=== PATIENT | male | born 1950 | race Caucasian/White ===

== ENCOUNTER 2023-09-09 06:54 | Day surgery (SDC) | payer MEDICARE, SELFPAY ==
[2023-09-09 07:36] LABS: Glucose - Point of Care 115 mg/dl (70-99)
== END 2023-09-09 09:25 | disposition home or self-care (01) ==
LOC: CATH 06:54
PROVIDERS: ATTENDING PHYSICIAN Internal Medicine Cardiovascular Disease; FAMILY PHYSICIAN Family Medicine
DX: I08.1 Rheumatic disorders of both mitral and tricuspid valves (principal); I48.91 Unspecified atrial fibrillation; I44.7 Left bundle-branch block, unspecified; I12.9 Hypertensive chronic kidney disease with stage 1 through stage 4 chronic kidney disease, or unspecified chronic kidney disease; E11.22 Type 2 diabetes mellitus with diabetic chronic kidney disease; N18.31 Chronic kidney disease, stage 3a; E78.5 Hyperlipidemia, unspecified; G47.33 Obstructive sleep apnea (adult) (pediatric); Z87.891 Personal history of nicotine dependence; Z79.82 Long term (current) use of aspirin; Z79.01 Long term (current) use of anticoagulants; Z79.84 Long term (current) use of oral hypoglycemic drugs; Z79.4 Long term (current) use of insulin
CPT/HCPCS: 93312; 93320; 93325; 82962; 92960; 93005

== ENCOUNTER 2023-10-17 14:57 | Outpatient (RCR) | payer MEDICARE, SELFPAY ==
[2023-09-24 10:57] LABS: Glucose - Point of Care 160 mg/dl (70-99)
[2023-10-01 14:39] LABS: Glucose - Point of Care 166 mg/dl (70-99)
[2023-10-01 15:35] LABS: Glucose - Point of Care 141 mg/dl (70-99)
[2023-10-03 14:44] LABS: Glucose - Point of Care 157 mg/dl (70-99)
[2023-10-03 15:37] LABS: Glucose - Point of Care 127 mg/dl (70-99)
[2023-10-06 15:50] LABS: Glucose - Point of Care 93 mg/dl (70-99)
[2023-10-08 14:40] LABS: Glucose - Point of Care 148 mg/dl (70-99)
[2023-10-08 15:27] LABS: Glucose - Point of Care 121 mg/dl (70-99)
[2023-10-10 14:43] LABS: Glucose - Point of Care 172 mg/dl (70-99)
[2023-10-10 15:35] LABS: Glucose - Point of Care 146 mg/dl (70-99)
[2023-10-13 14:56] LABS: Glucose - Point of Care 164 mg/dl (70-99)
[2023-10-13 16:01] LABS: Glucose - Point of Care 125 mg/dl (70-99)
[2023-10-15 15:05] LABS: Glucose - Point of Care 131 mg/dl (70-99)
[2023-10-15 15:49] LABS: Glucose - Point of Care 116 mg/dl (70-99)
[2023-10-17 14:42] LABS: Glucose - Point of Care 169 mg/dl (70-99)
[2023-10-17 15:37] LABS: Glucose - Point of Care 149 mg/dl (70-99)
== END 2023-10-17 23:59 | disposition home or self-care (01) ==
LOC: CRHB 14:57
PROVIDERS: Internal Medicine Cardiovascular Disease; ATTENDING PHYSICIAN Internal Medicine Cardiovascular Disease
DX: I25.10 Atherosclerotic heart disease of native coronary artery without angina pectoris (principal); Z95.5 Presence of coronary angioplasty implant and graft
CPT/HCPCS: 82962; G0422; G0423

== ENCOUNTER 2023-10-20 02:05 | Inpatient (IN) | payer MEDICARE, SELFPAY ==
[2023-10-19 23:37] VITALS: BP 157/114
--- NOTE | 2023-10-19 23:39 | ED.GENMED ---
History of Present Illness
General
Chief Complaint: Fall
Source: patient
Exam Limitations: none
Time Seen by Provider: 10/19/23 23:35
Nursing documentation reviewed up to this point in time: agreed with
History of Present Illness
History of Present Illness:
This a pleasant 73-year-old male brought in by EMS after a trip and fall. He states that his shoe caught on the carpet and he tripped landing on his left hip. He states that he did strike his head but denies loss of consciousness. He is on
Eliquis and Plavix for atrial fibrillation. Patient denies any other injuries. He was unable to ambulate after the fall. He does have chronic back pain and radiculopathy down both legs. He does not feel that this was a factor in his fall.
Past History
Past History
ED Past Medical History: HTN and Hypercholesterolemia
ED Past Surgical History: None
Social History
Tobacco: Non-smoker
Personal:
Living: with family
Family History
Family History: Other (reviewed and non-contributory)
Review of Systems
Review of Systems
Allergies reviewed?: Yes
All Other Systems: ROS reviewed and negative except as documented in HPI and ROS
Constitutional: Reports no symptoms
EENT: Reports no symptoms
Respiratory: Reports no symptoms
Cardiac: Reports no symptoms
ABD/GI: Reports no symptoms
: Reports no symptoms
Musculoskeletal: Reports joint pain and back pain (chronic)
Skin: Reports no symptoms
Neurological: Reports no symptoms
Endocrine: Reports no symptoms
Hematologic/Lymphatic: Reports no symptoms
Psychiatric: Reports no symptoms
Phy Exam
General Physical Exam
General Presentation: well appearing and mild distress (Initially refused pain meds)
General age: appears stated age
General Skin: warm and dry
General Habitus: elderly
General Mental: alert
General Hydration: appears well hydrated
ENT Exam
ENT Exam: EOMI, pharynx normal, neck supple and normocephalic
Eye Exam
Eye Exam: PERRL, cornea clear and conjunctiva normal
Cardiovascular Exam
Cardiovascular Exam: regular rate/rhythm, no edema, no murmur and normal peripheral pulses
Pulmonary Exam
Pulmonary Exam: lungs clear, no respiratory distress, no rales, no crackles, no rhonchi, no stridor, no wheezing and no cough
Gastrointestinal Exam
Gastrointestinal Exam: normal bowel sounds, non tender, soft, no organomegaly, no pulsatile mass and non distended
Neurological Exam
Neurological Exam: alert, oriented x3, no motor deficits and speech normal
Musculoskeletal Exam
Musculoskeletal Exam: back tenderness (chronic) and joint swelling
Skin Exam
Skin Exam: normal color, warm/dry, no rash and no petechia
Psychiatric Exam
Psychiatric Exam: normal mood/affect
Course
Orders/Labs/Results
Orders:
Orders
10/19/23 23:37
Comprehensive Metabolic Panel Urgent
PTT Urgent
Prothrombin Time Urgent
Urinalysis Reflex To Culture Urgent
Date Specimen was Collected: 10/19/23
Time Specimen was Collected: 23:54
10/20/23 00:00
CT Head W/o Iv Contrast Urgent
Reason For Exam: head strike after trip and fall
10/20/23 00:02
CR Hip - LT w/wo Pel 2-3 Vw* Urgent
Reason For Exam: trip, left hip pain
Include a pelvis x-ray?: Yes
10/20/23 00:56
Complete Blood Count/With Diff Urgent
10/20/23 01:04
Morphine Sulfate 4 mg IV NOW STA
Ondansetron Injectable [Zofran] 4 mg IV NOW STA
Abnormal Lab Results
10/20/23
00:04
BUN 35 H mg/dl
(9-20)
Glucose 153 H mg/dl
(70-99)
Calcium 11.3 H mg/dl
(8.4-10.2)
Total Protein 8.4 H g/dl
(6.3-8.2)
Urine Glucose 3+ A
(Negative)
10/20/23 00:04
Vital Signs
Initial and Last Documented VS:
Initial Vital Signs
BP
157/114
10/19/23 23:37
Last Documented Vital Signs
Temp Pulse Resp BP Pulse Ox
97.7 F 58 15 154/95 95
10/19/23 23:41 10/19/23 23:41 10/19/23 23:41 10/20/23 00:00 10/20/23 00:06
*Critical Care Note
Total Time (30-74mins, 75-104mins- exclusive of procedures): Not Applicable
ED Attending Note
-
Portions of this chart may have been created with voice recognition software.� Occasional wrong word or��sound alike� substitutions may have occurred due to the inherent limitations of voice recognition software.
Discharge Plan
Departure
Patient Disposition: Admit
Date of Disposition: 10/20/23
Time of Disposition: 00:55
Presentation/result/management discussed w/ accepting MD/DO: Hospitalist
Condition: Good
Discharge Problem:
Closed fracture of left hip, Fall
Prescriptions:
No Action
atorvastatin 20 MG tablet
80 mg PO DAILY
coenzyme [id number] E 1 CAP capsule
3 cap PO DAILY
multivitamin with folic acid [Tab-A-Verna] 1 TABLET tablet
1 tab PO DAILY
cholecalciferol (vitamin D3) [Vitamin D3] 400 UNITS tablet
400 units PO DAILY
escitalopram oxalate 20 MG tablet
20 mg PO DAILY
levomefolate calcium [L-Methylfolate] 15 MG tablet
15 mg PO DAILY
potassium 99 mg Tablet
99 mg PO DAILY
olmesartan 40 mg Tablet
40 mg PO DAILY
senna-docusate sodium Tablet
1 tab PO DAILY
Eliquis 5 mg Tablet
5 mg PO BID
Jardiance 10 mg Tablet
10 mg PO DAILY
Glucosamine Chondroitin 550-30-1 mg Capsule
2 cap PO DAILY
Levemir U-100 Insulin 1,000 UNITS/10 ML solution
20 units SC HS
clopidogrel [clopidogrel] 75 mg tablet
75 mg PO DAILY Qty: 90 3RF
nitroglycerin [nitroglycerin] 0.4 mg tablet, sublingual
0.4 mg sublingual [id number] PRN (Reason: chest pain) Qty: 25 2RF
Patient Comments:
Pt states never opened/used
ferrous sulfate 325 mg (65 mg iron) Tablet
325 mg PO DAILY
metoprolol succinate 25 mg Tablet Extended Release 24 Hr
25 mg PO DAILY
Referrals:
Misha Henson MD [Family Provider] -
Interventions
Interventions:
*Risk Screen - Suicide Last Done: 10/19/23 23:44
*General Assessment Last Done: 10/19/23 23:44
*Neglect/Abuse Screening Last Done: 10/19/23 23:44
ED- Fall Risk Assessment Last Done: 10/19/23 23:44
*ED COVID-19 Vaccine History Last Done: 10/19/23 23:44
ED-Musculoskeletal Assessment Last Done: 10/19/23 23:44
ED- Neurological Assessment Last Done: 10/19/23 23:44
ED-Skin Assessment Last Done: 10/19/23 23:44
Discharge Date and Time
Print Language: SAMOAN
[2023-10-19 23:41] VITALS: BP 157/114
[2023-10-19 23:44] VITALS: BMI 31.6
[2023-10-20] VITALS (9 sets, daily range): BP systolic 93–155; BP diastolic 52–108; BMI 32.0
[2023-10-20 00:17] LABS: Urine Albumin Trace (Neg - Trace); Urine Bilirubin Negative (Negative); Urine Character Clear (Clear); Urine Color Yellow; Urine Glucose 3+ (Negative); Urine Ketone Negative (Negative); Urine Leukocyte Negative (Negative); Urine Nitrite Negative (Negative); Urine Occult Blood Negative (Negative); Urine Specific Gravity 1.015 (<1.030); Urine Urobilinogen Negative (Neg - 1+)
[2023-10-20 00:27] LABS: INR 1.01; PT 13.1 Sec (11.4-14.6)
[2023-10-20 00:41] LABS: ALT (SGPT) 34 U/L (0-50); AST (SGOT) 31 U/L (17-59); Albumin 4.6 g/dl (3.5-5.0); Alkaline Phosphatase 70 U/L (38-126); Blood Urea Nitrogen 35 mg/dl (9-20); Calcium 11.3 mg/dl (8.4-10.2); Carbon Dioxide 26 mmol/L (22-30); Chloride 105 mmol/L (98-107); Estimated Creatinine Clearance 75 ml/min; Glucose 153 mg/dl (70-99); Potassium 4.5 mmol/L (3.5-5.1); Sodium 144 mmol/L (135-145); Total Bilirubin 0.5 mg/dl (0.2-1.3); Total Protein 8.4 g/dl (6.3-8.2); eGFR > 60.00
[2023-10-20] MEDS: MORPHINE SULFATE 4 MG IV (01:09)
[2023-10-20] MEDS: ZOFRAN 4 MG IV (01:09)
[2023-10-20 01:10] LABS: % Basophils 0.5 % (0-2); % Eosinophils 3.9 % (0-6); % Immature Granulocytes 0.2 % (0-0.5); % Lymphocytes 26.7 % (20.5-51.1); % Monocytes 5.4 % (1.7-9.3); % Neutrophils 63.3 % (42.2-75.2); Absolute Eosinophils 0.3 10^3/uL (0-0.7); Absolute Lymphocytes 1.7 10^3/uL (1.2-3.4); Absolute Monocytes 0.3 10^3/uL (0.1-0.6); Hematocrit 40.3 % (39.0-52.0); Mean Corp Hgb Conc. 34.7 g/dL (33.0-37.0); Mean Corpuscular Hgb 30.5 pg (27.0-31.0); Mean Corpuscular Volume 87.8 fL (80.0-94.0); Mean Platelet Volume 9.4 fL (7.4-10.4); Nucleated Red Blood Cells % 0 % (-); Platelet Count 130 10^3/uL (130-400); Red Blood Cell Count 4.59 10^6/uL (4.70-6.10); Red Cell Dist. Width 12.8 % (11.5-14.5); White Blood Cell Count 6.3 10^3/uL (4.8-10.8)
--- NOTE | 2023-10-20 01:36 | HPS.HSE ---
Family Physician
-
Family Physician: Misha Henson
Chief Complaint
-
Fall and Lt hip pain
History of Present Illness
73M on Plvix & Eliquis, HX Prx AF s/p DC CV ( Aug 2023) HX HFrEF with LVEF 20%, IDDM, CK3a, HLD BiB EMS s/p mechanical fall landing on Lt hip and report head stike. No LOC.
Unable to wt bear and ambulate after the fall.
HX chronic back pain and radiculopathy down both legs.
last dose of Eliquis abd Plavix yesterday
Medical History
Past Medical History
Past Medical History: Reports Other
Additional Past Medical History:
HX Prx AF s/p DC CV in Aug 2023
HX ight internal carotid artery stenosis, 50-69% range.
Essential hypertension.
Hyperlipidemia.
Obstructive sleep apnea on CPAP.
Folic acid deficiency.
Depression.
Melanoma of abdomen and back with azeb
Past Surgical History: Reports Other
Social History
Tobacco: Non-smoker
Personal:
Living: With Family
Family History
Family History: Not pertinent
Allergies / Home Medications
Allergies reflects when Allergies were last updated in [facility].
Home Medications with original date entered in [facility]
Allergy/Medication List:
Allergies
Allergy/AdvReac Type Severity Reaction Status Date / Time
No Known Allergies Allergy Verified 08/08/23 06:48
Home Medications
atorvastatin 20 mg tablet 80 mg PO DAILY High cholesterol 09/26/20
cholecalciferol (vitamin D3) 10 mcg (400 unit) tablet (Vitamin D3) 400 units PO DAILY Supplement 09/26/20
coenzyme [id number] E 100 mg-100 unit capsule 3 cap PO DAILY Supplement 09/26/20
multivitamin with folic acid 400 mcg tablet (Tab-A-Verna) 1 tab PO DAILY Supplement 09/26/20
escitalopram oxalate 20 mg tablet 20 mg PO DAILY Depression 02/25/21
levomefolate calcium 15 mg tablet (L-Methylfolate) 15 mg PO DAILY Depression 02/26/21
apixaban 5 mg tablet (Eliquis) 5 mg PO BID 08/08/23
clopidogrel 75 mg tablet 75 mg PO DAILY #90 tabs 08/08/23
empagliflozin 10 mg tablet (Jardiance) 10 mg PO DAILY 08/08/23
glucosamine sulf dipot chlr,msm,chond 550 mg-C 30 mg-rupali 1 mg capsule (Glucosamine Chondroitin) 2 cap PO DAILY 08/08/23
insulin detemir U-100 100 unit/mL subcutaneous solution (Levemir U-100 Insulin) 20 units SC HS 08/08/23
nitroglycerin 0.4 mg sublingual tablet 0.4 mg sublingual [id number] PRN chest pain #25 tabs 08/08/23
olmesartan 40 mg tablet 40 mg PO DAILY 08/08/23
potassium 99 mg tablet 99 mg PO DAILY 08/08/23
senna-docusate sodium tablet 1 tab PO DAILY 08/08/23
ferrous sulfate 325 mg (65 mg iron) tablet 325 mg PO DAILY 09/09/23
metoprolol succinate 25 mg tablet,extended release 24 hr 25 mg PO DAILY 09/09/23
Review of Systems
-
Constitutional: Reports No Symptoms
EENT: Reports No Symptoms
Respiratory: Reports No Symptoms
Cardiac: Reports No Symptoms
Abdomen/GI: Reports No Symptoms
: Reports No Symptoms
Musculoskeletal: Reports See HPI
Skin: Reports No Symptoms
Neurological: Reports No Symptoms
Endocrine: Reports No Symptoms
Hematologic/Lymphatic: Reports No Symptoms
Psych: Reports No Symptoms
Physical Exam
Vital Signs
Vital Signs
Temp Pulse Resp BP Pulse Ox
97.7 F 58 15 154/95 95
10/19/23 23:41 10/19/23 23:41 10/19/23 23:41 10/20/23 00:00 10/20/23 00:06
Physical Exam
General: Well Developed, Appears in Distress (mild ) and Pain (refuse pain med)
HEENT: NormoCephalic, Anicteric and PERRLA
Respiratory: Clear; No Wheezes, Rales or Rhonchi
Cardiac: S1/S2, Regular Rhythm and Bradycardia
Breast: Deferred by me
GI: Soft, Non Tender, Non Distended and Normal Bowel Sounds
Genito-urinary: Deferred by me
Musculoskeletal: No Edema
Skin: Warm and Dry
Neuro: AO x 3
Psych: Calm
Laboratory Results
-
10/20/23 01:04
10/20/23 00:04
Laboratory Results
PT 13.1 Sec (11.4-14.6) 10/20/23 00:04
INR 1.01 10/20/23 00:04
APTT 30.0 Sec (23.4-35.0) 10/20/23 00:04
Total Bilirubin 0.5 mg/dl (0.2-1.3) 10/20/23 00:04
AST 31 U/L (17-59) 10/20/23 00:04
ALT 34 U/L (0-50) 10/20/23 00:04
Alkaline Phosphatase 70 U/L (38-126) 10/20/23 00:04
Data Reviewed
-
Diagnostic Radiology: Image Personally Visualized and interpreted
CT Scan: Report Reviewed by me
Lab Data: Labs Reviewed by me
Old Records: Reviewed
Impression/Plan
-
Reviewed VS: HR 58 on BB 155/95 RR15 POX 95
Data
nl CBC
BUN 35
Cr 1.2
eGFR > 60
BG 153
Ca 11.3 - baseline 9-10
NEG UA
Hip XR: Acute Lt hip Fx
HCT: No acute process
09/09/23 KIANA for DC CV of symptomatic AF : Restore NSR
LVEF 20%
08/10/23 TTE
LVEF 20%
Global hypokinesis.
Mild/mod MR
Enlarged right ventricular size. Normal right ventricular systolic function.
Mildly elevated PASP. Estimated pulmonary artery pressure of 41 mmHg, assuming a right atrial pressure of 8 mmHg.
Last hospitalist admission: 02/26/21 - 03/02/21
Rt Radha cellulitis c/b sepsis. ANN on CKD 3a
ASSESSMENT & PLAN
Acute Lt hip Fx s/p fall
Last Eliquis and Plavix yesterday
Extensive Cardiac HX : Chr HFrEF, LVEF 20, Prx AF
RCRI index Class III 10.1 % 30 day risk of , TN or cardiac arrst
- Held Plavix & Eliquis
- EKG
- Fx set protocol
- will keep on clear
- Pre Op CBC card consult
- Ortho consult: Likely OR Friday
Current e GFR > 60
HX of CKD3 likely from diabetic nephropathy: Baseline: Cr 1.6 on Sep 09
- No longer Olmesartan
- cont. Lasix
- Observe Cr
Hypercalcemia 11.3
- held HCTZ
- check iPTH
- Trend Ca in AM
HX IDDM
- cont PT Levemir and aspart regime
- add ISS low
HX Right ICA stenosis - 50-69% range
09/25/20 Brain MRI showing 2 mm area of questionable artifact vs subacute cva on left frontal lobe.
- Lipitor
- Held Plavix for pending OR
Essential HTN
- no longer on Olmesartan
- add IV Hydralazine prn
Hyperlipidemia
- cont Lipitor
DEBORAH on CPAP
- f/u with Dr Russell
- compliant per family
Folic acid def
Depression
Melanoma abd and back with removal
DVT PPX - SQH
Full code
IP TLM
[2023-10-20] MEDS: DILAUDID 0.25 MG IV ×3 (03:28→23:20)
--- NOTE | 2023-10-20 03:36 | RESPNOTE ---
Pt has own machine. Alex not signed as pt is in severe pain and will not use the cpap machine as of now.
[2023-10-20] MEDS: TYLENOL PO (04:41)
[2023-10-20] MEDS: FLOMAX 0.400000000000000022 MG PO (07:14)
[2023-10-20 08:20] LABS: Glucose - Point of Care 179 mg/dl (70-99)
--- NOTE | 2023-10-20 08:20 | W.PN.UPDATE ---
Update Note
Progress Note Update
Saw and examined patient this morning.
Plan for OR tomorrow for left hip esther arthroplasty for femoral neck fracture
Formal consult note to follow
[2023-10-20] MEDS: TOPROL XL 25 MG PO (08:54)
[2023-10-20] MEDS: JARDIANCE 10 MG PO (08:55)
[2023-10-20] MEDS: LEXAPRO 20 MG PO (08:55)
[2023-10-20] MEDS: TYLENOL 650 MG PO ×4 (08:55→20:21)
[2023-10-20] MEDS: LIPITOR 80 MG PO (08:55)
--- NOTE | 2023-10-20 10:17 | CM ---
Reviewed the chart notes and spoke with the patient at the beside. The patient resides alone in a two story home with two steps to enter. The patient's spouse passed in July. The patient report having a rolling walker in the home which was his
's. The patient has had [facility] in the past and been to [facility]. The patient confirmed his pharmacy of choice is the [facility]. The patient's discharge plans will depend on the patient's progress. The patient anticipates going to the
OR tomorrow for hip fx repair. CM continues to be available to patient/family and is monitoring medical plan for needs at discharge.
Plan: Discharge plans will depend on the patient's progress. May need SNF.
--- NOTE | 2023-10-20 11:09 | CON.CAR ---
Addendum entered and electronically signed by Lee Vanegas MD 10/20/23 12:02:
The plan should read: resume Eliquis and Plavix as soon as it is reasonable from the orthopedic perspective.
The patient reports that he is on Entresto.
We will watch and resume Entresto as he recovers from surgery.
We may add Aldactone during this index hospitalization.
Original Note:
Medical History
-
Chief Complaint: Left hip pain status post fall
History of Present Illness:
PCP Sky Hidalgo
[employer] Rad Brooks
Thank you for requesting cardiovascular consultation for a preop risk assessment. He is a 73-year-old gentleman with longstanding diabetes and hypertension. More recently an ischemic cardiomyopathy with two-vessel CAD was found when he was
evaluated for new atrial fibrillation. Cardiomyopathy was found. Medications have been adjusted. He continues to have class 1(at most 2 symptoms). He tolerated stenting of the proximal LAD recently (08/08/2023). No angina. Mild dyspnea exertion
could be class I or II symptoms.
He had a slip and fall/mechanical. No concerns for syncope. Fractured his left proximal femur. Scheduled for surgery tomorrow. Cardiac risk assessment requested.
Past Medical History
Past Medical History: Arrhythmias, CAD, CHF, HTN and NIDDM
Past Surgical History: Cholecystectomy
Social History
Tobacco: Former Smoker
Employment: Retired
Family History
Family History: Other (No premature CAD in first-degree relatives.)
Allergies / Home Medications
Allergy/AdvReac Type Severity Reaction Status Date / Time
No Known Allergies Allergy Verified 08/08/23 06:48
�Medication �Instructions �Recorded �Confirmed �Type
atorvastatin 20 mg tablet 80 mg PO DAILY High cholesterol 09/26/20 09/09/23 History
cholecalciferol (vitamin D3) 10 400 units PO DAILY Supplement 09/26/20 09/09/23 History
mcg (400 unit) tablet (Vitamin D3)
coenzyme [id number]-[id number] E 100 mg-100 3 cap PO DAILY Supplement 09/26/20 09/09/23 History
unit capsule
multivitamin with folic acid 400 1 tab PO DAILY Supplement 09/26/20 09/09/23 History
mcg tablet (Tab-A-Verna)
escitalopram oxalate 20 mg tablet 20 mg PO DAILY Depression 02/25/21 09/09/23 History
levomefolate calcium 15 mg tablet 15 mg PO DAILY Depression 02/26/21 09/09/23 History
(L-Methylfolate)
apixaban 5 mg tablet (Eliquis) 5 mg PO BID 08/08/23 09/09/23 History
clopidogrel 75 mg tablet 75 mg PO DAILY #90 tabs 08/08/23 09/09/23 Rx
empagliflozin 10 mg tablet 10 mg PO DAILY 08/08/23 09/09/23 History
(Jardiance)
glucosamine sulf dipot 2 cap PO DAILY 08/08/23 09/09/23 History
chlr,msm,chond 550 mg-C 30 mg-rupali
1 mg capsule (Glucosamine
Chondroitin)
insulin detemir U-100 100 unit/mL 20 units SC HS 08/08/23 09/09/23 History
subcutaneous solution (Levemir
U-100 Insulin)
nitroglycerin 0.4 mg sublingual 0.4 mg sublingual [id number] PRN 08/08/23 09/09/23 Rx
tablet chest pain #25 tabs
olmesartan 40 mg tablet 40 mg PO DAILY 08/08/23 09/09/23 History
potassium 99 mg tablet 99 mg PO DAILY 08/08/23 09/09/23 History
senna-docusate sodium tablet 1 tab PO DAILY 08/08/23 09/09/23 History
ferrous sulfate 325 mg (65 mg 325 mg PO DAILY 09/09/23 09/09/23 History
iron) tablet
metoprolol succinate 25 mg 25 mg PO DAILY 09/09/23 09/09/23 History
tablet,extended release 24 hr
Review of Systems
-
Constitutional: Fatigue
Respiratory: No Symptoms
Cardiac: No Symptoms
Abdomen/GI: No Symptoms
Musculoskeletal: Joint Pain
Neurological: No Symptoms
Physical Exam
Vital Signs
Temp Pulse Resp BP Pulse Ox
98 F 98 20 116/78 96
10/20/23 07:16 10/20/23 08:54 10/20/23 07:16 10/20/23 08:54 10/20/23 07:16
Lab Results
10/20/23 01:04
10/20/23 00:04
Physical Exam
General: Well Developed and Well Nourished
HEENT: Normocephalic
Respiratory: Clear
Cardiac: S1/S2, Irregular Rhythm and Other (No murmur no peripheral edema)
GI: Soft and Non Tender
Musculoskeletal: No Edema
Skin: Warm and Dry
Neuro: AO x 3
Psych: Calm
Impression / Plan
-
Preop Risk Assessment
- Elevated but not prohibitive risk
- OK to proceed with usual care
- Resume Eliquis and Plavix
- Will give ASA 324 now and 81 mg daily until Plavix and Eliquis can be resumed
Fracture, neck, proximal left femur
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
- NHYA class 1-2
- On ARNI, HF BB, SGLT-Inhibitor. Plans for MRA initiation
- Not on loop diuretic
CAD
- Cath/PCI 08/08/2023: LVEDP 20, LVEF 15-20%, 70 pLAD, 50 ostial D1, 100% pRCA, 30-40% pLCx. PCI/MAINE to pLAD
- No angina
- Plan OAT+Plavix one year post PCI
AFib, persistent, recurred quickly after KIANA/DCCV on 09/09/2023
- [id number] (HF, HTN, DM, age2, vascular disease)
- Rate OK on BB
- Patient considering pursuing ablation
Mild to moderate MR
IVCD (atyp LBBB), LAD, QRS 128-142,
DM
HTN
Chronic R LE edema
Hx sleep apnea
BMI 32
Mixed hyperlipidemia, goal LDL < 55. Last LDL 91 on 09/02/2023. On high intensity statin now
Subjective:
No CP or dyspnea
Data Reviewed
-
EKG: Tracing Personally Visualized and interpreted (A-fib 129 bpm. IVCD. QRS 120 ms.)
Radiology: Image Personally Visualized and interpreted (Hip x-ray I visualized the fracture of the neck of the proximal left femur)
Ultrasound: Other (Echo reviewed report 08/01/2023 LVEF 20% global hypomild to moderate MR. Dilated RV with normal function. Mild elevation of the RA and PA pressures)
Medical Tests (Nuc Med, Echo etc): Other (Cardiac cath as described above. Report reviewed. Double vessel disease. Proximal LAD stent. July 2023)
Total Time Spent with Patient (in minutes): 80min, review of records, examine, prepare document
[2023-10-20] MEDS: ASPIRIN 325 MG PO (11:36)
[2023-10-20 12:04] LABS: Glucose - Point of Care 218 mg/dl (70-99)
[2023-10-20 16:39] LABS: Glucose - Point of Care 223 mg/dl (70-99)
--- NOTE | 2023-10-20 16:48 | W.PN.UPDATE ---
Update Note
Progress Note Update
non billable note
pt seen
son updated
pt/family interested in abad rehab if possible post discharge
apprec cards/ortho help
--- NOTE | 2023-10-20 20:20 | CON.ORTHO ---
Consultation
-
Date/Time Consultation Requested: 1 AM 10/20/2023
Date/Time Consultation Performed: 745 AM 10/20/2023
Requesting Provider: Yamileth
Performing Provider: Krista
Reason for Consultation: left femoral neck fracture
Consultation - Orthopedics
History
HPI: 73-year-old male presents to the emergency department status post fall with complaints of left hip pain. He was subsequently diagnosed with left femoral neck fracture and admitted to the hospital service. Orthopedics was consulted for further
evaluation and treatment. Patient reports that he got his foot caught on some carpet at home. He localizes pain to the left groin. Pain is made worse with direct palpation of affected area with any attempted ambulation. Does have a significant
cardiac history recently underwent stenting procedure in July. Unfortunately also reports that his from a long moore with cancer earlier this year. He does not report using cane or walker for ambulatory assistance but he does
report that he is quite sedentary at baseline. He denies any pre-existing left hip or groin pain. He does report that his most recent dose of Eliquis was 10/18/2023
Allergies / Home Medications
Past medical history: Hypertension, hypercholesterolemia, coronary artery disease, melanoma, depression, A-fib
Past surgical history: Cardiac stenting
Family history: Not pertinent
Social history:
Allergy/AdvReac Type Severity Reaction Status Date / Time
No Known Allergies Allergy Verified 08/08/23 06:48
�Medication �Instructions �Recorded
atorvastatin 20 mg tablet 80 mg PO DAILY High cholesterol 09/26/20
cholecalciferol (vitamin D3) 10 400 units PO DAILY Supplement 09/26/20
mcg (400 unit) tablet (Vitamin D3)
coenzyme W92-[id number] E 100 mg-100 3 cap PO DAILY Supplement 09/26/20
unit capsule
multivitamin with folic acid 400 1 tab PO DAILY Supplement 09/26/20
mcg tablet (Tab-A-Verna)
escitalopram oxalate 20 mg tablet 20 mg PO DAILY Depression 02/25/21
levomefolate calcium 15 mg tablet 15 mg PO DAILY Depression 02/26/21
(L-Methylfolate)
apixaban 5 mg tablet (Eliquis) 5 mg PO BID 08/08/23
clopidogrel 75 mg tablet 75 mg PO DAILY #90 tabs 08/08/23
empagliflozin 10 mg tablet 10 mg PO DAILY 08/08/23
(Jardiance)
glucosamine sulf dipot 2 cap PO DAILY 08/08/23
chlr,msm,chond 550 mg-C 30 mg-rupali
1 mg capsule (Glucosamine
Chondroitin)
insulin detemir U-100 100 unit/mL 20 units SC HS 08/08/23
subcutaneous solution (Levemir
U-100 Insulin)
nitroglycerin 0.4 mg sublingual 0.4 mg sublingual [id number] PRN 08/08/23
tablet chest pain #25 tabs
olmesartan 40 mg tablet 40 mg PO DAILY 08/08/23
potassium 99 mg tablet 99 mg PO DAILY 08/08/23
senna-docusate sodium tablet 1 tab PO DAILY 08/08/23
ferrous sulfate 325 mg (65 mg 325 mg PO DAILY 09/09/23
iron) tablet
metoprolol succinate 25 mg 25 mg PO DAILY 09/09/23
tablet,extended release 24 hr
Vital Signs / Lab Results
Temp Pulse Resp BP Pulse Ox
97.9 F 72 16 104/52 97
10/20/23 19:12 10/20/23 19:12 10/20/23 19:12 10/20/23 19:12 10/20/23 19:12
10/20/23 01:04
10/20/23 00:04
10 point review systems reviewed and negative unless otherwise stated
General: Pleasant, no acute distress
Musculoskeletal left lower extremity
Skin intact, no erythema, no ecchymotic staining
Extremity shortened externally rotated
Tenderness palpation over groin and lateral trochanteric flare
Pain with logroll
Positive EHL, FHL, ankle dorsiflexion, plantarflexion
Sensation intact to light touch all distributions distally
Brisk cap refill distally
No other areas of bony tenderness palpation or crepitation on tertiary examination of long bones and joints
Diagnostic studies
X-rays left hip show displaced left femoral neck fracture
Assessment / Plan
73-year-old male cardiac history status post fall with left displaced femoral neck fracture. I do long detailed discussion the patient regarding diagnosis and treatment options. We discussed both surgical and nonsurgical options. After
discussion, we mutually elected to proceed with left hip hemiarthroplasty. We did specifically discuss both total hip arthroplasty as well as hemiarthroplasty. Given the patient's lack of pre-existing degenerative joint disease as well as his
relatively sedentary lifestyle and inactivity, my recommendation proceed with left hip hemiarthroplasty and he was in agreement with this. We discussed risks benefits and alternatives of surgery. We discussed the usual expected perioperative and
postoperative course. After discussion, written informed consent will be obtained.
Nonweightbearing left lower extremity
PT OT: Deferred until postoperative setting
DVT prophylaxis: Please hold in preparation for OR
N.p.o. at midnight
Pain control
Medical management per primary team
Plan: 2 OR tomorrow for left hip hemiarthroplasty pending medical/cardiac clearance in OR availability
[2023-10-20] MEDS: COLACE 100 MG PO (20:21)
[2023-10-20] MEDS: SENOKOT 17.1999999999999993 MG PO (20:21)
[2023-10-20 21:34] LABS: Glucose - Point of Care 109 mg/dl (70-99)
[2023-10-21] VITALS (11 sets, daily range): BP systolic 82–138; BP diastolic 47–86; BMI 32.3
[2023-10-21] MEDS: TYLENOL PO ×6 (00:34→20:03)
[2023-10-21 06:48] LABS: % Basophils 0.5 % (0-2); % Eosinophils 7.5 % (0-6); % Immature Granulocytes 0.4 % (0-0.5); % Neutrophils 66.6 % (42.2-75.2); Absolute Eosinophils 0.6 10^3/uL (0-0.7); Absolute Lymphocytes 1.4 10^3/uL (1.2-3.4); Absolute Monocytes 0.5 10^3/uL (0.1-0.6); Absolute Neutrophils 5.2 10^3/uL (1.4-6.5); Hematocrit 38.8 % (39.0-52.0); Mean Corp Hgb Conc. 33.5 g/dL (33.0-37.0); Mean Corpuscular Hgb 30.4 pg (27.0-31.0); Mean Corpuscular Volume 90.7 fL (80.0-94.0); Nucleated Red Blood Cells % 0 % (-); Platelet Count 117 10^3/uL (130-400); Red Blood Cell Count 4.28 10^6/uL (4.70-6.10); Red Cell Dist. Width 12.8 % (11.5-14.5); White Blood Cell Count 7.7 10^3/uL (4.8-10.8)
[2023-10-21 06:48] LABS: Glucose - Point of Care 252 mg/dl (70-99)
[2023-10-21 07:22] LABS: ALT (SGPT) 27 U/L (0-50); AST (SGOT) 29 U/L (17-59); Albumin 3.5 g/dl (3.5-5.0); Alkaline Phosphatase 65 U/L (38-126); Blood Urea Nitrogen 37 mg/dl (9-20); Calcium 9.9 mg/dl (8.4-10.2); Carbon Dioxide 24 mmol/L (22-30); Chloride 107 mmol/L (98-107); Estimated Creatinine Clearance 63 ml/min; Glucose 124 mg/dl (70-99); Potassium 4.1 mmol/L (3.5-5.1); Sodium 136 mmol/L (135-145); Total Bilirubin 1.1 mg/dl (0.2-1.3); Total Protein 6.6 g/dl (6.3-8.2); eGFR 52.41
[2023-10-21] MEDS: LOW STRENGTH ASPIRIN PO (07:36)
[2023-10-21] MEDS: LIPITOR 80 MG PO (07:37)
[2023-10-21] MEDS: LEXAPRO 20 MG PO (07:37)
[2023-10-21] MEDS: SENOKOT 17.1999999999999993 MG PO ×2 (07:37→19:56)
[2023-10-21] MEDS: JARDIANCE 10 MG PO (07:37)
[2023-10-21] MEDS: COLACE 100 MG PO ×2 (07:37→19:56)
[2023-10-21] MEDS: TOPROL XL 25 MG PO (07:38)
--- NOTE | 2023-10-21 08:00 | PTCARENOTE ---
Addendum entered by Alise Magana RN 10/21/23 08:17:
Dr Wren and Dr Velasco notified, care remains ongoing.
Original Note:
Patient refused aspirin and tylenol this AM. Patient educated on medication purpose. Patient refused teaching and stated, 'it is just another NSAID and they are over prescribed'. RN to continue to reinforce.
--- NOTE | 2023-10-21 08:23 | W.PN.CD ---
Today's Communication / Plan
-
will continue 81 mg daily until Plavix and Eliquis can be resumed
resume olmesartan post op in lieu of Entresto
Impression / Plan
-
Preop Risk Assessment
- Elevated but not prohibitive risk
- OK to proceed with usual care
-Received ASA 324 now and will continue 81 mg daily until Plavix and Eliquis can be resumed
Fracture, neck, proximal left femur
-OR today
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
- NHYA class 1-2
- GDMT: HF BB, SGLT-Inhibitor. He reports he cannot afford Entresto.Will transition back to olmesartan 40mg post op. In the future will plan for MRA initiation
- Not on loop diuretic
CAD
- Cath/PCI 08/08/2023: LVEDP 20, LVEF 15-20%, 70 pLAD, 50 ostial D1, 100% pRCA, 30-40% pLCx. PCI/MAINE to pLAD
- No angina
- Plan OAT+Plavix one year post PCI
AFib, persistent, recurred quickly after KIANA/DCCV on 09/09/2023
- [id number] (HF, HTN, DM, age2, vascular disease)
- Rate OK on BB
- Patient considering pursuing ablation
-Resume Eliquis when able
Mild to moderate MR
IVCD (atyp LBBB), LAD, QRS 128-142,
DM
HTN
Chronic R LE edema
Hx sleep apnea
BMI 32
Mixed hyperlipidemia, goal LDL < 55. Last LDL 91 on 09/02/2023. On high intensity statin now
Subjective:
No CP or dyspnea, pain in the hip anxious for surgery
Physical Exam
Vital Signs/Labs
Vital Signs
Temp Pulse Resp BP Pulse Ox
98.5 F 69 18 138/86 96
10/21/23 07:39 10/21/23 07:39 10/21/23 07:39 10/21/23 07:39 10/21/23 07:39
10/20/23 10/21/23 10/22/23
06:59 06:59 06:59
Actual Weight 116.148 kg 117.254 kg
10/21/23 04:51
10/21/23 04:51
PT 13.1 Sec (11.4-14.6) 10/20/23 00:04
INR 1.01 10/20/23 00:04
APTT 30.0 Sec (23.4-35.0) 10/20/23 00:04
Physical Exam
Constitutional: No acute distress
Cardiovascular: Rhythm & rate is regular, Pedal edema is absent, JVD pressure is normal, Systolic murmur absent and Diastolic murmur absent
Respiratory: Respiratory effort normal, Lungs clear to auscul., Wheeze Absent and Rhonchi Absent
Neuro/Psych: AO x 3
Data Reviewed
-
Date of Service: October 21, 2023
--- NOTE | 2023-10-21 08:32 | W.PN.HOSP.TC ---
Today's Communication/Plan
-
add Protonix
start D5W1/2NS
Assessment / Plan
Assessment / Plan
Acute Lt hip Fx s/p fall
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
Extensive Cardiac HX : Chr HFrEF, LVEF 20%, Prx AF
RCRI index Class III 10.1 % 30 day risk of , NV or cardiac arrest
- Held Plavix & Eliquis
- admission EKG: SINUS TACHYCARDIA WITH FUSION COMPLEXES
LEFT AXIS DEVIATION
NON-SPECIFIC INTRA-VENTRICULAR CONDUCTION BLOCK
CANNOT RULE OUT SEPTAL INFARCT , AGE UNDETERMINED
ABNORMAL ECG
WHEN COMPARED WITH ECG OF 09-SEP-2023 08:38,
FUSION COMPLEXES ARE NOW PRESENT
ND INTERVAL HAS DECREASED
VENT. RATE HAS INCREASED BY 65 BPM
T WAVE INVERSION LESS EVIDENT IN LATERAL LEADS
- Fx set protocol
- will keep on clear
- Pre Op CBC card consult appreciated
- Ortho consult: OR scheduled 11AM 10/20
Current e GFR > 60
HX of CKD3 likely from diabetic nephropathy: Baseline: Cr 1.6 on Sep 09
- No longer Olmesartan
- cont. Lasix
- Observe Cr
Hypercalcemia resolved 11.3-->9.9
- held HCTZ
- check iPTH
HX IDDM
- cont PT Levemir and aspart regime
- add ISS low
will add low dose D51/2NS as pt will be NPO
HX Right ICA stenosis - 50-69% range
09/25/20 Brain MRI showing 2 mm area of questionable artifact vs subacute cva on left frontal lobe.
- Lipitor
- Held Plavix for pending OR
Essential HTN
- no longer on Olmesartan
- add IV Hydralazine prn
Hyperlipidemia
- cont Lipitor
DEBORAH on CPAP
- f/u with Dr Russell
- compliant per family
Folic acid def
Depression
Melanoma abd and back with removal
full code
will add low dose Protonix prophylactic
Anticipated Discharge: > 48 hours
Subjective/Interval History
-
Date of Service: October 21, 2023
In good spirits
Objective Data
-
Labs:
Laboratory Results
10/21/23
04:51
WBC 7.7
Hgb 13.0
Hct 38.8 L
Plt Count 117 L
Sodium 136 D
Potassium 4.1
Chloride 107
Carbon Dioxide 24
BUN 37 H
Creatinine 1.4 H
Glucose 124 H
Calcium 9.9
Total Bilirubin 1.1
AST 29
ALT 27
Alkaline Phosphatase 65
Vital Signs:
Vital Signs
Temp Pulse Resp BP Pulse Ox
98.5 F 69 18 138/86 96
10/21/23 07:39 10/21/23 07:39 10/21/23 07:39 10/21/23 07:39 10/21/23 07:39
I&O
10/20/23 10/21/23 10/22/23
06:59 06:59 06:59
Intake Total 660 / 660
Output Total 1230 / 1230
Balance -570 / -570
Review of Systems
-
History Source: Patient and Coordinated Provider
Constitutional: Denies Fever
EENT: Reports No Symptoms Reported
Respiratory: Reports No Symptoms; Denies Trouble Breathing
Cardiac: Reports No Symptoms; Denies Chest Pain
Abdomen/GI: Reports No Symptoms
Genitourinary: Reports No Symptoms
Musculoskeletal: Reports Joint Pain
Neuro: Reports No Symptoms
Physical Exam
-
General: Well Developed, Well Nourished and No Apparent Distress
HEENT: Normocephalic, Atraumatic and Moist Mucous Membranes
Respiratory: Clear to Auscultation; Negative Wheezes, Rales or Rhonchi
Cardiac: S1/S2 and Irregular Rhythm
GI: Nontender and Nondistended
Musculoskeletal: No Clubbing, No Cyanosis and No Edema
Neuro: Awake, Alert and Oriented
[2023-10-21] MEDS: NSS (PRESERVATIVE FREE) 10 ML IV (09:02)
[2023-10-21] MEDS: PROTONIX IV 40 MG IV (09:03)
[2023-10-21] MEDS: D5/0.45%NSS with KCL 10 MEQ 1000 IV (09:03)
[2023-10-21 12:39] LABS: Glucose - Point of Care 174 mg/dl (70-99)
--- NOTE | 2023-10-21 13:38 | CM ---
Reviewed the chart notes. Patient to OR today for hip fx repair. CM continues to be available to patient/family and is monitoring medical plan for needs at discharge.
Plan: Most likely SNF/rehab when medically stable.
--- NOTE | 2023-10-21 15:44 | OR.RPT ---
Operative Report
Operative Report
Anesthesia Type:
General
Operative Indications:
Displaced left femoral neck fracture
Operative Findings :
Displaced transcervical femoral neck fracture left
Complications:
None
Implants:
Rowan LD fracture size 14 cemented femoral stem, size 53 bipolar shell, 28+7 mm head
Procedure and Technique:
Left hip hemiarthroplasty
INDICATIONS FOR PROCEDURE:
73-year-old male significant cardiac history presented to the [place] emergency department status post mechanical fall. He was subsequently diagnosed with a displaced left femoral neck fracture. He was admitted to the hospitalist service and
orthopedics was consulted for further evaluation and treatment. I had a long discussion the patient regarding diagnosis and treatment options. We discussed both surgical and nonsurgical options. Patient denies any previous groin pain and had a
self-proclaimed sedentary lifestyle. Given his lifestyle, fracture pattern, my recommendation was to proceed with left hip hemiarthroplasty. We discussed risks benefits and alternatives of surgery. We discussed the usual expected perioperative
and postoperative course. After our discussion, verbal and written consent was obtained
OPERATIVE PROCEDURE:
Patient was seen identified in the preoperative holding area. Operative extremity was marked. All questions were addressed. He was taken to the operating room where he was placed in lateral decubitus position with the use of a beanbag on the OR
table. General anesthesia was administered. Operative extremity was prepped and draped in a normal sterile fashion. Timeout was performed again identifying the correct operative extremity. Preoperative antibiotics were addressed. Standard
posterolateral approach to the hip was taken. Sharp dissection was carried through skin subcutaneous tissues deep fascial layer. Extremity was slightly internally rotated to place short external rotators on stretch. Piriformis and short external
rotators were tagged and taken off sharply from the greater trochanter. T capsulotomy was performed and capsular leaflets were tagged. Femoral neck fracture was identified. Femoral head was able to be removed. Freshen up cut was then performed.
Size 55 bipolar shell was chosen and found to have adequate suction fit. Attention was then turned to the femur where soft tissue was removed from the piriformis fossa. Canal finder cookie cutter were used in addition to lateralizing reamer.
Stepwise broaching was performed to a size 14. Broach was removed and the femoral canal was prepared for cementing. Canal restrictor was placed. Femoral stem was then inserted into the femoral canal appropriate anteversion after pressurized
cementing. After cement hardened, trialing proceeded with both a size +3.5 and +7 head and size 7 head was found to restore appropriate length. There continued to be some instability with shuck and the head actually disassociated from the
acetabular shell. decision was made to downsize the bipolar shell to a size 53. Hip was taken through range of motion and deep flexion, adduction, shuck and extension found to be appropriately stable. Final head and shell were placed and again
appropriate stability was achieved. Satisfied with extent surgery, wounds copiously irrigated normal saline solution. Diluted Betadine rinse was also utilized. The short external rotators and piriformis in addition to capsular leaflets were then
repaired through osseous tunnels in the greater trochanter nonabsorbable Ethibond suture. Wounds were then closed in a layered fashion utilizing #1 Vicryl for deep fascial layer, 2-0 Vicryl for subcutaneous layer josie for skin. Aquacel dressing
was placed. Anesthesia was reversed patient was taken to PACU in stable condition. Postoperative plans will include weightbearing the patient's tolerance operative extremity. Will resume previously prescribed Eliquis daily for DVT prophylaxis.
Will recommend posterior hip precautions. Plan to see patient back in 2 to 3 weeks for repeat evaluation with planned removal of josie.
Disposition:
PACU stable condition
--- NOTE | 2023-10-21 16:33 | SUR.PHASEI ---
Patient disgruntled and uncooperative, removing monitors , oxygen, [id number] to situation. heart rate 120-130 on admit, Dr Torres informed. 200ml fluid bolus ordered. X-rays done with difficulty. rt leg circulation wnl, dressing dry. E C
elieser COLDFUSION.
[2023-10-21 16:51] LABS: Glucose - Point of Care 156 mg/dl (70-99)
[2023-10-21] MEDS: NSS 1000 IV (16:52)
[2023-10-21] MEDS: NOVOLOG FLEXPEN-LOW RESISTANCE SC (17:12)
[2023-10-21 17:24] LABS: Glucose - Point of Care 154 mg/dl (70-99)
--- NOTE | 2023-10-21 17:53 | PTCARENOTE ---
Addendum entered by Alise Magana RN 10/21/23 18:44:
Dr Simms made aware. No new orders at this time. Will continue to monitor.
Original Note:
1700: Patient arrived back to 2S. Neurovascular assessment completed. Doppler needed to assess L dorsal pedis pulse. Weak R dorsal pedis pulse. Patient very lethargic, but arouses to voice. 10L simple face mask on. SpO2 greater than 92%. IV fluids
running per order. L hip aquacell dressing in tact with small amount of old drainage. Call padgett within reach and bed in lowest position.
1745: A fib RVR on monitor. HR in the 140's Dr. Rg made aware.
1757: A fib RVR on monitor. HR in the 160's. Dr. Rg made aware.
[2023-10-21] MEDS: NOVOLOG FLEXPEN-LOW RESISTANCE 1 UNITS SC (18:24)
[2023-10-21] MEDS: ANCEF 5 IV (19:56)
[2023-10-21 22:57] LABS: Glucose - Point of Care 182 mg/dl (70-99)
[2023-10-21] MEDS: LEVEMIR 0.200000000000000011 UNITS SC (22:57)
[2023-10-22] VITALS (14 sets, daily range): BP systolic 87–144; BP diastolic 51–69; PULSE 101–171; O2SAT 98
[2023-10-22] MEDS: TYLENOL PO (00:09)
[2023-10-22] MEDS: TYLENOL 650 MG PO ×6 (01:08→20:55)
--- NOTE | 2023-10-22 01:42 | PTCARENOTE ---
Attempted to get pt oob to commode, pt HR increase to 180's in sitting position, patient STONE and at rest. Pt denies feeling heart race, dizziness, or SOB, patients color remains the same from the start of the shift, skin pale and lips pale. patient
on 4l O2 93-94%. pt assisted back to bed. HR returning to 115-120's
--- NOTE | 2023-10-22 01:48 | PTCARENOTE ---
patient refusing tylenol all day and evening doses, now agreeable after moving and experiencing pain 09/27. Patient instructed on need for pain med in order to be able to move, patient verb understanding but states ' I worry about the kidney damage
it can cause' Reassured patient that it is not going to be retirement use and well managed pain is needed for movement. patient agreeable to taking tylenol as ordered.
--- NOTE | 2023-10-22 02:35 | PTCARENOTE ---
Vikas at bs to see patient, reviewing EKG
--- NOTE | 2023-10-22 02:58 | W.PN.UPDATE ---
Update Note
Progress Note Update
RN notified PSYCH COORDINATOR, patient HR in Afib, HR went up to 180's and back to [id number] when attempting to get OOB. 4L o2 94%, BP 101/52, RR 16, Temp 98.5. Patient was seen and evaluated. Afib RVR 115. Lungs diminished, irregular HR, trace edema LE,
Denied any chest pain or SOB to me at present. Afebrile, voiding without difficultly.
Hx of CAD, Afib, on Metoprolol 25 PO daily now.
stat labs ordered
At 0310 HR noted to be sustaining in 140's -170, will give Cardizem 5mg IV now. On ASA.
0345 BP 103/57 HR 99
WBC noted to be high likely due to s/p surgery, will order lactic acid, procalcitonin r/o infection
[2023-10-22 03:02] LABS: Hematocrit 29.4 % (39.0-52.0); Hemoglobin 10.4 g/dL (13.0-18.0); Mean Corp Hgb Conc. 35.4 g/dL (33.0-37.0); Mean Corpuscular Hgb 30.8 pg (27.0-31.0); Mean Platelet Volume 9.8 fL (7.4-10.4); Platelet Count 104 10^3/uL (130-400); Red Blood Cell Count 3.38 10^6/uL (4.70-6.10); Red Cell Dist. Width 12.6 % (11.5-14.5); White Blood Cell Count 11.7 10^3/uL (4.8-10.8)
[2023-10-22] MEDS: NSS 1000 IV ×2 (03:07→12:03)
[2023-10-22] MEDS: CARDIZEM 5 MG IV (03:20)
[2023-10-22 03:31] LABS: Blood Urea Nitrogen 40 mg/dl (9-20); Calcium 9.2 mg/dl (8.4-10.2); Carbon Dioxide 22 mmol/L (22-30); Chloride 107 mmol/L (98-107); Estimated Creatinine Clearance 55 ml/min; Glucose 177 mg/dl (70-99); Potassium 4.5 mmol/L (3.5-5.1); Sodium 134 mmol/L (135-145); eGFR 44.65
[2023-10-22] MEDS: ANCEF 5 IV (03:32)
--- NOTE | 2023-10-22 03:45 | PTCARENOTE ---
0325 Cardizem 5mg IVP given per S Hephzghanshyam BOX PRINTING MACHINE OPERATOR
[2023-10-22 04:38] LABS: Lactic Acid 1.5 mmol/L (0.7-2.0)
[2023-10-22 05:45] LABS: Procalcitonin 0.12 ng/ml (0.0-0.25)
--- NOTE | 2023-10-22 07:54 | W.PN.ORTHO ---
Today's Communication / Plan
-
73-year-old male postop day 1 status post left hip hemiarthroplasty doing well
Weightbearing as tolerated left lower extremity
PT OT
Posterior hip precautions
DVT prophylaxis: Okay to resume Eliquis
Medical management per primary team
Plan to follow-up outpatient 2 to 3 weeks for repeat evaluation and plan removal of josie
Subjective
.
.:
Patient resting comfortably in bed. Reportedly A-fib episodes overnight.
Vital Signs and Labs
.
Vital Signs and Labs:
Lab Results
10/22/23 02:55
10/22/23 02:55
Temp Pulse Resp BP Pulse Ox
98.8 F 99 18 103/57 94
10/22/23 03:35 10/22/23 03:43 10/22/23 03:43 10/22/23 03:43 10/22/23 03:43
PT 13.1 Sec (11.4-14.6) 10/20/23 00:04
INR 1.01 10/20/23 00:04
Physical Exam
-
MSK left lower extremity
Mild bloody drainage dressings
Moderate swelling left thigh
Positive EHL, FHL, ankle dorsiflexion, plantarflexion
Brisk cap refill distally
--- NOTE | 2023-10-22 07:57 | W.PN.CD ---
Addendum entered and electronically signed by Dhaval Eason MD 10/22/23 08:17:
Currently on ASA. Resume Eliquis and if remains stable then transiton back to Eliquis and plavix rather than Eliquis and ASA
Original Note:
Today's Communication / Plan
-
- rate control is suboptimal post op. Give AM Toprol and will tryand titrate as BP allows. Would not add Digoxin with creatinine trending up.
On 4liters. lungs clear
wean O2 as tolerated- if unable to wean then check CXR and assess need for diuretic
Impression / Plan
-
Fracture, neck, proximal left femur/ s/p Left hip hemiarthroplasty 10/21/23
-post op per ortho
- as per ortho - able to restart Eliquis today
resp insuf - O2 being weaned post op . On 4liters. lungs clear
wean O2 as tolerated- if unable to wean then check CXR and assess need for diuretic
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
- NHYA class 1-2
- GDMT: HF BB, SGLT-Inhibitor. He reports he cannot afford Entresto.Will transition back to olmesartan 40mg post op. In the future but will hold with current BP rising creatinine and the need for addtional rate cotnrol meds
- Not on loop diuretic
CAD
- Cath/PCI 08/08/2023: LVEDP 20, LVEF 15-20%, 70 pLAD, 50 ostial D1, 100% pRCA, 30-40% pLCx. PCI/MAINE to pLAD
- No angina
- Plan OAT+Plavix one year post PCI
AFib, persistent, recurred quickly after KIANA/DCCV on 09/09/2023
- [id number] (HF, HTN, DM, age2, vascular disease)
- rate control is suboptimal post op. Give AM Toprol and will tryand titrate as BP allows. Would not add Digoxin with creatinine trending up. If rate control options are limited , could consider amiodaroen use for rate control with eventual plan
for cardioversion.
- Patient considering pursuing ablation
-Resume Eliquis
Mild to moderate MR
IVCD (atyp LBBB), LAD, QRS 128-142,
DM
HTN
Chronic R LE edema
Hx sleep apnea
BMI 32
Mixed hyperlipidemia, goal LDL < 55. Last LDL 91 on 09/02/2023. On high intensity statin now
Subjective:
post op left hip hemiarthorplasty
Physical Exam
Vital Signs/Labs
Vital Signs
Temp Pulse Resp BP Pulse Ox
98.8 F 99 18 103/57 94
10/22/23 03:35 10/22/23 03:43 10/22/23 03:43 10/22/23 03:43 10/22/23 03:43
10/21/23 10/22/23 10/23/23
06:59 06:59 06:59
Actual Weight 117.254 kg
10/22/23 02:55
10/22/23 02:55
PT 13.1 Sec (11.4-14.6) 10/20/23 00:04
INR 1.01 10/20/23 00:04
APTT 30.0 Sec (23.4-35.0) 10/20/23 00:04
Magnesium 2.0 mg/dl (1.6-2.3) 10/22/23 02:55
Physical Exam
Constitutional: No acute distress
Cardiovascular: Rhythm/rate is irregular
Respiratory: Wheeze Absent and Rhonchi Absent
GI: Soft and Non tender
Neuro/Psych: Alert, Oriented and AO x 3
Other: Other (post op left hi surgery)
Data Reviewed
-
Date of Service: October 22, 2023
Medical Decision Making: Reviewed Test Results and Review of Case with other Provider (dom cardenas)
Echo: Report Reviewed by me
Labs: Labs Ordered by me
[2023-10-22 08:41] LABS: Glucose - Point of Care 159 mg/dl (70-99)
[2023-10-22] MEDS: NOVOLOG FLEXPEN-LOW RESISTANCE 1 UNITS SC ×2 (09:01→17:43)
[2023-10-22] MEDS: NSS (PRESERVATIVE FREE) 10 ML IV (09:02)
[2023-10-22] MEDS: PROTONIX IV 40 MG IV (09:02)
[2023-10-22] MEDS: LEXAPRO 20 MG PO (09:02)
[2023-10-22] MEDS: JARDIANCE 10 MG PO (09:02)
[2023-10-22] MEDS: SENOKOT PO (09:03)
[2023-10-22] MEDS: COLACE PO (09:03)
[2023-10-22] MEDS: LIPITOR 80 MG PO (09:03)
[2023-10-22] MEDS: TOPROL XL 25 MG PO ×2 (09:03→11:23)
[2023-10-22] MEDS: LOW STRENGTH ASPIRIN 81 MG PO (09:03)
[2023-10-22 09:26] LABS: Glycohemoglobin (HgbA1c) 6.9 % (4.0-5.6)
--- NOTE | 2023-10-22 09:27 | PTCARENOTE ---
Dr Eason at bedside this am. HR 110s-160s, erratic. Per cardiology pt ok for activity and RN to wean O2 as able. RN to contact cardiology if HR sustained above 130. Additional 25 mg metoprolol ordered for 1030, no further interventions at this
time. Care ongoing at this time.
--- NOTE | 2023-10-22 11:03 | PTCARENOTE ---
RN attempted to give scheduled metoprolol. BP initially 99/51 and HR ranging from the one teens to the 160's with OT/PT. Patient asymptomatic at this time. Patient's BP and HR rechecked by PCT. BP is 87/54 and HR is 116. Patient remains
asymptomatic.
1113: Cardiology at bedside. RN checked manual BP rechecked with a reading at 96/64 and HR is 127. Cardiology stated to give ordered metoprolol at this time.
[2023-10-22] MEDS: ELIQUIS 5 MG PO ×2 (11:22→20:56)
[2023-10-22] MEDS: NOVOLOG FLEXPEN-LOW RESISTANCE 3 UNITS SC (12:06)
[2023-10-22 12:17] LABS: Glucose - Point of Care 258 mg/dl (70-99)
--- NOTE | 2023-10-22 12:55 | W.PN.HOSP.TC ---
Today's Communication/Plan
-
A. Fib rate control as per cardio
diet advanced
continue current dose of insulin
dc IVF
Assessment / Plan
Assessment / Plan
Acute Lt hip Fx s/p fall
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
cardio cleared to resume Eliquis and substitute ASA for Plavix for now
Extensive Cardiac HX : Chr HFrEF, LVEF 20%, Prx AF
RCRI index Class III 10.1 % 30 day risk of , [place] or cardiac arrest
- admission EKG: SINUS TACHYCARDIA WITH FUSION COMPLEXES
LEFT AXIS DEVIATION
NON-SPECIFIC INTRA-VENTRICULAR CONDUCTION BLOCK
CANNOT RULE OUT SEPTAL INFARCT , AGE UNDETERMINED
ABNORMAL ECG
WHEN COMPARED WITH ECG OF 09-SEP-2023 08:38,
FUSION COMPLEXES ARE NOW PRESENT
MN INTERVAL HAS DECREASED
VENT. RATE HAS INCREASED BY 65 BPM
T WAVE INVERSION LESS EVIDENT IN LATERAL LEADS
- Fx set protocol
-diet advanced
- Pre Op CBC card consult appreciated
- Ortho consult: OR scheduled 11AM 10/20
Persistent A. Fib with episodes of rvr
cardio is aware and Toprol added
Current e GFR > 60
HX of CKD3 likely from diabetic nephropathy: Baseline: Cr 1.6 on Sep 09
- No longer Olmesartan
- cont. Lasix
- Observe Cr
1.2-->1.4-->1.6
Hypercalcemia resolved 11.3-->9.9-->9.2
- held HCTZ
- check iPTH
HX IDDM
- cont PT Levemir and aspart regime
- add ISS low
Pt is eating, will dc IVF
glu 154-258
HX Right ICA stenosis - 50-69% range
09/25/20 Brain MRI showing 2 mm area of questionable artifact vs subacute cva on left frontal lobe.
- Lipitor
Essential HTN
- no longer on Olmesartan
- add IV Hydralazine prn
Hyperlipidemia
- cont Lipitor
DEBORAH on CPAP
- f/u with Dr Russell
- compliant per family
Folic acid def
Depression
Melanoma abd and back with removal
full code
will add low dose Protonix prophylactic
Anticipated Discharge: > 48 hours
Subjective/Interval History
-
Date of Service: October 22, 2023
Awake, alert, sitting in chair
Objective Data
-
Labs:
Laboratory Results
10/22/23
02:55
WBC 11.7 H
Hgb 10.4 L
Hct 29.4 L
Plt Count 104 L
Sodium 134 L
Potassium 4.5
Chloride 107
Carbon Dioxide 22
BUN 40 H
Creatinine 1.6 H
Glucose 177 H
Calcium 9.2
Vital Signs:
Vital Signs
Temp Pulse Resp BP Pulse Ox
97.5 F 127 18 96/64 98
10/22/23 10:50 10/22/23 11:23 10/22/23 10:50 10/22/23 11:23 10/22/23 10:50
I&O
10/21/23 10/22/23 10/23/23
06:59 06:59 06:59
Intake Total 660 / 660 270 / 270
Output Total 1230 / 1230 1400 / 1400
Balance -570 / -570 -1130 / -1130
Review of Systems
-
History Source: Patient and Coordinated Provider
Constitutional: Denies Fever
EENT: Reports No Symptoms Reported
Respiratory: Reports No Symptoms; Denies Trouble Breathing
Cardiac: Reports No Symptoms; Denies Chest Pain
Abdomen/GI: Reports No Symptoms
Genitourinary: Reports No Symptoms
Musculoskeletal: Reports Joint Pain
Neuro: Reports No Symptoms
Physical Exam
-
General: Well Developed, Well Nourished and No Apparent Distress
HEENT: Normocephalic, Atraumatic and Moist Mucous Membranes
Respiratory: Clear to Auscultation; Negative Wheezes, Rales or Rhonchi
Cardiac: S1/S2 and Irregular Rhythm
GI: Nontender and Nondistended
Musculoskeletal: No Clubbing, No Cyanosis and No Edema
Neuro: Awake, Alert and Oriented
--- NOTE | 2023-10-22 13:35 | CM ---
Reviewed the chart notes and spoke with the patient at the bedside. Patient will require short term rehab prior to transition home. Patient agreeable to referrals being sent to area SNFs. Referrals with [facility] sent. CM continues to be available
to patient/family and is monitoring medical plan for needs at discharge.
Plan: Discharge to SNF/rehab once bed found and patient stable for discharge. No precert required.
[2023-10-22 17:21] LABS: Glucose - Point of Care 261 mg/dl (70-99)
[2023-10-22 17:26] LABS: Glucose - Point of Care 313 mg/dl (70-99)
[2023-10-22 17:43] LABS: Glucose - Point of Care 191 mg/dl (70-99)
--- NOTE | 2023-10-22 17:50 | PTCARENOTE ---
Patients evening glucose taken. At 1718 patients glucose read 261. At 1723 his glucose was 313. Patient has a ryan that was showing a lower blood sugar. Different glucometer used with a reading of 191. Patients ryan showed patients blood glucose
to be 185. Patient given 1 unit of insulin based off a blood sugar reading of 191.
[2023-10-22] MEDS: COLACE 100 MG PO (20:55)
[2023-10-22] MEDS: SENOKOT 17.1999999999999993 MG PO (20:56)
[2023-10-22 21:57] LABS: Glucose - Point of Care 262 mg/dl (70-99)
[2023-10-22] MEDS: LEVEMIR 0.200000000000000011 UNITS SC (22:39)
[2023-10-23] VITALS (8 sets, daily range): BP systolic 94–136; BP diastolic 49–71; PULSE 96; O2SAT 93–96; BMI 33.0
[2023-10-23] MEDS: TYLENOL 650 MG PO ×6 (00:25→20:02)
--- NOTE | 2023-10-23 05:08 | PTCARENOTE ---
0030 late entry- RN at with patient, pt removed partial leads, RN replacing leads. This RN notified by another RN Patient HR 125-135 sustained [id number], tele reading Vtach. 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
Hephziba notified, EKG done to confirm rhythm-EKG AFIB with RVR.
[2023-10-23] MEDS: TOPROL XL 25 MG PO ×2 (06:20→11:05)
[2023-10-23 06:38] LABS: % Basophils 0.3 % (0-2); % Eosinophils 2.3 % (0-6); % Immature Granulocytes 0.4 % (0-0.5); % Lymphocytes 15.2 % (20.5-51.1); % Monocytes 8.1 % (1.7-9.3); % Neutrophils 73.7 % (42.2-75.2); Absolute Eosinophils 0.2 10^3/uL (0-0.7); Absolute Lymphocytes 1.5 10^3/uL (1.2-3.4); Absolute Monocytes 0.8 10^3/uL (0.1-0.6); Absolute Neutrophils 7.4 10^3/uL (1.4-6.5); Hematocrit 27.7 % (39.0-52.0); Hemoglobin 9.5 g/dL (13.0-18.0); Mean Corp Hgb Conc. 34.3 g/dL (33.0-37.0); Mean Corpuscular Hgb 30.7 pg (27.0-31.0); Mean Corpuscular Volume 89.6 fL (80.0-94.0); Mean Platelet Volume 10.7 fL (7.4-10.4); Nucleated Red Blood Cells % 0 % (-); Platelet Count 101 10^3/uL (130-400); Red Blood Cell Count 3.09 10^6/uL (4.70-6.10); Red Cell Dist. Width 12.9 % (11.5-14.5); White Blood Cell Count 10.1 10^3/uL (4.8-10.8)
[2023-10-23 07:10] LABS: Blood Urea Nitrogen 56 mg/dl (9-20); Calcium 9.7 mg/dl (8.4-10.2); Carbon Dioxide 22 mmol/L (22-30); Chloride 101 mmol/L (98-107); Estimated Creatinine Clearance 49 ml/min; Glucose 152 mg/dl (70-99); Magnesium 2.2 mg/dl (1.6-2.3); Potassium 4.2 mmol/L (3.5-5.1); Sodium 133 mmol/L (135-145); eGFR 38.77
[2023-10-23 08:51] LABS: Glucose - Point of Care 228 mg/dl (70-99)
[2023-10-23] MEDS: NOVOLOG FLEXPEN-LOW RESISTANCE SC (09:02)
--- NOTE | 2023-10-23 09:27 | W.PN.CD ---
Today's Communication / Plan
-
resp status stable on room air
rate controlled improved. Continue Toprol XL 50mg a day
after Toprol titrated to optimum level then could consider resume low dose valsartan.
monitor hb [facility] is trending down
Impression / Plan
-
Fracture, neck, proximal left femur/ s/p Left hip hemiarthroplasty 10/21/23
-post op per ortho
- as per ortho - able to restart Eliquis today
resp insuf - O2 being weaned post op . On 4liters. lungs clear
wean O2 as tolerated- if unable to wean then check CXR and assess need for diuretic
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
- NHYA class 1-2
- GDMT: HF BB, SGLT-Inhibitor. He reports he cannot afford Entresto.Will transition back to olmesartan 40mg post op. In the future but will hold with current BP rising creatinine and the need for addtional rate cotnrol meds
- Not on loop diuretic
CAD
- Cath/PCI 08/08/2023: LVEDP 20, LVEF 15-20%, 70 pLAD, 50 ostial D1, 100% pRCA, 30-40% pLCx. PCI/MAINE to pLAD
- No angina
- Plan OAT+Plavix one year post PCI
AFib, persistent, recurred quickly after KIANA/DCCV on 09/09/2023
- [id number] (HF, HTN, DM, age2, vascular disease)
- rate control was suboptimal post op. Appears better controlled with increase in toprol and better pain control
- Patient considering pursuing ablation
-Resume Eliquis
Mild to moderate MR
IVCD (atyp LBBB), LAD, QRS 128-142,
DM
HTN
Chronic R LE edema
Hx sleep apnea
BMI 32
Mixed hyperlipidemia, goal LDL < 55. Last LDL 91 on 09/02/2023. On high intensity statin now
Subjective:
post op left hip hemiarthorplasty
Physical Exam
Vital Signs/Labs
Vital Signs
Temp Pulse Resp BP Pulse Ox
98.2 F 72 17 113/61 96
10/23/23 08:10 10/23/23 08:10 10/23/23 08:10 10/23/23 08:10 10/23/23 08:10
10/22/23 10/23/23 10/24/23
06:59 06:59 06:59
Actual Weight 119.89 kg
10/23/23 05:18
10/23/23 05:18
PT 13.1 Sec (11.4-14.6) 10/20/23 00:04
INR 1.01 10/20/23 00:04
APTT 30.0 Sec (23.4-35.0) 10/20/23 00:04
Magnesium 2.2 mg/dl (1.6-2.3) 10/23/23 05:18
Physical Exam
Constitutional: No acute distress
Cardiovascular: Rhythm/rate is irregular
Respiratory: Wheeze Absent and Rhonchi Absent
GI: Soft and Non tender
Neuro/Psych: Alert
Data Reviewed
-
Date of Service: October 23, 2023
EKG: Tracing Personally Visualized and interpreted
Labs: Labs Reviewed by me
[2023-10-23] MEDS: NSS (PRESERVATIVE FREE) 10 ML IV (09:43)
[2023-10-23] MEDS: PROTONIX IV 40 MG IV (09:43)
[2023-10-23] MEDS: LOW STRENGTH ASPIRIN 81 MG PO (09:43)
[2023-10-23] MEDS: LIPITOR 80 MG PO (09:43)
[2023-10-23] MEDS: SENOKOT 17.1999999999999993 MG PO ×2 (09:44→20:02)
[2023-10-23] MEDS: LEXAPRO 20 MG PO (09:44)
[2023-10-23] MEDS: JARDIANCE 10 MG PO (09:44)
[2023-10-23] MEDS: ELIQUIS 5 MG PO ×2 (09:44→20:02)
[2023-10-23] MEDS: COLACE 100 MG PO ×2 (09:44→20:01)
--- NOTE | 2023-10-23 11:14 | PN.CDI ---
CDI
- -
CDI:
Physician Documentation Request
Admit Date: 10/20/23 02:05
Dear Doctor Holger,
10/20 Patient underwent Left hip hemiarthroplasty.
Patient noted to have folic acid deficiency on progress notes
H/H resulted as follows:
Laboratory Tests
10/20/23 10/21/23 10/22/23
01:04 04:51 02:55
Hgb 14.0 13.0 10.4 L
Hct 40.3 38.8 L 29.4 L
10/23/23
05:18
Hgb 9.5 L
Hct 27.7 L
Based on the above, could you provide a diagnosis that supports the above lab abnormalities and additional evaluation/ monitoring:
Acute blood loss anemia
Folate deficiency anemia
Anemia - other - please specify
abnormal lab value clinically insignificant
Other
Use of terms such as suspected, likely, concern for, or probable (associated with a specific diagnosis that is being evaluated, monitored, or treated as if it exists) are acceptable and can be coded in the inpatient setting, when documented at the
time of discharge.
Thank you,
Di Mesa RN, BSN
CDI Specialist
tiger text
Please use your independent medical judgment in providing your response.
--- NOTE | 2023-10-23 11:52 | W.PN.HOSP.TC ---
Today's Communication/Plan
-
follow labs
change Protonix to oral
Assessment / Plan
Assessment / Plan
Acute Lt hip Fx s/p fall
Last Eliquis and Plavix 1 day PT cardio cleared to resume Eliquis 5mh bid and substitute ASA for Plavix for now
Extensive Cardiac HX : Chr HFrEF, LVEF 20%, Prx AF
RCRI index Class III 10.1 % 30 day risk of , AK or cardiac arrest
- admission EKG: SINUS TACHYCARDIA WITH FUSION COMPLEXES
LEFT AXIS DEVIATION
NON-SPECIFIC INTRA-VENTRICULAR CONDUCTION BLOCK
CANNOT RULE OUT SEPTAL INFARCT , AGE UNDETERMINED
ABNORMAL ECG
WHEN COMPARED WITH ECG OF 09-SEP-2023 08:38,
FUSION COMPLEXES ARE NOW PRESENT
MT INTERVAL HAS DECREASED
VENT. RATE HAS INCREASED BY 65 BPM
T WAVE INVERSION LESS EVIDENT IN LATERAL LEADS
- Fx set protocol
-diet advanced
- CBC card input appreciated
- Ortho consult: OR performed 10/20, ordered PT/OT, weightbearing as tolerated
Persistent A. Fib with episodes of rvr
cardio is aware and Toprol added. HR remains very variable, rate 100-110 this morning
Current e GFR > 60
HX of CKD3 likely from diabetic nephropathy: Baseline: Cr 1.6 on Sep 09
- No longer Olmesartan
- cont. Lasix
- Observe Cr
1.2-->1.4-->1.6-->1.8
Acute Blood Loss Anemia
14.0-->13.0-->10.4-->9.5
Hypercalcemia resolved 11.3-->9.9-->9.2
- held HCTZ
- check iPTH
HX IDDM
- cont PT Levemir and aspart regime
- add ISS low
Pt is eating, will dc IVF
glu 154-258
HX Right ICA stenosis - 50-69% range
09/25/20 Brain MRI showing 2 mm area of questionable artifact vs subacute cva on left frontal lobe.
- Lipitor
Essential HTN
- no longer on Olmesartan
- add IV Hydralazine prn
101/49-120/78
Hyperlipidemia
- cont Lipitor
DEBORAH on CPAP
- f/u with Dr Russell
- compliant per family
Folic acid def
Depression
Melanoma abd and back with removal
full code
added low dose Protonix prophylactic, IV initially, now that pt is eating will change to oral
follow labs
Anticipated Discharge: 24 - 48 hours
Subjective/Interval History
-
Date of Service: October 23, 2023
Awake, alert, still with post op pain
Objective Data
-
Labs:
Laboratory Results
10/23/23
05:18
WBC 10.1
Hgb 9.5 L
Hct 27.7 L
Plt Count 101 L
Sodium 133 L
Potassium 4.2
Chloride 101
Carbon Dioxide 22
BUN 56 H
Creatinine 1.8 H
Glucose 152 H
Calcium 9.7
Vital Signs:
Vital Signs
Temp Pulse Resp BP Pulse Ox
97.5 F 111 18 101/49 95
10/23/23 11:29 10/23/23 11:29 10/23/23 11:29 10/23/23 11:29 10/23/23 11:29
I&O
10/22/23 10/23/23 10/24/23
06:59 06:59 06:59
Intake Total 270 / 270 1100 / 1100
Output Total 1400 / 1400 925 / 925
Balance -1130 / -1130 175 / 175
Review of Systems
-
History Source: Patient and Coordinated Provider
Constitutional: Denies Fever
EENT: Reports No Symptoms Reported
Respiratory: Reports No Symptoms; Denies Trouble Breathing
Cardiac: Reports No Symptoms; Denies Chest Pain
Abdomen/GI: Reports No Symptoms
Genitourinary: Reports No Symptoms
Musculoskeletal: Reports Joint Pain
Neuro: Reports No Symptoms
Physical Exam
-
General: Well Developed, Well Nourished and No Apparent Distress
HEENT: Normocephalic, Atraumatic and Moist Mucous Membranes
Respiratory: Clear to Auscultation; Negative Wheezes, Rales or Rhonchi
Cardiac: S1/S2 and Irregular Rhythm
GI: Nontender and Nondistended
Musculoskeletal: No Clubbing, No Cyanosis and No Edema
Neuro: Awake, Alert and Oriented
[2023-10-23 12:45] LABS: Glucose - Point of Care 233 mg/dl (70-99)
[2023-10-23] MEDS: NOVOLOG FLEXPEN-LOW RESISTANCE 2 UNITS SC (12:54)
--- NOTE | 2023-10-23 16:11 | CM ---
Reviewed the chart notes and spoke with the patient at the bedside and his son Alejandro via telephone. Discussed with both that the facilities they had selected have no beds available. Discussed resource list that is in room and left pen for both to
review additional facilities that they would agree to having referrals sent to. CM continues to be available to patient/family and is monitoring medical plan for needs at discharge.
Plan: Discharge to SNF/rehab once bed found and patient medically stable for discharge. No precert required.
[2023-10-23 17:08] LABS: Glucose - Point of Care 154 mg/dl (70-99)
[2023-10-23] MEDS: NOVOLOG FLEXPEN-LOW RESISTANCE 1 UNITS SC (17:47)
[2023-10-23] MEDS: TOPROL XL 50 MG PO (20:04)
[2023-10-23 21:50] LABS: Glucose - Point of Care 205 mg/dl (70-99)
[2023-10-23] MEDS: LEVEMIR 0.200000000000000011 UNITS SC (21:50)
[2023-10-23] MEDS: TYLENOL PO (23:39)
[2023-10-24 05:03] VITALS: BP 118/64
[2023-10-24] MEDS: TYLENOL PO (05:04)
[2023-10-24 06:00] VITALS: BMI 33.0
[2023-10-24 06:16] LABS: % Basophils 0.7 % (0-2); % Eosinophils 5.6 % (0-6); % Immature Granulocytes 0.4 % (0-0.5); % Lymphocytes 16.8 % (20.5-51.1); % Monocytes 7.6 % (1.7-9.3); % Neutrophils 68.9 % (42.2-75.2); Absolute Basophils 0.1 10^3/uL (0-0.2); Absolute Eosinophils 0.6 10^3/uL (0-0.7); Absolute Lymphocytes 1.6 10^3/uL (1.2-3.4); Absolute Monocytes 0.7 10^3/uL (0.1-0.6); Absolute Neutrophils 6.7 10^3/uL (1.4-6.5); Hematocrit 26.2 % (39.0-52.0); Mean Corp Hgb Conc. 34.4 g/dL (33.0-37.0); Mean Corpuscular Hgb 30.4 pg (27.0-31.0); Mean Corpuscular Volume 88.5 fL (80.0-94.0); Mean Platelet Volume 10.8 fL (7.4-10.4); Nucleated Red Blood Cells % 0 % (-); Platelet Count 112 10^3/uL (130-400); Red Blood Cell Count 2.96 10^6/uL (4.70-6.10); White Blood Cell Count 9.7 10^3/uL (4.8-10.8)
[2023-10-24 06:51] LABS: ALT (SGPT) 26 U/L (0-50); AST (SGOT) 38 U/L (17-59); Albumin 3.3 g/dl (3.5-5.0); Alkaline Phosphatase 62 U/L (38-126); Blood Urea Nitrogen 50 mg/dl (9-20); Calcium 9.9 mg/dl (8.4-10.2); Carbon Dioxide 23 mmol/L (22-30); Chloride 107 mmol/L (98-107); Estimated Creatinine Clearance 59 ml/min; Glucose 111 mg/dl (70-99); Sodium 135 mmol/L (135-145); Total Bilirubin 0.8 mg/dl (0.2-1.3); Total Protein 6.4 g/dl (6.3-8.2); eGFR 48.25
[2023-10-24 07:58] VITALS: BP 118/82
[2023-10-24] MEDS: COLACE PO (09:05)
[2023-10-24] MEDS: LIPITOR 80 MG PO (09:06)
[2023-10-24] MEDS: JARDIANCE 10 MG PO (09:06)
[2023-10-24] MEDS: LEXAPRO 20 MG PO (09:06)
[2023-10-24] MEDS: ELIQUIS 5 MG PO ×2 (09:06→21:12)
[2023-10-24] MEDS: LOW STRENGTH ASPIRIN 81 MG PO (09:09)
[2023-10-24] MEDS: PROTONIX 40 MG PO (09:09)
[2023-10-24] MEDS: SENOKOT PO (09:09)
[2023-10-24] MEDS: TYLENOL 650 MG PO ×4 (09:09→21:12)
[2023-10-24] MEDS: TOPROL XL 50 MG PO (09:09)
[2023-10-24] MEDS: NOVOLOG FLEXPEN-LOW RESISTANCE 4 UNITS SC (09:15)
[2023-10-24 09:19] LABS: Glucose - Point of Care 315 mg/dl (70-99)
--- NOTE | 2023-10-24 12:08 | W.PN.CD ---
Today's Communication / Plan
-
Tomorrow stop ASA and begin Plavix (I wrote for this)
I increased metoprolol
At discharge resume his ARB (Olmesartan)
Cardiology will sign off. Please call with questions
Impression / Plan
-
Fracture, neck, proximal left femur
- s/p Left hip hemiarthroplasty 10/21/23
- No cardiac complications
- Back on Eliquis
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
- NHYA class 1-2
- GDMT: HF BB, SGLT-Inhibitor. (Entresto too expensive=> olmesartan 40mg)
- Not on loop diuretic
CAD
- Cath/PCI 08/08/2023: LVEDP 20, LVEF 15-20%, 70 pLAD, 50 ostial D1, 100% pRCA, 30-40% pLCx. PCI/MAINE to pLAD
- No angina
- Plan OAT+Plavix one year post PCI
- Tomorrow stop ASA and go to Plavix
AFib, persistent, recurred quickly after KIANA/DCCV on 09/09/2023
- [id number] (HF, HTN, DM, age2, vascular disease)
- rate control was suboptimal post op.=> likely pain/anemia => increase metoprolol
- Patient considering pursuing ablation
-Resume Eliquis
Mild to moderate MR
IVCD (atyp LBBB), LAD, QRS 128-142,
DM
HTN
Chronic R LE edema
Hx sleep apnea
BMI 32
Mixed hyperlipidemia, goal LDL < 55. Last LDL 91 on 09/02/2023. On high intensity statin now
Subjective:
No CP or dyspnea. +pain at hip with ambulation
Physical Exam
Vital Signs/Labs
Vital Signs
Temp Pulse Resp BP Pulse Ox
97.8 F 92 18 127/83 95
10/24/23 07:58 10/24/23 09:09 10/24/23 07:58 10/24/23 09:09 10/24/23 07:58
10/23/23 10/24/23 10/25/23
06:59 06:59 06:59
Actual Weight 119.89 kg 119.777 kg
10/24/23 04:59
10/24/23 04:59
PT 13.1 Sec (11.4-14.6) 10/20/23 00:04
INR 1.01 10/20/23 00:04
APTT 30.0 Sec (23.4-35.0) 10/20/23 00:04
Magnesium 2.2 mg/dl (1.6-2.3) 10/23/23 05:18
Physical Exam
Constitutional: No acute distress
Cardiovascular: Rhythm/rate is irregular
Respiratory: Respiratory effort normal and Lungs clear to auscul.
GI: Soft and Distention absent
Neuro/Psych: AO x 3
Data Reviewed
-
Date of Service: October 24, 2023
--- NOTE | 2023-10-24 12:26 | W.PN.HOSP.TC ---
Today's Communication/Plan
-
monitor Hb
pain control
BB uptitrated
Assessment / Plan
Assessment / Plan
Assessment:
Acute Lt hip Fx s/p mechanical fall
- s/p left hip hemiarthroplasty 10/20
- WBAT LLE
- pain control
- PT/OT - SNF recommended
- follow ortho in office in 2-3 weeks for staple removals.
Acute blood loss anemia
- monitor Hb. Last was 9.0. may need transfusions if continues to drop
Persistent A. Fib with RVR in setting of pain/anemia
- recent KIANA/DCCV on 09/09/2023
- CBC cards following; titrating BB doses
- continue Eliquis
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
- not on diuretic
- continue BB, Jardiance
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
- continue ARB at discharge per Cards
Hypercalcemia resolved 11.3-->9.9-->9.2
- held HCTZ on admit
- resolved
Type 2 IDDM
- continue Levemir/Aspart
- continue SSI
- A1c: 6.9%
Hx of Right ICA stenosis - 50-69% range
09/25/20 Brain MRI showing 2 mm area of questionable artifact vs subacute cva on left frontal lobe.
Hx of CAD
- Lipitor/Plavix/BB
Essential HTN
- continue ARB at discharge per Cards
Hyperlipidemia
- cont Lipitor
DEBORAH on CPAP
- f/u with Dr Russell
- compliant per family
Folic acid def
Depression
Melanoma abd and back with removal
DVT ppx: Eliquis
Code: Full
Anticipated Discharge: 24 - 48 hours
Subjective/Interval History
-
Date of Service: October 24, 2023
denies any chest pain or SOB
faster HR's with ambulation, not lightheaded or dizzy
Objective Data
-
Labs:
Laboratory Results
10/24/23
04:59
WBC 9.7
Hgb 9.0 L
Hct 26.2 L
Plt Count 112 L
Sodium 135
Potassium 4.0
Chloride 107
Carbon Dioxide 23
BUN 50 H
Creatinine 1.5 H
Glucose 111 H
Calcium 9.9
Total Bilirubin 0.8
AST 38
ALT 26
Alkaline Phosphatase 62
Vital Signs:
Vital Signs
Temp Pulse Resp BP Pulse Ox
97.8 F 92 18 127/83 95
10/24/23 07:58 10/24/23 09:09 10/24/23 07:58 10/24/23 09:09 10/24/23 07:58
I&O
10/23/23 10/24/23 10/25/23
06:59 06:59 06:59
Intake Total 1100 / 1100 1200 / 1200 480 / 480
Output Total 925 / 925 1900 / 1900
Balance 175 / 175 -700 / -700 480 / 480
Physical Exam
-
General: No Apparent Distress
HEENT: Normocephalic and Atraumatic
Respiratory: Negative Wheezes or Rales
Cardiac: Irregular Rhythm and Tachycardic
GI: Soft
Genito-urinary: No Costovertebral Tender
Neuro: AO x 3
Hematologic / Lymphatic: No Lymphadenopathy
Psych: Calm
Data Reviewed
-
Total Time Spent with Patient (in minutes): 45
Labs: Labs Reviewed by me
[2023-10-24 12:40] VITALS: BP 119/58
[2023-10-24 12:51] LABS: Glucose - Point of Care 186 mg/dl (70-99)
[2023-10-24] MEDS: TOPROL XL 25 MG PO (12:54)
[2023-10-24] MEDS: NOVOLOG FLEXPEN-LOW RESISTANCE 1 UNITS SC ×2 (12:57→19:20)
--- NOTE | 2023-10-24 14:20 | PN.CDI ---
CDI
- -
CDI:
Physician Documentation Request
Admit Date: 10/20/23 02:05
Dear Doctor Nadia,
Patient is s/p Left hip hemiarthroplasty 10/21/23. History of CKD 3b.
Creatinine resulted as follows:
10/20/23 10/21/23 10/22/23
00:04 04:51 02:55
Creatinine 1.2 1.4 H 1.6 H
10/23/23 10/24/23
05:18 04:59
Creatinine 1.8 H 1.5 H
Could you please provide a diagnosis , that supports the above lab abnormalities and additional evaluation/ monitoring:
ANN on ckd 3b
CKD 3b only
Other
Criteria for ANN*
1 Increase in serum creatinine by > or = to 0.3 mg/dL (> or = to 26.5 micromol/L) within 48 hours, OR
2 Increase in serum creatinine to > or = to 1.5 times baseline, which is known or presumed to have occurred within 7 days, OR
3 Urine volume < 0.5 nL/kg/hour for six hours
Use of terms such as suspected, likely, concern for, or probable (associated with a specific diagnosis that is being evaluated, monitored, or treated as if it exists) are acceptable and can be coded in the inpatient setting, when documented at the
time of discharge.
Thank you,
Di Mesa RN, BSN
CDI Specialist
tiger text
Please use your independent medical judgment in providing your response.
[2023-10-24 16:00] VITALS: BP 110/64
--- NOTE | 2023-10-24 16:10 | CM ---
Reviewed the chart notes. Per attending, will be here through weekend. Additional referrals need to be obtained from the son. CM continues to be available to patient/family and is monitoring medical plan for needs at discharge.
Plan: Discharge to SNF rehab once medically stable. No precert required. Son to provide additional names of facilities.
[2023-10-24 18:41] LABS: Glucose - Point of Care 176 mg/dl (70-99)
[2023-10-24 19:40] VITALS: BP 119/68
[2023-10-24] MEDS: TOPROL XL 75 MG PO (21:12)
[2023-10-24] MEDS: COLACE 100 MG PO (21:12)
[2023-10-24] MEDS: SENOKOT 17.1999999999999993 MG PO (21:12)
[2023-10-24 21:56] LABS: Glucose - Point of Care 220 mg/dl (70-99)
[2023-10-24] MEDS: LEVEMIR 0.200000000000000011 UNITS SC (21:57)
[2023-10-24 23:26] VITALS: BP 141/71
[2023-10-25 03:35] VITALS: BP 123/70
[2023-10-25] MEDS: TYLENOL PO ×3 (04:00→13:36)
[2023-10-25 06:00] VITALS: BMI 32.8
[2023-10-25 07:12] LABS: Mean Corp Hgb Conc. 34.6 g/dL (33.0-37.0); Mean Corpuscular Hgb 30.9 pg (27.0-31.0); Mean Corpuscular Volume 89.3 fL (80.0-94.0); Mean Platelet Volume 10.2 fL (7.4-10.4); Platelet Count 120 10^3/uL (130-400); Red Blood Cell Count 2.91 10^6/uL (4.70-6.10); White Blood Cell Count 7.8 10^3/uL (4.8-10.8)
[2023-10-25 07:16] VITALS: BP 120/68
[2023-10-25 07:37] LABS: Blood Urea Nitrogen 43 mg/dl (9-20); Calcium 10.1 mg/dl (8.4-10.2); Carbon Dioxide 27 mmol/L (22-30); Chloride 105 mmol/L (98-107); Estimated Creatinine Clearance 63 ml/min; Glucose 127 mg/dl (70-99); Potassium 4.1 mmol/L (3.5-5.1); Sodium 139 mmol/L (135-145); eGFR 52.41
[2023-10-25 07:39] LABS: Glucose - Point of Care 127 mg/dl (70-99)
[2023-10-25] MEDS: NOVOLOG FLEXPEN-LOW RESISTANCE SC (10:07)
[2023-10-25] MEDS: TOPROL XL 75 MG PO ×2 (10:07→22:13)
[2023-10-25] MEDS: TYLENOL 650 MG PO ×3 (10:08→22:13)
[2023-10-25] MEDS: PROTONIX 40 MG PO (10:08)
[2023-10-25] MEDS: PLAVIX 75 MG PO (10:08)
[2023-10-25] MEDS: LEXAPRO 20 MG PO (10:08)
[2023-10-25] MEDS: COLACE PO ×2 (10:08→22:13)
[2023-10-25] MEDS: ELIQUIS 5 MG PO ×2 (10:08→22:14)
[2023-10-25] MEDS: JARDIANCE 10 MG PO (10:08)
[2023-10-25] MEDS: LIPITOR 80 MG PO (10:08)
[2023-10-25] MEDS: SENOKOT PO ×2 (10:09→22:13)
[2023-10-25 11:14] VITALS: BP 108/75
[2023-10-25 11:58] LABS: Glucose - Point of Care 190 mg/dl (70-99)
[2023-10-25] MEDS: FERRLECIT 110 MG IV (13:31)
[2023-10-25] MEDS: NOVOLOG FLEXPEN-LOW RESISTANCE 1 UNITS SC (13:32)
--- NOTE | 2023-10-25 13:38 | W.PN.HOSP.TC ---
Today's Communication/Plan
-
IV Iron course
added Tramadol for pain (he is hesitant for Oxycodone or stronger)
Assessment / Plan
Assessment / Plan
Assessment:
Acute Lt hip Fx s/p mechanical fall
- s/p left hip hemiarthroplasty 10/20
- WBAT LLE
- pain control
- PT/OT - SNF recommended
- follow ortho in office in 2-3 weeks for staple removals.
Acute blood loss anemia
- monitor Hb. Last was 9.0.
- no need for transfusion today
- start IV Iron course
Persistent A. Fib with RVR in setting of pain/anemia
- recent KIANA/DCCV on 09/09/2023
- CBC cards following; titrating BB doses
- continue Eliquis
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
- not on diuretic
- continue BB, Jardiance
ANN on CKD stage 3b from diabetic nephropathy
- ANN likely in setting of post-op and blood loss
- continue ARB at discharge per Cards
Hypercalcemia resolved 11.3-->9.9-->9.2
- held HCTZ on admit
- resolved
Type 2 IDDM
- continue Levemir/Aspart
- continue SSI
- A1c: 6.9%
Hx of Right ICA stenosis - 50-69% range
09/25/20 Brain MRI showing 2 mm area of questionable artifact vs subacute cva on left frontal lobe.
Hx of CAD
- Lipitor/Plavix/BB
Essential HTN
- continue ARB at discharge per Cards
Hyperlipidemia
- cont Lipitor
DEBORAH on CPAP
- f/u with Dr Johnson
- compliant per family
Folic acid def
Depression
Melanoma abd and back with removal
DVT ppx: Eliquis
Code: Full
Anticipated Discharge: > 48 hours
Subjective/Interval History
-
Date of Service: October 25, 2023
pain control mostly optimal
he is hesitant for oxycodone or high doses of Tylenol
IV Iron infusing
Objective Data
-
Labs:
Laboratory Results
10/25/23
06:52
WBC 7.8
Hgb 9.0 L
Hct 26.0 L
Plt Count 120 L
Sodium 139
Potassium 4.1
Chloride 105
Carbon Dioxide 27
BUN 43 H
Creatinine 1.4 H
Glucose 127 H
Calcium 10.1
Vital Signs:
Vital Signs
Temp Pulse Resp BP Pulse Ox
98.2 F 100 16 108/75 98
10/25/23 11:14 10/25/23 11:14 10/25/23 11:14 10/25/23 11:14 10/25/23 11:14
I&O
10/24/23 10/25/23 10/26/23
06:59 06:59 06:59
Intake Total 1200 / 1200 1560 / 1560
Output Total 1900 / 1900 1650 / 1650
Balance -700 / -700 -90 / -90
Physical Exam
-
General: No Apparent Distress
HEENT: Normocephalic and Atraumatic
Respiratory: Negative Wheezes or Rales
Cardiac: Regular Rhythm and S1/S2
GI: Soft
Genito-urinary: No Costovertebral Tender
Musculoskeletal: No Edema
Neuro: AO x 3
Hematologic / Lymphatic: No Lymphadenopathy
Psych: Calm
Data Reviewed
-
Total Time Spent with Patient (in minutes): 44
Labs: Labs Reviewed by me
[2023-10-25] MEDS: ULTRAM 25 MG PO (15:29)
[2023-10-25 16:03] VITALS: BP 101/62
--- NOTE | 2023-10-25 16:46 | CM ---
Addendum entered by JOSE Acosta 10/25/23 16:50:
CM also spoke to son who is pleased with option of [facility] at .
Original Note:
[facility] PT today recommending Acute rehab. referral sent to [facility] at . Asked attending for PMR consult.
[2023-10-25 17:32] LABS: Glucose - Point of Care 206 mg/dl (70-99)
[2023-10-25] MEDS: NOVOLOG FLEXPEN-LOW RESISTANCE 2 UNITS SC (17:37)
[2023-10-25 19:00] VITALS: BP 110/70
[2023-10-25 21:21] LABS: Glucose - Point of Care 151 mg/dl (70-99)
[2023-10-25] MEDS: LEVEMIR 0.200000000000000011 UNITS SC (22:14)
[2023-10-25 22:21] VITALS: BP 119/64
[2023-10-26] MEDS: TYLENOL PO ×2 (00:52→04:20)
[2023-10-26 03:01] VITALS: BP 125/70
[2023-10-26 06:00] VITALS: BMI 32.4
[2023-10-26 07:04] VITALS: BP 130/83
[2023-10-26 07:39] LABS: Glucose - Point of Care 92 mg/dl (70-99)
[2023-10-26 08:26] LABS: Hematocrit 26.2 % (39.0-52.0)
[2023-10-26] MEDS: NOVOLOG FLEXPEN-LOW RESISTANCE SC ×3 (08:27→16:59)
[2023-10-26] MEDS: ELIQUIS 5 MG PO ×2 (08:40→20:26)
[2023-10-26] MEDS: PROTONIX 40 MG PO (08:40)
[2023-10-26] MEDS: TYLENOL 650 MG PO ×4 (08:40→20:26)
[2023-10-26] MEDS: JARDIANCE 10 MG PO (08:40)
[2023-10-26] MEDS: LEXAPRO 20 MG PO (08:40)
[2023-10-26] MEDS: LIPITOR 80 MG PO (08:40)
[2023-10-26] MEDS: PLAVIX 75 MG PO (08:41)
[2023-10-26] MEDS: TOPROL XL 75 MG PO ×2 (08:41→20:26)
[2023-10-26] MEDS: COLACE PO ×2 (08:47→20:26)
[2023-10-26] MEDS: SENOKOT PO ×2 (08:48→20:27)
[2023-10-26 08:51] LABS: Blood Urea Nitrogen 35 mg/dl (9-20); Carbon Dioxide 27 mmol/L (22-30); Chloride 106 mmol/L (98-107); Estimated Creatinine Clearance 68 ml/min; Glucose 80 mg/dl (70-99); Potassium 4.2 mmol/L (3.5-5.1); Sodium 140 mmol/L (135-145); eGFR 57.29
[2023-10-26 11:47] LABS: Glucose - Point of Care 191 mg/dl (70-99)
[2023-10-26 12:20] VITALS: BP 122/57
[2023-10-26] MEDS: FERRLECIT 110 MG IV (14:30)
--- NOTE | 2023-10-26 14:34 | W.PN.HOSP.TC ---
Today's Communication/Plan
-
Medically stable pending DC to Acute rehab
Assessment / Plan
Assessment / Plan
Assessment:
Acute Lt hip Fx s/p mechanical fall
- s/p left hip hemiarthroplasty 10/20
- WBAT LLE
- pain control
- PT/OT - Acute rehab eval pending
- follow ortho in office in 2-3 weeks for staple removals.
Acute blood loss anemia
- monitor Hb. Last was 9.0.
- no need for transfusion
- continue IV Iron course
Persistent A. Fib with RVR in setting of pain/anemia
- recent KIANA/DCCV on 09/09/2023
- CBC cards following; titrating BB doses
- continue Eliquis
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
- not on diuretic
- continue BB, Jardiance
ANN on CKD stage 3b from diabetic nephropathy
- ANN likely in setting of post-op and blood loss
- continue ARB at discharge per Cards
Hypercalcemia resolved 11.3-->9.9-->9.2
- held HCTZ on admit
- resolved
Type 2 IDDM
- continue Levemir/Aspart
- continue SSI
- A1c: 6.9%
Hx of Right ICA stenosis - 50-69% range
09/25/20 Brain MRI showing 2 mm area of questionable artifact vs subacute cva on left frontal lobe.
Hx of CAD
- Lipitor/Plavix/BB
Essential HTN
- continue ARB at discharge per Cards
Hyperlipidemia
- cont Lipitor
DEBORAH on CPAP
- f/u with Dr Johnson
- compliant per family
Folic acid def
Depression
Melanoma abd and back with removal
DVT ppx: Eliquis
Code: Full
Anticipated Discharge: 24 - 48 hours
Subjective/Interval History
-
Date of Service: October 26, 2023
feels much improved today
pain improved, moving better
Objective Data
-
Labs:
Laboratory Results
10/26/23
08:15
Hgb 9.0 L
Hct 26.2 L
Sodium 140
Potassium 4.2
Chloride 106
Carbon Dioxide 27
BUN 35 H
Creatinine 1.3
Glucose 80
Calcium 10.0
Vital Signs:
Vital Signs
Temp Pulse Resp BP Pulse Ox
98.0 F 96 18 130/83 94
10/26/23 07:04 10/26/23 08:41 10/26/23 07:04 10/26/23 08:41 10/26/23 08:45
I&O
10/25/23 10/26/23 10/27/23
06:59 06:59 06:59
Intake Total 1560 / 1560 710 / 710 480 / 480
Output Total 1650 / 1650 1120 / 1120 400 / 400
Balance -90 / -90 -410 / -410 80 / 80
Physical Exam
-
General: No Apparent Distress
HEENT: Normocephalic and Atraumatic
Cardiac: Regular Rhythm and S1/S2
GI: Soft
Genito-urinary: No Costovertebral Tender
Neuro: AO x 3
Hematologic / Lymphatic: No Lymphadenopathy
Psych: Calm
Data Reviewed
-
Total Time Spent with Patient (in minutes): 42
Labs: Labs Reviewed by me
[2023-10-26 14:43] VITALS: BP 123/70; PULSE 84; O2SAT 100
[2023-10-26 16:31] VITALS: BP 98/70
[2023-10-26 16:52] LABS: Glucose - Point of Care 84 mg/dl (70-99)
[2023-10-26 21:05] LABS: Glucose - Point of Care 141 mg/dl (70-99)
[2023-10-26] MEDS: LEVEMIR 0.200000000000000011 UNITS SC (22:11)
[2023-10-26 22:20] VITALS: BP 134/87
[2023-10-27] MEDS: TYLENOL PO ×2 (00:20→04:13)
[2023-10-27 04:58] LABS: Hematocrit 26.4 % (39.0-52.0); Hemoglobin 8.9 g/dL (13.0-18.0)
[2023-10-27 05:23] LABS: Blood Urea Nitrogen 31 mg/dl (9-20); Calcium 9.9 mg/dl (8.4-10.2); Carbon Dioxide 25 mmol/L (22-30); Chloride 105 mmol/L (98-107); Estimated Creatinine Clearance 68 ml/min; Glucose 97 mg/dl (70-99); Sodium 137 mmol/L (135-145); eGFR 57.29
[2023-10-27 06:00] VITALS: BMI 32.6
[2023-10-27 08:00] VITALS: BP 138/84
[2023-10-27] MEDS: NOVOLOG FLEXPEN-LOW RESISTANCE SC ×2 (08:50→16:50)
[2023-10-27 08:53] LABS: Glucose - Point of Care 109 mg/dl (70-99)
--- NOTE | 2023-10-27 09:14 | W.PN.HOSP.TC ---
Today's Communication/Plan
-
Medically stable for DC to rehab pending [facility] eval/bed. CM aware.
Assessment / Plan
Assessment / Plan
Assessment:
Acute Lt hip Fx s/p mechanical fall
- s/p left hip hemiarthroplasty 10/20
- WBAT LLE
- pain control
- PT/OT - Acute rehab eval pending
- follow ortho in office in 2-3 weeks for staple removals.
Acute blood loss anemia
- monitor Hb. Last was 8.9.
- no need for transfusion
- continue IV Iron course, day 09/22
Persistent A. Fib with RVR in setting of pain/anemia
- recent KIANA/DCCV on 09/09/2023
- CBC cards following; titrating BB doses
- continue Eliquis
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
- not on diuretic
- continue BB, Jardiance
ANN on CKD stage 3b from diabetic nephropathy
- ANN likely in setting of post-op and blood loss
- continue ARB at discharge per Cards
Hypercalcemia resolved 11.3-->9.9-->9.2
- held HCTZ on admit
- resolved
Type 2 IDDM
- continue Levemir/Aspart
- continue SSI
- A1c: 6.9%
Hx of Right ICA stenosis - 50-69% range
09/25/20 Brain MRI showing 2 mm area of questionable artifact vs subacute cva on left frontal lobe.
Hx of CAD
- Lipitor/Plavix/BB
Essential HTN
- continue ARB at discharge per Cards
Hyperlipidemia
- cont Lipitor
DEBORAH on CPAP
- f/u with Dr Johnson
- compliant per family
Folic acid def
Depression
Melanoma abd and back with removal
DVT ppx: Eliquis
Code: Full
Dispo: Medically stable for DC to rehab pending [facility] vanegas[facility]/bed. CM aware.
Anticipated Discharge: 24 - 48 hours
Subjective/Interval History
-
Date of Service: October 27, 2023
no new complaints
reports tramadol is effective for his pain
Objective Data
-
Labs:
Laboratory Results
10/27/23
04:41
Hgb 8.9 L
Hct 26.4 L
Sodium 137
Potassium 4.0
Chloride 105
Carbon Dioxide 25
BUN 31 H
Creatinine 1.3
Glucose 97
Calcium 9.9
Vital Signs:
Vital Signs
Temp Pulse Resp BP Pulse Ox
98.0 F 84 18 138/84 95
10/27/23 08:00 10/27/23 08:00 10/27/23 08:00 10/27/23 08:00 10/27/23 08:00
I&O
10/26/23 10/27/23 10/28/23
06:59 06:59 06:59
Intake Total 710 / 710 2270 / 2270
Output Total 1120 / 1120 1000 / 1000
Balance -410 / -410 1270 / 1270
Physical Exam
-
General: No Apparent Distress
HEENT: Normocephalic and Atraumatic
Respiratory: Negative Wheezes
Cardiac: Regular Rhythm and S1/S2
GI: Soft
Genito-urinary: No Costovertebral Tender
Neuro: AO x 3
Hematologic / Lymphatic: No Lymphadenopathy
Psych: Calm
Data Reviewed
-
Total Time Spent with Patient (in minutes): 42
Labs: Labs Reviewed by me
[2023-10-27 10:10] VITALS: BP 124/67; PULSE 85; O2SAT 94
[2023-10-27] MEDS: TOPROL XL 75 MG PO ×2 (10:10→20:14)
[2023-10-27] MEDS: ELIQUIS 5 MG PO ×2 (10:11→20:15)
[2023-10-27] MEDS: LEXAPRO 20 MG PO (10:11)
[2023-10-27] MEDS: LIPITOR 80 MG PO (10:11)
[2023-10-27] MEDS: PLAVIX 75 MG PO (10:11)
[2023-10-27] MEDS: SENOKOT 17.1999999999999993 MG PO (10:11)
[2023-10-27] MEDS: JARDIANCE 10 MG PO (10:11)
[2023-10-27] MEDS: TYLENOL 650 MG PO ×5 (10:12→23:08)
[2023-10-27] MEDS: COLACE 100 MG PO (10:12)
[2023-10-27] MEDS: PROTONIX 40 MG PO (10:12)
[2023-10-27 10:15] VITALS: BP 124/67; PULSE 85; O2SAT 94
[2023-10-27 11:47] LABS: Glucose - Point of Care 174 mg/dl (70-99)
[2023-10-27] MEDS: NOVOLOG FLEXPEN-LOW RESISTANCE 1 UNITS SC (12:58)
--- NOTE | 2023-10-27 13:16 | CM ---
Reviewed the chart notes and spoke with the patient at the bedside. IMM signed and placed on chart. Per [facility], at first unable to accept, but is now able to accept tomorrow. No precert required. CM continues to be available to patient/family and
is monitoring medical plan for needs at discharge.
Plan: Discharge to [facility] tomorrow.
[2023-10-27 16:05] VITALS: BP 114/63
[2023-10-27 16:33] LABS: Glucose - Point of Care 128 mg/dl (70-99)
[2023-10-27] MEDS: FERRLECIT 110 MG IV (16:49)
[2023-10-27] MEDS: COLACE PO (21:06)
[2023-10-27] MEDS: SENOKOT PO (21:06)
[2023-10-27 21:31] LABS: Glucose - Point of Care 183 mg/dl (70-99)
[2023-10-27] MEDS: LEVEMIR 0.200000000000000011 UNITS SC (23:07)
[2023-10-27 23:25] VITALS: BP 135/71
[2023-10-27] MEDS: ULTRAM 25 MG PO (23:50)
[2023-10-28] MEDS: TYLENOL PO ×3 (04:19→19:52)
[2023-10-28] MEDS: TYLENOL 650 MG PO ×3 (04:27→16:36)
[2023-10-28 05:36] VITALS: BMI 32.1
[2023-10-28 05:54] LABS: Hematocrit 25.8 % (39.0-52.0); Hemoglobin 8.9 g/dL (13.0-18.0)
[2023-10-28 06:23] LABS: Blood Urea Nitrogen 30 mg/dl (9-20); Calcium 9.9 mg/dl (8.4-10.2); Carbon Dioxide 25 mmol/L (22-30); Chloride 105 mmol/L (98-107); Estimated Creatinine Clearance 68 ml/min; Glucose 104 mg/dl (70-99); Potassium 4.1 mmol/L (3.5-5.1); Sodium 139 mmol/L (135-145); eGFR 57.29
[2023-10-28 07:00] VITALS: BP 119/75
--- NOTE | 2023-10-28 07:31 | W.PN.HOSP.TC ---
Addendum entered and electronically signed by Uziel Chase MD 10/28/23 13:06:
Discharge on hold pending Cardio eval necessity LifeVest vs AICD, reduced ejection fraction 20%
Original Note:
Today's Communication/Plan
-
discharge
Assessment / Plan
Assessment / Plan
Physical Exam
General: No Apparent Distress
HEENT: Normocephalic and Atraumatic
Respiratory: Negative Wheezes
Cardiac: Regular Rhythm and S1/S2
GI: Soft
Genito-urinary: No Costovertebral Tender
Neuro: AO x 3
Hematologic / Lymphatic: No Lymphadenopathy
Psych: Calm
Assessment:
Acute Lt hip Fx s/p mechanical fall
- s/p left hip hemiarthroplasty 10/20
- WBAT LLE
- pain control
- PT/OT - Acute rehab eval pending
- follow ortho in office in 1-2 weeks for staple removals.
Acute blood loss anemia
- H&H stable
- no need for transfusion
- completed 2 days IV Iron course, convert to oral on discharge
Persistent A. Fib with RVR in setting of pain/anemia
- recent KIANA/DCCV on 09/09/2023
- CBC cards eval appreciated cont metoprolol dose increased during this hospitalization.
- continue Eliquis
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
- not on diuretic
- continue BB, Jardiance
ANN on CKD stage 3b from diabetic nephropathy
- ANN likely in setting of post-op and blood loss
- ARB on hold due to soft pressures and renal insufficiency, kidney function since improved, bp also improved though occasionally soft but normotensive, Olmestartan resumed at reduced dose
Hypercalcemia resolved 11.3-->9.9-->9.2
- held HCTZ on admit
- resolved
Type 2 IDDM
- continue Levemir/Aspart
- continue SSI
- A1c: 6.9%
Hx of Right ICA stenosis - 50-69% range
09/25/20 Brain MRI showing 2 mm area of questionable artifact vs subacute cva on left frontal lobe.
Hx of CAD
- Lipitor/Plavix/BB
Essential HTN
- cont BB
-Olmesartan resumed reduced dose
Hyperlipidemia
- cont Lipitor
DEBORAH on CPAP
- f/u with Dr Johnson
- compliant per family
Folic acid def
Depression
Melanoma abd and back with removal
DVT ppx: Eliquis
Code: Full
[facility]po[facility]
discussed with patient at bedside and patient's son Alejandro over the phone
Total Time Preparing Discharge __50 minutes including examination of the patient, summary of the hospital stay, instructions for continuing care to all relevant caregivers; and preparation of discharge records, prescriptions, and referral
forms if necessary.
Anticipated Discharge: Today
Subjective/Interval History
-
Date of Service: October 28, 2023
No acute distress comfortable at rest in bed. Reports significant pain on motion. Otherwise no new acute issues. [facility]
Objective Data
-
Labs:
Laboratory Results
10/28/23
04:56
Hgb 8.9 L
Hct 25.8 L
Sodium 139
Potassium 4.1
Chloride 105
Carbon Dioxide 25
BUN 30 H
Creatinine 1.3
Glucose 104 H
Calcium 9.9
Vital Signs:
Vital Signs
Temp Pulse Resp BP Pulse Ox
97.3 F 71 20 135/71 97
10/27/23 23:25 10/27/23 23:25 10/27/23 23:25 10/27/23 23:25 10/27/23 23:25
I&O
10/27/23 10/28/23 10/29/23
06:59 06:59 06:59
Intake Total 2270 / 2270 1200 / 1200
Output Total 1000 / 1000 1400 / 1400
Balance 1270 / 1270 -200 / -200
[2023-10-28 08:46] LABS: Glucose - Point of Care 108 mg/dl (70-99)
[2023-10-28] MEDS: NOVOLOG FLEXPEN-LOW RESISTANCE SC ×2 (08:51→16:36)
[2023-10-28] MEDS: ELIQUIS 5 MG PO ×2 (08:52→19:48)
[2023-10-28] MEDS: PLAVIX 75 MG PO (08:52)
[2023-10-28] MEDS: PROTONIX 40 MG PO (08:52)
[2023-10-28] MEDS: LIPITOR 80 MG PO (08:53)
[2023-10-28] MEDS: TOPROL XL 75 MG PO ×2 (08:53→19:49)
[2023-10-28] MEDS: LEXAPRO 20 MG PO (08:53)
[2023-10-28] MEDS: JARDIANCE 10 MG PO (08:53)
[2023-10-28] MEDS: COLACE PO ×2 (09:04→19:52)
[2023-10-28] MEDS: SENOKOT PO ×2 (09:05→19:52)
--- NOTE | 2023-10-28 09:08 | CON.MD ---
Consultation - Medical
-
Referring Provider: Dr. Perry Zuniga
Chief Complaint: Left hip fracture
History of Present Illness: 73-year-old male with PMH (as below) presented to [facility] on 10/19/2023 after mechanical fall with left hip pain and found to have a left femoral neck fracture. Status post left hip hemiarthroplasty on
10/21/[address] Adi Sanon with left hip posterior precautions and weightbearing as tolerated. Postoperatively patient with A-fib with RVR. Echocardiogram with EF 20%. Seen by cardiology for management of heart failure and A-fib. Also with
acute blood loss anemia not requiring transfusion but did get IV iron. ANN on CKD stage IIIb resolved with holding hydrochlorothiazide
Past Medical History: Paroxysmal A-fib, right internal carotid stenosis, essential HTN, HLD, DEBORAH on CPAP, folic acid deficiency, depression, melanoma of the abdomen and back
Procedure History: Cardioversion for A-fib, melanoma resection
Family History: None pertinent
Social History:
Functional Level Premorbidly: Independent with all activities
Functional Level Currently:�� Mod assist bed mobility, min assist transfer, min assist ambulating 20 feet x 2 with rolling walker. Dependent for toileting and lower extremity self-care.
Tobacco: Denies
Alcohol: Denies
Drug use: Denies
Lives with: Alone
24-hour assistance available: No
Number of floors: 2
# steps to enter: 2
# steps to second floor: Full flight but has stair glide
Potential First floor set up: No
Driving:
Occupation: Retired
Allergies:
Allergy/AdvReac Type Severity Reaction Status Date / Time
No Known Allergies Allergy Verified 08/08/23 06:48
Review of Systems:
Constitutional: (x) abNormal _fatigue
Eye: (x) Normal _
Ear/Nose/Throat: (x) Normal _
Respiratory: (x) Normal _
Cardiovascular: (x) abNormal _bilateral lower extremity swelling premorbidly, has specialized stockings to help, can have them brought in from home.
Gastrointestinal: (x) Normal _
Genitourinary: (x) Normal _
Musculoskeletal: (x) abNormal _left hip pain
Integumentary: (x) Normal _
Neurologic: (x) Normal _
Psychiatric: (x) Normal _
Endocrine: (x) Normal _
Hematologic/Lymphatic: (x) Normal _
Allergic/Immunologic: (x) Normal _
Medications:
Active Current Visit Medication List
Category Date Time Status
Acetaminophen [Tylenol] Med 10/20/23 04:00 Active
650 mg PO Q4HWA
Apixaban [Eliquis] Med 10/22/23 09:15 Active
5 mg PO BID
Atorvastatin [Lipitor] Med 10/20/23 08:00 Active
80 mg PO DAILY
Clopidogrel Bisulfate [Plavix] Med 10/25/23 08:00 Active
75 mg PO DAILY
Docusate Sodium [Colace] Med 10/21/23 20:00 Active
100 mg PO BID
Empagliflozin [Jardiance] Med 10/20/23 08:00 Active
10 mg PO DAILY
Escitalopram Oxalate [Lexapro] Med 10/20/23 08:00 Active
20 mg PO DAILY
Ferric Gluconate [Ferrlecit] 125 mg Med 10/25/23 14:00 Active
0.9% Sodium Chloride 100 ml [Nss] 100 ml
IV DAILY@1400
Flush (0.9% Sodium Chloride) [Flush (Nss)] Med 10/20/23 03:00 Active
See Dose Instructions IV PER PROTOCOL
Insulin Aspart Corrective Low [Novolog Flexpen-Low Med 10/21/23 11:30 Active
Resistance]
See Protocol SC AC
Insulin Detemir Levemir [Levemir] 20 units Med 10/21/23 22:00 Active
Subcutaneous Insulin Syringe [Syringe-Insulin] 0 unit
SC HS
Mag Hydrox/Al Hydrox/Simeth [Maalox] Med 10/21/23 15:46 Active
30 ml PO Q4HPRN PRN
Magnesium Hydroxide [Milk of Magnesia] Med 10/20/23 02:35 Active
30 ml PO DAILYPRN PRN
Metoprolol Xl [Toprol Xl] Med 10/24/23 20:00 Active
75 mg PO BID
Nitroglycerin Sublingual [Nitrostat (Sublingual)] Med 10/20/23 02:35 Active
0.4 mg SL [id number] PRN
Pantoprazole [Protonix] Med 10/24/23 08:00 Active
40 mg PO DAILY
Sennosides [Senokot] Med 10/20/23 20:00 Active
17.2 mg PO BID
Tamsulosin [Flomax] Med 10/20/23 02:35 Active
0.4 mg PO DAILYPRN PRN
Tramadol HCl [Ultram] Med 10/25/23 13:48 Active
25 mg PO Q6HPRN PRN
Vitals:
Temp Pulse Resp BP Pulse Ox
97.8 F 98 18 119/75 97
10/28/23 07:00 10/28/23 08:53 10/28/23 07:00 10/28/23 08:53 10/28/23 07:00
Height 6 ft 3 in
Actual Weight 116.318 kg
Body Mass Index (BMI) 32.1
Physical Exam:
General Appearance/Observation: Well-developed, well-nourished male in no apparent distress.
Pain/Comfort Assessment: 01/27 left hip pain improved with medication. Worse with activity.
Mood/Affect: Appropriate
Integumentary/Operative Site: Left hip Aquacel clean dry and intact, bruising left hip.
Eyes: Conjunctiva/Lids: normal ��� Pupils: pupils equal round and reactive to light and Accommodation
Ears/Nose/Throat: oral mucosa moist,� throat clear.������������ Lips/Teeth/Gums: normal
Cardiovascular: Heart: regular, no murmur
Pulses: dorsalis pedis 2+ bilaterally
Respiratory: Respiratory Effort/Chest Expansion: normal ������ Auscultation: Clear to auscultation bilaterally
Gastrointestinal: abdomen not tender, no distension, normal abdominal bowel sounds
Genitourinary: No Saenz
Extremities: Edema: Left hip swelling, bilateral symmetrical pitting edema. Cyanosis: None Trophic changes: None
Neurology Exam:
Orientation: Alert, Oriented to self, Time, Place
Memory: Intact for recent medical concerns
Higher cortical function
Comprehension: Intact
Two step command: Intact
Cranial Nerves:
�� CNII: Pupillary light reflex: Intact��� Visual Field: Intact
�� CN III, IV, : Extraocular muscles: Intact
�� CN V: Facial Sensation at Forehead: Intact, Maxilla: Intact, Mandible: Intact
�� CN VII: Facial movement: Symmetric
�� CN VIII: Hearing: Normal
�� CN IX/X: Speech & swallow: Normal, Position of Uvula: Midline
�� CN XI: Shoulder shrug: Symmetric
�� CN XII: Tongue protrusion: Midline
Sensory:
�� Light touch: Intact in bilateral upper and lower extremities
Reflexes:
�� Patellar: 2+ bilaterally
�� Achilles: 2+ bilaterally
�� Babinski: Down going bilaterally
�� Clonus: None
�� Alana: Negative bilaterally
Cerebellar: Dysmetria/Ataxia: None
Musculoskeletal:Motor: (Manual muscle scale 0-5)
Muscle SA EF WE EE FF FA HF KE DF EHL PF
Right� 5 5 5 5 5 5 5 5 5
Left 5 5 5 5 2 2 5 5 5
left leg limited by pain
Tone: Normal in all extremities
Range of Motion: Passively within normal limits in all extremities, left hip not fully assessed with precautions.
Lab Results
Laboratory Data
10/27/23 04:41
10/27/23 04:41
PT 13.1 Sec (11.4-14.6) 10/20/23 00:04
INR 1.01 10/20/23 00:04
APTT 30.0 Sec (23.4-35.0) 10/20/23 00:04
Total Bilirubin 0.8 mg/dl (0.2-1.3) 10/24/23 04:59
AST 38 U/L (17-59) 10/24/23 04:59
ALT 26 U/L (0-50) 10/24/23 04:59
Alkaline Phosphatase 62 U/L (38-126) 10/24/23 04:59
Total Protein 6.4 g/dl (6.3-8.2) 10/24/23 04:59
Albumin 3.3 g/dl (3.5-5.0) L 10/24/23 04:59
�
Diagnostic Results: as per HPI
Assessment
73-year-old left handed M PMH (Paroxysmal A-fib, right internal carotid stenosis, essential HTN, HLD, DEBORAH on CPAP, folic acid deficiency, depression, melanoma) with 10/19/2023 left femoral neck fracture S/P L hip hemiarthroplasty on 10/21/2023 by
Adi Velasco complicated by A-fib with RVR, acute blood loss anemia, ANN resulting in ADL and ambulatory dysfunction.
Plan
PM&R PT/OT to increase independence with ADLs, improve balance, coordination, endurance, strength, mobility, community reintegration, decreased burden of care on others and family education.
Status post left hip hemiarthroplasty 10/21/2023: Monitor incision, pain control, incision care per orthopedics, may shower, dressings can be removed postop day 7, josie removed postop day 14. Left posterior hip precautions.
HTN: Metoprolol, monitor closely
HLD: Statin������
Atrial fibrillation:�Eliquis anticoagulation and rate control with metoprolol.�����
Right internal carotid stenosis: Plavix, Eliquis, statin����������������������� ��������������
CHF: EF 20%, beta michael, monitor fluid status. Does not have LifeVest or AICD, to be discussed with cardiology with an EF of 20%.
DM II: Accu-Cheks, insulin sliding scale, aspart, Levemir.
CKD: Adjust medications as necessary
Bilateral lower extremity edema: Home teds to be brought in and applied.
DEBORAH: CPAP use.
Anemia: Postoperative and given iron infusion. Continue to monitor.
FEN: Diabetic
Psych: Psychology consult.� Monitor mood, adjust Lexapro as needed.
Skin: monitor for pressure sores/rashes/lesions.
Pain: acetaminophen 650 mg every 4 hours and as needed tramadol.
Bowel: Colace and Senna, PRN bisacodyl.
Bladder: Time void, PVRs, PRN straight cath.
GI Prophylaxis: Pantoprazole
DVT Prophylaxis: Mechanical and Eliquis
Pulmonary: Incentive spirometry
Obesity: Continue to program counselor patient about diet adjustments to control obesity. Body habitus and increased force to move body and extremities causes further difficulty with functional tasks.
Safety: Continue to reinforce assistance with all transfers.
Code Status:� Full code
Dispo (date/plan/equipment needs): Home with family care.
Functional and Medical Goals: Modified Independent with ADL�s, ambulation, transfers
Discharge Destination: Acute inpatient rehabilitation
Summary of recommendations:
- Discharge Destination: Acute inpatient rehabilitation as discussed with patient. Independent at baseline. Continue to monitor hemoglobin, heart rate, fluid status.
Status post left hip hemiarthroplasty 10/21/2023: Monitor incision, pain control, incision care per orthopedics, may shower, dressings can be removed postop day 7, josie removed postop day 14. Left posterior hip precautions.�
Atrial fibrillation:�Eliquis anticoagulation and rate control with metoprolol.�����
Right internal carotid stenosis: Plavix, Eliquis, statin����������������������� ��������������
CHF: EF 20%, beta michael, monitor fluid status. Does not have LifeVest or AICD, to be discussed with cardiology with an EF of 20%.
DM II: Accu-Cheks, insulin sliding scale, aspart, Levemir.
CKD: Adjust medications as necessary
Bilateral lower extremity edema: Home teds to be brought in and applied.
DEBORAH: CPAP use.
Anemia: Postoperative and given iron infusion. Continue to monitor.
Pain: acetaminophen 650 mg every 4 hours and as needed tramadol.
Bowel: Colace and Senna, PRN bisacodyl.
Bladder: Time void, PVRs, PRN straight cath.
GI Prophylaxis: Pantoprazole
DVT Prophylaxis: Mechanical and Eliquis
Pulmonary: Incentive spirometry
Safety: Continue to reinforce assistance with all transfers.
Thank you for allowing me to care for your patient. Please contact me with any questions or concerns.
[2023-10-28 11:55] LABS: Glucose - Point of Care 151 mg/dl (70-99)
[2023-10-28] MEDS: NOVOLOG FLEXPEN-LOW RESISTANCE 300 UNITS SC (12:10)
--- NOTE | 2023-10-28 12:24 | W.DCSUMMARY ---
Discharge Summary
Discharge Data
Date of Admission: 10/20/23
Date of Discharge: 10/28/23
Discharge Plan
-
Patient Disposition: Acute Rehab Facility
Discharge Diagnosis/Procedures: Left Hip Fracture status post left hip hemiarthroplasty 10/21/23, Acute Blood Loss Anemia, atrial fibrillation, Heart Failure with Reduced Ejection Fraction, Acute Kidney Injury on Chronic Kidney Disease Stage III,
Hypercalcemia due to hydrochlorothiazide discontinued with subsequent resolution hypercalcemia, Diabetes, Hypertension, Hyperlipidemia, history right internal carotid artery stenosis, coronary artery disease, obstructive sleep apnea on CPAP,
Condition: Fair
Diet: Low Cholesterol and 2 Gram Sodium
Activity: As tolerated
Driving Restrictions: Not until seen by your Dr
Bathing Restrictions: None
Blood Work: Please repeat CBC and BMP with primary care provider in 1 week of discharge.
Check Iron studies with primary care provider in 1 month of discharge.
Other Services: PT and OT
Specialty Instructions: Weigh Daily- Call MD for wt gain/loss 3 lbs overnight/5 lbs in 1 week
Activity Restrictions/Additional Instructions:
Please follow up with primary care provider in 1 week of discharge, orthopedic in 1-2 weeks of discharge (for wound check, repeat follow up imaging, and josie removal), and cardiology in 2-4 weeks of discharge.
Weightbearing as tolerated left lower extremity
Posterior hip precautions
Follow-up Orthopedic outpatient 1 to 2 weeks for repeat evaluation and plan removal of josie
atorvastatin 20 mg tablet 80 mg PO DAILY High cholesterol
cholecalciferol (vitamin D3) 10 mcg (400 unit) tablet (Vitamin D3) 400 units PO DAILY Supplement
coenzyme [id number] 100 mg-100 unit capsule 3 cap PO DAILY Supplement
multivitamin with folic acid 400 mcg tablet (Tab-A-Verna) 1 tab PO DAILY Supplement
levomefolate calcium 15 mg tablet (L-Methylfolate) 15 mg PO DAILY Depression
apixaban 5 mg tablet (Eliquis) 5 mg PO BID atrial fibrillation
clopidogrel 75 mg tablet 75 mg PO DAILY carotid artery stenosis coronary artery disease
empagliflozin 10 mg tablet (Jardiance) 10 mg PO DAILY Diabetes Heart Failure
glucosamine sulf dipot chlr,msm,chond 550 mg-C 30 mg-rupali 1 mg capsule (Glucosamine Chondroitin) 2 cap PO DAILY Supplement
insulin detemir U-100 100 unit/mL subcutaneous solution (Levemir U-100 Insulin) 20 units SC HS Diabetes
nitroglycerin 0.4 mg sublingual tablet 0.4 mg sublingual [id number] PRN chest pain
senna-docusate sodium tablet 1 tab PO DAILY Constipation
New/Changed medications
ferrous sulfate 325 mg (65 mg iron) tablet 325 mg PO DAILY Supplement
acetaminophen 325 mg tablet 650 mg (2 x 325 mg) PO Q4HWA 7 days Pain control
escitalopram oxalate 20 mg tablet 20 mg PO DAILY Depression Dose reduced from twice a day due to concern interaction with other medications
metoprolol succinate 25 mg tablet,extended release 24 hr 75 mg (3 x 25 mg) PO BID dose increased as per cardio recommendations for better control heart failure atrial fibrillation
olmesartan 20 mg tablet 20 mg PO DAILY dose reduced from 40 mg daily due to soft pressures
pantoprazole 40 mg tablet,delayed release 40 mg PO DAILY GI prophylaxis
tramadol 50 mg tablet 25 mg (1/2 x 50 mg) PO Q6HPRN PRN moderate pain 7 days
tramadol 50 mg tablet 50 mg PO Q6HPRN PRN severe pain 7 days
Please take medications as prescribed/recommended and follow up with primary care provider and/or other healthcare provider involved in your care for refills and/or further adjustment to your medication regimen as necessary.
Referrals:
Adi Velasco MD [Active] - in one to two weeks
Misha Henson MD [Family Provider] - in one week
Lee Vanegas MD [Active] - in two to four weeks
Prescriptions:
New
acetaminophen 325 mg Tablet
650 mg PO Q4HWA 7 Days Qty: 84 0RF
tramadol 50 mg Tablet
50 mg PO Q6HPRN PRN (Reason: severe pain) 7 Days Qty: 28 0RF
tramadol 50 mg Tablet
25 mg PO Q6HPRN PRN (Reason: moderate pain) 7 Days Qty: 28 0RF
pantoprazole 40 mg Tablet,Delayed Release (Dr/Ec)
40 mg PO DAILY 30 Days Qty: 30 0RF
metoprolol succinate 25 mg Tablet Extended Release 24 Hr
75 mg PO BID 30 Days Qty: 180 0RF
olmesartan 20 mg Tablet
20 mg PO DAILY 30 Days Qty: 30 0RF
Continued
atorvastatin 20 MG tablet
80 mg PO DAILY
coenzyme [id number] 1 CAP capsule
3 cap PO DAILY
multivitamin with folic acid [Tab-A-Verna] 1 TABLET tablet
1 tab PO DAILY
cholecalciferol (vitamin D3) [Vitamin D3] 400 UNITS tablet
400 units PO DAILY
levomefolate calcium [L-Methylfolate] 15 MG tablet
15 mg PO DAILY
senna-docusate sodium Tablet
1 tab PO DAILY
Eliquis 5 mg Tablet
5 mg PO BID
Jardiance 10 mg Tablet
10 mg PO DAILY
Glucosamine Chondroitin 550-30-1 mg Capsule
2 cap PO DAILY
Levemir U-100 Insulin 1,000 UNITS/10 ML solution
20 units SC HS
clopidogrel 75 mg tablet
75 mg PO DAILY Qty: 90 3RF
nitroglycerin 0.4 mg tablet, sublingual
0.4 mg sublingual [id number] PRN (Reason: chest pain) Qty: 25 2RF
Patient Comments:
Pt states never opened/used
ferrous sulfate 325 mg (65 mg iron) Tablet
325 mg PO DAILY
Changed
escitalopram oxalate 20 MG tablet
20 mg PO DAILY Qty: 0 0RF
Discontinued
potassium 99 mg Tablet
99 mg PO DAILY
olmesartan 40 mg Tablet
40 mg PO DAILY
metoprolol succinate 25 mg Tablet Extended Release 24 Hr
50 mg PO DAILY
Discharge Orders:
Discharge Patient (As Directed); Ordered 10/28/23
Ordered By: Uziel Chase
Discharge Date and Time
Print Language: BRAZILIAN
--- NOTE | 2023-10-28 13:09 | W.PN.CD ---
Addendum entered and electronically signed by Rad Brooks MD 10/28/23 17:09:
I saw and examined the patient.
The DRILL SHARPENER's note was reviewed and I agree with the note.
Comment: 73M with persistent atrial fibrillation (on Eliquis), CAD status post PCI to the LAD, ischemic cardiomyopathy (EF 20%), and multiple arthritic joints and DJD who is here with proximal left femur fracture.
- spironolactone
- LifeVest recommendation, at time of interview Mr Carter is agreeable
- F/u with cardiology 1-2 weeks at discharge for continued med titration
Original Note:
Today's Communication / Plan
-
Called back to evaluate patient for LifeVest versus AICD.
Echocardiogram 3 months after maximally tolerated GDMT. Adding therapy as below.
Start spironolactone 25mg daily, this drug requires outpatient quarterly monitoring after initial BMPs, BMP in two and four weeks
Impression / Plan
-
BACKGROUND: 73M with persistent atrial fibrillation (on Eliquis), CAD status post PCI to the LAD, ischemic cardiomyopathy (EF 20%), and multiple arthritic joints and DJD who is here with proximal left femur fracture.
Advisor Consultant: Dr. Brooks
Fracture, neck, proximal left femur
- s/p Left hip hemiarthroplasty 10/21/23
- No cardiac complications
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
- NHYA class 1-2
- GDMT as tolerated
-SGLT-Inhibitor: Jardiance 10mg
-MRA: Start spironolactone 25mg daily
-GRACIA/ARB: Olmesartan 20mg
-Entresto: Cost prohibitive
-BB: Metoprolol succinate
-ICD: Re-eval LVEF 3 months after maximally tolerated GDMT
- He does not require a standing diuretic
CAD
- Cath/PCI 08/08/2023: LVEDP 20, LVEF 15-20%, 70 pLAD, 50 ostial D1, 100% pRCA, 30-40% pLCx. PCI/MAINE to pLAD
- No angina
- Continue clopidogrel & apixaban (for one year post PCI)
AFib, persistent, recurred quickly after KIANA/DCCV on 09/09/2023
- [id number] score 6 (HF, HTN, DM, age2, vascular disease)
- Patient considering pursuing ablation, he missed his EP appointment, he should reschedule
- Continue apixaban
Mild to moderate MR
IVCD (atyp LBBB), LAD, QRS 128-142,
DM2
HTN
Chronic RLE edema
Hx sleep apnea
BMI 32
Mixed hyperlipidemia, goal LDL < 55. Last LDL 91 on 09/02/2023. On high intensity statin now
Subjective:
Denies CP, SOB, and dizziness
Physical Exam
Vital Signs/Labs
Vital Signs
Temp Pulse Resp BP Pulse Ox
97.8 F 98 18 119/75 97
10/28/23 07:00 10/28/23 08:53 10/28/23 07:00 10/28/23 08:53 10/28/23 08:00
10/27/23 10/28/23 10/29/23
06:59 06:59 06:59
Actual Weight 118.2 kg 116.318 kg
10/28/23 04:56
10/28/23 04:56
PT 13.1 Sec (11.4-14.6) 10/20/23 00:04
INR 1.01 10/20/23 00:04
APTT 30.0 Sec (23.4-35.0) 10/20/23 00:04
Magnesium 2.2 mg/dl (1.6-2.3) 10/23/23 05:18
Physical Exam
Constitutional: No acute distress and Comfortable
EENT: Anicteric and Moist mucous membranes
Cardiovascular: Rhythm/rate is irregular, S1S2 is normal and Murmur/rub/gallop absent
Respiratory: Respiratory effort normal and Lungs clear to auscul.
GI: Soft, Distention absent, Flat, Non tender and Normal bowel sounds
Neuro/Psych: AO x 3
Other: Skin (warm and dry)
Data Reviewed
-
Date of Service: October 28, 2023
Medical Tests (PFT, Pathology etc): Report Reviewed by me
Labs: Labs Reviewed by me
Old Records: Reviewed
[2023-10-28] MEDS: FERRLECIT 110 MG IV (14:26)
[2023-10-28 14:28] VITALS: BP 106/64; PULSE 52; O2SAT 98
[2023-10-28 15:00] VITALS: BP 117/68
--- NOTE | 2023-10-28 16:29 | CM ---
Reviewed the chart notes. Patient's discharge held for further medical management. CM continues to be available to patient/family and is monitoring medical plan for needs at discharge.
Plan: Discharge to [facility] when medically stable.
[2023-10-28 16:33] VITALS: BP 114/77; PULSE 76; O2SAT 99
[2023-10-28 16:33] LABS: Glucose - Point of Care 123 mg/dl (70-99)
[2023-10-28 21:38] LABS: Glucose - Point of Care 157 mg/dl (70-99)
[2023-10-28] MEDS: LEVEMIR 0.200000000000000011 UNITS SC (21:38)
[2023-10-28 23:01] VITALS: BP 116/72
[2023-10-29] MEDS: TYLENOL PO ×2 (00:21→03:59)
[2023-10-29 05:53] VITALS: BMI 32.0
[2023-10-29 06:00] VITALS: BMI 32.0
[2023-10-29 07:00] VITALS: BP 136/75
--- NOTE | 2023-10-29 07:26 | W.PN.HOSP.TC ---
Today's Communication/Plan
-
Medically stable for discharge pending Acute rehab/SNF placement facility able to accommodate life vest
Assessment / Plan
Assessment / Plan
Physical Exam
General: No Apparent Distress
HEENT: Normocephalic and Atraumatic
Respiratory: Negative Wheezes
Cardiac: Regular Rhythm and S1/S2
GI: Soft
Genito-urinary: No Costovertebral Tender
Neuro: AO x 3
Hematologic / Lymphatic: No Lymphadenopathy
Psych: Calm
Assessment:
Acute Lt hip Fx s/p mechanical fall
- s/p left hip hemiarthroplasty 10/20
- WBAT LLE
- pain control
- PT/OT - Acute rehab eval pending
- follow ortho in office in 1-2 weeks for staple removals.
Acute blood loss anemia
- H&H stable
- no need for transfusion
- completed 2 days IV Iron course, convert to oral on discharge
Persistent A. Fib with RVR in setting of pain/anemia
- recent KIANA/DCCV on 09/09/2023
- CBC cards eval appreciated cont metoprolol dose increased during this hospitalization.
- continue Eliquis
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
- not on diuretic
- continue BB, Jardiance
-repeat ECHO notes improvement in EF
-appropriate for Lifevest since fitted
ANN on CKD stage 3b from diabetic nephropathy
- ANN likely in setting of post-op and blood loss
- ARB on hold due to soft pressures and renal insufficiency, kidney function since improved, bp also improved though occasionally soft but normotensive, Olmestartan resumed at reduced dose
Hypercalcemia resolved 11.3-->9.9-->9.2
- held HCTZ on admit
- resolved
Type 2 IDDM
- continue Levemir/Aspart
- continue SSI
- A1c: 6.9%
Hx of Right ICA stenosis - 50-69% range
09/25/20 Brain MRI showing 2 mm area of questionable artifact vs subacute cva on left frontal lobe.
Hx of CAD
- Lipitor/Plavix/BB
Essential HTN
- cont BB
-Olmesartan resumed reduced dose
Hyperlipidemia
- cont Lipitor
DEBORAH on CPAP
- f/u with Dr Johnson
- compliant per family
Folic acid def
Depression
Melanoma abd and back with removal
DVT ppx: Eliquis
Code: Full
Dispo: Medically stable for DC pending Acute Rehab/SNF placement (facility needs to be able to accommodate lifevest, Acute [facility] unable)
discussed with patient at bedside and patient's son Alejandro over the phone
Total Time Preparing Discharge __50 minutes including examination of the patient, summary of the hospital stay, instructions for continuing care to all relevant caregivers; and preparation of discharge records, prescriptions, and referral
forms if necessary.
Anticipated Discharge: 24 - 48 hours
Subjective/Interval History
-
Date of Service: October 29, 2023
no acute distress sitting up comfortably in chair. Denies pain at rest. Reports pain with exertion though improved. denies new acute issues at this time.
Objective Data
-
Vital Signs:
Vital Signs
Temp Pulse Resp BP Pulse Ox
97.6 F 76 20 116/72 95
10/28/23 23:01 10/28/23 23:01 10/28/23 23:01 10/28/23 23:01 10/28/23 23:01
I&O
10/28/23 10/29/23 10/30/23
06:59 06:59 06:59
Intake Total 1200 / 1200 1310 / 1310
Output Total 1400 / 1400 1400 / 1400
Balance -200 / -200 -90 / -90
[2023-10-29 07:58] LABS: Glucose - Point of Care 84 mg/dl (70-99)
[2023-10-29] MEDS: SENOKOT 17.1999999999999993 MG PO (08:33)
[2023-10-29] MEDS: COLACE 100 MG PO ×2 (08:33→21:51)
[2023-10-29] MEDS: PLAVIX 75 MG PO (08:34)
[2023-10-29] MEDS: LIPITOR 80 MG PO (08:34)
[2023-10-29] MEDS: TOPROL XL 75 MG PO ×2 (08:34→21:52)
[2023-10-29] MEDS: LEXAPRO 20 MG PO (08:34)
[2023-10-29] MEDS: PROTONIX 40 MG PO (08:34)
[2023-10-29] MEDS: BENICAR 20 MG PO (08:34)
[2023-10-29] MEDS: TYLENOL 650 MG PO ×4 (08:34→21:50)
[2023-10-29] MEDS: JARDIANCE 10 MG PO (08:34)
[2023-10-29] MEDS: ELIQUIS 5 MG PO ×2 (08:34→21:51)
[2023-10-29] MEDS: NOVOLOG FLEXPEN-LOW RESISTANCE SC ×2 (08:35→17:18)
[2023-10-29] MEDS: ALDACTONE 25 MG PO (08:35)
[2023-10-29 08:55] VITALS: BP 115/65; BP 127/65; PULSE 75; O2SAT 97
[2023-10-29 11:29] LABS: Glucose - Point of Care 167 mg/dl (70-99)
[2023-10-29] MEDS: NOVOLOG FLEXPEN-LOW RESISTANCE 1 UNITS SC (13:01)
--- NOTE | 2023-10-29 13:30 | PTCARENOTE ---
Pt received from the PACU via bed Transport was w/o incident. Pt Is AAOx3, HRR, lungs are clear, resp. easy. Pt with dry dressing to anterior neck, no drainage noted. Soft cervical collar in place. Pt instructed on plan of care. Pt verbalized
understanding of instructions. Call [facility]gett is within reach.
--- NOTE | 2023-10-29 14:25 | CM ---
Reviewed the chart notes and spoke with the patient at the bedside. The patient is to be fitted with a Life Vest tonight. [facility] unable to accept with [facility], [facility] [address] does accept Life Vest patient's. Spoke with the patient' son Alejandro. He
prefers referral to be sent to [facility]. Per Lo, admissions liaison, they have had Life Vest patient's in past. Await review.
[2023-10-29 15:07] VITALS: BP 116/88
[2023-10-29] MEDS: FERRLECIT 110 MG IV (15:18)
[2023-10-29 15:44] VITALS: BP 131/72; PULSE 71; O2SAT 96
[2023-10-29 16:20] LABS: Glucose - Point of Care 108 mg/dl (70-99)
[2023-10-29 21:45] LABS: Glucose - Point of Care 132 mg/dl (70-99)
[2023-10-29] MEDS: SENOKOT PO (21:49)
[2023-10-29] MEDS: DESENEX/MITRAZOL/ZEASORB 1 APPLIC TOPICAL (21:51)
[2023-10-29] MEDS: LEVEMIR 0.200000000000000011 UNITS SC (21:51)
--- NOTE | 2023-10-29 22:08 | PTCARENOTE ---
Pt tearful and upset about passing, frustrated about placement. Was also taking off life vest. Stated he wasn't allowed to go to [facility] due to the vest. Tried to calm pt and do deep breathing. was told to leave the room by pt. [place] [employer] notified
about pt noncompliance about lifevest. stat ativan po ordered. Pt son and lifevest rep came and talked with pt. talked with pt after visitors left. pt refused ativan and was resting camly. had no questions about lifevest and was wearing it. Rep
stated he was called by [facility] to do an inservice for possible d/c tomorrow.
[2023-10-29 23:35] VITALS: BP 125/65
[2023-10-30] MEDS: TYLENOL PO ×2 (00:03→04:33)
[2023-10-30 06:03] VITALS: BMI 31.9
[2023-10-30 06:05] LABS: Hematocrit 25.3 % (39.0-52.0); Hemoglobin 8.5 g/dL (13.0-18.0); Mean Corp Hgb Conc. 33.6 g/dL (33.0-37.0); Mean Corpuscular Hgb 30.6 pg (27.0-31.0); Mean Platelet Volume 9.5 fL (7.4-10.4); Platelet Count 234 10^3/uL (130-400); Red Blood Cell Count 2.78 10^6/uL (4.70-6.10); Red Cell Dist. Width 13.9 % (11.5-14.5); White Blood Cell Count 6.6 10^3/uL (4.8-10.8)
[2023-10-30 06:46] LABS: Blood Urea Nitrogen 23 mg/dl (9-20); Calcium 9.7 mg/dl (8.4-10.2); Carbon Dioxide 24 mmol/L (22-30); Chloride 109 mmol/L (98-107); Estimated Creatinine Clearance 73 ml/min; Glucose 72 mg/dl (70-99); Magnesium 1.9 mg/dl (1.6-2.3); Phosphorus 3.1 mg/dl (2.5-4.5); Potassium 3.8 mmol/L (3.5-5.1); Sodium 138 mmol/L (135-145); eGFR > 60.00
[2023-10-30 07:55] VITALS: BP 98/56
[2023-10-30 08:29] LABS: Glucose - Point of Care 119 mg/dl (70-99)
[2023-10-30] MEDS: NOVOLOG FLEXPEN-LOW RESISTANCE SC ×2 (08:50→12:56)
[2023-10-30] MEDS: JARDIANCE 10 MG PO (09:14)
[2023-10-30] MEDS: LIPITOR 80 MG PO (09:14)
[2023-10-30] MEDS: ELIQUIS 5 MG PO (09:14)
[2023-10-30] MEDS: LEXAPRO 20 MG PO (09:15)
[2023-10-30] MEDS: TOPROL XL 75 MG PO (09:15)
[2023-10-30] MEDS: BENICAR 20 MG PO (09:15)
[2023-10-30] MEDS: ALDACTONE 25 MG PO (09:15)
[2023-10-30] MEDS: COLACE 100 MG PO (09:15)
[2023-10-30] MEDS: PROTONIX 40 MG PO (09:15)
[2023-10-30] MEDS: PLAVIX 75 MG PO (09:15)
[2023-10-30] MEDS: TYLENOL 650 MG PO ×2 (09:15→11:46)
[2023-10-30] MEDS: DESENEX/MITRAZOL/ZEASORB 1 APPLIC TOPICAL (09:16)
[2023-10-30] MEDS: SENOKOT PO (09:17)
--- NOTE | 2023-10-30 09:20 | CM ---
Reviewed the chart notes and spoke with the patient at the beside. IMM signed and placed on chart. [facility] now able to accept after receiving refresher course on Life Vest from [facility] later this afternoon. continues to be available to
patient/family and is monitoring medical plan for needs at discharge.
Plan: Discharge to [facility] later today
Call report to: [phone]
Fax report to: [phone]
[2023-10-30 12:52] LABS: Glucose - Point of Care 135 mg/dl (70-99)
--- NOTE | 2023-10-30 14:44 | W.PN.HOSP.TC ---
Today's Communication/Plan
-
dc to [facility]
Assessment / Plan
Assessment / Plan
Assessment:
Acute Lt hip Fx s/p mechanical fall
- s/p left hip hemiarthroplasty 10/20
- WBAT LLE
- pain control
- PT/OT - Acute rehab dc today
- follow ortho in office in 1-2 weeks for staple removals.
Acute blood loss anemia
- H&H stable
- no need for transfusion
- completed IV Iron course, convert to oral on discharge
Persistent A. Fib with RVR in setting of pain/anemia
- recent KIANA/DCCV on 09/09/2023
- CBC cards eval appreciated cont metoprolol dose increased during this hospitalization.
- continue Eliquis
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
- not on diuretic
- continue BB, Jardiance
- repeat ECHO notes improvement in EF
- s/p Lifevest fitting
ANN on CKD stage 3b from diabetic nephropathy
- ANN likely in setting of post-op and blood loss
- ARB on hold due to soft pressures and renal insufficiency, kidney function since improved, bp also improved though occasionally soft but normotensive, Olmestartan resumed at reduced dose
Hypercalcemia resolved 11.3-->9.9-->9.2
- held HCTZ on admit
- resolved
Type 2 IDDM
- continue Levemir/Aspart
- continue SSI
- A1c: 6.9%
Hx of Right ICA stenosis - 50-69% range
09/25/20 Brain MRI showing 2 mm area of questionable artifact vs subacute cva on left frontal lobe.
Hx of CAD
- Lipitor/Plavix/BB
Essential HTN
- cont BB
- Olmesartan resumed reduced dose
Hyperlipidemia
- cont Lipitor
DEBORAH on CPAP
- f/u with Dr Johnson
- compliant per family
Folic acid def
Depression
Melanoma abd and back with removal
DVT ppx: Eliquis
Code: Full
More than 30 minutes spent in discharge including
Final examination of the patient
Summarizing hospital stay
Instructions for continuing care to all relevant caregivers
Preparation of discharge records, prescriptions, and referral forms
Total time spent (in minutes): 41
Anticipated Discharge: Today
Subjective/Interval History
-
Date of Service: October 30, 2023
no new complaints
has LifeVest for [facility] transfer
Objective Data
-
Labs:
Laboratory Results
10/30/23
05:07
WBC 6.6
Hgb 8.5 L
Hct 25.3 L
Plt Count 234 D
Sodium 138
Potassium 3.8
Chloride 109 H
Carbon Dioxide 24
BUN 23 H
Creatinine 1.2
Glucose 72
Calcium 9.7
Vital Signs:
Vital Signs
Temp Pulse Resp BP Pulse Ox
98.1 F 75 17 128/80 92
10/30/23 07:55 10/30/23 07:55 10/30/23 07:55 10/30/23 09:15 10/30/23 08:00
I&O
10/29/23 10/30/23 10/31/23
06:59 06:59 06:59
Intake Total 1310 / 1310 1300 / 1300 360 / 360
Output Total 1400 / 1790 1790 / 1790 400 / 400
Balance -90 / -480 -490 / -490 -40 / -40
Physical Exam
-
General: No Apparent Distress
HEENT: Normocephalic, Atraumatic and Other (LifeVest)
Respiratory: Negative Wheezes or Rales
Cardiac: Regular Rhythm and S1/S2
GI: Soft and Nontender
Genito-urinary: No Costovertebral Tender
Neuro: AO x 3
Hematologic / Lymphatic: No Lymphadenopathy
Psych: Calm
Data Reviewed
-
Total Time Spent with Patient (in minutes): 41
Labs: Labs Reviewed by me
--- NOTE | 2023-10-30 14:48 | W.DS.TRANS ---
DC Summary - [employer]
-
Discharge Instructions:
Discharge Diagnosis/Procedures Left Hip Fracture status post left hip
hemiarthroplasty 10/21/23, Acute Blood Loss
Anemia, atrial fibrillation, Heart Failure with
Reduced Ejection Fraction, Acute Kidney Injury
on Chronic Kidney Disease Stage III,
Hypercalcemia due to hydrochlorothiazide
discontinued with subsequent resolution
hypercalcemia, Diabetes, Hypertension,
Hyperlipidemia, history right internal carotid
artery stenosis, coronary artery disease,
obstructive sleep apnea on CPAP,
Diet 2 Gram Sodium,Low Cholesterol
Activity As tolerated
Driving Restrictions Not until seen by your Dr
Bathing Restrictions None
Blood Work Please repeat CBC and BMP with primary care
provider in 1 week of discharge.
Check Iron studies with primary care provider in
1 month of discharge.
Other Services PT,OT
Specialty Instructions Weigh Daily
Instructions:
Stand-Alone Forms:
Changes to Home Medications: Yes
Discharge Medications:
DC Medications w/original date entered in [employer]
atorvastatin 20 mg tablet 80 mg PO DAILY High cholesterol 09/26/20
cholecalciferol (vitamin D3) 10 mcg (400 unit) tablet (Vitamin D3) 400 units PO DAILY Supplement 09/26/20
coenzyme X90-amflzcb E 100 mg-100 unit capsule 3 cap PO DAILY Supplement 09/26/20
multivitamin with folic acid 400 mcg tablet (Tab-A-Verna) 1 tab PO DAILY Supplement 09/26/20
levomefolate calcium 15 mg tablet (L-Methylfolate) 15 mg PO DAILY Depression 02/26/21
apixaban 5 mg tablet (Eliquis) 5 mg PO BID Blood Clot Prevention/Tx 08/08/23
clopidogrel 75 mg tablet 75 mg PO DAILY #90 tabs 08/08/23
empagliflozin 10 mg tablet (Jardiance) 10 mg PO DAILY Diabetes 08/08/23
glucosamine sulf dipot chlr,msm,chond 550 mg-C 30 mg-rupali 1 mg capsule (Glucosamine Chondroitin) 2 cap PO DAILY Supplement 08/08/23
insulin detemir U-100 100 unit/mL subcutaneous solution (Levemir U-100 Insulin) 20 units SC HS Diabetes 08/08/23
nitroglycerin 0.4 mg sublingual tablet 0.4 mg sublingual [id number] PRN chest pain #25 tabs 08/08/23
senna-docusate sodium tablet 1 tab PO DAILY Constipation 08/08/23
ferrous sulfate 325 mg (65 mg iron) tablet 325 mg PO DAILY Supplement 09/09/23
acetaminophen 325 mg tablet 650 mg (2 x 325 mg) PO Q4HWA 7 days #84 tabs 10/28/23
escitalopram oxalate 20 mg tablet 20 mg PO DAILY Depression #0 tabs 10/28/23
metoprolol succinate 25 mg tablet,extended release 24 hr 75 mg (3 x 25 mg) PO BID 30 days #180 tabs 10/28/23
olmesartan 20 mg tablet 20 mg PO DAILY 30 days #30 tabs 10/28/23
pantoprazole 40 mg tablet,delayed release 40 mg PO DAILY 30 days #30 tabs 10/28/23
tramadol 50 mg tablet 25 mg (1/2 x 50 mg) PO Q6HPRN PRN moderate pain 7 days #28 tabs 10/28/23
tramadol 50 mg tablet 50 mg PO Q6HPRN PRN severe pain 7 days #28 tabs 10/28/23
spironolactone 25 mg tablet 25 mg PO DAILY 30 days #30 tabs 10/29/23
Home Medication Changes
ferrous sulfate 325 mg (65 mg iron) tablet 325 mg PO DAILY Supplement
acetaminophen 325 mg tablet 650 mg (2 x 325 mg) PO Q4HWA 7 days Pain control
escitalopram oxalate 20 mg tablet 20 mg PO DAILY Depression Dose reduced from twice a day due to concern interaction with other medications
metoprolol succinate 25 mg tablet,extended release 24 hr 75 mg (3 x 25 mg) PO BID dose increased as per cardio recommendations for better control heart failure atrial fibrillation
olmesartan 20 mg tablet 20 mg PO DAILY dose reduced from 40 mg daily due to soft pressures
spironolactone 25 mg daily for heart failure hypertension
pantoprazole 40 mg tablet,delayed release 40 mg PO DAILY GI prophylaxis
tramadol 50 mg tablet 25 mg (1/2 x 50 mg) PO Q6HPRN PRN moderate pain 7 days
tramadol 50 mg tablet 50 mg PO Q6HPRN PRN severe pain 7 days
Pending Results: No
Total time spent discharging patient (in min): 41
== END 2023-10-30 15:45 | DRG 522 ==
LOC: 2 SOUTH 02:05
PROVIDERS: Internal Medicine; Nurse Practitioner Gerontology; ADMITTING PHYSICIAN Internal Medicine; ATTENDING PHYSICIAN Internal Medicine; CONSULT PHYSICIAN Internal Medicine Cardiovascular Disease; CONSULT PHYSICIAN Orthopaedic Surgery; CONSULT PHYSICIAN Physical Medicine & Rehabilitation; EMERGENCY PHYSICIAN Student in an Organized Health Care Education/Training Program; FAMILY PHYSICIAN Family Medicine
PROC: 0SRS0J9 Replacement of Left Hip Joint, Femoral Surface with Synthetic Substitute, Cemented, Open Approach (ICD-10-PCS; 2023-10-21)
DX: S72.032A Displaced midcervical fracture of left femur, initial encounter for closed fracture (principal); I48.19 Other persistent atrial fibrillation; I50.22 Chronic systolic (congestive) heart failure; I13.0 Hypertensive heart and chronic kidney disease with heart failure and stage 1 through stage 4 chronic kidney disease, or unspecified chronic kidney disease; D62 Acute posthemorrhagic anemia; N17.9 Acute kidney failure, unspecified; G47.33 Obstructive sleep apnea (adult) (pediatric); E53.8 Deficiency of other specified B group vitamins; F32.A Depression, unspecified; G89.29 Other chronic pain; M54.10 Radiculopathy, site unspecified; M54.9 Dorsalgia, unspecified; I25.5 Ischemic cardiomyopathy; T50.2X5A Adverse effect of carbonic-anhydrase inhibitors, benzothiadiazides and other diuretics, initial encounter; E83.52 Hypercalcemia; I25.10 Atherosclerotic heart disease of native coronary artery without angina pectoris; E78.00 Pure hypercholesterolemia, unspecified; I65.21 Occlusion and stenosis of right carotid artery; R26.2 Difficulty in walking, not elsewhere classified; E78.2 Mixed hyperlipidemia; N18.32 Chronic kidney disease, stage 3b; W01.10XA Fall on same level from slipping, tripping and stumbling with subsequent striking against unspecified object, initial encounter; Y93.01 Activity, walking, marching and hiking; Y92.009 Unspecified place in unspecified non-institutional (private) residence as the place of occurrence of the external cause; Z60.2 Problems related to living alone; Z79.01 Long term (current) use of anticoagulants; Z79.84 Long term (current) use of oral hypoglycemic drugs; Z85.820 Personal history of malignant melanoma of skin; Z87.891 Personal history of nicotine dependence; Z79.02 Long term (current) use of antithrombotics/antiplatelets; Z63.4 Disappearance and death of family member; Z95.5 Presence of coronary angioplasty implant and graft
CPT/HCPCS: 93308; 70450; 73502; 80048; 80053; 81003; 82962; 83036; 83605; 83735; 84100; 84145; 85014; 85018; 85025; 85027; 85610; 85730; 86850; 86900; 86901; 93005; 96374; 96375; 97110; 97116; 97162; 97167; 97530; 97535; 99285; C1713; C1776; J2916; J3480

== ENCOUNTER 2023-11-27 11:51 | Inpatient (IN) | payer MEDICARE, SELFPAY ==
[2023-11-24] VITALS (8 sets, daily range): BP systolic 106–181; BP diastolic 62–159
--- NOTE | 2023-11-24 19:49 | ED.GENMED ---
History of Present Illness
General
Chief Complaint: Heart Rate Problem
Source: patient and records
Time Seen by Provider: 11/24/23 19:26
Travel History
Have you had any contact with someone who has COVID-19?: No
Do you have any symptoms of coronavirus? Fever > 100 degrees, chills, cough, shortness of breath, sore throat, loss of taste or smell, muscle aches, or headache?: No
History of Present Illness
History of Present Illness:
73-year-old male slipped and fell out of his inclining chair. Hit the left side of his face. Has felt weaker since leaving the hospital/rehab. No other specific complaints related to the fall. No syncope. Has felt tremulous and shaky
Past History
Past History
ED Past Medical History: HTN and Hypercholesterolemia
ED Past Surgical History: None
Social History
Tobacco: Non-smoker
Personal:
Living: with family
Family History
Family History: Other (reviewed and non-contributory)
Review of Systems
Review of Systems
All Other Systems: Not applicable
Constitutional: Reports other (Tremors); Denies fever or chills
Respiratory: Reports no symptoms
Cardiac: Reports no symptoms
Phy Exam
Physical Exam
Physical Exam:
GENERAL: Alert and oriented in no apparent distress. Superficial abrasion to the left cheek.
EYE: Orbits normal.
NECK: Supple, minimal paracervical tenderness
ENT: Pharynx without erythema
CARDIAC: Irregular irregular. Tachycardic. Fast in place
LUNGS: Clear breath sounds,normal
ABDOMEN: Soft, without focal tenderness or distention
NEUROLOGICAL: Alert and oriented , grossly non-focal. Tremulous
SKIN: Warm and dry, no rash or lesion, no discoloration, skin intact.
MUSCULOSKELETAL: No edema,no deformity.Good color
PSYCH: Normal and appropriate interaction.
Course
Orders/Labs/Results
Orders:
Orders
11/24/23 19:37
Electrocardiogram (*1) Stat
Reason for Study: Other
Other Reason for Exam: chest pain
CT Cervical Spine W/o Iv Contr Urgent
Comment:
Reason For Exam: trauma
CT Head W/o Iv Contrast Urgent
Comment:
Reason For Exam: trauma
Cardiac Monitoring- Treatment ONCE
Cardiac Monitoring- Treatment ONCE
EKG- Treatment ONCE
IV Insert/Care/Rem.- Treatment PRN
Pulse Ox/cont/shift [RESP] Stat
Quantity: 1
11/24/23 19:50
Basic Metabolic Panel Urgent
Complete Blood Count/With Diff Urgent
11/24/23 23:19
CARDIOLOGY CONSULT Routine
Consulting Provider: Lee Vanegas
Was physician already notified: No
Reason for consult: afib with rvr, ef 20% needs poss med adjustment
Consult Notification Routine
Specialty to Notify: Cardiology
Date consulting provider notified: 11/25/23
Time consulting provider notified: 07:32
Notified:: Provider
Comment: Briana via tiger text
11/24/23 23:20
Admit/Transfer Patient As Directed
Co-Sign Provider:
Level of Care: Observation services
Assign to:: Telemetry
Physician / Group: jamal pete
Diagnosis: fall 2/2 weakness, afib with rvr, cardiomyopathy
Reason for Telemetry: Arrhythmia
Date to Stop Telemetry: 11/27/23
Time to Stop Telemetry: 11:00
Reason for Hospitalization: fall 2/2 weakness, afib with rvr, cardiomyopathy
Code Status As Directed
Resuscitation Status: Full Code
11/24/23 23:25
Tramadol HCl [Ultram] 25 mg PO NOW STA
11/25/23 01:18
Acetaminophen [Tylenol] 650 mg PO Q4HPRN PRN
Dextrose 50%-Water [Dextrose 50% Syringe] 12.5 grams IV Q85URIB PRN
Gabapentin [Neurontin] 300 mg PO HS
Glucagon [GlucaGen] 1 mg IM PRN PRN
Metoprolol Xl [Toprol Xl] 50 mg PO BID
Tramadol HCl [Ultram] 25 mg PO Q6HPRN PRN
11/25/23 01:18
Case Management Consult ONCE
Case Management Consult: Discharge Planning
Comment: if meets criteria for SNF son [facility]pt does have life vest
VTE Contraindication Routine
VTE Mechanical Device Contraindication: Medical Contraindication
Pharmocologic Contraindication: Medical Contraindication
Comment: eddie carter
Activity As Directed
Activity Level: With Assistance
Comment: uses walker
Bedside Glucose Monitoring As Directed
Frequency: AC&HS
Additional Instructions:: Change to q6h if pt on TPN, tube feeding or not eating
Intake/ Output As Directed
Frequency: Per unit guidelines
Vital Signs As Directed
Frequency: Per unit guidelines
Weight As Directed
Frequency: Daily
Ot Eval And Treat Routine
Pt Eval And Treat Routine
Activity Level: As Tolerated
11/25/23 06:07
Basic Metabolic Panel IN AM
Complete Blood Count/With Diff IN AM
11/25/23 07:30
Insulin Aspart Corrective Low [Novolog Flexpen-Low Resistance] See Protocol SC AC
11/25/23 08:00
Apixaban [Eliquis] 2.5 mg PO BID
Atorvastatin [Lipitor] 80 mg PO DAILY
Cholecalciferol (Vitamin D3) [VITAMIN D3 (cholecalciferol)] 10 mcg PO DAILY
Clopidogrel Bisulfate [Plavix] 75 mg PO DAILY
Docusate Sodium [Colace] 100 mg PO DAILY
Empagliflozin [Jardiance] 10 mg PO DAILY
Escitalopram Oxalate [Lexapro] 20 mg PO DAILY
Famotidine [Pepcid] 10 mg PO DAILY
Ferrous Sulfate [Feosol] 325 mg PO DAILY
Multivitamin [Theragran] 1 tablet PO DAILY
Pantoprazole [Protonix] 40 mg PO DAILY
Sacubitril 49/Valsartan 51 [Entresto 49 mg/51 mg] 1 tab PO DAILY
Spironolactone [Aldactone] 25 mg PO DAILY
11/25/23 Dinner
Cholesterol Lowering
At Your Request: Full Participation
Does patient need a safe tray?: No
Fluid Restriction: 1200 mL/day (40 oz)
Cholesterol Lowering: Sodium, 2 Gram
1800 bertin/15 CHO Diabetic
11/25/23 22:00
Tamsulosin [Flomax] 0.4 mg PO HS
11/26/23 06:00
Basic Metabolic Panel IN AM
Complete Blood Count/With Diff IN AM
11/27/23 06:00
Basic Metabolic Panel IN AM
Complete Blood Count/With Diff IN AM
11/27/23 11:00
DC Protocol for Telemetry ONCE
Abnormal Lab Results
11/24/23
19:50
RBC 3.14 L 10^6/uL
(4.70-6.10)
Hgb 9.8 L g/dL
(13.0-18.0)
Hct 29.5 L %
(39.0-52.0)
MCH 31.2 H pg
(27.0-31.0)
Carbon Dioxide 19 L mmol/L
(22-30)
BUN 41 H mg/dl
(9-20)
Glucose 139 H mg/dl
(70-99)
Calcium 10.8 H mg/dl
(8.4-10.2)
11/24/23 19:50
11/24/23 19:50
Vital Signs
Initial and Last Documented VS:
Initial Vital Signs
Temp Pulse Resp BP Pulse Ox
98.0 F 108 21 140/127 100
11/24/23 19:23 11/24/23 19:23 11/24/23 19:23 11/24/23 19:23 11/24/23 19:23
Last Documented Vital Signs
Temp Pulse Resp BP Pulse Ox
98.0 F 61 9 94/56 94
11/24/23 19:23 11/25/23 07:52 11/25/23 07:00 11/25/23 08:55 11/25/23 07:15
*Pulse Oximetry
Patient hypoxic: no
*EKG
Interpreted by ED Provider?: Yes
Interpretation: abnormal
Comparison EKG: no changes
Heart Rate: 102
Rate: tachycardiac
Rhythm: a-fib
[place]: normal axis
Interval: normal interval
QRS Pattern: left bundle branch block
Ischemia: non-specific ST changes
*Breeding Technician Interpretation
Rate: tachycardiac
Interpretation: abnormal
Heart Rate: 104
Rhythm: a-fib
*Critical Care Note
Total Time (30-74mins, 75-104mins- exclusive of procedures): Not Applicable
Data Reviewed
Review of Other/Old Records Reveals: Labs, Records, Testing and Discharge Summary
ED Attending Note
-
Portions of this chart may have been created with voice recognition software.� Occasional wrong word or��sound alike� substitutions may have occurred due to the inherent limitations of voice recognition software.
Discharge Plan
Departure
Patient Disposition: Admit
Date of Disposition: 11/24/23
Time of Disposition: 22:31
Presentation/result/management discussed w/ accepting MD/DO: Hospitalist
Discharge Problem:
General weakness/frequent falls, Facial contusion, Chronic anemia, Atrial fibrillation
Interventions
Interventions:
*Risk Screen - Suicide Last Done: 11/24/23 19:23
*General Assessment Last Done: 11/24/23 19:23
*Neglect/Abuse Screening Last Done: 11/24/23 19:23
ED- Fall Risk Assessment Last Done: 11/24/23 19:32
*ED COVID-19 Vaccine History Last Done: 11/24/23 19:23
ED- Cardiac Assessment Last Done: 11/24/23 19:32
ED- Pulmonary Assessment Last Done: 11/24/23 19:32
[2023-11-24 20:01] LABS: % Basophils 0.6 % (0-2); % Eosinophils 1.7 % (0-6); % Immature Granulocytes 0.2 % (0-0.5); % Lymphocytes 21.6 % (20.5-51.1); % Monocytes 7.3 % (1.7-9.3); % Neutrophils 68.6 % (42.2-75.2); Absolute Eosinophils 0.1 10^3/uL (0-0.7); Absolute Lymphocytes 1.4 10^3/uL (1.2-3.4); Absolute Monocytes 0.5 10^3/uL (0.1-0.6); Absolute Neutrophils 4.4 10^3/uL (1.4-6.5); Hematocrit 29.5 % (39.0-52.0); Hemoglobin 9.8 g/dL (13.0-18.0); Mean Corp Hgb Conc. 33.2 g/dL (33.0-37.0); Mean Corpuscular Hgb 31.2 pg (27.0-31.0); Mean Corpuscular Volume 93.9 fL (80.0-94.0); Mean Platelet Volume 9.3 fL (7.4-10.4); Nucleated Red Blood Cells % 0 % (-); Platelet Count 218 10^3/uL (130-400); Red Blood Cell Count 3.14 10^6/uL (4.70-6.10); Red Cell Dist. Width 13.4 % (11.5-14.5); White Blood Cell Count 6.5 10^3/uL (4.8-10.8)
[2023-11-24 20:17] LABS: Blood Urea Nitrogen 41 mg/dl (9-20); Calcium 10.8 mg/dl (8.4-10.2); Carbon Dioxide 19 mmol/L (22-30); Chloride 107 mmol/L (98-107); Glucose 139 mg/dl (70-99); Sodium 136 mmol/L (135-145); eGFR 57.29
--- NOTE | 2023-11-24 22:17 | HPS.HSE ---
Addendum entered and electronically signed by González Evangelista MD 11/24/23 23:59:
Seen and examined by me independently in collaboration with the nurse practitioner Ruby.
Past medical history/social history/medication/allergies reviewed.
Lab data and imaging data reviewed.
Patient with a recent and left hip fracture status post left hip hemiarthroplasty 10/21/2023 and was discharged to [facility] from where he was discharged home 11/17/2023 presents with generalized weakness and had 2 falls.
Patient states he was feeling generally weak. And according to the son he was not doing much therapies or mobility at home.
Apart from general weakness patient complains no specific complaints.
No fever or chills.
No chest pain or palpitations or shortness of breath.
No dizziness.
He was recently put on LifeVest because of persistent cardiomyopathy.
In the ER he had monitor worker showing intermittent fast A-fib but settled down without any treatments.
Lab data noted without any major metabolic disturbance.
Unclear if his weakness and falls is function of deconditioning and now ambulatory dysfunction. Will rule out increased heart rate causing weakness. Follow on telemetry. Consult cardiology. Check orthostatic blood pressure reading.
PT OT consult
He would need SNF on discharge at this time.
Discussed with son at bedside.
Addendum entered and electronically signed by CROW Myles 11/24/23 23:27:
PROB list continued
#Left Hip Fracture status post left hip hemiarthroplasty 10/21/23
-Continue/PT/OT/case management
-Recommend SNF facility as patient is still weak and lives alone he did complete 2 weeks at [facility].
Original Note:
Family Physician
-
Family Physician: Misha Henson
Chief Complaint
-
Slip, fall left-sided head contusion
History of Present Illness
73-year-old male complaining he slipped and fell out of his inclining chair he states that was about senior care up when he attempted to stand he reports his feet slipped and he hit his head on the nightstand. He is supposed to have his walker in front
of him but states it was to the right side of him. He is on Plavix and Eliquis and was noted to A-fib with RVR with history of A-fib. His son states he has been home for approximately 6 days has not been participating with PT/OT or the aides or
doing any exercises at all due to different stories of feeling weak or not up to it. The patient does confirm he has not been compliant with PT or OT but gives different excuses. He lives behind his son's house and does have a chairlift that goes
to the second floor. The patient reports he is having difficulty standing from the chair left up to his walker to get to his bed due to the shortened height. The patient denies headache, fever, chills, chest pain, palpitations, shortness breath,
cough, abdominal pain, nausea, vomiting, diarrhea, urinary symptoms.
He has past medical history of bradycardia with LifeVest, EF 25%, CPAP, ex-smoker, neuropathy, HTN, HLD, DM2, CKD 3 A, right ICA stenosis 50 to 69% depression, anemia, TU[place]UMNE.
Medical History
Past Medical History
Past Medical History: Reports Other
Additional Past Medical History:
HX Prx AF s/p DC CV in Aug 2023
HX ight internal carotid artery stenosis, 50-69% range.
Essential hypertension.
Hyperlipidemia.
Obstructive sleep apnea on CPAP.
Folic acid deficiency.
Depression.
Melanoma of abdomen and back with azeb
Past Surgical History: Reports Other
Social History
Tobacco: Non-smoker
Alcohol: None
Personal: (July 2023)
Living: With Family
Family History
Family History: Not pertinent
Allergies / Home Medications
Allergies reflects when Allergies were last updated in [facility].
Home Medications with original date entered in [facility]
Allergy/Medication List:
Allergies
Allergy/AdvReac Type Severity Reaction Status Date / Time
No Known Allergies Allergy Verified 08/08/23 06:48
Home Medications
atorvastatin 20 mg tablet 80 mg PO DAILY High cholesterol 09/26/20
cholecalciferol (vitamin D3) 10 mcg (400 unit) tablet (Vitamin D3) 400 units PO DAILY Supplement 09/26/20
coenzyme [id number] E 100 mg-100 unit capsule 3 cap PO DAILY Supplement 09/26/20
multivitamin with folic acid 400 mcg tablet (Tab-A-Verna) 1 tab PO DAILY Supplement 09/26/20
levomefolate calcium 15 mg tablet (L-Methylfolate) 15 mg PO DAILY Depression 02/26/21
apixaban 5 mg tablet (Eliquis) 2.5 mg PO BID Blood Clot Prevention/Tx 08/08/23
clopidogrel 75 mg tablet 75 mg PO DAILY #90 tabs 08/08/23
empagliflozin 10 mg tablet (Jardiance) 10 mg PO DAILY Diabetes 08/08/23
glucosamine sulf dipot chlr,msm,chond 550 mg-C 30 mg-rupali 1 mg capsule (Glucosamine Chondroitin) 2 cap PO DAILY Supplement 08/08/23
nitroglycerin 0.4 mg sublingual tablet 0.4 mg sublingual [id number] PRN chest pain #25 tabs 08/08/23
ferrous sulfate 325 mg (65 mg iron) tablet 325 mg PO DAILY Supplement 09/09/23
escitalopram oxalate 20 mg tablet 20 mg PO DAILY Depression #0 tabs 10/28/23
Insulin Detemir Levemir [Levemir] 25 units As Directed mls/hr SC HS DM 11/16/23
gabapentin 100 mg capsule 300 mg (3 x 100 mg) PO HS 30 days #90 caps 11/16/23
metoprolol succinate 50 mg tablet,extended release 24 hr 50 mg PO BID 30 days #60 tabs 11/16/23
tamsulosin 0.4 mg capsule 0.4 mg PO HS BPH 30 days #30 caps 11/16/23
tramadol 50 mg tablet 25 mg (1/2 x 50 mg) PO Q6HPRN PRN moderate pain 5 days #15 tabs 11/16/23
pantoprazole 40 mg tablet,delayed release 40 mg PO DAILY gerd 30 days #30 tabs 11/17/23
spironolactone 25 mg tablet 25 mg PO DAILY 30 days #30 tabs 11/17/23
docusate sodium 50 mg capsule 50 mg PO DAILY 11/24/23
famotidine 10 mg tablet 10 mg PO DAILY 11/24/23
sacubitril 49 mg-valsartan 51 mg tablet (Entresto) 1 tab PO DAILY 11/24/23
Review of Systems
-
History Source: Patient and Family
A 12 point ROS was completed and negative except as noted: Yes
Constitutional: Reports Fatigue; Denies Fever or Chills
EENT: Reports Other (Slight contusion left maxilla); Denies Sore Throat or Runny Nose
Respiratory: Denies Cough or Trouble Breathing
Cardiac: Reports Palpitations (Occasional); Denies Chest Pain, Diaphoresis or Syncope
Abdomen/GI: Denies Abdominal Pain, Nausea, Vomiting, Diarrhea, Constipated or Bloody Stools
: Denies Dysuria, Frequency, Flank Pain, Incontinence, Difficulty Voiding or Urgency
Musculoskeletal: Reports Joint Pain (Left hip) and Edema (+1 bilateral ankle edema)
Skin: Denies Itching or Rash
Neurological: Reports Weakness (Generalized); Denies Dizzy or Headache
Endocrine: Reports No Symptoms
Hematologic/Lymphatic: Reports No Symptoms
Psych: Reports Calm
Physical Exam
Vital Signs
Vital Signs
Temp Pulse Resp BP Pulse Ox
98.0 F 99 18 181/159 98
11/24/23 19:23 11/24/23 20:45 11/24/23 20:45 11/24/23 20:30 11/24/23 20:30
Physical Exam
General: Other (Generalized weakness); No Fever or Chills
HEENT: NormoCephalic, Anicteric, Moist mucous membranes, PERRLA, Motley Conjunctivae, No Ptosis and Other (Slight contusion left maxilla from fall)
Respiratory: Clear; No Wheezes, Rales or Rhonchi
Cardiac: S1/S2, Irregular Rhythm (Heart rate 90 to 123 bpm on monitor), Peripheral Edema (+1 bilateral ankle edema) and Other (LifeVest in place); No Murmur, Rub or Gallop
Breast: Deferred by me
GI: Soft, Non Tender, Non Distended, Normal Bowel Sounds and No Hepatosplenomegaly
Rectal: Deferred by Provider
Musculoskeletal: No Clubbing, No Cyanosis, Edema, Left Lower Extremity (+1 ankle edema), Edema, Right Lower Extremity (+1 ankle edema) and Other (Incision healed well left hip); No Edema, Left Upper Extremity or Edema, Right Upper Extremity
Skin: Warm, Dry and Rash
Neuro: AO x 3 (With episodes of rambling or confusion son states this has been normal for him for many months but worse since July after his ), Cranial Nerves Intact and No Sensory Deficits; No Slurred Speech, Facial Droop, Tremors or
Sedated
Psych: Calm
Laboratory Results
-
11/24/23 19:50
11/24/23 19:50
Data Reviewed
-
CT Scan: Report Reviewed by me
Lab Data: Labs Reviewed by me
Impression/Plan
-
Impression/plan:
Observation telemetry
#Fall 2/2 acute on chronic ambulatory dysfunction secondary to weakness
-Check orthostatic vitals
-PT/OT/case management consult(son requesting SNF if qualifies at [facility] or [facility])
#Fall with head contusion on Eliquis and Plavix
-Ice, Tylenol pain
CT head: Negative
# Labile HTN/HTN benign
151/141 > 181/159 > 117/98
-Continue metoprolol 50 mg twice daily
-No longer on prior olmesartan secondary to CKD
#Severe cardiomyopathy�EF 20%/LifeVest present
Plan was for ICD: Re-eval LVEF 3 months after maximally tolerated GDMT per CBC cardiology
Consult CBC cardiology
TTE: 08/13/2021 for: LVEF 20%, global hypokinesis, mild-moderate MR, enlarged RVS, mild elevated PASP pulm arterial pressure 41 mmHg
#A-fib paroxysmal with episodes of RVR/Hx paroxysmal A-fib
Heart rate at times up to 120
- give metoprolol 50 mg bid , give dose now
-Continue Eliquis
-Consult cardiology for rate control management�concern for patient's weakness
#Mild memory impairment per son
-Per son states tends to become agitated at night when in the hospital
-Is forgetful and rambles at times
Has not been formally evaluated
#CKD 3
Creat 1.3
Baseline creat 1.6 September 09
#DM2
-Accu-Cheks with SSI, continue Levemir and aspart
#Hx right ICA stenosis 50-69%
09/25/2020 brain MRI showed 2 mm questionable artifact versus subacute CVA on left frontal lobe
Continue Lipitor, Plavix
#DEBORAH on CPAP
-Patient follows with Dr. Hahn
#Depression hx
-Continue Lexapro was evaluated by psychiatry at [facility]
#Folic acid deficiency
#Melanoma removal abdomen and back
#Chronic ambulatory dysfunction
Uses walker at baseline
DVT prophylaxis
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
Full code
--- NOTE | 2023-11-24 22:26 | EDRN ---
In to see patient and hook back up to monitor, patient resting comfortably, hospitalist at bedside working on admission.
--- NOTE | 2023-11-24 23:22 | EDRN ---
Patient provided with a drink of water and a pillow, lights turned down for comfort, call padgett in reach, no further needs.
[2023-11-25] VITALS (34 sets, daily range): BP systolic 87–122; BP diastolic 48–86; PULSE 69–125; O2SAT 98; BMI 31.2
[2023-11-25] MEDS: ULTRAM 25 MG PO (00:08)
--- NOTE | 2023-11-25 01:45 | EDRN ---
Patient provided with urinal, thought he had to go to the bathroom, decided he didn't have to urinal left at bedside, lights all turned off and head of bed lowered, call padgett in reach.
[2023-11-25] MEDS: TOPROL XL 50 MG PO (01:55)
[2023-11-25] MEDS: NEURONTIN 300 MG PO ×2 (01:56→21:26)
[2023-11-25 06:28] LABS: % Basophils 0.5 % (0-2); % Eosinophils 2.5 % (0-6); % Immature Granulocytes 0.3 % (0-0.5); % Lymphocytes 29.9 % (20.5-51.1); % Monocytes 9.5 % (1.7-9.3); % Neutrophils 57.3 % (42.2-75.2); Absolute Eosinophils 0.2 10^3/uL (0-0.7); Absolute Lymphocytes 1.8 10^3/uL (1.2-3.4); Absolute Monocytes 0.6 10^3/uL (0.1-0.6); Absolute Neutrophils 3.4 10^3/uL (1.4-6.5); Hemoglobin 8.5 g/dL (13.0-18.0); Mean Corp Hgb Conc. 32.7 g/dL (33.0-37.0); Mean Corpuscular Hgb 30.8 pg (27.0-31.0); Mean Corpuscular Volume 94.2 fL (80.0-94.0); Mean Platelet Volume 9.3 fL (7.4-10.4); Nucleated Red Blood Cells % 0 % (-); Platelet Count 187 10^3/uL (130-400); Red Blood Cell Count 2.76 10^6/uL (4.70-6.10); Red Cell Dist. Width 13.6 % (11.5-14.5); White Blood Cell Count 5.9 10^3/uL (4.8-10.8)
--- NOTE | 2023-11-25 06:31 | EDRN ---
Patient has had a few pauses resulting in periods of bradycardia, lowest patient has been is 44, patient has been sleeping comfortably with no complaints, did tiger text Diandra Ruvalcaba who is covering telemetry to update, also about patient
having Toprol XL ordered for 0800, wants am nurse to reassess patient at that time before deciding if med needs to be held this am. Strips printed for these periods.
[2023-11-25 06:43] LABS: Blood Urea Nitrogen 41 mg/dl (9-20); Calcium 10.2 mg/dl (8.4-10.2); Carbon Dioxide 22 mmol/L (22-30); Chloride 109 mmol/L (98-107); Estimated Creatinine Clearance 73 ml/min; Glucose 132 mg/dl (70-99); Potassium 3.7 mmol/L (3.5-5.1); Sodium 138 mmol/L (135-145); eGFR > 60.00
[2023-11-25] MEDS: TOPROL XL PO (07:52)
--- NOTE | 2023-11-25 08:07 | W.PN.HOSP.TC ---
Today's Communication/Plan
-
F/U cardiology recs on afib management
continue RIGHT OF WAY WORKER Eliquis
PT/OT, likely will need SNF
Assessment / Plan
Assessment / Plan
Mr. Moises Carter is a 73 yo man with hx HFrEF with EF 25% on LifeVest, CPAP, ex-smoker, neuropathy, HTN, HLD, DM2, CKD 3 A, right ICA stenosis 50 to 69% depression, anemia, R[place]-SPARKS, recent left hip fracture status post left hip hemiarthroplasty 10/21/2023
(d/c'd from [facility] 11/17/2023) presents with generalized weakness and 2 falls.
#Fall 2/2 acute on chronic ambulatory dysfunction versus weakness 2/2 arrhythmia
-Check orthostatic vitals
-PT/OT/case management consult(son requesting SNF if qualifies at [facility] or [facility])
#Fall with head contusion on Eliquis and Plavix
-Ice, Tylenol pain
CT head: Negative
# Labile HTN/HTN benign
151/141 > 181/159 > 117/98
-hold RIGHT OF WAY WORKER Metoprolol given reported pauses on telemetry (RN discussed with cardiology)
-No longer on prior olmesartan secondary to CKD
#Severe cardiomyopathy�EF 20%/LifeVest present
Plan was for ICD: Re-eval LVEF 3 months after maximally tolerated GDMT per CBC cardiology
Consult CBC cardiology
TTE 10/28/23 - EF 25-30%, global diffuse hypokinesis, mild MR
#A-fib paroxysmal with episodes of RVR/Hx paroxysmal A-fib
Heart rate at times up to 120
-cardiology consulted - RN discussed telemetry readings of small pauses with cardiology and metop on hold for now
-Continue Eliquis
-Consult cardiology for rate control management�concern for patient's weakness
#Mild memory impairment per son
-Per son states tends to become agitated at night when in the hospital
-Is forgetful and rambles at times
Has not been formally evaluated
#CKD 3
Creat 1.3
Baseline creat 1.6 September 09
#DM2
-Accu-Cheks with SSI, continue Levemir and aspart
#Hx right ICA stenosis 50-69%
09/25/2020 brain MRI showed 2 mm questionable artifact versus subacute CVA on left frontal lobe
Continue Lipitor, Plavix
#DEBORAH on CPAP
-Patient follows with Dr. Hahn
#Depression hx
-Continue Lexapro was evaluated by psychiatry at [facility]
#Folic acid deficiency
#Melanoma removal abdomen and back
#Chronic ambulatory dysfunction
Uses walker at baseline
DVT prophylaxis
Continue RIGHT OF WAY WORKER Eliquis
Full code
Anticipated Discharge: 24 - 48 hours
Subjective/Interval History
-
Date of Service: November 25, 2023
tired this morning
denies chest pain or dizziness
poor historian
Objective Data
-
Labs:
Laboratory Results
11/24/23 11/25/23
19:50 06:07
WBC 5.9
Hgb 8.5 L
Hct 26.0 L
Plt Count 187
Sodium 136 138
Potassium 4.0 3.7
Chloride 107 109 H
Carbon Dioxide 19 L 22
BUN 41 H 41 H
Creatinine 1.3 1.2
Glucose 139 H 132 H
Calcium 10.8 H 10.2
Vital Signs:
Vital Signs
Temp Pulse Resp BP Pulse Ox
98.0 F 61 9 99/51 94
11/24/23 19:23 11/25/23 07:52 11/25/23 07:00 11/25/23 07:00 11/25/23 07:15
Review of Systems
-
History Source: Patient
All other systems: Reviewed and negative
Physical Exam
-
General: No Apparent Distress
HEENT: Normocephalic, Atraumatic and Other (LifeVest)
Respiratory: Negative Wheezes or Rales
Cardiac: Regular Rhythm and S1/S2
GI: Soft and Nontender
Genito-urinary: No Costovertebral Tender
Neuro: AO x 3
Hematologic / Lymphatic: No Lymphadenopathy
Psych: Calm
Data Reviewed
-
Diagnostic Radiology: Report Reviewed by me
Labs: Labs Reviewed by me
--- NOTE | 2023-11-25 08:26 | CON.CAR ---
Addendum entered and electronically signed by Lio Warren MD 11/25/23 12:46:
Patient seen and examined in collaboration with PROFESSIONAL SKATER; agree with below.
-73-year-old male with extensive medical/cardiac history as outlined below, including acute HFrEF (EF 25-30%; currently wearing a LifeVest) and CAD status-post proximal LAD MAINE (07/2023) presenting with fall secondary to orthostasis.
-Recommend discontinuing Entresto at this time.
-Will decrease Toprol-XL from 50 mg twice daily to 25 mg twice daily, although patient is having no significant/pathologic pauses.
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
-Will continue to follow.
Original Note:
Consultation
Consultation Request
Date/Time Consultation Requested: 11/24/2023 23:00
Date/Time Consultation Performed: 11/25/2023 08:30
Requesting Provider: CROW Gunn
Performing Provider: CROW Martinez for Dr. Warren
Reason for Consultation: Atrial fibrillation with rapid ventricular response, HFrEF
Medical History
-
Chief Complaint: Fall
History of Present Illness:
Moises Carter is a 73-year-old male (known to Dr. 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
presented to the emergency department with a chief complaint of a fall. He endorses fatigue and weakness. He had a fracture and did rehab at [facility]. He has been home for less than 1 week. He was discharged with PT, OT, and VN. He stood up and
states that his feet slipped. He reports hitting his head on the night stand. No acute pathology on CAT scan of the head and neck. He is on moderate dose Entresto. He was discharged on olmesartan due to Entresto being cost prohibitive in the
past. He reports he does his own medications and does not use a pillbox. He takes each medication out of the bottles twice a day. He was found to have symptomatic orthostatic hypotension
Past Medical History
Past Medical History: Arrhythmias (Persistent atrial fibrillation), CAD, CHF, HTN, Hypercholesterolemia, NIDDM, Renal Failure (Chronic kidney disease) and Valvular Disease (Mild to moderate mitral regurgitation)
Past Surgical History: Cholecystectomy and Orthopedic
Social History
Tobacco: Non-Smoker
Alcohol: None
Personal: (07/2023)
Living: With Family
Employment: Retired
Family History
Family History: Reviewed & Not Pertinent
Allergies / Home Medications
Allergy/AdvReac Type Severity Reaction Status Date / Time
No Known Allergies Allergy Verified 08/08/23 06:48
�Medication �Instructions �Recorded �Confirmed �Type
atorvastatin 20 mg tablet 80 mg PO DAILY High cholesterol 09/26/20 11/24/23 History
cholecalciferol (vitamin D3) 10 400 units PO DAILY Supplement 09/26/20 11/24/23 History
mcg (400 unit) tablet (Vitamin D3)
coenzyme R70-hsaedli E 100 mg-100 3 cap PO DAILY Supplement 09/26/20 11/24/23 History
unit capsule
multivitamin with folic acid 400 1 tab PO DAILY Supplement 09/26/20 11/24/23 History
mcg tablet (Tab-A-Verna)
levomefolate calcium 15 mg tablet 15 mg PO DAILY Depression 02/26/21 11/24/23 History
(L-Methylfolate)
apixaban 5 mg tablet (Eliquis) 2.5 mg PO BID Blood Clot 08/08/23 11/24/23 History
Prevention/Tx
clopidogrel 75 mg tablet 75 mg PO DAILY #90 tabs 08/08/23 11/24/23 Rx
empagliflozin 10 mg tablet 10 mg PO DAILY Diabetes 08/08/23 11/24/23 History
(Jardiance)
glucosamine sulf dipot 2 cap PO DAILY Supplement 08/08/23 11/24/23 History
chlr,msm,chond 550 mg-C 30 mg-rupali
1 mg capsule (Glucosamine
Chondroitin)
nitroglycerin 0.4 mg sublingual 0.4 mg sublingual [id number] PRN 08/08/23 11/24/23 Rx
tablet chest pain #25 tabs
ferrous sulfate 325 mg (65 mg 325 mg PO DAILY Supplement 09/09/23 11/24/23 History
iron) tablet
escitalopram oxalate 20 mg tablet 20 mg PO DAILY Depression #0 tabs 10/28/23 11/24/23 Rx
Insulin Detemir Levemir As Directed mls/hr SC HS DM 11/16/23 11/24/23 Rx
[Levemir] 25 units
gabapentin 100 mg capsule 300 mg (3 x 100 mg) PO HS 30 days 11/16/23 11/24/23 Rx
#90 caps
metoprolol succinate 50 mg 50 mg PO BID 30 days #60 tabs 11/16/23 11/24/23 Rx
tablet,extended release 24 hr
tamsulosin 0.4 mg capsule 0.4 mg PO HS BPH 30 days #30 caps 11/16/23 11/24/23 Rx
tramadol 50 mg tablet 25 mg (1/2 x 50 mg) PO Q6HPRN PRN 11/16/23 11/24/23 Rx
moderate pain 5 days #15 tabs
pantoprazole 40 mg tablet,delayed 40 mg PO DAILY gerd 30 days #30 11/17/23 11/24/23 Rx
release tabs
spironolactone 25 mg tablet 25 mg PO DAILY 30 days #30 tabs 11/17/23 11/24/23 Rx
docusate sodium 50 mg capsule 50 mg PO DAILY 11/24/23 11/24/23 History
famotidine 10 mg tablet 10 mg PO DAILY 11/24/23 11/24/23 History
sacubitril 49 mg-valsartan 51 mg 1 tab PO DAILY 11/24/23 11/24/23 History
tablet (Entresto)
Review of Systems
-
History Source: Patient
All other systems: Negative unless noted
Constitutional: Fatigue
Respiratory: No Symptoms
Cardiac: No Symptoms
Abdomen/GI: No Symptoms
Musculoskeletal: Muscle Pain (Chronic back pain) and Muscle Stiffness
Physical Exam
Vital Signs
Temp Pulse Resp BP Pulse Ox
98.0 F 61 9 99/51 94
11/24/23 19:23 11/25/23 07:52 11/25/23 07:00 11/25/23 07:00 11/25/23 07:15
Lab Results
11/25/23 06:07
11/25/23 06:07
Physical Exam
General: Well Developed and No Apparent Distress
HEENT: Anicteric and Moist Mucous Membranes
Respiratory: Clear and Non Labored Respirations
Cardiac: S1/S2 and Irregular Rhythm; Negative Peripheral Edema
Breast: Deferred by me
GI: Soft, Non Tender, Non Distended and Normal Bowel Sounds
Rectal: Deferred by Provider
Genito-urinary: No Costovertebral Tender
Musculoskeletal: No Clubbing, No Cyanosis and No Edema
Skin: Warm and Dry
Neuro: AO x 3
Hematologic/Lymphatic: No Lymphadenopathy
Psych: Calm
Impression / Plan
-
BACKGROUND: 73M with persistent atrial fibrillation (on Eliquis), CAD status post PCI to the LAD, ischemic cardiomyopathy (EF 20%), and with recent proximal left femur fracture presents with a chief complaint of weakness with associated dizziness
Public Relations: Dr. Brooks
Weakness, in the setting of orthostatic hypotension
-Positive orthostatics
-Stop Entresto, he already received a dose this morning
-His weight is down, give 250 mL of NSS
HFrEF from an ischemic cardiomyopathy (EF 25-30%)
-NHYA class 1-2
-GDMT as tolerated
-SGLT-Inhibitor: Jardiance 10mg
-MRA: Start spironolactone 25mg daily
-GRACIA/ARB: Was discharged on olmesartan 20mg from [facility]
-Entresto: Now on hold in the setting of orthostatic hypotension
-BB: Metoprolol succinate
-ICD: Wearing LifeVest, reevaluate LVEF in the outpatient setting, last TTE 10/28/2023
-He does not require a standing diuretic
-Heart failure education
-Trend daily weight, I/O, continue low-sodium diet
CAD
-Stable without chest pain
-Cath/PCI 08/08/2023: LVEDP 20, LVEF 15-20%, 70 pLAD, 50 ostial D1, 100% pRCA, 30-40% pLCx. PCI/MAINE to pLAD
-Continue clopidogrel & apixaban (for one year post PCI)
Persistent atrial fibrillation
-Fairly rate controlled, decrease metoprolol succinate in the setting of orthostatic hypotension
-Recurred quickly after KIANA/DCCV on 09/09/2023
-Oral anticoagulation: Apixaban 2.5 mg daily, he should be on 5 mg daily for his age, renal function, and weight
-[id number] score at least 6 (HF, HTN, DM, age2, vascular disease)
-He had outpatient evaluation with EP arranged, however he missed this appointment while he was at [facility]
Monitor regurgitation, mild
IVCD (atyp LBBB), LAD, QRS 128-142
Right ICA stenosis, 50-69%
DM2
HTN
Chronic RLE edema
PMH DEBORAH
Mixed hyperlipidemia, goal LDL < 55. Last LDL 91 on 09/02/2023, now on high intensity statin
Data Reviewed
-
EKG: Report Reviewed by me (Atrial fibrillation with RVR, LBBB, rate 102)
CT Scan: Report Reviewed by me (Head: No evidence of acute intracranial abnormality; Cervical spine: No evidence of acute fracture or dislocation.)
Labs: Labs Reviewed by me
Old Records: Reviewed
[2023-11-25 08:43] LABS: Magnesium 1.9 mg/dl (1.6-2.3)
[2023-11-25 08:43] LABS: Glucose - Point of Care 127 mg/dl (70-99)
[2023-11-25] MEDS: NOVOLOG FLEXPEN-LOW RESISTANCE SC ×2 (08:51→13:30)
[2023-11-25] MEDS: ALDACTONE 25 MG PO (08:52)
[2023-11-25] MEDS: JARDIANCE 10 MG PO (08:52)
[2023-11-25] MEDS: COLACE 100 MG PO (08:53)
[2023-11-25] MEDS: ELIQUIS 2.5 MG PO (08:53)
[2023-11-25] MEDS: THERAGRAN 1 TABLET PO (08:54)
[2023-11-25] MEDS: FEOSOL 325 MG PO (08:54)
[2023-11-25] MEDS: PLAVIX 75 MG PO (08:55)
[2023-11-25] MEDS: VITAMIN D3 (cholecalciferol) 10 MCG PO (08:55)
[2023-11-25] MEDS: LEXAPRO 20 MG PO (08:55)
[2023-11-25] MEDS: ENTRESTO 49 MG/51 MG 1 TAB PO (08:55)
[2023-11-25] MEDS: LIPITOR 80 MG PO (08:56)
[2023-11-25] MEDS: PEPCID 10 MG PO (08:56)
[2023-11-25] MEDS: NSS 250 IV (10:03)
[2023-11-25] MEDS: PROTONIX 40 MG PO (10:03)
[2023-11-25 13:28] LABS: Glucose - Point of Care 186 mg/dl (70-99)
[2023-11-25 14:49] LABS: Glucose - Point of Care 179 mg/dl (70-99)
--- NOTE | 2023-11-25 15:24 | TRANSFER ---
Pt tranferred from ED to 318-1 at 1500. Vitals taken and pt placed on monitor. Transferred from stretcher to bed via stand and pivot. AFib on monitor. Pt oriented to room, call padgett within reach.
[2023-11-25 16:52] LABS: Glucose - Point of Care 229 mg/dl (70-99)
[2023-11-25] MEDS: NOVOLOG FLEXPEN-LOW RESISTANCE 2 UNITS SC (18:26)
[2023-11-25 21:25] LABS: Glucose - Point of Care 164 mg/dl (70-99)
[2023-11-25] MEDS: FLOMAX 0.400000000000000022 MG PO (21:26)
[2023-11-25] MEDS: TOPROL XL 25 MG PO (21:26)
[2023-11-25] MEDS: ELIQUIS 5 MG PO (21:26)
[2023-11-25] MEDS: LANTUS 0.200000000000000011 UNITS SC (23:36)
[2023-11-26] MEDS: SENOKOT 8.59999999999999964 MG PO (01:11)
[2023-11-26 03:22] VITALS: BP 106/50
[2023-11-26 06:00] VITALS: BMI 30.5
[2023-11-26 06:48] LABS: % Basophils 0.5 % (0-2); % Eosinophils 3.5 % (0-6); % Immature Granulocytes 0.2 % (0-0.5); % Lymphocytes 23.9 % (20.5-51.1); % Neutrophils 63.9 % (42.2-75.2); Absolute Eosinophils 0.2 10^3/uL (0-0.7); Absolute Lymphocytes 1.6 10^3/uL (1.2-3.4); Absolute Monocytes 0.5 10^3/uL (0.1-0.6); Absolute Neutrophils 4.3 10^3/uL (1.4-6.5); Hematocrit 28.9 % (39.0-52.0); Hemoglobin 9.4 g/dL (13.0-18.0); Mean Corp Hgb Conc. 32.5 g/dL (33.0-37.0); Mean Corpuscular Hgb 30.5 pg (27.0-31.0); Mean Corpuscular Volume 93.8 fL (80.0-94.0); Mean Platelet Volume 9.4 fL (7.4-10.4); Nucleated Red Blood Cells % 0 % (-); Platelet Count 210 10^3/uL (130-400); Red Blood Cell Count 3.08 10^6/uL (4.70-6.10); Red Cell Dist. Width 13.7 % (11.5-14.5); White Blood Cell Count 6.7 10^3/uL (4.8-10.8)
[2023-11-26 07:00] VITALS: BP 100/72
[2023-11-26 08:02] LABS: Blood Urea Nitrogen 37 mg/dl (9-20); Calcium 10.6 mg/dl (8.4-10.2); Carbon Dioxide 20 mmol/L (22-30); Chloride 110 mmol/L (98-107); Estimated Creatinine Clearance 66 ml/min; Glucose 134 mg/dl (70-99); Magnesium 1.9 mg/dl (1.6-2.3); Potassium 3.9 mmol/L (3.5-5.1); Sodium 139 mmol/L (135-145); eGFR 57.29
[2023-11-26 08:05] LABS: Glucose - Point of Care 147 mg/dl (70-99)
[2023-11-26] MEDS: NOVOLOG FLEXPEN-LOW RESISTANCE SC ×2 (08:05→17:37)
[2023-11-26] MEDS: COLACE 100 MG PO (08:05)
[2023-11-26] MEDS: VITAMIN D3 (cholecalciferol) 10 MCG PO (08:05)
[2023-11-26] MEDS: LIPITOR 80 MG PO (08:05)
[2023-11-26] MEDS: TOPROL XL 25 MG PO ×2 (08:06→19:58)
[2023-11-26] MEDS: PEPCID 10 MG PO (08:06)
[2023-11-26] MEDS: PROTONIX 40 MG PO (08:06)
[2023-11-26] MEDS: ELIQUIS 5 MG PO ×2 (08:06→19:59)
[2023-11-26] MEDS: LEXAPRO 20 MG PO (08:07)
[2023-11-26] MEDS: FEOSOL 325 MG PO (08:08)
[2023-11-26] MEDS: PLAVIX 75 MG PO (08:08)
[2023-11-26] MEDS: THERAGRAN 1 TABLET PO (08:08)
[2023-11-26] MEDS: ALDACTONE 25 MG PO (08:08)
[2023-11-26] MEDS: JARDIANCE 10 MG PO (08:08)
--- NOTE | 2023-11-26 08:11 | W.PN.CD ---
Today's Communication / Plan
-
Metoprolol 25 mg bid, hold Entresto restart low dose as outpt, contine SGLT2i and spironolactone
We will sign off; please call back with questions/concerns.
Impression / Plan
-
BACKGROUND: 73M with persistent atrial fibrillation (on Eliquis), CAD status post PCI to the LAD, ischemic cardiomyopathy (EF EF 25-30%%), and with recent proximal left femur fracture presents with a chief complaint of weakness with associated
dizziness likely related to orthostatic hypotension.
Blue Print Control Clerk: Dr. Brooks
Weakness, in the setting of orthostatic hypotension
-Positive orthostatics
-Stop Entresto indefinitely
-His weight is down, give 250 mL of NSS
HFrEF from an ischemic cardiomyopathy (EF 25-30%)
-NHYA class 1-2
-GDMT as tolerated
-SGLT-Inhibitor: Jardiance 10mg
-MRA: Start spironolactone 25mg daily
-GRACIA/ARB: on hold for Entresto to be restarted low dose as outpatient
-Entresto: hold for now likely restart as outpatient at this point
-BB: Metoprolol succinate 25 bid
-ICD: Wearing LifeVest, reevaluate LVEF in the outpatient setting, last TTE 10/28/2023
-He does not require a standing diuretic
-Heart failure education
-Trend daily weight, I/O, continue low-sodium diet
CAD
-Stable without chest pain
-Cath/PCI 08/08/2023: LVEDP 20, LVEF 15-20%, 70 pLAD, 50 ostial D1, 100% pRCA, 30-40% pLCx. PCI/MAINE to pLAD
-Continue clopidogrel & apixaban (for one year post PCI)
Persistent atrial fibrillation
-Fairly rate controlled, decrease metoprolol succinate in the setting of orthostatic hypotension
-Recurred quickly after KIANA/DCCV on 09/09/2023
-Oral anticoagulation: Apixaban 2.5 mg daily, he should be on 5 mg daily for his age, renal function, and weight
-[id number] score at least 6 (HF, HTN, DM, age2, vascular disease)
-He will need outpatient eval for ablation
Subjective: Feeling bettter, had fallen twice HR and BP seem to be OK
Mitral regurgitation, mild
IVCD (atyp LBBB), LAD, QRS 128-142
Right ICA stenosis, 50-69%
DM2
HTN
Chronic RLE edema
PMH DEBORAH
Mixed hyperlipidemia, goal LDL < 55. Last LDL 91 on 09/02/2023, now on high intensity statin
Physical Exam
Vital Signs/Labs
Vital Signs
Temp Pulse Resp BP Pulse Ox
97.4 F 70 20 100/72 94
11/26/23 07:00 11/26/23 08:06 11/26/23 07:00 11/26/23 08:06 11/26/23 07:00
11/25/23 11/26/23 11/27/23
06:59 06:59 06:59
Actual Weight 250 lb 3.594 oz 244 lb 4.8 oz
11/26/23 06:30
11/26/23 06:30
Magnesium 1.9 mg/dl (1.6-2.3) 11/26/23 06:30
Physical Exam
Constitutional: No acute distress
EENT: Anicteric
Cardiovascular: Rhythm/rate is irregular and Pedal edema present (trivial)
Respiratory: Respiratory effort normal and Lungs clear to auscul.
GI: Soft
Neuro/Psych: AO x 3
Data Reviewed
-
Date of Service: November 26, 2023
Medical Decision Making: Reviewed Test Results
EKG: Tracing Personally Visualized and interpreted (AF)
Echo: Report Reviewed by me
Labs: Labs Reviewed by me
[2023-11-26 11:00] VITALS: BP 97/61
--- NOTE | 2023-11-26 11:12 | CON.MD ---
Consultation - Medical
-
Referring Provider: Dr. Kizzy Landis
Chief Complaint: Debility
History of Present Illness: 73-year-old male with PMH (Paroxysmal A-fib, right internal carotid stenosis, essential HTN, HLD, DEBORAH on CPAP, folic acid deficiency, depression, melanoma of the abdomen and back) presented to [facility] on
10/19/2023 after mechanical fall with left hip pain and found to have a left femoral neck fracture. Status post left hip hemiarthroplasty on 10/21/[address] Adi Velasco with left hip posterior precautions and weightbearing as tolerated.
Postoperatively patient with A-fib with RVR. Echocardiogram with EF 20%. Seen by cardiology for management of heart failure and A-fib. Also with acute blood loss anemia not requiring transfusion but did get IV iron. ANN on CKD stage IIIb
resolved with holding hydrochlorothiazide. He was fitted for a LifeVest for LV ejection fraction of 20%.
Presents to [facility] on 11/24/2023 with generalized weakness and 2 falls, feeling weak in general with recent fall hitting his head. According to son patient was not doing much therapy or mobility at home. CT of the head was negative.
Seen by cardiology for had occasional pauses on telemetry and heart rate up to 120. Entresto was held and metoprolol was adjusted.
Overall Moises notes that his back pain concerns have been well-controlled with gabapentin at night. Hip fracture is not really bothering him too much. His overall main concern at this point is his significant depression. He does not have much
interest in doing a lot of activities. He has some residual concerns with depression stemming from his relationship with his and her passing. He had been seeing a psychologist which had been helpful in the past but has not seen one recently.
He thinks reaching out to see his therapist Simran in [place] would be helpful and he would like to try to restart that. He is willing to try something different for his mood that will hopefully help him have more energy and help him feel better
on a day-to-day basis. If he had more energy and interest in doing more activities with less of the depression he feels that he could do very well from an orthopedic standpoint and increase his exercise tolerance. At this time he is interested in
going to a shelter facility where he can continue to build up his strength. He is also interested in seeing a psychiatrist. He denies any homicidal or suicidal ideations.
Past Medical History: Paroxysmal A-fib, right internal carotid stenosis, essential HTN, HLD, DEBORAH on CPAP, folic acid deficiency, depression, melanoma of the abdomen and back
Procedure History: Cardioversion for A-fib, melanoma resection
Family History: None pertinent
Social History:
Functional Level Premorbidly: Independent with all activities
Functional Level Currently:�� Min to mod assist bed mobility, mod assist transfer, took 3 steps with rolling walker mod assist with a second person for safety due to hypotension. Dependent for lower extremity self-care.
Tobacco: Denies
Alcohol: Denies
Drug use: Denies
Lives with: Alone
24-hour assistance available: No
Number of floors: 2
# steps to enter: 2
# steps to second floor: Full flight but has stair glide
Potential First floor set up: No
Driving:
Occupation: Retired
Allergies:
Allergy/AdvReac Type Severity Reaction Status Date / Time
No Known Allergies Allergy Verified 08/08/23 06:48
Review of Systems:
Constitutional: (x) abNormal _fatigue
Eye: (x) Normal _
Ear/Nose/Throat: (x) Normal _
Respiratory: (x) Normal _
Cardiovascular: (x) abNormal _bilateral lower extremity swelling premorbidly, has specialized stockings to help, brought from home.
Gastrointestinal: (x) Normal _
Genitourinary: (x) Normal _
Musculoskeletal: (x) abNormal _left hip pain
Neurologic: (x) Normal _
Psychiatric: (x) abNormal _depression, no suicidal or homicidal ideation.
Endocrine: (x) Normal _
Hematologic/Lymphatic: (x) Normal _
Allergic/Immunologic: (x) Normal _
Medications:
Active Current Visit Medication List
Category Date Time Status
Acetaminophen [Tylenol] Med 11/25/23 01:18 Active
650 mg PO Q4HPRN PRN
Apixaban [Eliquis] Med 11/25/23 09:29 Active
5 mg PO BID
Atorvastatin [Lipitor] Med 11/25/23 08:00 Active
80 mg PO DAILY
Cholecalciferol (Vitamin D3) [VITAMIN D3 ( Med 11/25/23 08:00 Active
cholecalciferol)]
10 mcg PO DAILY
Clopidogrel Bisulfate [Plavix] Med 11/25/23 08:00 Active
75 mg PO DAILY
Dextrose 50%-Water [Dextrose 50% Syringe] Med 11/25/23 01:18 Active
12.5 grams IV [id number] PRN
Docusate Sodium [Colace] Med 11/25/23 08:00 Active
100 mg PO DAILY
Empagliflozin [Jardiance] Med 11/25/23 08:00 Active
10 mg PO DAILY
Escitalopram Oxalate [Lexapro] Med 11/25/23 08:00 Active
20 mg PO DAILY
Famotidine [Pepcid] Med 11/25/23 08:00 Active
10 mg PO DAILY
Ferrous Sulfate [Feosol] Med 11/25/23 08:00 Active
325 mg PO DAILY
Flush (0.9% Sodium Chloride) [Flush (Nss)] Med 11/25/23 02:00 Active
See Dose Instructions IV PER PROTOCOL
Gabapentin [Neurontin] Med 11/25/23 01:18 Active
300 mg PO HS
Glucagon [GlucaGen] Med 11/25/23 01:18 Active
1 mg IM PRN PRN
Insulin Aspart Corrective Low [Novolog Flexpen-Low Med 11/25/23 07:30 Active
Resistance]
See Protocol SC AC
Insulin Glargine Lantus [Lantus] 20 units Med 11/25/23 23:30 Active
Subcutaneous Insulin Syringe [Syringe-Insulin] 0 unit
SC HS
Metoprolol Xl [Toprol Xl] Med 11/25/23 20:00 Active
25 mg PO BID
Multivitamin [Theragran] Med 11/25/23 08:00 Active
1 tablet PO DAILY
Pantoprazole [Protonix] Med 11/25/23 08:00 Active
40 mg PO DAILY
Sacubitril 49/Valsartan 51 [Entresto 49 mg/51 mg] Med 11/25/23 08:00 Hold
1 tab PO DAILY
Spironolactone [Aldactone] Med 11/25/23 08:00 Active
25 mg PO DAILY
Tamsulosin [Flomax] Med 11/25/23 22:00 Active
0.4 mg PO HS
Tramadol HCl [Ultram] Med 11/25/23 01:18 Active
25 mg PO Q6HPRN PRN
Vitals:
Temp Pulse Resp BP Pulse Ox
97.4 F 70 20 100/72 94
11/26/23 07:00 11/26/23 08:06 11/26/23 07:00 11/26/23 08:06 11/26/23 07:00
Height 6 ft 3 in
Actual Weight 110.813 kg
Body Mass Index (BMI) 30.5
Physical Exam:
General Appearance/Observation: Well-developed, well-nourished male in no apparent distress sitting in wheelchair
Pain/Comfort Assessment: Minimal left hip pain
Mood/Affect: Flat depressed
Integumentary/Operative Site: Left hip incision not visualized today.
Eyes: Conjunctiva/Lids: normal ��� Pupils: pupils equal round and reactive to light and Accommodation
Ears/Nose/Throat: oral mucosa dry,� throat clear.������������ Lips/Teeth/Gums: dry
Cardiovascular: Heart: irregular, no murmur. Wearing lifevest
Pulses: dorsalis pedis 1+ bilaterally
Respiratory: Respiratory Effort/Chest Expansion: normal ������ Auscultation: Clear to auscultation bilaterally
Gastrointestinal: abdomen not tender, no distension, normal abdominal bowel sounds
Genitourinary: No Saenz
Extremities: Edema: Minimal bilateral symmetrical pitting edema. Cyanosis: None Trophic changes: None
Neurology Exam:
Orientation: Alert, Oriented to self, Time, Place
Memory: Intact for recent medical concerns
Comprehension: Intact
Two step command: Intact
Cranial Nerves:
CNII: Pupillary light reflex: Intact���
CN VII: Facial movement: Symmetric
CN VIII: Hearing: Normal
CN IX/X: Speech & swallow: Normal, Position of Uvula: Midline
CN XI: Shoulder shrug: Symmetric
CN XII: Tongue protrusion: Midline
Sensory:
Light touch: Intact in bilateral upper and lower extremities
Musculoskeletal:Motor: (Manual muscle scale 0-5)
Muscle SA EF WE EE FF FA HF KE DF EHL PF
Right� 5 5 � 5 5 � 5 5 5 5 5
Left 5 5 � 5 5 � 4 4+ 5 5 5
Tone: Normal in all extremities
Range of Motion: Passively within normal limits in all extremities, left hip not fully assessed with precautions.
Lab Results
Laboratory Data
11/26/23 06:30
11/26/23 06:30
�
Diagnostic Results: as per HPI
X-ray of left hip (10/19)-There is a fracture of the neck of the proximal left femur.
CT of head (10/19)-No acute intracranial abnormalities.
X-ray of left hip (10/20)-Status post left bipolar hip replacement, which appears in satisfactory position.
Echo (10/27)-Normal LV size with severely reduced systolic function.
LVEF is 25 to 30% by visual estimation.
Global diffuse hypokinesis.
Normal right ventricular size and function.
Mild mitral regurgitation.
Compared to prior from August 01, 2023, on [id number] comparison LVEF is
slightly improved and estimated at 25 to 30% from 20% previously.
EKG (10/23)- Afib with rapid vent. response, aberrant conduction, ?old septal infarct, non specific intraventricular conduction block.
Cardiac cath (07/2023)-1: Severe left ventricular dysfunction with inferior akinesis and EF 15-20%
2: Severe double vessel CAD as described-the proximal LAD lesion has flow-limiting disease by FloWire assessment and there is a chronic total proximal RCA occlusion
3. Successful stenting of 70% calcific proximal LAD stenosis using 3.5 x 15 Xience berenice point MAINE postdilated with 3.75 mm noncompliant balloon with outstanding final result
4. Recommend triple therapy (Eliquis, aspirin, Plavix) for 1 week then stop aspirin and continue Eliquis with Plavix for 12 months. Elective DCCV can be accomplished in 3 weeks (or sooner with KIANA guidance)
Assessment
73-year-old left handed M PMH (Paroxysmal A-fib, right internal carotid stenosis, essential HTN, HLD, DEBORAH on CPAP, folic acid
deficiency, depression, melanoma) with 10/19/2023 left femoral neck fracture S/P L hip hemiarthroplasty on 10/21/[address] Adi Velasco complicated by A-fib with RVR, acute blood loss anemia, ANN resulting in ADL and ambulatory dysfunction.
Plan:
PM&R PT/OT to increase independence with ADLs, improve balance, coordination, endurance, strength, mobility, community reintegration, decreased burden of care on others and family education.
Status post left hip hemiarthroplasty 10/21/2023: Overall appears to be doing well with recovery. Has not been doing his exercises which has led to more difficulty with falls and walking. Encouraged him to not use the recliner chair that stands him
up and to work on using his hip muscles to help get out of the chair. Overall strength and movement of the leg have improved from my last evaluation.
Depression: Psychology consult.� Monitor mood. Lexapro 20mg qd was decreased from 40mg at hospital due to QT prolongation. Patient states that he tapered himself down on the Lexapro. Had tried Wellbutrin before without help. Suggest psychiatry
evaluation due to worsening depression. [place] texted Dr. Lamb.
-He should also follow-up with his therapist Simran that he had a good connection with for marriage counseling and afterwards. I think this will be the most beneficial for him to help work through his depression in addition to a change in
medications with psychiatry.
HTN/hypotension history: Medications per cardiology
HLD: Atorvastatin 80mg qd����
Atrial fibrillation:�Eliquis and rate control with metoprolol.
Right internal carotid stenosis: Plavix, Eliquis, statin����������������������� ��������������
CHF: EF 20%, beta mcihael, monitor fluid status. Got LifeVest. Aldactone 25 mg daily, Toprol XL 25 mg, Monitor weight regularly. Management per cardiology. Entresto held.
DM II: Per primary team
CKD: Adjust medications as necessary. Balance between medication use and CHF need for diuretic.
Bilateral lower extremity edema: Home Teds on. Monitor
DEBORAH: CPAP use.
Anemia: Stable, monitor. Lower hemoglobin will cause more fatigue in general.
FEN: Diabetic
Pain: Gabapentin 300 mg at night for neuropathic pain.
Bowel: Medications as necessary
Urinary Retention/BPH? Flomax
GI Prophylaxis: Pantoprazole
DVT Prophylaxis: Eliquis
Pulmonary: Incentive spirometry
Obesity: Continue to pet counselor patient about diet adjustments to control obesity. Body habitus and increased force to move body and extremities causes further difficulty with functional tasks.
Safety: Continue to reinforce assistance with all transfers.
Code Status:� Full code
Dispo (date/plan/equipment needs): Home with family care
Functional and Medical Goals: Modified Independent with ADL�s, ambulation, transfers
[facility]charge Destination: [facility]
A total of 60 minutes were spent with the patient preparing for the evaluation, obtaining history, performing examination and evaluation, counseling, data review, case management, care coordination, grey stock recorder, and EMR documentation.
Summary of recommendations:
- Discharge Destination: [facility] facility
Status post left hip hemiarthroplasty 10/21/2023: Overall appears to be doing well with recovery. Has not been doing his exercises which has led to more difficulty with falls and walking. Encouraged him to not use the recliner chair that stands him
up and to work on using his hip muscles to help get out of the chair. Overall strength and movement of the leg have improved from my last evaluation.
Depression: Psychology consult.� Monitor mood. Lexapro 20mg qd was decreased from 40mg at hospital due to QT prolongation. Patient states that he tapered himself down on the Lexapro. Had tried Wellbutrin before without help. Suggest psychiatry
evaluation due to worsening depression. [place] texted Dr. Lamb.
-He should also follow-up with his therapist Simran that he had a good connection with for marriage counseling and afterwards. I think this will be the most beneficial for him to help work through his depression in addition to a change in
medications with psychiatry.
Pain: Gabapentin 300 mg at night for neuropathic pain.
Thank you for allowing me to care for your patient. Please contact me with any questions or concerns.
[2023-11-26 12:39] LABS: Glucose - Point of Care 177 mg/dl (70-99)
[2023-11-26] MEDS: NOVOLOG FLEXPEN-LOW RESISTANCE 1 UNITS SC (13:12)
[2023-11-26 14:50] VITALS: BP 107/60
--- NOTE | 2023-11-26 14:53 | CM ---
Patient seen bedside.
IA completed.
Patient has a life vest.
Patient lives alone 2 story home with 2 steps to enter.
Patient ambulates with a RW, has Stair glide in the home.
Patient does not currently drive.
Patient Independent prior to admission.
Recent hip fracture d/c from acute hospitalization to [facility].
Patient admitted now with falls and weakness.
PT/OT recommending skilled rehab.
MITCHELL form completed.
PCP: Dr Henson
Pharmacy: [facility]
Spoke with son via phone, would like skilled rehab- referrals to [facility], [facility], and [facility] [place].
--- NOTE | 2023-11-26 15:47 | W.PN.HOSP.TC ---
Addendum entered and electronically signed by Karlo Lamb MD 11/26/23 16:39:
Hypokalemia: Potassium 3.4 likely secondary to CKD twice daily
Replace and recheck
Original Note:
Today's Communication/Plan
-
All discussed with the patient
Discussed with the nurse
Assessment / Plan
Assessment / Plan
Physical exam:
General: Lethargic, but oriented x3, not in distress and holds appropriate conversation.
HEENT: No active discharge, ecchymosis or bruising, moist lips, tongue and mucous membrane.
Eyes: No discharge or red conjunctiva, no nystagmus, pupils are reactive and equal
Neck:Supple, no JVD no bruit no goiter.
Respiratory: Normal AP contour and diameter, normal chest wall movement, normal respiratory effort, no respiratory distress,
Lungs: Good air entry bilaterally, no wheezing or rhonchi, no rales or crackles
Heart: S1, S2 regular, normal rate, no added sound.
Gastrointestinal: Positive bowel sounds, soft, nontender, no guarding or rigidity or organomegaly
Musculoskeletal: , no chest wall abnormality or tenderness. All joints and extremities have good range of motion, no muscle tenderness or any joint swelling or tenderness.
Extremities: Lower extremity pitting edema, good peripheral pulses, good range of motion
Skin: Warm and dry, no ulceration, normal color.
Neurological: Awake, alert and oriented x3, speech clear and comprehensive, good muscle tone, normal sensory and motor function
Psychiatric: Normal mood, normal thought and judgment, normal affect,
Mr. Moises Carter is a 73 yo man with hx HFrEF with EF 25% on LifeVest, CPAP, ex-smoker, neuropathy, HTN, HLD, DM2, CKD 3 A, right ICA stenosis 50 to 69% depression, anemia, [place], recent left hip fracture status post left hip hemiarthroplasty 10/21/2023
(d/c'd from [facility] 11/17/2023) presents with generalized weakness and 2 falls.
#Fall 2/2 acute on chronic ambulatory dysfunction versus weakness 2/2 arrhythmia
-Check orthostatic vitals
-PT/OT/case management consult(son requesting SNF if qualifies at [facility] or [facility])
-Pending placement
Constipation:
-Did not move his bowels in the last 3-day but passes gas, he is on Senokot
-I will try to avoid MiraLAX because of the amount of the fluid with a known history of CHF
-Will give a dose of Dulcolax orally and monitor if not moving his bowels and may consider suppository
#Fall with head contusion on Eliquis and Plavix
-Ice, Tylenol pain
CT head: Negative
# Labile HTN/HTN benign
the last 24 hours pressures been on the lower side
His Entresto completely and indefinitely put on hold by cardiology while dose of the metoprolol decreased
#Severe cardiomyopathy�EF 20%/LifeVest present
Plan was for ICD: Re-eval LVEF 3 months after maximally tolerated GDMT per CBC cardiology
Consult CBC cardiology
TTE 10/28/23 - EF 25-30%, global diffuse hypokinesis, mild MR
#A-fib paroxysmal with episodes of RVR/Hx paroxysmal A-fib
Heart rate better controlled the last 24
-cardiology consulted - RN discussed telemetry readings of small pauses with cardiology and metop on hold for now
-Continue Eliquis
-Consult cardiology for rate control management�concern for patient's weakness
#Mild memory impairment per son
-Per son states tends to become agitated at night when in the hospital
-Is forgetful and rambles at times
Has not been formally evaluated
#CKD 3
Creat 1.3
Baseline creat 1.6 September 09
#DM2
-Accu-Cheks with SSI, continue Levemir and aspart
#Hx right ICA stenosis 50-69%
09/25/2020 brain MRI showed 2 mm questionable artifact versus subacute CVA on left frontal lobe
Continue Lipitor, Plavix
#DEBORAH on CPAP
-Patient follows with Dr. Hahn
#Depression hx
-Continue Lexapro was evaluated by psychiatry at [facility]
#Folic acid deficiency
#Melanoma removal abdomen and back
#Chronic ambulatory dysfunction
Uses walker at baseline
DVT prophylaxis
Continue PROCUREMENT COORDINATOR Eliquis
Full code
Anticipated Discharge: 24 - 48 hours
Subjective/Interval History
-
Date of Service: November 26, 2023
Seen and examined, awake and alert, lethargic sitting on the bed, denies any fever or chill or cough or congestion, still feels weak, hematology, constipated, for the last 3 days despite using senna. No nausea or vomiting but passes gas.
Objective Data
-
Labs:
Laboratory Results
11/26/23
06:30
WBC 6.7
Hgb 9.4 L
Hct 28.9 L
Plt Count 210
Sodium 139
Potassium 3.9
Chloride 110 H
Carbon Dioxide 20 L
BUN 37 H
Creatinine 1.3
Glucose 134 H
Calcium 10.6 H
Vital Signs:
Vital Signs
Temp Pulse Resp BP Pulse Ox
97.4 F 71 16 107/60 99
11/26/23 14:50 11/26/23 14:50 11/26/23 14:50 11/26/23 14:50 11/26/23 14:50
I&O
11/25/23 11/26/23 11/27/23
07:59 07:59 07:59
Output Total 1300 / 1300
Balance -1300 / -1300
Review of Systems
-
All other systems: Reviewed and negative
[2023-11-26] MEDS: DULCOLAX 5 MG PO (17:21)
[2023-11-26 17:24] LABS: Glucose - Point of Care 135 mg/dl (70-99)
[2023-11-26 19:25] VITALS: BP 115/73
[2023-11-26] MEDS: SENOKOT-S PO ×2 (19:59→20:02)
[2023-11-26 21:38] LABS: Glucose - Point of Care 207 mg/dl (70-99)
[2023-11-26] MEDS: FLOMAX 0.400000000000000022 MG PO (21:57)
[2023-11-26] MEDS: NEURONTIN 300 MG PO (21:57)
[2023-11-26] MEDS: LANTUS 0.200000000000000011 UNITS SC (22:37)
[2023-11-26 23:10] VITALS: BP 107/71
[2023-11-27] VITALS (8 sets, daily range): BP systolic 99–123; BP diastolic 54–72; PULSE 75–77; O2SAT 99–100; BMI 30.3
[2023-11-27 07:16] LABS: % Basophils 0.8 % (0-2); % Immature Granulocytes 0.2 % (0-0.5); % Monocytes 7.4 % (1.7-9.3); % Neutrophils 62.6 % (42.2-75.2); Absolute Basophils 0.1 10^3/uL (0-0.2); Absolute Eosinophils 0.2 10^3/uL (0-0.7); Absolute Lymphocytes 1.5 10^3/uL (1.2-3.4); Absolute Monocytes 0.5 10^3/uL (0.1-0.6); Absolute Neutrophils 3.8 10^3/uL (1.4-6.5); Hematocrit 28.4 % (39.0-52.0); Hemoglobin 9.3 g/dL (13.0-18.0); Mean Corp Hgb Conc. 32.7 g/dL (33.0-37.0); Mean Corpuscular Hgb 30.3 pg (27.0-31.0); Mean Corpuscular Volume 92.5 fL (80.0-94.0); Mean Platelet Volume 9.4 fL (7.4-10.4); Nucleated Red Blood Cells % 0 % (-); Platelet Count 212 10^3/uL (130-400); Red Blood Cell Count 3.07 10^6/uL (4.70-6.10); Red Cell Dist. Width 13.8 % (11.5-14.5); White Blood Cell Count 6.1 10^3/uL (4.8-10.8)
[2023-11-27 07:46] LABS: Blood Urea Nitrogen 29 mg/dl (9-20); Calcium 10.5 mg/dl (8.4-10.2); Carbon Dioxide 21 mmol/L (22-30); Chloride 111 mmol/L (98-107); Estimated Creatinine Clearance 66 ml/min; Glucose 122 mg/dl (70-99); Potassium 3.7 mmol/L (3.5-5.1); Sodium 140 mmol/L (135-145); eGFR 57.29
[2023-11-27] MEDS: TOPROL XL 25 MG PO ×2 (08:03→20:56)
[2023-11-27] MEDS: ELIQUIS 5 MG PO ×2 (08:03→20:56)
[2023-11-27] MEDS: PEPCID 10 MG PO (08:03)
[2023-11-27] MEDS: JARDIANCE 10 MG PO (08:04)
[2023-11-27] MEDS: DESENEX/MITRAZOL/ZEASORB 1 APPLIC TOPICAL ×2 (08:04→20:57)
[2023-11-27] MEDS: VITAMIN D3 (cholecalciferol) 10 MCG PO (08:04)
[2023-11-27] MEDS: PLAVIX 75 MG PO (08:04)
[2023-11-27] MEDS: PROTONIX 40 MG PO (08:04)
[2023-11-27] MEDS: THERAGRAN 1 TABLET PO (08:04)
[2023-11-27] MEDS: ALDACTONE 25 MG PO (08:04)
[2023-11-27] MEDS: LEXAPRO 20 MG PO (08:04)
[2023-11-27] MEDS: SENOKOT-S 2 TABLET PO ×2 (08:04→20:56)
[2023-11-27] MEDS: FEOSOL 325 MG PO (08:04)
[2023-11-27] MEDS: LIPITOR 80 MG PO (08:04)
[2023-11-27 08:11] LABS: Glucose - Point of Care 143 mg/dl (70-99)
[2023-11-27] MEDS: NOVOLOG FLEXPEN-LOW RESISTANCE SC (08:13)
--- NOTE | 2023-11-27 10:15 | CON.MD ---
Consultation - Medical
-
patients een chart reviewed. patient is a 73 year old man with a hx of depression for as long as he can remember. he has seen several psychiatrists over the years and was prescribed wellbutrin and lexapro neither of which were very helpful. he is
stressed by medical issues. was admitted for weakness after a fall. suffered hip fx recently and had a stay at [facility]. his physical infirmity contributes to his depression as does the of his in july. he says he sleep and eats
okay. no energy. does not enjoy much. he has never been suicidal. there is nothing to suggest psychosis nothing to suggest bipolar
past psych hx no hospitalizations. has had sporadic therapy. had seen several psychiatrists in the past recalls meds as listed above took lmethy folate and vit d at some point.
meidcal hx life vest given low ef hx a fib htn hld sleep panea ckd niddm miguel ángel hx melanoma hx disc disease w chronic back and leg pain gerd prostate issues anemia hx h ypokalemia right ica stenosis
substance abuse consumes one to three drinks weekly
fh not dx thinks fa depressed
social two kids sees son who is nearby d in [place]. 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
mse alert ox3 pleasant and cooperative some psychomotor retardation mood is depressed affect constricted no si all aver intell insight judgment ok
dx major depression recurrent severe
recommend would taper lexapro as it was ineffective. cut back to ten mg discussed cymbalta w patient. start w 20 mg titrate up as tolerated depending on efficacy. wtch kidney function although for this to be an issue w cymbalta kidney disease
would have to be severe at present cr is 1.3 psychotherapy for support is a good idea although difficult to access. will call zoe perrin his pcp to discuss will follow
[2023-11-27 12:22] LABS: Glucose - Point of Care 271 mg/dl (70-99)
--- NOTE | 2023-11-27 12:35 | W.PN.HOSP.TC ---
Today's Communication/Plan
-
Discussed with the patient in detail
Family been updated on the lead case manager
Assessment / Plan
Assessment / Plan
Physical exam:
General: Lethargic, but oriented x3, not in distress and holds appropriate conversation.
HEENT: No active discharge, ecchymosis or bruising, moist lips, tongue and mucous membrane.
Eyes: No discharge or red conjunctiva, no nystagmus, pupils are reactive and equal
Neck:Supple, no JVD no bruit no goiter.
Respiratory: Normal AP contour and diameter, normal chest wall movement, normal respiratory effort, no respiratory distress,
Lungs: Good air entry bilaterally, no wheezing or rhonchi, no rales or crackles
Heart: S1, S2 regular, normal rate, no added sound.
Gastrointestinal: Positive bowel sounds, soft, nontender, no guarding or rigidity or organomegaly
Musculoskeletal: , no chest wall abnormality or tenderness. All joints and extremities have good range of motion, no muscle tenderness or any joint swelling or tenderness.
Extremities: Lower extremity pitting edema, good peripheral pulses, good range of motion
Neurological: Awake, alert and oriented x3, speech clear and comprehensive, good muscle tone,
Psychiatric: Normal mood, normal thought and judgment, normal affect,
Mr. Moises Carter is a 73 yo man with hx HFrEF with EF 25% on LifeVest, CPAP, ex-smoker, neuropathy, HTN, HLD, DM2, CKD 3 A, right ICA stenosis 50 to 69% depression, anemia, PAIUTE-SHOSHONE, recent left hip fracture status post left hip hemiarthroplasty 10/21/2023
(d/c'd from [facility] 11/17/2023) presents with generalized weakness and 2 falls.
#Fall 2/2 acute on chronic ambulatory dysfunction versus weakness 2/2 arrhythmia
-Check orthostatic vitals
-PT/OT/case management consult(son requesting SNF if qualifies at [facility] or [facility])
-Pending placement
Discussed with case advocatestock manager placed in these above-mentioned alf
-Seen by rehab here, most rehab they think he is not a candidate for them.
Constipation:
-Moved his bowels earlier in the morning,
-I will try to avoid MiraLAX because of the amount of the fluid with a known history of CHF
-Continue senna and Colace
-Encourage oral hydration to the limited amount.
#Fall with head contusion on Eliquis and Plavix
-Ice, Tylenol pain
CT head: Negative
# Labile HTN/HTN benign
the last 24 hours pressures been on the lower side
-Continue to monitor
His Entresto completely and indefinitely put on hold by cardiology while dose of the metoprolol decreased
#Severe cardiomyopathy�EF 20%/LifeVest present
Plan was for ICD: Re-eval LVEF 3 months after maximally tolerated GDMT per [facility] cardiology
Consult CBC cardiology
-Patient have advanced
TTE 10/28/23 - EF 25-30%, global diffuse hypokinesis, mild MR
#A-fib paroxysmal with episodes of RVR/Hx paroxysmal A-fib
Heart rate better controlled the last 24
-cardiology consulted - RN discussed telemetry readings of small pauses with cardiology and metop on hold for now
-Continue Eliquis
-Consult cardiology for rate control management�concern for patient's weakness
#Mild memory impairment per son
-Per son states tends to become agitated at night when in the hospital
-Is forgetful and rambles at times
Has not been formally evaluated
#CKD 3
Creat 1.3
Baseline creat 1.6 September 09
#DM2
-Accu-Cheks with SSI, continue Levemir and aspart
#Hx right ICA stenosis 50-69%
09/25/2020 brain MRI showed 2 mm questionable artifact versus subacute CVA on left frontal lobe
Continue Lipitor, Plavix
#DEBORAH on CPAP
-Patient follows with Dr. Hahn
#Depression hx
-Continue Lexapro was evaluated by psychiatry at [facility]
#Folic acid deficiency
#Melanoma removal abdomen and back
#Chronic ambulatory dysfunction
Uses walker at baseline
DVT prophylaxis
Continue POOL LIFEGUARD Eliquis
Full code
Anticipated Discharge: 24 - 48 hours
Subjective/Interval History
-
Date of Service: November 27, 2023
Seen and examined, awake and alert, feels little stronger today but still feels weak and lousy and lethargic, having no energy, overall denies any nausea or vomiting or fever or chill or cough or congestion, no chest pain or shortness of breath, had
some asymptomatic tachycardia yesterday evening,
His Entresto is on hold and dose of the metoprolol decreased.
Pending placement
Objective Data
-
Labs:
Laboratory Results
11/27/23
06:52
WBC 6.1
Hgb 9.3 L
Hct 28.4 L
Plt Count 212
Sodium 140
Potassium 3.7
Chloride 111 H
Carbon Dioxide 21 L
BUN 29 H
Creatinine 1.3
Glucose 122 H
Calcium 10.5 H
Vital Signs:
Vital Signs
Temp Pulse Resp BP Pulse Ox
98 F 73 16 99/67 97
11/27/23 11:47 11/27/23 11:47 11/27/23 11:47 11/27/23 11:47 11/27/23 11:47
I&O
11/26/23 11/27/23 11/28/23
07:59 07:59 07:59
Intake Total 800 / 800
Output Total 1300 / 1300 300 / 300
Balance -1300 / -1300 500 / 500
Review of Systems
-
All other systems: Reviewed and negative
[2023-11-27] MEDS: NOVOLOG FLEXPEN-LOW RESISTANCE 3 UNITS SC (12:37)
[2023-11-27 16:30] LABS: Glucose - Point of Care 179 mg/dl (70-99)
[2023-11-27] MEDS: NOVOLOG FLEXPEN-LOW RESISTANCE 1 UNITS SC (17:10)
[2023-11-27] MEDS: NEURONTIN 300 MG PO (20:56)
[2023-11-27] MEDS: FLOMAX 0.400000000000000022 MG PO (20:56)
[2023-11-27 21:27] LABS: Glucose - Point of Care 245 mg/dl (70-99)
[2023-11-27] MEDS: LANTUS 0.200000000000000011 UNITS SC (22:14)
[2023-11-28] VITALS (8 sets, daily range): BP systolic 108–125; BP diastolic 64–70; PULSE 62; O2SAT 100; BMI 30.4
[2023-11-28 08:07] LABS: Glucose - Point of Care 111 mg/dl (70-99)
[2023-11-28] MEDS: NOVOLOG FLEXPEN-LOW RESISTANCE SC ×3 (08:27→16:52)
[2023-11-28] MEDS: ALDACTONE 25 MG PO (09:04)
[2023-11-28] MEDS: FEOSOL 325 MG PO (09:04)
[2023-11-28] MEDS: LEXAPRO 10 MG PO (09:04)
[2023-11-28] MEDS: VITAMIN D3 (cholecalciferol) 10 MCG PO (09:05)
[2023-11-28] MEDS: JARDIANCE 10 MG PO (09:05)
[2023-11-28] MEDS: SENOKOT-S 2 TABLET PO ×2 (09:05→20:36)
[2023-11-28] MEDS: LIPITOR 80 MG PO (09:05)
[2023-11-28] MEDS: THERAGRAN 1 TABLET PO (09:05)
[2023-11-28] MEDS: PLAVIX 75 MG PO (09:05)
[2023-11-28] MEDS: PEPCID 10 MG PO (09:05)
[2023-11-28] MEDS: TOPROL XL 25 MG PO ×2 (09:05→20:36)
[2023-11-28] MEDS: ELIQUIS 5 MG PO ×2 (09:05→20:36)
[2023-11-28] MEDS: CYMBALTA DELAYED RELEASE 20 MG PO (09:06)
[2023-11-28] MEDS: PROTONIX 40 MG PO (09:06)
[2023-11-28] MEDS: DESENEX/MITRAZOL/ZEASORB 1 APPLIC TOPICAL ×2 (09:06→20:36)
[2023-11-28 09:16] LABS: Blood Urea Nitrogen 29 mg/dl (9-20); Calcium 10.5 mg/dl (8.4-10.2); Carbon Dioxide 24 mmol/L (22-30); Chloride 110 mmol/L (98-107); Estimated Creatinine Clearance 71 ml/min; Potassium 3.8 mmol/L (3.5-5.1); Sodium 137 mmol/L (135-145); eGFR > 60.00
[2023-11-28 09:22] LABS: Glucose 115 mg/dl (70-99)
--- NOTE | 2023-11-28 10:31 | PN.CDI ---
CDI
- -
CDI:
Physician Documentation Request
Admit Date: 11/27/23 11:51
Dear Doctor Adonis,
Patient admitted with ambulatory dysfunction.
11/25 Cardiology PN: 'HFrEF from an ischemic cardiomyopathy (EF 25-30%)...-Heart failure education -Trend daily weight, I/O, continue low-sodium diet'
11/26 Hospitalist PN: 'hx HFrEF with EF 25% on LifeVest'
Please provide further specificity regarding the most likely acuity of CHF you are evaluating, treating or monitoring.
Chronic
Other
Use of terms such as suspected, likely, concern for, or probable (associated with a specific diagnosis that is being evaluated, monitored, or treated as if it exists) are acceptable and can be coded in the inpatient setting, when documented at the
time of discharge.
Thank you,
Naty Day RN, BSN
CDI Specialist
Available via [employer] text
Please use your independent medical judgment in providing your response.
--- NOTE | 2023-11-28 10:33 | PN.CDI ---
CDI
- -
CDI:
Physician Documentation Request
Admit Date: 11/27/23 11:51
Dear Doctor Adonis,
Patient admitted for ambulatory dysfunction.
11/25 Cardiology PN: 'Persistent atrial fibrillation -Fairly rate controlled...Recurred quickly after KIANA/DCCV on 09/09/2023'
11/26 Hospitalist PN: 'A-fib paroxysmal with episodes of RVR/Hx paroxysmal A-fib'
If possible, please provide further specificity regarding atrial fibrillation, such as:
Persistent atrial fibrillation - episodes of continuous AF that last more than 7 days and do not self-terminate
Paroxysmal atrial fibrillation - terminates spontaneously or with intervention within 7 days of onset
Other - please specify
Use of terms such as suspected, likely, concern for, or probable (associated with a specific diagnosis that is being evaluated, monitored, or treated as if it exists) are acceptable and can be coded in the inpatient setting, when documented at the
time of discharge.
Thank you,
Naty Day RN, BSN
CDI Specialist
Available via [place] text
Please use your independent medical judgment in providing your response.
--- NOTE | 2023-11-28 10:35 | CM ---
Addendum entered by JOSE Giordano 11/28/23 12:45:
continued from below, who stated that she would not be able to accommodate the life vest. Will discuss other SNF options with patient/family.
Addendum entered by JOSE Giordano 11/28/23 12:45:
Received return call from Alyce at [facility] who statedt
Original Note:
Placed a call to Alyce in admissions at [facility] to determine availability. She stated that she is unsure of whether or not she would be able to accommodate the life vest. She stated that she would return call and and get back to . Placed a call to
f/u on referral sent to [facility]. Left a voice mail message for Nicole in admissions and requested return call.
Plan: Case management will continue to follow and assist with discharge planning. SNF transfer when stable.
--- NOTE | 2023-11-28 10:49 | W.PN.HOSP.TC ---
Today's Communication/Plan
-
await placement
monitor on tele
monitor BP
Assessment / Plan
Assessment / Plan
Physical exam:
General: not in distress and holds appropriate conversation.
HEENT: No active discharge, ecchymosis or bruising, moist lips, tongue and mucous membrane.
Eyes: No discharge or red conjunctiva, no nystagmus, pupils are reactive and equal
Neck:Supple, no JVD no bruit no goiter.
Lungs: Good air entry bilaterally, no wheezing or rhonchi, no rales or crackles
Heart: S1, S2 regular, normal rate, no added sound. Lifevest noted
Gastrointestinal: Positive bowel sounds, soft, nontender, no guarding or rigidity or organomegaly
Musculoskeletal: , no chest wall abnormality or tenderness. All joints and extremities have good range of motion, no muscle tenderness or any joint swelling or tenderness.
Neurological: Awake, alert and oriented x3, speech clear and comprehensive, good muscle tone,
Psychiatric: Normal mood, normal thought and judgment, normal affect,
Mr. Moises Carter is a 73 yo man with hx HFrEF with EF 25% on LifeVest, CPAP, ex-smoker, neuropathy, HTN, HLD, DM2, CKD 3 A, right ICA stenosis 50 to 69% depression, anemia, [place]AP[place], recent left hip fracture status post left hip hemiarthroplasty 10/21/2023
(d/c'd from [facility] 11/17/2023) presents with generalized weakness and 2 falls.
#Fall 2/2 acute on chronic ambulatory dysfunction versus weakness 2/2 arrhythmia
-PT/OT/case management consult(son requesting SNF if qualifies at [facility] or [facility])
-Pending placement
Discussed with child welfare caseworkersecurity systems manager placed in these above-mentioned [facility]
-Seen by rehab here, most rehab they think he is not a candidate for them.
Constipation:
-Continue senna and Colace
-Encourage oral hydration to the limited amount.
#Fall with head contusion on Eliquis and Plavix
-Ice, Tylenol pain
CT head: Negative
# Labile HTN/HTN benign
the last 24 hours pressures been on the lower side
-Continue to monitor
His Entresto completely and indefinitely put on hold by cardiology while dose of the metoprolol decreased
#Severe cardiomyopathy�EF 20%/LifeVest present
-Plan was for ICD: Re-eval LVEF 3 months after maximally tolerated GDMT per [facility] cardiology
-TTE 10/28/23 - EF 25-30%, global diffuse hypokinesis, mild MR
-Entresto discontinued. Cont aldactone and Jardiance and BB.
#A-fib paroxysmal with episodes of RVR/Hx paroxysmal A-fib
Heart rate better controlled the last 24
-cardiology consulted - RN discussed telemetry readings of small pauses with cardiology and metoprolol dose reduce to 25mg BID
-Continue Eliquis
-Consult cardiology for rate control management�concern for patient's weakness
#Mild memory impairment per son
-Per son states tends to become agitated at night when in the hospital
-Is forgetful and rambles at times
Has not been formally evaluated
#Depression
-Lexapro decreased and started on cymbalta
-psych recs
#CKD 3
Creat 1.2
Baseline creat 1.6 September 09
#DM2
-Accu-Cheks with SSI, continue Levemir and aspart
-POC am 111
#Hx right ICA stenosis 50-69%
09/25/2020 brain MRI showed 2 mm questionable artifact versus subacute CVA on left frontal lobe
Continue Lipitor, Plavix
#DEBORAH on CPAP
-Patient follows with Dr. Hahn
#Depression hx
-[facility]
#Folic acid deficiency
#Melanoma removal abdomen and back
#Chronic ambulatory dysfunction
Uses walker at baseline
DVT prophylaxis
Continue [employer] Eliquis
Full code
Anticipated Discharge: Within 24 hours
Subjective/Interval History
-
Date of Service: November 28, 2023
Resting in bed comfortably
No overnight events
Objective Data
-
Labs:
Laboratory Results
11/28/23
08:17
Sodium 137
Potassium 3.8
Chloride 110 H
Carbon Dioxide 24
BUN 29 H
Creatinine 1.2
Glucose 115 H
Calcium 10.5 H
Vital Signs:
Vital Signs
Temp Pulse Resp BP Pulse Ox
98 F 66 16 108/64 97
11/28/23 07:57 11/28/23 09:04 11/28/23 07:57 11/28/23 09:04 11/28/23 07:57
I&O
11/27/23 11/28/23 11/29/23
06:59 06:59 06:59
Intake Total 800 / 800 1140 / 1140 480 / 480
Output Total 300 / 300 500 / 500 695 / 695
Balance 500 / 500 640 / 640 -215 / -215
Data Reviewed
-
Total Time Spent with Patient (in minutes): 55
[2023-11-28 12:03] LABS: Glucose - Point of Care 127 mg/dl (70-99)
--- NOTE | 2023-11-28 12:04 | W.PN.UPDATE ---
Update Note
Progress Note Update
patient seen chart reviewed. spoke with nursing and aide. i also was able to communicate w dr zoe donis his pcp informing him of the change to cymbalta. the patient was more interactive with me today but nursing staff tells me he has largely
been sleeping and has been withdrawn. he did not order breakfast...he refused to get self washed up until nursing insisted. he strikes me as a very taciturn person who is in addition to depressed very shy. would continue w psych meds as ordered
and continue to encourage verbalization and cooperation with staff re meals and washing.
--- NOTE | 2023-11-28 13:30 | VNURNOTE ---
Chart reviewed. Per case management, looking at SNFs. [facility] chart on hold. Intake office updated.
[2023-11-28 16:21] LABS: Glucose - Point of Care 127 mg/dl (70-99)
[2023-11-28 22:09] LABS: Glucose - Point of Care 146 mg/dl (70-99)
[2023-11-28] MEDS: FLOMAX 0.400000000000000022 MG PO (23:14)
[2023-11-28] MEDS: NEURONTIN 300 MG PO (23:14)
[2023-11-28] MEDS: LANTUS 0.200000000000000011 UNITS SC (23:18)
[2023-11-29 03:50] VITALS: BP 102/64
[2023-11-29 06:00] VITALS: BMI 29.6
[2023-11-29 07:10] LABS: Blood Urea Nitrogen 29 mg/dl (9-20); Calcium 10.7 mg/dl (8.4-10.2); Carbon Dioxide 21 mmol/L (22-30); Chloride 110 mmol/L (98-107); Estimated Creatinine Clearance 64 ml/min; Glucose 113 mg/dl (70-99); Potassium 4.1 mmol/L (3.5-5.1); Sodium 139 mmol/L (135-145); eGFR > 60.00
[2023-11-29 07:51] VITALS: BP 124/66
[2023-11-29 08:31] LABS: Glucose - Point of Care 150 mg/dl (70-99)
[2023-11-29] MEDS: NOVOLOG FLEXPEN-LOW RESISTANCE 1 UNITS SC (08:58)
--- NOTE | 2023-11-29 10:51 | W.PN.HOSP.TC ---
Today's Communication/Plan
-
cards input
monitor HR
snf once medically ready
cont metoprolol
Assessment / Plan
Assessment / Plan
Physical exam:
General: not in distress and holds appropriate conversation.
HEENT: No active discharge, ecchymosis or bruising, moist lips, tongue and mucous membrane.
Eyes: No discharge or red conjunctiva, no nystagmus, pupils are reactive and equal
Neck:Supple, no JVD no bruit no goiter.
Lungs: Good air entry bilaterally, no wheezing or rhonchi, no rales or crackles
Heart: S1, S2 regular, normal rate, no added sound. Lifevest noted
Gastrointestinal: Positive bowel sounds, soft, nontender, no guarding or rigidity or organomegaly
Musculoskeletal: , no chest wall abnormality or tenderness. All joints and extremities have good range of motion, no muscle tenderness or any joint swelling or tenderness.
Neurological: Awake, alert and oriented x3, speech clear and comprehensive, good muscle tone,
Psychiatric: Normal mood, normal thought and judgment, normal affect,
Mr. Moises Carter is a 73 yo man with hx HFrEF with EF 25% on LifeVest, CPAP, ex-smoker, neuropathy, HTN, HLD, DM2, CKD 3 A, right ICA stenosis 50 to 69% depression, anemia, ELY SHOSHONE, recent left hip fracture status post left hip hemiarthroplasty 10/21/2023
(d/c'd from [facility] 11/17/2023) presents with generalized weakness and 2 falls.
#A-fib paroxysmal with episodes of RVR/Hx paroxysmal A-fib
-Patient with recent sinus pauses her metoprolol was decreased to 25 twice daily.
-Now with severe tachycardia/heart rate 180s yesterday while working with PT and with any mild exertion activity
-Will ask cards to reevaluate
#Fall 2/2 acute on chronic ambulatory dysfunction versus weakness 2/2 arrhythmia
-PT/OT/case management consult(son requesting SNF if qualifies at [facility] or [facility])
-Pending placement
Discussed with case reviewered case manager placed in these above-mentioned shelter
-Seen by rehab here, most rehab they think he is not a candidate for them.
-CT head negative for acute pathology.
Constipation:
-Continue senna and Colace
-Encourage oral hydration to the limited amount.
#Fall with head contusion on Eliquis and Plavix
-Ice, Tylenol pain
# Labile HTN/HTN benign
-Continue to monitor
His Entresto completely and indefinitely put on hold by cardiology while dose of the metoprolol decreased
#Severe cardiomyopathy�EF 20%/LifeVest present
-Plan was for ICD: Re-eval LVEF 3 months after maximally tolerated GDMT per [facility] cardiology
-TTE 10/28/23 - EF 25-30%, global diffuse hypokinesis, mild MR
-Entresto discontinued. Cont aldactone and Jardiance and BB.
#Mild memory impairment per son
-Per son states tends to become agitated at night when in the hospital
-Is forgetful and rambles at times
Has not been formally evaluated
#Depression
-Lexapro decreased and started on Cymbalta
-psych recs
#CKD 3
Creat 1.2
Baseline creat 1.6 September 09
#DM2
-Accu-Cheks with SSI, continue Levemir and aspart
-POC am 150
#Hx right ICA stenosis 50-69%
09/25/2020 brain MRI showed 2 mm questionable artifact versus subacute CVA on left frontal lobe
Continue Lipitor, Plavix
#DEBORAH on CPAP
-Patient follows with Dr. Hahn
#Depression hx
-[facility]
#Folic acid deficiency
#Melanoma removal abdomen and back
#Chronic ambulatory dysfunction
Uses walker at baseline
DVT prophylaxis
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
Full code
Dispo-cards recs, eventual SNF. ongoing process.
Anticipated Discharge: > 48 hours
Subjective/Interval History
-
Date of Service: November 29, 2023
Yesterday events noted while working with PT heart rate in the 180s
States of palpitation with exertion with activities
Objective Data
-
Labs:
Laboratory Results
11/29/23
06:36
Sodium 139
Potassium 4.1
Chloride 110 H
Carbon Dioxide 21 L
BUN 29 H
Creatinine 1.2
Glucose 113 H
Calcium 10.7 H
Vital Signs:
Vital Signs
Temp Pulse Resp BP Pulse Ox
97.8 F 67 18 124/66 100
11/29/23 07:51 11/29/23 07:51 11/29/23 07:51 11/29/23 07:51 11/29/23 07:51
I&O
11/28/23 11/29/23 11/30/23
06:59 06:59 06:59
Intake Total 1140 / 1140 900 / 900
Output Total 500 / 500 1445 / 1445
Balance 640 / 640 -545 / -545
Physical Exam
-
General: No Apparent Distress
HEENT: Normocephalic, Atraumatic and Other (LifeVest)
Respiratory: Negative Wheezes or Rales
Cardiac: Regular Rhythm and S1/S2
GI: Soft, Nontender, Nondistended and Normal Bowel Sounds
Genito-urinary: No Costovertebral Tender
Neuro: Awake
Hematologic / Lymphatic: No Lymphadenopathy
Psych: Calm
[2023-11-29] MEDS: CYMBALTA DELAYED RELEASE 20 MG PO (10:56)
[2023-11-29] MEDS: SENOKOT-S 2 TABLET PO ×2 (10:56→19:37)
[2023-11-29] MEDS: TOPROL XL 25 MG PO ×2 (10:56→19:38)
[2023-11-29] MEDS: ALDACTONE 25 MG PO (10:57)
[2023-11-29] MEDS: VITAMIN D3 (cholecalciferol) 10 MCG PO (10:57)
[2023-11-29] MEDS: PEPCID 10 MG PO (10:57)
[2023-11-29] MEDS: PROTONIX 40 MG PO (10:57)
[2023-11-29] MEDS: LIPITOR 80 MG PO (10:57)
[2023-11-29] MEDS: FEOSOL 325 MG PO (10:57)
[2023-11-29] MEDS: PLAVIX 75 MG PO (10:57)
[2023-11-29] MEDS: LEXAPRO 10 MG PO (10:58)
[2023-11-29] MEDS: JARDIANCE 10 MG PO (10:58)
[2023-11-29] MEDS: THERAGRAN 1 TABLET PO (10:58)
[2023-11-29] MEDS: ELIQUIS 5 MG PO ×2 (10:58→19:38)
[2023-11-29] MEDS: DESENEX/MITRAZOL/ZEASORB 1 APPLIC TOPICAL ×2 (10:59→19:38)
[2023-11-29 12:03] VITALS: BP 127/64
[2023-11-29 12:37] LABS: Glucose - Point of Care 133 mg/dl (70-99)
--- NOTE | 2023-11-29 12:49 | W.PN.CD ---
Today's Communication / Plan
-
Toprol was reduced to 25mg bid due to pauses on tele
now with A fib with RVR, HR to 180s
to discuss with EP: currently wearing Life Vest, and will discuss ICD this admission
Impression / Plan
-
BACKGROUND: 73M with persistent atrial fibrillation (on Eliquis), CAD status post PCI to the LAD, ischemic cardiomyopathy (EF 25-30%%), and with recent proximal left femur fracture presents with a chief complaint of weakness with associated
dizziness likely related to orthostatic hypotension.
Bill Board Poster: Dr. Brooks
Tachy/torres syndrome
-Toprol was reduced to 25mg bid due to pauses on tele
-now with A fib with RVR, HR to 180s
-to discuss with EP: currently wearing Life Vest, and will discuss ICD this admission
Weakness, in the setting of orthostatic hypotension
-Positive orthostatics on admission
-Stop Entresto indefinitely
HFrEF from an ischemic cardiomyopathy (EF 25-30%)
-NHYA class 1-2
-GDMT as tolerated
-SGLT-Inhibitor: Jardiance 10mg
-MRA: Started spironolactone 25mg daily this admission
-GRACIA/ARB: was on entresto, now stopped for orthostatic hypotension
-Entresto: stopped for orthostatic hypotension
-BB: Metoprolol succinate 25 bid
-ICD: Wearing LifeVest, see discussion above, last TTE 10/28/2023 with EF 25-30%
-He does not require a standing diuretic
CAD
-Stable without chest pain
-Cath/PCI 08/08/2023: LVEDP 20, LVEF 15-20%, 70 pLAD, 50 ostial D1, 100% pRCA, 30-40% pLCx. PCI/MAINE to pLAD
-Continue clopidogrel & apixaban (for one year post PCI)
Persistent atrial fibrillation
-now developing tachy/torres syndrome (see above discussion)
-Recurred quickly after KIANA/DCCV on 09/09/2023
-Oral anticoagulation: Apixaban 2.5 mg daily, he should be on 5 mg daily for his age, renal function, and weight
-[id number] score at least 6 (HF, HTN, DM, age2, vascular disease)
Mitral regurgitation, mild
IVCD (atyp LBBB), LAD, QRS 128-142
Right ICA stenosis, 50-69%
DM2
HTN
Chronic RLE edema
PMH DEBORAH
Mixed hyperlipidemia, goal LDL < 55. Last LDL 91 on 09/02/2023, now on high intensity statin
Subjective:
He feels weak overall
Physical Exam
Vital Signs/Labs
Vital Signs
Temp Pulse Resp BP Pulse Ox
97.9 F 64 16 127/64 99
11/29/23 12:03 11/29/23 12:03 11/29/23 12:03 11/29/23 12:03 11/29/23 12:03
11/28/23 11/29/23 11/30/23
06:59 06:59 06:59
Actual Weight 110.365 kg 107.275 kg
11/27/23 06:52
11/29/23 06:36
Magnesium 1.9 mg/dl (1.6-2.3) 11/26/23 06:30
Physical Exam
Constitutional: No acute distress and Comfortable
EENT: Moist mucous membranes
Cardiovascular: Systolic murmur absent, Rhythm/rate is irregular, Pedal edema present and JVD present
Respiratory: Respiratory effort normal and Lungs clear to auscul.
GI: Soft, Distention absent and Flat
Neuro/Psych: AO x 3
Data Reviewed
-
Date of Service: November 29, 2023
EKG: Other (Tele: A fib to 180s, also with A fib with slow response and pauses)
Labs: Labs Reviewed by me
[2023-11-29] MEDS: NOVOLOG FLEXPEN-LOW RESISTANCE SC ×2 (13:18→17:10)
--- NOTE | 2023-11-29 14:44 | W.PN.UPDATE ---
Update Note
Progress Note Update
Pt seen, in bed with tray table, in upright position. Pt conversant, making good eye contact, talking about recent loss of his of 53 years. Pt reports he was taking Lexapro 20 mg QD without significant benefit. Started switch-over to trial
of Cymbalta today, with first dose of 20 mg. Pt alert, calm, cooperative, affect stable.
Imp: Unspecified Depressive d/o, bereavement
Rec: continue trial of changing over to Cymbalta. Will titrate up toward 60 mg daily, as tolerated; continue to taper down Lexapro over the next 1 to 2 weeks
will continue to follow
[2023-11-29 16:15] VITALS: BP 114/62
[2023-11-29 16:58] LABS: Glucose - Point of Care 101 mg/dl (70-99)
[2023-11-29 19:00] VITALS: BP 112/66
[2023-11-29 21:56] LABS: Glucose - Point of Care 131 mg/dl (70-99)
[2023-11-29] MEDS: LANTUS 0.200000000000000011 UNITS SC (22:10)
[2023-11-29] MEDS: FLOMAX 0.400000000000000022 MG PO (22:10)
[2023-11-29] MEDS: NEURONTIN 300 MG PO (22:10)
[2023-11-29 23:00] VITALS: BP 124/70
[2023-11-30] VITALS (8 sets, daily range): BP systolic 102–132; BP diastolic 59–88; BMI 29.9
[2023-11-30 07:23] LABS: Blood Urea Nitrogen 25 mg/dl (9-20); Calcium 10.7 mg/dl (8.4-10.2); Carbon Dioxide 22 mmol/L (22-30); Chloride 109 mmol/L (98-107); Estimated Creatinine Clearance 59 ml/min; Glucose 104 mg/dl (70-99); Potassium 3.7 mmol/L (3.5-5.1); Sodium 141 mmol/L (135-145); eGFR 57.29
[2023-11-30 08:03] LABS: Glucose - Point of Care 106 mg/dl (70-99)
[2023-11-30] MEDS: NOVOLOG FLEXPEN-LOW RESISTANCE SC ×2 (09:01→12:50)
[2023-11-30] MEDS: LIPITOR 80 MG PO (09:02)
[2023-11-30] MEDS: SENOKOT-S 2 TABLET PO ×2 (09:02→19:50)
[2023-11-30] MEDS: VITAMIN D3 (cholecalciferol) 10 MCG PO (09:02)
[2023-11-30] MEDS: PLAVIX 75 MG PO (09:03)
[2023-11-30] MEDS: LEXAPRO 10 MG PO (09:03)
[2023-11-30] MEDS: ELIQUIS 5 MG PO ×2 (09:03→19:49)
[2023-11-30] MEDS: TOPROL XL 25 MG PO ×2 (09:03→19:50)
[2023-11-30] MEDS: THERAGRAN 1 TABLET PO (09:03)
[2023-11-30] MEDS: CYMBALTA DELAYED RELEASE 20 MG PO (09:03)
[2023-11-30] MEDS: ALDACTONE 25 MG PO (09:03)
[2023-11-30] MEDS: PEPCID 10 MG PO (09:04)
[2023-11-30] MEDS: FEOSOL 325 MG PO (09:04)
[2023-11-30] MEDS: PROTONIX 40 MG PO (09:05)
[2023-11-30] MEDS: JARDIANCE 10 MG PO (09:05)
[2023-11-30] MEDS: DESENEX/MITRAZOL/ZEASORB 1 APPLIC TOPICAL ×2 (09:06→21:01)
--- NOTE | 2023-11-30 10:30 | W.PN.HOSP.TC ---
Addendum entered and electronically signed by Tacho Gill MD 12/09/23 10:31:
Persistent afib
Original Note:
Today's Communication/Plan
-
Transfer to IVU
Monitor heart rate on telemetry
Cardiology recs
EP eval pending
Assessment / Plan
Assessment / Plan
Physical exam:
General: not in distress and holds appropriate conversation.
HEENT: No active discharge, ecchymosis or bruising, moist lips, tongue and mucous membrane.
Eyes: No discharge or red conjunctiva, no nystagmus, pupils are reactive and equal
Neck:Supple, no JVD no bruit no goiter.
Lungs: Good air entry bilaterally, no wheezing or rhonchi, no rales or crackles
Heart: S1, S2 regular, normal rate, no added sound. Lifevest noted
Gastrointestinal: Positive bowel sounds, soft, nontender, no guarding or rigidity or organomegaly
Musculoskeletal: , no chest wall abnormality or tenderness. All joints and extremities have good range of motion, no muscle tenderness or any joint swelling or tenderness.
Neurological: Awake, alert and oriented x3, speech clear and comprehensive, good muscle tone,
Psychiatric: Normal mood, normal thought and judgment, normal affect,
Mr. Moises Carter is a 73 yo man with hx HFrEF with EF 25% on LifeVest, CPAP, ex-smoker, neuropathy, HTN, HLD, DM2, CKD 3 A, right ICA stenosis 50 to 69% depression, anemia, [place], recent left hip fracture status post left hip hemiarthroplasty 10/21/2023
(d/c'd from [facility] 11/17/2023) presents with generalized weakness and 2 falls.
#A-fib paroxysmal with episodes of RVR/Hx paroxysmal A-fib
# Tachybradycardia syndrome
-Patient with recent sinus pauses her metoprolol was decreased to 25 twice daily.
-Patient with tachy/bradycardia syndrome. Overnight with sinus bradycardia with sinus pauses will hold transfer to IVU. May require dopamine.
-Per cards may require ICD this admission
#Fall 2/2 acute on chronic ambulatory dysfunction versus weakness 2/2 arrhythmia
-PT/OT/case management consult(son requesting SNF if qualifies at [facility])
-Pending placement
Discussed with block and case makercommercial leasing manager placed in these above-mentioned long term
-Seen by rehab here, most rehab they think he is not a candidate for them.
-CT head negative for acute pathology.
Constipation:
-Continue senna and Colace
-Encourage oral hydration to the limited amount.
#Fall with head contusion on Eliquis and Plavix
-Ice, Tylenol pain
# Labile HTN/HTN benign
-Continue to monitor
His Entresto completely and indefinitely put on hold by cardiology while dose of the metoprolol decreased
#Severe cardiomyopathy�EF 20%/LifeVest present
-Plan was for ICD: Re-eval LVEF 3 months after maximally tolerated GDMT per [facility] cardiology
-TTE 10/28/23 - EF 25-30%, global diffuse hypokinesis, mild MR
-Entresto discontinued. Cont aldactone and Jardiance and BB.
#Mild memory impairment per son
-Per son states tends to become agitated at night when in the hospital
-Is forgetful and rambles at times
Has not been formally evaluated
#Depression
-Lexapro decreased and started on Cymbalta. Cymbalta dose increased to 60mg
-psych recs
#CKD 3
Creat 1.2
Baseline creat 1.6 September 09
#DM2
-Accu-Cheks with SSI, continue Levemir and aspart
-POC am 150
#Hx right ICA stenosis 50-69%
09/25/2020 brain MRI showed 2 mm questionable artifact versus subacute CVA on left frontal lobe
Continue Lipitor, Plavix
#DEBORAH on CPAP
-Patient follows with Dr. Hahn
#Depression hx
-Continue Carlos Alberto [facility]
#Folic acid deficiency
#Melanoma removal abdomen and back
#Chronic ambulatory dysfunction
Uses walker at baseline
DVT prophylaxis
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
Full code
Anticipated Discharge: > 48 hours
Subjective/Interval History
-
Date of Service: November 30, 2023
Overnight patient with episodes of bradycardia with pauses
Currently heart rate in 60s low
Currently resting in bed
Objective Data
-
Labs:
Laboratory Results
11/30/23
06:22
Sodium 141
Potassium 3.7
Chloride 109 H
Carbon Dioxide 22
BUN 25 H
Creatinine 1.3
Glucose 104 H
Calcium 10.7 H
Vital Signs:
Vital Signs
Temp Pulse Resp BP Pulse Ox
97.6 F 69 18 102/59 94
11/30/23 07:50 11/30/23 07:50 11/30/23 07:50 11/30/23 07:50 11/30/23 07:50
I&O
11/29/23 11/30/23 12/01/23
06:59 06:59 06:59
Intake Total 900 / 900 660 / 660
Output Total 1445 / 1445 900 / 900
Balance -545 / -545 -240 / -240
Data Reviewed
-
Total Time Spent with Patient (in minutes): 55
[2023-11-30 12:13] LABS: Glucose - Point of Care 146 mg/dl (70-99)
--- NOTE | 2023-11-30 15:32 | W.PN.CD ---
Today's Communication / Plan
-
NPO for possible ICD in AM
Impression / Plan
-
BACKGROUND: 73M with persistent atrial fibrillation (on Eliquis), CAD status post PCI to the LAD, ischemic cardiomyopathy (EF 25-30%%), and with recent proximal left femur fracture presents with a chief complaint of weakness with associated
dizziness likely related to orthostatic hypotension.
Aerobics Instructor: Dr. Brooks
Tachy/torres syndrome
-Toprol was reduced to 25mg bid due to pauses on tele
-now with A fib with RVR, HR to 180s with activity
-to discuss with EP: currently wearing Life Vest, and will discuss ICD this admission
-NPO for possible ICD in AM
Weakness, in the setting of orthostatic hypotension
-Positive orthostatics on admission
-Stop Entresto indefinitely
HFrEF from an ischemic cardiomyopathy (EF 25-30%)
-NHYA class 1-2
-GDMT as tolerated
-SGLT-Inhibitor: Jardiance 10mg
-MRA: Started spironolactone 25mg daily this admission
-GRACIA/ARB: was on entresto, now stopped for orthostatic hypotension
-Entresto: stopped for orthostatic hypotension
-BB: Metoprolol succinate 25 bid
-ICD: Wearing LifeVest, see discussion above, last TTE 10/28/2023 with EF 25-30%
-He does not require a standing diuretic
CAD
-Stable without chest pain
-Cath/PCI 08/08/2023: LVEDP 20, LVEF 15-20%, 70 pLAD, 50 ostial D1, 100% pRCA, 30-40% pLCx. PCI/MAINE to pLAD
-Continue clopidogrel & apixaban (for one year post PCI)
Persistent atrial fibrillation
-now developing tachy/torres syndrome (see above discussion)
-Recurred quickly after KIANA/DCCV on 09/09/2023
-Oral anticoagulation: Apixaban 2.5 mg daily, he should be on 5 mg daily for his age, renal function, and weight
-[id number] score at least 6 (HF, HTN, DM, age2, vascular disease)
Mitral regurgitation, mild
IVCD (atyp LBBB), LAD, QRS 128-142
Right ICA stenosis, 50-69%
DM2
HTN
Chronic RLE edema
PMH DEBORAH
Mixed hyperlipidemia, goal LDL < 55. Last LDL 91 on 09/02/2023, now on high intensity statin
Subjective:
He feels weak overall
Physical Exam
Vital Signs/Labs
Vital Signs
Temp Pulse Resp BP Pulse Ox
97.4 F 43 18 118/71 96
11/30/23 11:49 11/30/23 11:49 11/30/23 11:49 11/30/23 11:49 11/30/23 11:49
11/29/23 11/30/23 12/01/23
06:59 06:59 06:59
Actual Weight 107.275 kg 108.681 kg
11/27/23 06:52
11/30/23 06:22
Magnesium 1.9 mg/dl (1.6-2.3) 11/26/23 06:30
Physical Exam
Constitutional: No acute distress and Comfortable
EENT: Moist mucous membranes
Cardiovascular: JVD pressure is normal, Pedal edema present, JVD present and Systolic murmur present
Respiratory: Respiratory effort normal and Lungs clear to auscul.
GI: Soft, Distention absent and Flat
Neuro/Psych: AO x 3
Data Reviewed
-
Date of Service: November 30, 2023
EKG: Other (Tele: A fib with 2-2.5 sec pauses overnight)
Labs: Labs Reviewed by me
--- NOTE | 2023-11-30 17:38 | PTCARENOTE ---
received patient as transfer from [facility]. Pt oriented to room and unit. AAOx3- forgetful to time. afib on telemetry heart rate in 90s. pulses palpable. +1 lower extremity edema, scrotal edema noted. Pt on room air, sat 98%. lung sounds diminished.
active bowel sounds. see worklist for full nursing assessment and interventions. pt updated on plan of care.
[2023-11-30 18:25] LABS: Glucose - Point of Care 171 mg/dl (70-99)
[2023-11-30] MEDS: NOVOLOG FLEXPEN-LOW RESISTANCE 1 UNITS SC (18:25)
[2023-11-30] MEDS: KCL 20 MEQ PO (21:02)
[2023-11-30] MEDS: MAGNESIUM OXIDE 500 MG PO (21:02)
--- NOTE | 2023-11-30 21:08 | PTCARENOTE ---
Pt AOx3 but forgetful. Bed alarm activated. Bed alarm began to ring. Pt says he needs to get to bathroom to have BM. Pt assisted to bathroom via rolling walker and 2x assist. Pt w/ L sided weakness from recent L hip hemiarthroplasty. Tele reads afib
w/ pvcs. HR at rest 80-90s. On ambulation HR 180-205. Asymptomatic. 4 L O2 NC applied. Pt w/ large soft brown BM. Pt assisted back to bed w/ 2x assist. Pt educated to remain in bed and limit activity. Verbalizes understanding. Estela NAVARRO aware of
HR. Mag PO and K PO ordered and administered. Pt in bed; call dayron w/in reach.
[2023-11-30 22:12] LABS: Glucose - Point of Care 175 mg/dl (70-99)
[2023-11-30] MEDS: NEURONTIN 300 MG PO (22:18)
[2023-11-30] MEDS: FLOMAX 0.400000000000000022 MG PO (22:18)
[2023-11-30] MEDS: LANTUS SC (22:49)
[2023-11-30] MEDS: LANTUS 0.100000000000000006 UNITS SC (23:36)
--- NOTE | 2023-11-30 23:47 | PTCARENOTE ---
Jennifer at HS 175. Pt NPO for ICD implant tomorrow. Key MARIA notified. Lantus dose reduced. 10 units of Lantus administered per Key MARIA.
[2023-12-01 04:43] VITALS: BP 98/68
[2023-12-01 05:16] LABS: % Basophils 0.5 % (0-2); % Eosinophils 2.8 % (0-6); % Immature Granulocytes 0.3 % (0-0.5); % Lymphocytes 20.1 % (20.5-51.1); % Monocytes 8.7 % (1.7-9.3); % Neutrophils 67.6 % (42.2-75.2); Absolute Eosinophils 0.2 10^3/uL (0-0.7); Absolute Lymphocytes 1.3 10^3/uL (1.2-3.4); Absolute Monocytes 0.6 10^3/uL (0.1-0.6); Absolute Neutrophils 4.4 10^3/uL (1.4-6.5); Hematocrit 28.1 % (39.0-52.0); Hemoglobin 9.4 g/dL (13.0-18.0); Mean Corp Hgb Conc. 33.5 g/dL (33.0-37.0); Mean Corpuscular Hgb 30.3 pg (27.0-31.0); Mean Corpuscular Volume 90.6 fL (80.0-94.0); Mean Platelet Volume 9.3 fL (7.4-10.4); Nucleated Red Blood Cells % 0 % (-); Platelet Count 205 10^3/uL (130-400); Red Cell Dist. Width 13.9 % (11.5-14.5); White Blood Cell Count 6.5 10^3/uL (4.8-10.8)
[2023-12-01 05:58] LABS: Blood Urea Nitrogen 25 mg/dl (9-20); Calcium 10.6 mg/dl (8.4-10.2); Carbon Dioxide 20 mmol/L (22-30); Chloride 109 mmol/L (98-107); Estimated Creatinine Clearance 69 ml/min; Glucose 112 mg/dl (70-99); Magnesium 1.8 mg/dl (1.6-2.3); Sodium 138 mmol/L (135-145); eGFR > 60.00
[2023-12-01 07:28] VITALS: BP 121/74
[2023-12-01 07:30] LABS: Glucose - Point of Care 127 mg/dl (70-99)
--- NOTE | 2023-12-01 08:51 | W.PN.CD ---
Today's Communication / Plan
-
discussed with patient, son, and EP: will proceed with ICD today; EP to review EKG to consider BiV ICD
Impression / Plan
-
BACKGROUND: 73M with persistent atrial fibrillation (on Eliquis), CAD status post PCI to the LAD, ischemic cardiomyopathy (EF 25-30%%), and with recent proximal left femur fracture presents with a chief complaint of weakness with associated
dizziness likely related to orthostatic hypotension.
Translation Director: Dr. Brooks
Tachy/torres syndrome
-Toprol was reduced previously to 25mg bid due to pauses on tele
-continues with pauses up to 2.5 seconds; and also with A fib with RVR, HR to 180s with activity
-discussed with patient, son, and EP: will proceed with ICD today; EP to review EKG to consider BiV ICD
Weakness, in the setting of orthostatic hypotension
-Positive orthostatics earlier in admission
-Stopped Entresto indefinitely
HFrEF from an ischemic cardiomyopathy (EF 25-30%)
-NHYA class 1-2
-GDMT as tolerated
-SGLT-Inhibitor: Jardiance 10mg
-MRA: Started spironolactone 25mg daily this admission
-GRACIA/ARB: was on entresto, now stopped for orthostatic hypotension
-Entresto: stopped for orthostatic hypotension
-BB: Metoprolol succinate 25 bid
-ICD: Wearing LifeVest, see discussion above, last TTE 10/28/2023 with EF 25-30%
-He does not require a standing diuretic
CAD
-Stable without chest pain
-Cath/PCI 08/08/2023: LVEDP 20, LVEF 15-20%, 70 pLAD, 50 ostial D1, 100% pRCA, 30-40% pLCx. PCI/MAINE to pLAD
-Continue clopidogrel & apixaban (for one year post PCI)
Persistent atrial fibrillation
-now developing tachy/torres syndrome (see above discussion)
-Recurred quickly after KIANA/DCCV on 09/09/2023
-Oral anticoagulation: Apixaban 2.5 mg daily, he should be on 5 mg daily for his age, renal function, and weight
-[id number] score at least 6 (HF, HTN, DM, age2, vascular disease)
Mitral regurgitation, mild
IVCD (atyp LBBB), LAD, QRS 128-142
Right ICA stenosis, 50-69%
DM2
HTN
Chronic RLE edema
PMH DEBORAH
Mixed hyperlipidemia, goal LDL < 55. Last LDL 91 on 09/02/2023, now on high intensity statin
Subjective:
He feels weak overall
Physical Exam
Vital Signs/Labs
Vital Signs
Temp Pulse Resp BP Pulse Ox
97.5 F 71 16 98/68 99
12/01/23 07:25 12/01/23 07:25 12/01/23 07:25 12/01/23 04:43 12/01/23 07:25
11/30/23 12/01/23 12/02/23
06:59 06:59 06:59
Actual Weight 108.681 kg
12/01/23 04:49
12/01/23 04:49
Magnesium 1.8 mg/dl (1.6-2.3) 12/01/23 04:49
Physical Exam
Constitutional: No acute distress and Comfortable
EENT: Moist mucous membranes
Cardiovascular: Rhythm/rate is irregular, Pedal edema present, JVD present and Systolic murmur present
Respiratory: Respiratory effort normal, Lungs clear to auscul. and Wheeze Absent
GI: Soft and Distention absent
Neuro/Psych: AO x 3
Data Reviewed
-
Date of Service: December 01, 2023
EKG: Other (Tele: A fib, RVR at times; also pauses up to 2.5 seconds)
Labs: Labs Reviewed by me
[2023-12-01] MEDS: MAGNESIUM OXIDE 500 MG PO ×2 (09:23→19:49)
[2023-12-01] MEDS: CYMBALTA DELAYED RELEASE 20 MG PO (09:23)
[2023-12-01] MEDS: PROTONIX 40 MG PO (09:23)
[2023-12-01] MEDS: VITAMIN D3 (cholecalciferol) 10 MCG PO ×2 (09:23→09:24)
[2023-12-01] MEDS: DESENEX/MITRAZOL/ZEASORB 1 APPLIC TOPICAL ×2 (09:24→19:49)
[2023-12-01] MEDS: LIPITOR 80 MG PO (09:24)
[2023-12-01] MEDS: FEOSOL 325 MG PO (09:24)
[2023-12-01] MEDS: THERAGRAN 1 TABLET PO (09:25)
[2023-12-01] MEDS: ALDACTONE 25 MG PO (09:25)
[2023-12-01] MEDS: PEPCID 10 MG PO (09:26)
[2023-12-01] MEDS: SENOKOT-S 2 TABLET PO ×2 (09:27→19:49)
[2023-12-01] MEDS: JARDIANCE 10 MG PO (09:27)
[2023-12-01] MEDS: TOPROL XL 25 MG PO ×2 (09:27→19:50)
[2023-12-01] MEDS: LEXAPRO 10 MG PO (09:28)
[2023-12-01] MEDS: PLAVIX PO (09:29)
[2023-12-01] MEDS: NOVOLOG FLEXPEN-LOW RESISTANCE SC ×3 (09:30→18:09)
--- NOTE | 2023-12-01 10:20 | PTOTSP ---
Patient transferred from 3W to IVU on 11/30/23. Will need new PT orders due to transfer to a higher level of care when medically appropriate.
--- NOTE | 2023-12-01 10:45 | W.ICD.CONTRA ---
Post ICD/SUPERVISOR HYDROCHLORIC AREA-D
-
History of PA?: No
LV Function
Left ventricular function study result?: Ejection Fraction </= 35%
ACEI/ARB/ARNI
Patient already on ACEI/ARB/ARNI: Yes (on hold d/t hypotension)
ACEI/ARB/ARNI Contraindication: Hypotension
Beta-Tanner
Patient already on Beta Tanner: Yes
--- NOTE | 2023-12-01 11:03 | PTCARENOTE ---
resumed care of patient from previous RN. walking rounds completed. patient sleeping and drowsy but able to arouse. Hard of hearing. Assessment done in bed. patient AAOx3. flat but appropriate. Afib on monitor. HR controlled in 70-90s. PACs. Pulses
weak but palpable. +1 lower extremity edema and +2 scrotal edema. 97% RA. lungs diminished but clear. NPO for procedure today,using urinal. dark yellow urine. PIV patent. will continue to monitor.
[2023-12-01 11:36] VITALS: BP 120/72
[2023-12-01 11:37] LABS: Glucose - Point of Care 113 mg/dl (70-99)
--- NOTE | 2023-12-01 13:12 | W.PN.HOSP.TC ---
Today's Communication/Plan
-
see bold
Assessment / Plan
Assessment / Plan
73 M with hx HFrEF with EF 25% on LifeVest, CPAP, ex-smoker, neuropathy, HTN, HLD, DM2, CKD 3 A, right ICA stenosis 50 to 69% depression, anemia, [place], recent left hip fracture status post left hip hemiarthroplasty 10/21/2023 (d/c'd from [place]
11/17/2023) presents with generalized weakness and 2 falls.
Gen: NAD, AAOx3.
Eyes: EOMI, PERRLA, no scleral icterus.
Neck: supple.
CV: RRR, +S1/S2, no m/r/g.
Resp: CTAB, no rales, wheezes, or rhonchi.
Abd: +BS, soft, NT, ND
Skin: No rashes. trace B/L LE edema
Neuro: CN 2-12 intact, non-focal.
Psych: Normal mood and affect.
CT brain: No evidence of acute intracranial abnormality.
Paroxysmal atrial fibrillation:
-With episodes of RVR and bradycardia/sinus pauses (tachybrady syndrome) despite BB being decreased
-s/p AICD today
Falls, acute on chronic ambulatory dysfunction versus weakness due to tachybrady syndrome/arrhythmias:
-PT/OT/CM
Chronic HFrEF:
-s/p AICD as above
-Entresto stopped
-cont Jardiance/BB/Aldactone
Other problems:
Constipation: cont Senna-S
Essential HTN: cont BB/Aldactone. Home Entresto stopped.
Mild memory/cognitive impairment
Depression: Cont Cymbalta
DM2: cont Lantus/SSI/accuchecks
h/o R-ICA stenosis 50-69%: cont statin/Plavix
DEBORAH on CPAP
FULL/Eliquis
Anticipated Discharge: Within 24 hours
Subjective/Interval History
-
Date of Service: December 01, 2023
Denies chest pain or shortness of breath.
Objective Data
-
Labs:
Laboratory Results
12/01/23
04:49
WBC 6.5
Hgb 9.4 L
Hct 28.1 L
Plt Count 205
Sodium 138
Potassium 4.0
Chloride 109 H
Carbon Dioxide 20 L
BUN 25 H
Creatinine 1.1
Glucose 112 H
Calcium 10.6 H
Vital Signs:
Vital Signs
Temp Pulse Resp BP Pulse Ox
97.8 F 79 16 121/74 99
12/01/23 11:34 12/01/23 11:34 12/01/23 11:34 12/01/23 07:28 12/01/23 11:34
I&O
11/30/23 12/01/23 12/02/23
06:59 06:59 06:59
Intake Total 660 / 660 200 / 200
Output Total 900 / 900 300 / 300 450 / 450
Balance -240 / -240 -100 / -100 -450 / -450
--- NOTE | 2023-12-01 13:23 | CM ---
pt awaiting ICD today, cm following
--- NOTE | 2023-12-01 16:25 | ITS.CL.ICD ---
[employer]orer - ICD
Implantable Cardioverter Defibrillator
Procedure Report:
ARTS ADMINISTRATOR OR MANAGER-D with Bi-Ventricular Implantable Cardiac Defibrillator (BiV-ICD) Placement:
Mr. Carter is a 73 years old gentleman with severe HFrEF with NYHA class III CHF, on GDMT with persistent atrial fibrillation, CAD status post PCI to the LAD, ischemic cardiomyopathy (EF 25-30%%), with tachy torres syndrome with plan for ablate and
pace and need for pacemaker is recommended an ICD placement. He has persistent severe LV systolic dysfunction (LVEF of 25%) with desynchrony with LBBB is in need for a BiV pacing and is here in EP lab for cardiac resynchronization therapy with
defibrillator (ARTS ADMINISTRATOR OR MANAGER-D).
Indications: Primary prevention of sudden cardiac with irreversible and symptomatic NYHA Class III chronic systolic congestive heart failure with ischemic cardiomyopathy with depressed LV ejection fraction of 25% despite on maximal guideline
directed medical therapy , Wide QRS with LBBB
Date of the Procedure: 12/01/2023
Pre-Operative Diagnosis: Systolic heart failure and tachy torres syndrome with plan for ablate and pace.
Post-Operative Diagnosis: Systolic heart failure and tachy torres syndrome
Procedure Performed: ARTS ADMINISTRATOR OR MANAGER-D with BIVENTRICULAR IMPLANTABLE DEFIBRILLATOR IMPLANTATION
Performing Physician:
Lianne Diana MD
Anesthesia:
See anesthesia records
Detailed Description of the Procedure:
The patient was identified using hospital identification and informed consent obtained for the procedure. The risks were explained to the patient and the family including, but not limited to: Bleeding, infection, arrhythmia, stroke,
vascular/cardiac/lung puncture, surgery, pacemaker dependency/device malfunction. All questions were answered.
A surgical pause was performed in accordance with hospital regulations. Anesthesia service provided sedation as reported separately. Antibiotics administered IV for risk of bacterial colonization. After obtaining informed and written consent, the
patient was brought to the electrophysiology laboratory.
A timeout was performed immediately before the procedure. The left chest was prepped from the nipple to the angle of the jaw with chlorhexidine, and draped following sterile technique in usual routine.�
The procedure site was meticulously prepared with surgical scrub and allowed to dry with no pooling. Sterile draping was applied to cover the procedure site. The image intensifier was draped with sterile bag and positioned over the patient.
The left infra-clavicular region was prepped and draped in the usual sterile fashion. Local anesthesia was administered subcutaneously using 1% lidocaine / Bupivacaine. The left cephalic vein cut-down was performed with an incision at the
delto-pectoral groove, and vascular sheaths were introduced for lead access. These were advanced into the right ventricle and the right atrium.
There was tortuosity and convoluted course of the venous system that required long sheath. The right ventricular lead was secured in position with an active fixation technique at the apical septal location.
The RA lead was attached in the right atrial appendage with active fixation.
There was excellent sensing, pacing, and impedance from the leads, with no diaphragmatic stimulation at 10 V output.�Bovie cautery, antibiotics, and fluoroscopy were used.
Attention turned to the coronary sinus. The guide wire was advanced to the IVC and a long hemostatic multipurpose peel away sheath was advanced to the RA.
The CS was cannulated using radiofocus glidewire. The sheath was advanced over the guidewire across the bend into the CS. The glidewire was placed into the CS and coronary sinus venography was obtained with a balloon catheter in the CS. CS anatomy
revealed a posterolateral branch and an keith-lateral vein. The posterolateral branch was accessed using an inner sheath and radiofocus wire.
The PL branch was big and wide and decision was made to place an active fix CS wire to avoid dislodgement. A long active fixation quad LV lead was used and advanced into the postero-lateral br over the BMW wire with anticlock movement. Once adequate
location achieved the LV lead was deployed by clock asif turns. Once adequate fixation achieved, the push and pull test was done and lead location was confirmed.
During pacing, QRS complex was favorable, with a QS in lateral leads and RBBB configuration during LV pacing. It was deemed ideal for biventricular pacing. Diaphragmatic stimulation was not present with high output pacing here. The long guiding
sheath and inner sheath were removed from the vein and then from the body without change in lead position, impedance, sensing, or capture.
Short NV interval permitted AdaptivCRT pacing with BiV / LV only pacing. The leads were sutured to the underlying pectoralis fascia with 0-silk stitches.�
The leads were attached to the pulse generator in standard configuration with acceptable sensing and threshold parameters. The pocket was irrigated with antibiotic solution; the pocket was inspected with no active bleeding noted. The device and the
leads were placed in the pocket.
Deep subcutaneous tissues were closed with 3-0 VLoc sutures; intermediate subcutaneous tissue was reopposed using a running 4-0 V loc suture, and the dermis was reopposed using a running 4-0 V loc subcuticular suture. Sponge counts / sharp counts
were appropriate.
Procedure End:
The procedure was tolerated well. Aquacel bandaged was applied.
Estimated Blood loss:
10 cc
Specimens Removed:
No cultures and no specimens were obtained. No intraoperative pathology was identified.
Urine output:
None
Packs / Drains/ Tubes:
None
Instrument / Sponge Count Correct:
Yes
Flouro time:
7.9min / 31mGy
Complications of the Procedure:
None
Condition of Patient at Time of Transfer:
Hemodynamically stable with no neurological or vascular compromise.
Device information:�
Generator: Apontador; Model: [id number]; Serial # [id number]�
����������� Atrial Lead: Medtronic; Model: 5076-52; Serial # [id number]
����������������������� Measured data in the right atrium was sensing of 1.5 mV and, impedance of 589ohms and threshold not tested due to AF.
����������� RV Lead: Medtronic; Model: 6935M-62; Serial # [id number]
����������������������� Measured data on the RV lead was sensing of 11 mV, impedance of 475 ohms and threshold of 0.75 V at 0.5ms�
����������� LV pacing lead: Medtronic; Model: 4798-88; Serial # [id number]
����������������������� Measured data on the LV lead was impedance of 1045 ohms and threshold of 0.75 V at 0.4ms (LV3 to LV4; diaphragm not seen at max output).
PROGRAMMING PARAMETERS:�
Torres parameter settings were DDDR 60-130 �
����������� Paced AV interval: 130ms
����������� Sensed AV interval: 100 ms.
����������� Rate Adaptive A-V Interval: on
Tachy parameter settings:
����������� SVT discrimination: On
����������� AF/AFl: On
����������� SVT limit: 260 msec
����������� VT zone:
Slow VT: 150-167 bpmc - Monitor
����������������������� Fast VT: 167-180 bpm => ATP then choeck
����������������������� VF: >180 bpm => Shock� x6
�
Summary:
Successful implantation of ARTS ADMINISTRATOR OR MANAGER-D
Results/Recommendations:
-Please follow up CXR�
Instructions to be given to patient:�
- Please follow up with [facility] at [address] [place] [address] ([phone]) to get your wound checked in 2 weeks of your discharge.
- Do not wet incision site until after it is evaluated at cardiology clinic. No baths or showers until then. Sponge baths / showers are OK but dab dry the dressing after it is wet.�
- Allow 'steri strips' to fall off on their own�
- Do not lift left elbow above shoulder, particularly with sudden jerking movements, for 1 month�
- Do not lift anything weighing more than 5 pounds with the left arm for 1 month�
- If you notice any fevers, shortness of breath, lightheadedness, chest pain, or worsening swelling in the wound site, please contact the arrhythmia clinic, contact your finishing department supervisor, or present to the hospital for evaluation.�
Lianne Diana MD
Electrophysiology
--- NOTE | 2023-12-01 17:00 | PTCARENOTE ---
received patient post ICD placement. drowsy but AAOx3. V paced HR 90s. 100% RA. L chest wall site c/d/i with aquacell and arm immobilizer on. EKG done. for CXR in 1 hr. will continue ot monitor.
[2023-12-01] MEDS: LANOXIN 500 MCG IV (17:08)
[2023-12-01 18:04] VITALS: BP 128/90
[2023-12-01 18:06] LABS: Glucose - Point of Care 104 mg/dl (70-99)
--- NOTE | 2023-12-01 19:18 | PTCARENOTE ---
Assumed care of patient at 1900, vs downloaded by me prior to that time were from previous shift.
[2023-12-01 19:48] VITALS: BP 115/52
[2023-12-01] MEDS: FLUSH (NSS) 2 FLUSH IV (21:21)
[2023-12-01] MEDS: ANCEF 5 IV (21:21)
[2023-12-01 21:22] LABS: Glucose - Point of Care 161 mg/dl (70-99)
[2023-12-01] MEDS: FLOMAX 0.400000000000000022 MG PO (22:02)
[2023-12-01] MEDS: NEURONTIN 300 MG PO (22:02)
[2023-12-01] MEDS: LANTUS 0.200000000000000011 UNITS SC (22:03)
[2023-12-01 22:17] VITALS: BP 111/72
--- NOTE | 2023-12-01 22:32 | PTCARENOTE ---
Sleeping at intervals. Denies any complaints of pain or discomfort. V-Paced on the monitor.
[2023-12-02] VITALS (13 sets, daily range): BP systolic 81–121; BP diastolic 60–83; PULSE 88–175; O2SAT 99; BMI 29.3
[2023-12-02] MEDS: ANCEF 5 IV (05:40)
[2023-12-02] MEDS: FLUSH (NSS) 2 FLUSH IV (05:41)
[2023-12-02 07:05] LABS: Glucose - Point of Care 130 mg/dl (70-99)
--- NOTE | 2023-12-02 08:17 | W.PN.HOSP.TC ---
Today's Communication/Plan
-
OK for d/c if OK with cards
Assessment / Plan
Assessment / Plan
73 M with hx HFrEF with EF 25% on LifeVest, CPAP, ex-smoker, neuropathy, HTN, HLD, DM2, CKD 3 A, right ICA stenosis 50 to 69% depression, anemia, MARSHALL, recent left hip fracture status post left hip hemiarthroplasty 10/21/2023 (d/c'd from [place]
11/17/2023) presents with generalized weakness and 2 falls.
Gen: NAD, AAOx3.
Eyes: EOMI, PERRLA, no scleral icterus.
Neck: supple.
CV: tachy, reg rhythm, +S1/S2, no m/r/g.
Resp: CTAB, no rales, wheezes, or rhonchi.
Abd: +BS, soft, NT, ND
Skin: No rashes. trace B/L LE edema
Neuro: remains CN 2-12 intact, non-focal.
Psych: Normal mood and affect.
CT brain: No evidence of acute intracranial abnormality.
Paroxysmal atrial fibrillation:
-With episodes of RVR and bradycardia/sinus pauses (tachybrady syndrome) despite BB being decreased
-s/p AICD 12/01/23
Falls, acute on chronic ambulatory dysfunction versus weakness due to tachybrady syndrome/arrhythmias:
-PT/OT/CM
Chronic HFrEF:
-s/p AICD as above
-Entresto stopped
-cont Jardiance/BB/Aldactone
Other problems:
Constipation: cont Senna-S
Essential HTN: cont BB/Aldactone. Home Entresto stopped.
Mild memory/cognitive impairment
Depression: Cont Cymbalta
DM2: cont Lantus/SSI/accuchecks
h/o R-ICA stenosis 50-69%: cont statin/Plavix
DEBORAH on CPAP
FULL/Eliquis
Anticipated Discharge: Today
Subjective/Interval History
-
Date of Service: December 02, 2023
Denies CP/SOB.
Objective Data
-
Labs:
Laboratory Results
12/02/23
08:12
WBC Pending
Hgb Pending
Hct Pending
Plt Count Pending
Sodium Pending
Potassium Pending
Chloride Pending
Carbon Dioxide Pending
BUN Pending
Creatinine Pending
Glucose Pending
Calcium Pending
Vital Signs:
Vital Signs
Temp Pulse Resp BP Pulse Ox
98.6 F 84 18 121/83 98
12/02/23 07:01 12/02/23 07:01 12/02/23 07:01 12/02/23 05:39 12/02/23 07:01
I&O
12/01/23 12/02/23 12/03/23
06:59 06:59 06:59
Intake Total 200 / 200
Output Total 300 / 300 1949
Balance -100 / -100 -1949
[2023-12-02 08:27] LABS: Hematocrit 33.2 % (39.0-52.0); Hemoglobin 10.8 g/dL (13.0-18.0); Mean Corp Hgb Conc. 32.5 g/dL (33.0-37.0); Mean Corpuscular Hgb 30.7 pg (27.0-31.0); Mean Corpuscular Volume 94.3 fL (80.0-94.0); Mean Platelet Volume 9.6 fL (7.4-10.4); Platelet Count 197 10^3/uL (130-400); Red Blood Cell Count 3.52 10^6/uL (4.70-6.10); Red Cell Dist. Width 13.8 % (11.5-14.5); White Blood Cell Count 9.8 10^3/uL (4.8-10.8)
[2023-12-02] MEDS: NOVOLOG FLEXPEN-LOW RESISTANCE SC (09:06)
--- NOTE | 2023-12-02 09:06 | VNURNOTE ---
Patient is current with [facility] since 11/19 w/ SN/PT, will monitor progress and plan at discharge.
[2023-12-02 09:08] LABS: Blood Urea Nitrogen 23 mg/dl (9-20); Calcium 10.6 mg/dl (8.4-10.2); Carbon Dioxide 20 mmol/L (22-30); Chloride 108 mmol/L (98-107); Estimated Creatinine Clearance 69 ml/min; Glucose 97 mg/dl (70-99); Potassium 4.4 mmol/L (3.5-5.1); Sodium 138 mmol/L (135-145); eGFR > 60.00
[2023-12-02] MEDS: TYLENOL 650 MG PO (09:10)
[2023-12-02] MEDS: LEXAPRO 5 MG PO (09:21)
[2023-12-02] MEDS: VITAMIN D3 (cholecalciferol) 10 MCG PO (09:22)
[2023-12-02] MEDS: PLAVIX 75 MG PO (09:22)
[2023-12-02] MEDS: MAGNESIUM OXIDE 500 MG PO ×2 (09:22→21:12)
[2023-12-02] MEDS: TOPROL XL 25 MG PO ×2 (09:22→21:12)
[2023-12-02] MEDS: FEOSOL 325 MG PO (09:22)
[2023-12-02] MEDS: CYMBALTA DELAYED RELEASE 30 MG PO (09:23)
[2023-12-02] MEDS: THERAGRAN 1 TABLET PO (09:23)
[2023-12-02] MEDS: LIPITOR 80 MG PO (09:23)
[2023-12-02] MEDS: PROTONIX 40 MG PO (09:23)
[2023-12-02] MEDS: ALDACTONE 25 MG PO (09:23)
[2023-12-02] MEDS: SENOKOT-S 2 TABLET PO ×2 (09:24→21:12)
[2023-12-02] MEDS: ELIQUIS 5 MG PO ×2 (09:24→21:12)
[2023-12-02] MEDS: PEPCID 10 MG PO (09:24)
[2023-12-02] MEDS: JARDIANCE 10 MG PO (09:36)
[2023-12-02] MEDS: DESENEX/MITRAZOL/ZEASORB 1 APPLIC TOPICAL ×2 (09:37→21:12)
[2023-12-02] MEDS: LANOXIN 250 MCG PO (11:27)
--- NOTE | 2023-12-02 11:56 | PTOTSP ---
New PT/OT orders are needed due change in status with ICD placement and transfer to IVU, discussed with nurse.
[2023-12-02 12:34] LABS: Glucose - Point of Care 306 mg/dl (70-99)
[2023-12-02] MEDS: NOVOLOG FLEXPEN-LOW RESISTANCE 4 UNITS SC (13:10)
--- NOTE | 2023-12-02 13:18 | W.PN.CD ---
Today's Communication / Plan
-
- Stable for discharge from cardiac stand point.
- Wound check and device clinic enrollment in 1-2 weeks.
Impression / Plan
-
BACKGROUND: 73M with persistent atrial fibrillation (on Eliquis), CAD status post PCI to the LAD, ischemic cardiomyopathy (EF 25-30%%), and with recent proximal left femur fracture presents with a chief complaint of weakness with associated
dizziness likely related to orthostatic hypotension.
[place] Operator: Dr. Brooks
Tachy/torres syndrome
-Toprol was reduced previously to 25mg bid due to pauses on tele
-s/p pauses up to 2.5 seconds; and also with A fib with RVR, HR to 180s with activity
-s/p BiV ICD 12/01/23 - [employer]
- Started Digoxin 0.25 mg QD. Continue Toprol 25mg BID
Weakness, in the setting of orthostatic hypotension
-Positive orthostatics earlier in admission
-Stopped Entresto indefinitely
HFrEF from an ischemic cardiomyopathy (EF 25-30%)
-NHYA class 1-2
-GDMT as tolerated
-SGLT-Inhibitor: Jardiance 10mg
-MRA: Started spironolactone 25mg daily this admission
-GRACIA/ARB: was on entresto, now stopped for orthostatic hypotension
-Entresto: stopped for orthostatic hypotension
-BB: Metoprolol succinate 25 bid
-ICD: s/p BiV ICD, last TTE 10/28/2023 with EF 25-30%
-He does not require a standing diuretic
CAD
-Stable without chest pain
-Cath/PCI 08/08/2023: LVEDP 20, LVEF 15-20%, 70 pLAD, 50 ostial D1, 100% pRCA, 30-40% pLCx. PCI/MAINE to pLAD
-Continue clopidogrel & apixaban (for one year post PCI)
Persistent atrial fibrillation
-now developing tachy/torres syndrome (see above discussion)
-Recurred quickly after KIANA/DCCV on 09/09/2023
-Oral anticoagulation: Apixaban 2.5 mg daily, he should be on 5 mg daily for his age, renal function, and weight
-[id number] score at least 6 (HF, HTN, DM, age2, vascular disease)
Mitral regurgitation, mild
IVCD (atyp LBBB), LAD, QRS 128-142
Right ICA stenosis, 50-69%
DM2
HTN
Chronic RLE edema
PMH DEBORAH
Mixed hyperlipidemia, goal LDL < 55. Last LDL 91 on 09/02/2023, now on high intensity statin
Subjective:
He feels weak overall.
Physical Exam
Vital Signs/Labs
Vital Signs
Temp Pulse Resp BP Pulse Ox
97.7 F 86 18 109/69 96
12/02/23 11:13 12/02/23 13:00 12/02/23 11:13 12/02/23 11:24 12/02/23 11:13
12/01/23 12/02/23 12/03/23
06:59 06:59 06:59
Actual Weight 106.2 kg
12/02/23 08:12
12/02/23 08:12
Magnesium 1.8 mg/dl (1.6-2.3) 12/01/23 04:49
Physical Exam
Constitutional: No acute distress and Comfortable
EENT: Anicteric and Moist mucous membranes
Cardiovascular: Pedal edema is absent and Rhythm/rate is irregular
Respiratory: Respiratory effort normal, Lungs clear to auscul. and Wheeze Absent
GI: Soft and Non tender
Neuro/Psych: Alert and Oriented
Other: Cardiac Device Site
Data Reviewed
-
Date of Service: December 02, 2023
Medical Decision Making: Reviewed Test Results, Independent Historian Assessment, Test Interpretation and Review of Case with other Provider
EKG: Tracing Personally Visualized and interpreted
Echo: Report Reviewed by me
X-Ray/CT/US/MRI/NUC/PET: Image Personally Visualized and interpreted
Labs: Labs Reviewed by me
Old Records: Reviewed
--- NOTE | 2023-12-02 14:49 | PTCARENOTE ---
Pt's heart rate continues to go up to 160's w/ ambulation. Pt noted to be in uncontrolled atrial fib w/ intermittent Ventricular pacing. Will notify TICKET CLERK.
--- NOTE | 2023-12-02 15:57 | W.PN.UPDATE ---
Update Note
Progress Note Update
Pt seen, alert, oriented, resting calmly in bed, watching TV. Pt c/o worst L knee pain ever, states he has arthritis with 'bone on bone.' Pt tolerating switch over from Lexapro to Cymbalta, denies any noticeable side effects. Mood appears the
same, affect dysphoric.
Imp: Unspecified Depressive d/o, bereavement
Rec: continue trial of changing over to Cymbalta- 30 mg Daily started today, will likely increase to 60 mg daily if tolerated over the next few days.
Lexapro tapered down to 5 mg Daily- needs to continue for at least one week before stopping.
Will follow
[2023-12-02 16:49] LABS: Glucose - Point of Care 167 mg/dl (70-99)
[2023-12-02] MEDS: NOVOLOG FLEXPEN-LOW RESISTANCE 1 UNITS SC (17:45)
[2023-12-02] MEDS: ULTRAM 25 MG PO (17:52)
[2023-12-02] MEDS: FLOMAX 0.400000000000000022 MG PO (21:11)
[2023-12-02] MEDS: NEURONTIN 300 MG PO (21:12)
[2023-12-02 21:43] LABS: Glucose - Point of Care 168 mg/dl (70-99)
[2023-12-02] MEDS: LANTUS 0.200000000000000011 UNITS SC (22:54)
--- NOTE | 2023-12-03 03:13 | DOWNTIME ---
There was a [facility] [facility] Colon And Rectal Surgeon Downtime on 12/02/2023 from 0100 to 12/03/2023 at 0300. Downtime documentation of patient's care, including medication administrations, has been reconciled in the electronic record per guidelines. Refer to the
patient's paper chart under the miscellaneous tab to see printed paper medication records and downtime forms.
[2023-12-03 05:28] VITALS: BP 118/78
[2023-12-03 07:00] VITALS: BP 123/75
[2023-12-03 07:04] LABS: Glucose - Point of Care 128 mg/dl (70-99)
--- NOTE | 2023-12-03 07:55 | W.PN.HOSP.TC ---
Today's Communication/Plan
-
d/c
Assessment / Plan
Assessment / Plan
73 M with hx HFrEF with EF 25% on LifeVest, CPAP, ex-smoker, neuropathy, HTN, HLD, DM2, CKD 3 A, right ICA stenosis 50 to 69% depression, anemia, [place], recent left hip fracture status post left hip hemiarthroplasty 10/21/2023 (d/c'd from [place]
11/17/2023) presents with generalized weakness and 2 falls.
Gen: NAD, AAOx3.
Eyes: EOMI, PERRLA, no scleral icterus.
Neck: supple.
CV: RRR, +S1/S2, no m/r/g.
Resp: CTAB anteriorly, no rales, wheezes, or rhonchi.
Abd: +BS, soft, NT, ND
Skin: No rashes
Neuro: remains CN 2-12 intact, non-focal.
Psych: Normal mood and affect.
CT brain: No evidence of acute intracranial abnormality.
Paroxysmal atrial fibrillation:
-With episodes of RVR and bradycardia/sinus pauses (tachybrady syndrome) despite BB being decreased
-s/p AICD 12/01/23
-cont Dig/BB/Eliquis
Falls, acute on chronic ambulatory dysfunction versus weakness due to tachybrady syndrome/arrhythmias:
-PT/OT/CM
Chronic HFrEF:
-s/p AICD as above
-Entresto stopped
-cont Jardiance/BB/Aldactone
Other problems:
Constipation: cont Senna-S
Essential HTN: cont BB/Aldactone. Home Entresto stopped.
Mild memory/cognitive impairment
Depression: Cont Cymbalta
DM2: cont Lantus/SSI/accuchecks
h/o R-ICA stenosis 50-69%: cont statin/Plavix
DEBORAH on CPAP
FULL/Eliquis
Total time spent on d/c = 31 min. This included today's physical exam, progress note, review of laboratory and diagnostic data, preparation of discharge documents and prescriptions, and discussions about the pt's hospital course and discharge plan
with the patient and other claim review medical director involved in the patient's care.
Anticipated Discharge: Today
Subjective/Interval History
-
Date of Service: December 03, 2023
Denies CP/SOB.
Objective Data
-
Vital Signs:
Vital Signs
Temp Pulse Resp BP Pulse Ox
98 F 88 20 118/78 97
12/03/23 07:00 12/03/23 05:28 12/03/23 07:00 12/03/23 05:28 12/03/23 07:00
I&O
12/02/23 12/03/23 12/04/23
06:59 06:59 06:59
Intake Total 840 / 840
Output Total 1949 1100 / 1100
Balance -1950 / -1950 -260 / -260
[2023-12-03 09:59] VITALS: BP 126/80
[2023-12-03] MEDS: LEXAPRO 5 MG PO (10:00)
[2023-12-03] MEDS: PROTONIX 40 MG PO (10:00)
[2023-12-03] MEDS: CYMBALTA DELAYED RELEASE 30 MG PO (10:00)
[2023-12-03] MEDS: SENOKOT-S 2 TABLET PO (10:01)
[2023-12-03] MEDS: FEOSOL 325 MG PO (10:01)
[2023-12-03] MEDS: ALDACTONE 25 MG PO (10:01)
[2023-12-03] MEDS: PLAVIX 75 MG PO (10:01)
[2023-12-03] MEDS: ELIQUIS 5 MG PO (10:01)
[2023-12-03] MEDS: LIPITOR 80 MG PO (10:02)
[2023-12-03] MEDS: THERAGRAN 1 TABLET PO (10:02)
[2023-12-03] MEDS: PEPCID 10 MG PO (10:02)
[2023-12-03] MEDS: TOPROL XL 25 MG PO (10:02)
[2023-12-03] MEDS: VITAMIN D3 (cholecalciferol) 10 MCG PO (10:02)
[2023-12-03] MEDS: JARDIANCE 10 MG PO (10:03)
[2023-12-03] MEDS: DESENEX/MITRAZOL/ZEASORB 1 APPLIC TOPICAL (10:03)
[2023-12-03] MEDS: NOVOLOG FLEXPEN-LOW RESISTANCE SC ×2 (10:07→13:09)
[2023-12-03 10:52] VITALS: BP 105/66
[2023-12-03] MEDS: LANOXIN 250 MCG PO (11:05)
[2023-12-03] MEDS: ULTRAM 25 MG PO (11:05)
[2023-12-03 11:44] VITALS: BP 129/84
--- NOTE | 2023-12-03 11:57 | CM ---
CM following for DC planning needs.
Plan to transfer to [facility] today. CM confirmed that bed is available for transfer.
Arranged ambulance transport for a 1430 PU.
Son updated via telephone. Pt. updated at bedside.
Will be transported via BLS, Medical Necessity completed.
Plan: Transfer to [facility] via BLS ambul
RN report: [phone]
--- NOTE | 2023-12-03 12:08 | PTCARENOTE ---
Pt ambulated to bathroom with walker and RN assistance. Pt was a minimal assist. Pt was very slow with ambulation and weak w/ complaints of left knee and thigh discomfort. Ultram previously given for discomfort of left knee. Pt's heart rate 160's
w/ ambulation. Pt very weak upon return from the bathroom. BP 129/84, HR90's, V paced w/ PVC's. Will monitor.
--- NOTE | 2023-12-03 12:48 | TRANSFER ---
Report given to LUZ ELENA Bender at [facility]. [phone]. Awaiting transfer.
--- NOTE | 2023-12-03 12:50 | W.PN.UPDATE ---
Update Note
Progress Note Update
Patient reports he is still dysphoric but coping and is glad that transition is being made from Lexapro to Cymbalta; realizes that it will be at least 2 weeks from the start to appreciate if symptoms are improved. Denies hopelessness, helplessness
or suicidal thoughts.
Discussed different strategies outside of psychotropics to help his depression.
Supportive intervention given.
[2023-12-03 12:59] LABS: Glucose - Point of Care 159 mg/dl (70-99)
--- NOTE | 2023-12-04 14:14 | W.DCSUMMARY ---
Discharge Summary
Discharge Data
Date of Admission: 11/27/23
Date of Discharge: 12/03/23
-
Pending Results: No
Hospital Course
Primary diagnoses:
Paroxysmal atrial fibrillation with episodes of rapid ventricular response and bradycardia/sinus pauses (tachybrady syndrome) s/p AICD on 12/01/23
Falls, acute on chronic ambulatory dysfunction versus weakness due to tachybrady syndrome/arrhythmias
Secondary diagnoses:
Chronic heart failure with reduced ejection fraction
Left hip fracture status post left hip hemiarthroplasty 10/21/2023
Constipation
Essential hypertension
Mild memory/cognitive impairment
Depression
DM2: cont Lantus/SSI/accuchecks
h/o R-ICA stenosis 50-69%: cont statin/Plavix
DEBORAH on CPAP
Consultants:
Cardiology
Psychiatry
Imaging:
CT brain: No evidence of acute intracranial abnormality.
CT C-spine: No evidence of acute fracture or dislocation.
CXR: No acute cardiopulmonary process.
Hospital course: 73-year-old male who initially presented with chief complaints of weakness and falls as outlined in H&P done on admission. Patient had recently been put on a LifeVest for heart failure with reduced ejection fraction. In the ER the
patient showed atrial fibrillation with rapid ventricular sponsor on telemetry but his rates decreased spontaneously without any treatments. He did have episodes of RVR and bradycardia/sinus pauses (tachybrady syndrome) despite beta-michael being
decreased. Patient underwent AICD placement on 03/02/2024. Afterwards he was on digoxin/beta-michael/Eliquis. He was seen in consultation by physical therapy and Occupational Therapy. Of note, while hospitalized, cardiology did stop his Entresto.
He was discharged in medically stable condition
Discharge Plan
-
Patient Disposition: Assisted/SNF
Discharge Diagnosis/Procedures: Paroxysmal atrial fibrillation with tachybrady syndrome s/p Bi-V ICD implant (12/01/23)
Condition: Good
Diet: Diabetic, Carb Controlled and Other diet
Additional Diets: fluid restrict to 1200cc/day
Activity: As tolerated
Driving Restrictions: No driving
Specialty Instructions: Weigh Daily- Call MD for wt gain/loss 3 lbs overnight/5 lbs in 1 week
Stand Alone Forms: DC Inst - Implanted Device
Referrals:
[facility] [Outside]
(FAX: [phone]
)
Beth Lea NP [Specified Professional Personl] - 12/08/23 9:00 am (Cardiology followup and incision check appointment)
Misha Henson MD [Family Provider] -
Prescriptions:
New
sennosides-docusate sodium [Stool Softener-Stimulant Laxat] 8.6-50 mg Tablet
2 tab PO BID Qty: 0 0RF
digoxin 250 mcg (0.25 mg) Tablet
250 mcg PO NOON Qty: 0 0RF
metoprolol succinate 25 mg Tablet Extended Release 24 Hr
25 mg PO BID Qty: 0 0RF
escitalopram oxalate 5 mg Tablet
5 mg PO DAILY Qty: 0 0RF
duloxetine 30 mg Capsule,Delayed Release(Dr/Ec)
30 mg PO DAILY Qty: 0 0RF
Insulin Glargine Lantus [Lantus] 20 UNITS
Subcutaneous Insulin Syringe [Syringe-Insulin] 0 UNIT
As Directed mls/hr SC HS
Ordered By: Kenrick Sal MD
Last Taken: 12/02/23 22:54 0.2 mls
Continued
multivitamin with folic acid [Tab-A-Verna] 1 TABLET tablet
1 tab PO DAILY
cholecalciferol (vitamin D3) [Vitamin D3] 400 UNITS tablet
400 units PO DAILY
levomefolate calcium [L-Methylfolate] 15 MG tablet
15 mg PO DAILY
Eliquis 5 mg Tablet
2.5 mg PO BID
Jardiance 10 mg Tablet
10 mg PO DAILY
Glucosamine Chondroitin 550-30-1 mg Capsule
2 cap PO DAILY
clopidogrel 75 mg tablet
75 mg PO DAILY Qty: 90 3RF
nitroglycerin 0.4 mg tablet, sublingual
0.4 mg sublingual [id number] PRN (Reason: chest pain) Qty: 25 2RF
ferrous sulfate 325 mg (65 mg iron) Tablet
325 mg PO DAILY
famotidine 10 mg Tablet
10 mg PO DAILY
docusate sodium 50 mg Capsule
100 mg PO DAILY
atorvastatin [Lipitor] 80 mg Tablet
80 mg PO DAILY
coQ10 (ubiquinol) 100 mg Capsule
300 mg PO DAILY
tamsulosin 0.4 mg Capsule
0.4 mg PO HS 30 Days Qty: 30 0RF
gabapentin 100 mg Capsule
300 mg PO HS 30 Days Qty: 90 0RF
tramadol 50 mg Tablet
25 mg PO Q6HPRN PRN (Reason: moderate pain) 5 Days Qty: 15 0RF
pantoprazole 40 mg Tablet,Delayed Release (Dr/Ec)
40 mg PO DAILY 30 Days Qty: 30 0RF
spironolactone 25 mg Tablet
25 mg PO DAILY 30 Days Qty: 30 0RF
Discontinued
Entresto 49-51 mg Tablet
1 tab PO BID
Levemir FlexPen 100 unit/mL (3 mL) Insulin Pen
25 unit SC HS
metoprolol succinate 50 mg Tablet Extended Release 24 Hr
50 mg PO BID 30 Days Qty: 60 0RF
Discharge Orders:
Discharge Patient (As Directed); Ordered 12/03/23
Ordered By: Kenrick Sal
Care Plan Goals
Care Plan Goals:
Problem: Readiness for enhanced knowledge related to diagnosis and treatment plan
Goal: Understand your diagnosis and treatment plan needs, including medications if applicable.
Instructions: Know your diagnosis, underlying causes and treatment plan options, including medications if applicable. Consult with your health care team to learn about your diagnosis and treatment plan, including medications if applicable.
Discharge Date and Time
Discharge Date/Time: 12/03/23 15:34
Print Language: CUBAN
== END 2023-12-03 15:34 | DRG 277 ==
LOC: IVU 11:51
PROVIDERS: Clinical Nurse Specialist Family Health; Hospitalist; Internal Medicine Cardiovascular Disease; Nurse Practitioner; ADMITTING PHYSICIAN Internal Medicine; ATTENDING PHYSICIAN Internal Medicine; CONSULT PHYSICIAN Physical Medicine & Rehabilitation; EMERGENCY PHYSICIAN Emergency Medicine; FAMILY PHYSICIAN Family Medicine; OTHER PHYSICIAN Internal Medicine; OTHER PHYSICIAN Psychiatry & Neurology Psychiatry
PROC: 0JH609Z Insertion of Cardiac Resynchronization Defibrillator Pulse Generator into Chest Subcutaneous Tissue and Fascia, Open Approach (ICD-10-PCS; 2023-12-01)
PROC: 02H63KZ Insertion of Defibrillator Lead into Right Atrium, Percutaneous Approach (ICD-10-PCS; 2023-12-01)
PROC: 02H43KZ Insertion of Defibrillator Lead into Coronary Vein, Percutaneous Approach (ICD-10-PCS; 2023-12-01)
PROC: 02HK3KZ Insertion of Defibrillator Lead into Right Ventricle, Percutaneous Approach (ICD-10-PCS; 2023-12-01)
DX: I49.5 Sick sinus syndrome (principal); I13.0 Hypertensive heart and chronic kidney disease with heart failure and stage 1 through stage 4 chronic kidney disease, or unspecified chronic kidney disease; I48.19 Other persistent atrial fibrillation; F33.9 Major depressive disorder, recurrent, unspecified; I50.22 Chronic systolic (congestive) heart failure; R29.6 Repeated falls; E11.40 Type 2 diabetes mellitus with diabetic neuropathy, unspecified; E78.00 Pure hypercholesterolemia, unspecified; E11.22 Type 2 diabetes mellitus with diabetic chronic kidney disease; N18.32 Chronic kidney disease, stage 3b; I65.21 Occlusion and stenosis of right carotid artery; D63.1 Anemia in chronic kidney disease; I25.5 Ischemic cardiomyopathy; S00.83XA Contusion of other part of head, initial encounter; W07.XXXA Fall from chair, initial encounter; I95.1 Orthostatic hypotension; I25.10 Atherosclerotic heart disease of native coronary artery without angina pectoris; I34.0 Nonrheumatic mitral (valve) insufficiency; G47.33 Obstructive sleep apnea (adult) (pediatric); E53.8 Deficiency of other specified B group vitamins; I44.7 Left bundle-branch block, unspecified; E87.6 Hypokalemia; K59.00 Constipation, unspecified; N40.0 Benign prostatic hyperplasia without lower urinary tract symptoms; Z63.4 Disappearance and death of family member; Z79.01 Long term (current) use of anticoagulants; Z79.02 Long term (current) use of antithrombotics/antiplatelets; Z79.4 Long term (current) use of insulin; Z79.899 Other long term (current) drug therapy; Z87.891 Personal history of nicotine dependence; Z91.198 Patient's noncompliance with other medical treatment and regimen for other reason; Z96.642 Presence of left artificial hip joint
CPT/HCPCS: 33225; 33249; 70450; 71045; 72125; 80048; 82962; 83735; 85025; 85027; 93005; 97116; 97163; 97164; 97530; 97535; 99285; C1769; C1777; C1882; C1887; C1892; C1898; C1900; J1160; Q9967

== ENCOUNTER → 2023-12-05 17:45 | Outpatient (REF) | payer OTHER, MEDICARE, SELFPAY ==
[2023-12-05 19:46] LABS: % Basophils 0.3 % (0-2); % Eosinophils 0.3 % (0-6); % Immature Granulocytes 0.3 % (0-0.5); % Lymphocytes 6.6 % (20.5-51.1); % Monocytes 5.6 % (1.7-9.3); % Neutrophils 86.9 % (42.2-75.2); Absolute Eosinophils 0.1 10^3/uL (0-0.7); Absolute Monocytes 0.8 10^3/uL (0.1-0.6); Hemoglobin 10.6 g/dL (13.0-18.0); Mean Corp Hgb Conc. 33.1 g/dL (33.0-37.0); Mean Corpuscular Hgb 30.5 pg (27.0-31.0); Mean Platelet Volume 10.6 fL (7.4-10.4); Nucleated Red Blood Cells % 0 % (-); Platelet Count 199 10^3/uL (130-400); Red Blood Cell Count 3.48 10^6/uL (4.70-6.10); Red Cell Dist. Width 13.6 % (11.5-14.5); White Blood Cell Count 14.9 10^3/uL (4.8-10.8)
[2023-12-05 19:52] LABS: Blood Urea Nitrogen 27 mg/dl (9-20); Calcium 11.1 mg/dl (8.4-10.2); Carbon Dioxide 25 mmol/L (22-30); Chloride 102 mmol/L (98-107); Glucose 147 mg/dl (70-99); Potassium 4.4 mmol/L (3.5-5.1); Sodium 138 mmol/L (135-145); eGFR 57.29
== END ==
LOC: CLAB 17:45
PROVIDERS: ATTENDING PHYSICIAN Family Medicine
DX: Z48.812 Encounter for surgical aftercare following surgery on the circulatory system (principal); Z95.810 Presence of automatic (implantable) cardiac defibrillator; I50.22 Chronic systolic (congestive) heart failure; G60.9 Hereditary and idiopathic neuropathy, unspecified
CPT/HCPCS: 36415; 80048; 85025

== ENCOUNTER → 2023-12-06 09:31 | Outpatient (REF) | payer OTHER, MEDICARE, SELFPAY ==
[2023-12-06 10:05] LABS: Blood Urea Nitrogen 29 mg/dl (9-20); Calcium 10.6 mg/dl (8.4-10.2); Carbon Dioxide 24 mmol/L (22-30); Chloride 106 mmol/L (98-107); Glucose 122 mg/dl (70-99); Potassium 4.1 mmol/L (3.5-5.1); Sodium 138 mmol/L (135-145); eGFR > 60.00
== END ==
LOC: OLABP 09:31
PROVIDERS: ATTENDING PHYSICIAN Family Medicine
DX: I50.22 Chronic systolic (congestive) heart failure (principal); G60.9 Hereditary and idiopathic neuropathy, unspecified; I13.0 Hypertensive heart and chronic kidney disease with heart failure and stage 1 through stage 4 chronic kidney disease, or unspecified chronic kidney disease; E78.5 Hyperlipidemia, unspecified; E11.9 Type 2 diabetes mellitus without complications; I48.0 Paroxysmal atrial fibrillation; D64.9 Anemia, unspecified; M62.81 Muscle weakness (generalized); Z95.810 Presence of automatic (implantable) cardiac defibrillator; N18.30 Chronic kidney disease, stage 3 unspecified; Z91.81 History of falling; K59.00 Constipation, unspecified; G31.84 Mild cognitive impairment of uncertain or unknown etiology; R26.2 Difficulty in walking, not elsewhere classified
CPT/HCPCS: 36415; 80048; 86140

== ENCOUNTER → 2023-12-06 13:39 | Outpatient (REF) | payer OTHER, MEDICARE, SELFPAY ==
[2023-12-06 14:03] LABS: % Basophils 0.6 % (0-2); % Eosinophils 2.1 % (0-6); % Immature Granulocytes 0.2 % (0-0.5); % Lymphocytes 12.1 % (20.5-51.1); Absolute Basophils 0.1 10^3/uL (0-0.2); Absolute Eosinophils 0.2 10^3/uL (0-0.7); Absolute Lymphocytes 1.2 10^3/uL (1.2-3.4); Absolute Monocytes 0.7 10^3/uL (0.1-0.6); Absolute Neutrophils 7.8 10^3/uL (1.4-6.5); Hematocrit 33.4 % (39.0-52.0); Hemoglobin 10.9 g/dL (13.0-18.0); Mean Corp Hgb Conc. 32.6 g/dL (33.0-37.0); Mean Corpuscular Hgb 30.4 pg (27.0-31.0); Mean Corpuscular Volume 93.3 fL (80.0-94.0); Mean Platelet Volume 10.2 fL (7.4-10.4); Nucleated Red Blood Cells % 0 % (-); Platelet Count 202 10^3/uL (130-400); Red Blood Cell Count 3.58 10^6/uL (4.70-6.10); Red Cell Dist. Width 13.2 % (11.5-14.5)
== END ==
LOC: OLABP 13:39
PROVIDERS: ATTENDING PHYSICIAN Family Medicine
DX: I50.22 Chronic systolic (congestive) heart failure (principal)
CPT/HCPCS: 85025

== ENCOUNTER → 2023-12-08 08:54 | Outpatient (REF) | payer OTHER, MEDICARE, SELFPAY ==
[2023-12-08 10:35] LABS: % Basophils 0.8 % (0-2); % Eosinophils 3.1 % (0-6); % Immature Granulocytes 0.1 % (0-0.5); % Lymphocytes 20.7 % (20.5-51.1); % Monocytes 9.2 % (1.7-9.3); % Neutrophils 66.1 % (42.2-75.2); Absolute Basophils 0.1 10^3/uL (0-0.2); Absolute Eosinophils 0.2 10^3/uL (0-0.7); Absolute Lymphocytes 1.5 10^3/uL (1.2-3.4); Absolute Monocytes 0.7 10^3/uL (0.1-0.6); Absolute Neutrophils 4.7 10^3/uL (1.4-6.5); Hematocrit 27.7 % (39.0-52.0); Hemoglobin 9.5 g/dL (13.0-18.0); Mean Corp Hgb Conc. 34.3 g/dL (33.0-37.0); Mean Corpuscular Hgb 30.4 pg (27.0-31.0); Mean Corpuscular Volume 88.5 fL (80.0-94.0); Nucleated Red Blood Cells % 0 % (-); Platelet Count 185 10^3/uL (130-400); Red Blood Cell Count 3.13 10^6/uL (4.70-6.10); Red Cell Dist. Width 13.2 % (11.5-14.5); White Blood Cell Count 7.1 10^3/uL (4.8-10.8)
[2023-12-08 10:43] LABS: ALT (SGPT) 18 U/L (0-50); AST (SGOT) 23 U/L (17-59); Albumin 3.4 g/dl (3.5-5.0); Alkaline Phosphatase 108 U/L (38-126); Blood Urea Nitrogen 26 mg/dl (9-20); Calcium 10.5 mg/dl (8.4-10.2); Carbon Dioxide 23 mmol/L (22-30); Chloride 109 mmol/L (98-107); Glucose 125 mg/dl (70-99); Potassium 3.6 mmol/L (3.5-5.1); Sodium 142 mmol/L (135-145); Total Bilirubin 0.6 mg/dl (0.2-1.3); Total Protein 6.7 g/dl (6.3-8.2); eGFR > 60.00
== END ==
LOC: OLABP 08:54
PROVIDERS: ATTENDING PHYSICIAN Family Medicine
DX: I50.22 Chronic systolic (congestive) heart failure (principal); G60.9 Hereditary and idiopathic neuropathy, unspecified; I13.0 Hypertensive heart and chronic kidney disease with heart failure and stage 1 through stage 4 chronic kidney disease, or unspecified chronic kidney disease; E78.5 Hyperlipidemia, unspecified; E11.9 Type 2 diabetes mellitus without complications; I48.0 Paroxysmal atrial fibrillation; D64.9 Anemia, unspecified; R26.2 Difficulty in walking, not elsewhere classified; K59.00 Constipation, unspecified
CPT/HCPCS: 36415; 80053; 85025; 86140

== ENCOUNTER → 2023-12-10 15:36 | Outpatient (REF) | payer OTHER, MEDICARE, SELFPAY ==
[2023-12-10 17:01] LABS: % Basophils 0.7 % (0-2); % Eosinophils 5.7 % (0-6); % Immature Granulocytes 0.2 % (0-0.5); % Lymphocytes 30.4 % (20.5-51.1); % Monocytes 10.6 % (1.7-9.3); % Neutrophils 52.4 % (42.2-75.2); Absolute Eosinophils 0.3 10^3/uL (0-0.7); Absolute Lymphocytes 1.6 10^3/uL (1.2-3.4); Absolute Monocytes 0.6 10^3/uL (0.1-0.6); Absolute Neutrophils 2.8 10^3/uL (1.4-6.5); Hematocrit 30.4 % (39.0-52.0); Hemoglobin 9.7 g/dL (13.0-18.0); Mean Corp Hgb Conc. 31.9 g/dL (33.0-37.0); Mean Corpuscular Hgb 29.8 pg (27.0-31.0); Mean Corpuscular Volume 93.5 fL (80.0-94.0); Nucleated Red Blood Cells % 0 % (-); Platelet Count 192 10^3/uL (130-400); Red Blood Cell Count 3.25 10^6/uL (4.70-6.10); Red Cell Dist. Width 13.2 % (11.5-14.5); White Blood Cell Count 5.4 10^3/uL (4.8-10.8)
== END ==
LOC: OLABP 15:36
PROVIDERS: ATTENDING PHYSICIAN Family Medicine
DX: I50.22 Chronic systolic (congestive) heart failure (principal); G60.9 Hereditary and idiopathic neuropathy, unspecified; I13.0 Hypertensive heart and chronic kidney disease with heart failure and stage 1 through stage 4 chronic kidney disease, or unspecified chronic kidney disease; E11.9 Type 2 diabetes mellitus without complications; R26.2 Difficulty in walking, not elsewhere classified; F32.9 Major depressive disorder, single episode, unspecified; K59.00 Constipation, unspecified; I48.0 Paroxysmal atrial fibrillation
CPT/HCPCS: 36415; 85025

== ENCOUNTER → 2023-12-16 11:43 | Outpatient (REF) | payer OTHER, MEDICARE, SELFPAY ==
[2023-12-16 12:30] LABS: % Basophils 0.7 % (0-2); % Eosinophils 4.8 % (0-6); % Immature Granulocytes 0.3 % (0-0.5); % Monocytes 8.5 % (1.7-9.3); % Neutrophils 60.7 % (42.2-75.2); Absolute Eosinophils 0.3 10^3/uL (0-0.7); Absolute Lymphocytes 1.5 10^3/uL (1.2-3.4); Absolute Monocytes 0.5 10^3/uL (0.1-0.6); Absolute Neutrophils 3.7 10^3/uL (1.4-6.5); Hematocrit 30.7 % (39.0-52.0); Hemoglobin 10.2 g/dL (13.0-18.0); Mean Corp Hgb Conc. 33.2 g/dL (33.0-37.0); Mean Corpuscular Hgb 29.8 pg (27.0-31.0); Mean Corpuscular Volume 89.8 fL (80.0-94.0); Mean Platelet Volume 9.6 fL (7.4-10.4); Nucleated Red Blood Cells % 0 % (-); Platelet Count 206 10^3/uL (130-400); Red Blood Cell Count 3.42 10^6/uL (4.70-6.10); Red Cell Dist. Width 13.7 % (11.5-14.5); White Blood Cell Count 6.1 10^3/uL (4.8-10.8)
[2023-12-16 12:55] LABS: AST (SGOT) 19 U/L (17-59); Albumin 3.3 g/dl (3.5-5.0); Alkaline Phosphatase 127 U/L (38-126); Blood Urea Nitrogen 20 mg/dl (9-20); Calcium 9.9 mg/dl (8.4-10.2); Carbon Dioxide 25 mmol/L (22-30); Chloride 108 mmol/L (98-107); Digoxin 0.9 ng/ml (0.8-2.0); Glucose 125 mg/dl (70-99); Potassium 3.9 mmol/L (3.5-5.1); Sodium 141 mmol/L (135-145); Total Bilirubin 0.4 mg/dl (0.2-1.3); Total Protein 6.6 g/dl (6.3-8.2); eGFR > 60.00
[2023-12-16 13:23] LABS: ALT (SGPT) 14 U/L (0-50)
== END ==
LOC: OLABP 11:43
PROVIDERS: ATTENDING PHYSICIAN Family Medicine
DX: I50.22 Chronic systolic (congestive) heart failure (principal); G60.9 Hereditary and idiopathic neuropathy, unspecified; I13.0 Hypertensive heart and chronic kidney disease with heart failure and stage 1 through stage 4 chronic kidney disease, or unspecified chronic kidney disease; I48.0 Paroxysmal atrial fibrillation; R26.2 Difficulty in walking, not elsewhere classified; K59.00 Constipation, unspecified
CPT/HCPCS: 36415; 80053; 80162; 85025

== ENCOUNTER 2023-12-27 06:47 | Emergency (ER) | payer MEDICARE, SELFPAY ==
[2023-12-27 06:50] VITALS: BP 172/95
[2023-12-27 06:59] VITALS: BMI 29.3
--- NOTE | 2023-12-27 07:07 | ED.GENMED ---
History of Present Illness
General
Chief Complaint: Fall
Source: patient
Time Seen by Provider: 12/27/23 06:53
Travel History
Have you had any contact with someone who has COVID-19?: No
Do you have any symptoms of coronavirus? Fever > 100 degrees, chills, cough, shortness of breath, sore throat, loss of taste or smell, muscle aches, or headache?: No
History of Present Illness
History of Present Illness:
This patient is a 73-year-old male who transition from [place] to [place] yesterday. Physically he was feeling well when he went to bed at midnight. However, while he was in bed he felt disoriented, he looked around and felt like everything was
backwards. For example, he felt like his head and the pillow were at the foot of the bed. He did not know where the bathroom was in relation to the closet. As a result, he got out of bed to walk around, and tried to sit down. He does not know if
he fell or not, but he woke up on the floor this morning. He denies any new symptoms or pain. He denies headache, dizziness, neck pain, numbness, tingling, chest pain, dyspnea, abdominal pain, dysuria, urgency, frequency, hematuria, constipation,
nausea, vomiting, or other complaints. Patient has chronic bilateral knee pain.
Past History
Past History
ED Past Medical History: Arrthythmia, CHF, HTN and Hypercholesterolemia
ED Past Surgical History: Cardiac
Social History
Tobacco: Non-smoker
Drug: None
Personal:
Living: assisted living
Family History
Family History: Other (reviewed and non-contributory)
Phy Exam
Physical Exam
Physical Exam:
GENERAL: Alert , in no apparent distress
EYE: pupils equal and reactive, EOMI, no nystagmus
NECK: Supple, no significant adenopathy, no midline tenderness.
ENT: o/p clr, mm slightly dry, no signs of head or facial injury, no moore, no raccoon.
CARDIAC: Regular rate and rhythm .
LUNGS: Clear breath sounds bilaterally, no acute respiratory distress, no wheezes/rales/rhonchi
ABDOMEN: Soft, without focal tenderness, no r/g, no cvat
NEUROLOGICAL: Alert and oriented, no focal neuro deficits, motor intact, sensory intact to light touch, cranial nerves intact
SKIN: Warm and dry, skin intact.
MUSCULOSKELETAL: 1+ bilateral lower extremity edema, well perfused.
PSYCH: Normal and appropriate interaction.
Course
Orders/Labs/Results
Orders:
Orders
12/27/23 07:11
CT Head W/o Iv Contrast Urgent
Comment:
Reason For Exam: fall, on plavix/doac
Cardiac Monitoring- Treatment ONCE
12/27/23 07:12
Electrocardiogram (*1) Stat
Reason for Study: Other
Other Reason for Exam: Headache
EKG- Treatment ONCE
12/27/23 07:33
CPK [Creatine Phosphokinase] Urgent
Complete Blood Count/No Diff Urgent
Comprehensive Metabolic Panel Urgent
Abnormal Lab Results
12/27/23
07:33
RBC 3.56 L 10^6/uL
(4.70-6.10)
Hgb 10.7 L g/dL
(13.0-18.0)
Hct 31.3 L %
(39.0-52.0)
Chloride 110 H mmol/L
(98-107)
Glucose 145 H mg/dl
(70-99)
Alkaline Phosphatase 164 H U/L
(38-126)
Creatine Kinase 47 L U/L
(55-170)
12/27/23 07:33
12/27/23 07:33
Vital Signs
Initial and Last Documented VS:
Initial Vital Signs
Temp Pulse Resp BP Pulse Ox
98.7 F 77 20 172/95 98
12/27/23 06:50 12/27/23 06:50 12/27/23 06:50 12/27/23 06:50 12/27/23 06:50
Last Documented Vital Signs
Temp Pulse Resp BP Pulse Ox
98.7 F 81 20 152/80 97
12/27/23 06:50 12/27/23 08:00 12/27/23 06:50 12/27/23 08:00 12/27/23 08:00
*Critical Care Note
Total Time (30-74mins, 75-104mins- exclusive of procedures): Not Applicable
Update Note
Update Note:
Patient presents to the Emergency Department with __fall/found on the floor
Number and Complexity of Problems Addressed at the Encounter
� Chronic conditions affecting care:
� Acute Exacerbation and/or Progression of Chronic Illness:
� Differential Diagnosis includes: But not limited to rhabdomyolysis, intracranial injury, dehydration, etc.
Amount and/or Complexity of Data to be Reviewed and Analyzed
� I performed an independent evaluation of and my interpretation is:
EKG:read by me, no acute ischemia, vent paced
CT:read by me nad read by [place] No CT evidence for acute intracranial hemorrhage or scalp soft tissue hematoma.
2. Moderate white matter leukoaraiosis in the frontal and parietal lobes.
3. Mild diffuse cerebral and cerebellar volume loss.
Xrays:
Laboratory Studies:baseline anemia
Other:
� Review of other/old records reveals: recent admissino for fall
� Clinical information was obtained by an independent historian:son
� Prescriptions/Medications Considered but not given:
� Further testing considered but not performed:
Risk of Complications and/or Morbidity or Mortality of Patient Management
� Social determinants of health affecting care: case d/w pt's son, Alejandro, aware of events, plan of care, etc. Questions answered, he is thankful for call.
� Discussion with other providers (PCP, Hospitalists, Consultants, etc):
� Escalation of care including admission/observation vs risk of discharge considered: Pt awake alert no complnts, no injury notd s/p fall. Suspect related to new environment. Will d/c back to [place] with close observation.
ED Attending Note
-
Portions of this chart may have been created with voice recognition software.� Occasional wrong word or��sound alike� substitutions may have occurred due to the inherent limitations of voice recognition software.
Discharge Plan
Departure
Patient Disposition: Home (Routine Discharge)
Date of Disposition: 12/27/23
Time of Disposition: 08:56
Patient with high blood pressure during this ER visit?: Yes
Condition: Good
Discharge Problem:
Fall
Instructions: Preventing falls in adults, BLOOD PRESSURE
Prescriptions:
No Action
multivitamin with folic acid [Tab-A-Verna] 1 TABLET tablet
1 tab PO DAILY
cholecalciferol (vitamin D3) [Vitamin D3] 400 UNITS tablet
400 units PO DAILY
levomefolate calcium [L-Methylfolate] 15 MG tablet
15 mg PO DAILY
Eliquis 5 mg Tablet
2.5 mg PO BID
Jardiance 10 mg Tablet
10 mg PO DAILY
Glucosamine Chondroitin 550-30-1 mg Capsule
2 cap PO DAILY
clopidogrel 75 mg tablet
75 mg PO DAILY Qty: 90 3RF
nitroglycerin 0.4 mg tablet, sublingual
0.4 mg sublingual [id number] PRN (Reason: chest pain) Qty: 25 2RF
ferrous sulfate 325 mg (65 mg iron) Tablet
325 mg PO DAILY
famotidine 10 mg Tablet
10 mg PO DAILY
docusate sodium 50 mg Capsule
100 mg PO DAILY
atorvastatin [Lipitor] 80 mg Tablet
80 mg PO DAILY
coQ10 (ubiquinol) 100 mg Capsule
300 mg PO DAILY
sennosides-docusate sodium [Stool Softener-Stimulant Laxat] 8.6-50 mg Tablet
2 tab PO BID Qty: 0 0RF
digoxin 250 mcg (0.25 mg) Tablet
250 mcg PO NOON Qty: 0 0RF
metoprolol succinate 25 mg Tablet Extended Release 24 Hr
25 mg PO BID Qty: 0 0RF
escitalopram oxalate 5 mg Tablet
5 mg PO DAILY Qty: 0 0RF
duloxetine 30 mg Capsule,Delayed Release(Dr/Ec)
30 mg PO DAILY Qty: 0 0RF
Insulin Glargine Lantus [Lantus] 20 UNITS
Subcutaneous Insulin Syringe [Syringe-Insulin] 0 UNIT
As Directed mls/hr SC HS
Ordered By: Kenrick Sal MD
Last Taken: Unknown
tamsulosin 0.4 mg Capsule
0.4 mg PO HS 30 Days Qty: 30 0RF
gabapentin 100 mg Capsule
300 mg PO HS 30 Days Qty: 90 0RF
tramadol 50 mg Tablet
25 mg PO Q6HPRN PRN (Reason: moderate pain) 5 Days Qty: 15 0RF
pantoprazole 40 mg Tablet,Delayed Release (Dr/Ec)
40 mg PO DAILY 30 Days Qty: 30 0RF
spironolactone 25 mg Tablet
25 mg PO DAILY 30 Days Qty: 30 0RF
Referrals:
Misha Henson MD [Family Provider] - Follow up in 2-3 days
Activity Restrictions/Additional Instructions:
PLEASE USE YOUR WALKER AT ALL TIMES! IF YOU DEVELOP SEVERE HEADACHE, VOMITING, NECK PAIN, CHEST PAIN, TROUBLE BREATHING, OR OTHER WORRISOME SIGNS, GO TO THE ER IMMEDIATELY!
Interventions
Interventions:
*Risk Screen - Suicide Last Done: 12/27/23 06:50
*General Assessment Last Done: 12/27/23 06:50
*Neglect/Abuse Screening Last Done: 12/27/23 06:50
*ED COVID-19 Vaccine History Last Done: 12/27/23 06:59
ED-Musculoskeletal Assessment Last Done: 12/27/23 07:00
ED- Neurological Assessment Last Done: 12/27/23 07:00
ED-Skin Assessment Last Done: 12/27/23 07:00
Discharge Date and Time
Print Language: [id number]
[2023-12-27 07:44] LABS: Hematocrit 31.3 % (39.0-52.0); Hemoglobin 10.7 g/dL (13.0-18.0); Mean Corp Hgb Conc. 34.2 g/dL (33.0-37.0); Mean Corpuscular Hgb 30.1 pg (27.0-31.0); Mean Corpuscular Volume 87.9 fL (80.0-94.0); Mean Platelet Volume 9.4 fL (7.4-10.4); Platelet Count 177 10^3/uL (130-400); Red Blood Cell Count 3.56 10^6/uL (4.70-6.10); Red Cell Dist. Width 14.1 % (11.5-14.5); White Blood Cell Count 6.8 10^3/uL (4.8-10.8)
[2023-12-27 08:00] VITALS: BP 152/80
[2023-12-27 08:04] LABS: ALT (SGPT) 19 U/L (0-50); AST (SGOT) 27 U/L (17-59); Albumin 4.1 g/dl (3.5-5.0); Alkaline Phosphatase 164 U/L (38-126); Blood Urea Nitrogen 17 mg/dl (9-20); Calcium 10.1 mg/dl (8.4-10.2); Carbon Dioxide 22 mmol/L (22-30); Chloride 110 mmol/L (98-107); Creatine Phosphokinase 47 U/L (55-170); Estimated Creatinine Clearance 69 ml/min; Glucose 145 mg/dl (70-99); Potassium 3.9 mmol/L (3.5-5.1); Sodium 143 mmol/L (135-145); Total Bilirubin 0.8 mg/dl (0.2-1.3); Total Protein 7.6 g/dl (6.3-8.2); eGFR > 60.00
[2023-12-27 09:00] VITALS: BP 151/89
== END 2023-12-27 10:20 | disposition home or self-care (01) ==
LOC: EMR 06:47
PROVIDERS: EMERGENCY PHYSICIAN Emergency Medicine; FAMILY PHYSICIAN Family Medicine
DX: R41.0 Disorientation, unspecified (principal); W19.XXXA Unspecified fall, initial encounter; I11.0 Hypertensive heart disease with heart failure; I50.9 Heart failure, unspecified; E78.00 Pure hypercholesterolemia, unspecified; Z79.02 Long term (current) use of antithrombotics/antiplatelets
CPT/HCPCS: 99284; 70450; 80053; 82550; 85027; 93005

== ENCOUNTER → 2024-01-09 08:43 | Outpatient (REF) | payer MEDICARE, SELFPAY ==
[2024-01-09 10:30] LABS: Ionized Calcium 1.24 mMOL/L (1.15-1.33)
[2024-01-09 11:26] LABS: Calcium 10.1 mg/dl (8.4-10.2)
[2024-01-09 16:08] LABS: Vitamin D, 25-OH*** 45.4 ng/mL (30-80)
[2024-01-10 10:17] LABS: Intact PTH 78.6 pg/ml (13.6-85.8)
== END ==
LOC: OLABSOL 08:43
PROVIDERS: ATTENDING PHYSICIAN Physician Assistant
DX: E83.52 Hypercalcemia (principal); E55.9 Vitamin D deficiency, unspecified
CPT/HCPCS: 36415; 82306; 82330; 83970

== ENCOUNTER 2024-02-07 10:24 | Emergency (ER) | payer MEDICARE, SELFPAY ==
[2024-02-07] VITALS (7 sets, daily range): BP systolic 112–149; BP diastolic 61–99; BMI 29.6
[2024-02-07 10:56] LABS: % Basophils 0.4 % (0-2); % Eosinophils 1.1 % (0-6); % Immature Granulocytes 0.3 % (0-0.5); % Lymphocytes 9.2 % (20.5-51.1); % Monocytes 7.4 % (1.7-9.3); % Neutrophils 81.6 % (42.2-75.2); Absolute Basophils 0.1 10^3/uL (0-0.2); Absolute Eosinophils 0.2 10^3/uL (0-0.7); Absolute Lymphocytes 1.3 10^3/uL (1.2-3.4); Absolute Neutrophils 11.2 10^3/uL (1.4-6.5); Hematocrit 34.8 % (39.0-52.0); Mean Corp Hgb Conc. 34.5 g/dL (33.0-37.0); Mean Corpuscular Hgb 29.9 pg (27.0-31.0); Mean Corpuscular Volume 86.8 fL (80.0-94.0); Mean Platelet Volume 9.9 fL (7.4-10.4); Nucleated Red Blood Cells % 0 % (-); Platelet Count 153 10^3/uL (130-400); Red Blood Cell Count 4.01 10^6/uL (4.70-6.10); Red Cell Dist. Width 14.6 % (11.5-14.5); White Blood Cell Count 13.7 10^3/uL (4.8-10.8)
[2024-02-07 11:05] LABS: ALT (SGPT) 17 U/L (0-50); AST (SGOT) 22 U/L (17-59); Albumin 4.4 g/dl (3.5-5.0); Alkaline Phosphatase 123 U/L (38-126); Blood Urea Nitrogen 26 mg/dl (9-20); Carbon Dioxide 27 mmol/L (22-30); Chloride 104 mmol/L (98-107); Estimated Creatinine Clearance 64 ml/min; Glucose 152 mg/dl (70-99); Potassium 3.4 mmol/L (3.5-5.1); Sodium 142 mmol/L (135-145); Total Bilirubin 1.2 mg/dl (0.2-1.3); Total Protein 7.7 g/dl (6.3-8.2); eGFR > 60.00
[2024-02-07 13:53] LABS: Urine Albumin 3+ (Neg - Trace); Urine Bilirubin Negative (Negative); Urine Character Very Cloudy (Clear); Urine Color Red; Urine Glucose 2+ (Negative); Urine Ketone 1+ (Negative); Urine Leukocyte Negative (Negative); Urine Nitrite Negative (Negative); Urine Occult Blood 3+ (Negative); Urine Specific Gravity 1.015 (<1.030); Urine Urobilinogen Negative (Neg - 1+)
[2024-02-07 14:03] LABS: Urine Red Blood Cell >100 /HPF (0-2)
--- NOTE | 2024-02-07 14:18 | ED.GENMED ---
History of Present Illness
General
Chief Complaint: Urinary Symptoms
Source: patient
Exam Limitations: none
Time Seen by Provider: 02/07/24 10:27
History of Present Illness
History of Present Illness:
73-year-old male presents with hematuria starting today. He is on Eliquis and Plavix. He denies abdominal pain or flank pain. No fever or chills. No known injury. He states he had blood with coming from his penis while getting dressed and once
when he urinated. He denies lightheadedness or shortness of breath. No other cold at this time
Past History
Past History
ED Past Medical History: Arrthythmia, CHF, HTN and Hypercholesterolemia
ED Past Surgical History: Cardiac
Social History
Tobacco: Non-smoker
Drug: None
Personal:
Living: assisted living
Family History
Family History: Other (reviewed and non-contributory)
Phy Exam
Physical Exam
Physical Exam:
General: Well-appearing male no acute respiratory distress
HEENT: Normocephalic atraumatic neck is supple
Heart: Regular rate and rhythm no murmur
Lungs: Clear no wheeze or rales
Extremities: No cyanosis or edema
Skin: Warm no rash
Course
Orders/Labs/Results
Orders:
Orders
02/07/24 10:39
Complete Blood Count/With Diff Urgent
Comprehensive Metabolic Panel Urgent
Urinalysis Reflex To Culture Urgent
Date Specimen was Collected: 02/07/24
Time Specimen was Collected: 10:32
Urine Microscopic Reflex Cult Urgent
02/07/24 14:17
Cefdinir [Omnicef] 300 mg PO NOW STA
Abnormal Lab Results
02/07/24
10:39
WBC 13.7 H 10^3/uL
(4.8-10.8)
RBC 4.01 L 10^6/uL
(4.70-6.10)
Hgb 12.0 L g/dL
(13.0-18.0)
Hct 34.8 L %
(39.0-52.0)
RDW 14.6 H %
(11.5-14.5)
Absolute Neuts (auto) 11.2 H 10^3/uL
(1.4-6.5)
Absolute Monos (auto) 1.0 H 10^3/uL
(0.1-0.6)
Neutrophils % 81.6 H %
(42.2-75.2)
Lymphocytes % 9.2 L %
(20.5-51.1)
Potassium 3.4 L mmol/L
(3.5-5.1)
BUN 26 H mg/dl
(9-20)
Glucose 152 H mg/dl
(70-99)
Urine Ketones 1+ A
(Negative)
Ur Occult Blood Reflex 3+ A
(Negative)
Urine RBC >100 A /HPF
(0-2)
Urine Glucose 2+ A
(Negative)
Urine Albumin (Reflex) 3+ A
(Neg - Trace)
02/07/24 10:39
02/07/24 10:39
Vital Signs
Initial and Last Documented VS:
Initial Vital Signs
Temp
99.5 F
02/07/24 10:27
Last Documented Vital Signs
Temp Pulse Resp BP Pulse Ox
99.5 F 84 16 138/84 99
02/07/24 10:27 02/07/24 14:30 02/07/24 14:30 02/07/24 14:00 02/07/24 14:30
MDM/Problems Addressed
Differential Diagnosis Includes:
Hematuria. Question infectious source. He is on Eliquis and Plavix. No abdominal distention. Will obtain bladder scan. And urinalysis. Will check labs. Patient otherwise stable.
*Critical Care Note
Total Time (30-74mins, 75-104mins- exclusive of procedures): Not Applicable
Update Note
Update Note:
Patient with hematuria but no retention. Question possible hemorrhagic cystitis. Will cover with Omnicef. Culture pending. Vital signs stable. Will discharge back to facility
ED Attending Note
-
Portions of this chart may have been created with voice recognition software.� Occasional wrong word or��sound alike� substitutions may have occurred due to the inherent limitations of voice recognition software.
Discharge Plan
Departure
Patient Disposition: Home (Routine Discharge)
Date of Disposition: 02/07/24
Time of Disposition: 15:19
Patient with high blood pressure during this ER visit?: No
Discharge Problem:
Hematuria
Prescriptions:
New
cefdinir 300 mg capsule
300 mg PO BID Qty: 14 0RF
No Action
multivitamin with folic acid [Tab-A-Verna] 1 TABLET tablet
1 tab PO DAILY
cholecalciferol (vitamin D3) [Vitamin D3] 400 UNITS tablet
400 units PO DAILY
levomefolate calcium [L-Methylfolate] 15 MG tablet
15 mg PO DAILY
Eliquis 5 mg Tablet
2.5 mg PO BID
Jardiance 10 mg Tablet
10 mg PO DAILY
Glucosamine Chondroitin 550-30-1 mg Capsule
2 cap PO DAILY
clopidogrel 75 mg tablet
75 mg PO DAILY Qty: 90 3RF
nitroglycerin 0.4 mg tablet, sublingual
0.4 mg sublingual [id number] PRN (Reason: chest pain) Qty: 25 2RF
ferrous sulfate 325 mg (65 mg iron) Tablet
325 mg PO DAILY
famotidine 10 mg Tablet
10 mg PO DAILY
docusate sodium 50 mg Capsule
100 mg PO DAILY
atorvastatin [Lipitor] 80 mg Tablet
80 mg PO DAILY
coQ10 (ubiquinol) 100 mg Capsule
300 mg PO DAILY
sennosides-docusate sodium [Stool Softener-Stimulant Laxat] 8.6-50 mg Tablet
2 tab PO BID Qty: 0 0RF
digoxin 250 mcg (0.25 mg) Tablet
250 mcg PO NOON Qty: 0 0RF
metoprolol succinate 25 mg Tablet Extended Release 24 Hr
25 mg PO BID Qty: 0 0RF
escitalopram oxalate 5 mg Tablet
5 mg PO DAILY Qty: 0 0RF
duloxetine 30 mg Capsule,Delayed Release(Dr/Ec)
30 mg PO DAILY Qty: 0 0RF
Insulin Glargine Lantus [Lantus] 20 UNITS
Subcutaneous Insulin Syringe [Syringe-Insulin] 0 UNIT
As Directed mls/hr SC HS
Ordered By: Kenrick Sal MD
Last Taken: Unknown
tamsulosin 0.4 mg Capsule
0.4 mg PO HS 30 Days Qty: 30 0RF
gabapentin 100 mg Capsule
300 mg PO HS 30 Days Qty: 90 0RF
tramadol 50 mg Tablet
25 mg PO Q6HPRN PRN (Reason: moderate pain) 5 Days Qty: 15 0RF
pantoprazole 40 mg Tablet,Delayed Release (Dr/Ec)
40 mg PO DAILY 30 Days Qty: 30 0RF
spironolactone 25 mg Tablet
25 mg PO DAILY 30 Days Qty: 30 0RF
Referrals:
Conrado Pritchett MD [Active] -
Misha Henson MD [Family Provider] -
Activity Restrictions/Additional Instructions:
Take antibiotics as directed. Drink plenty of fluids. Return here for worsening symptoms otherwise follow-up with urology
Interventions
Interventions:
*Risk Screen - Suicide Last Done: 02/07/24 10:27
*General Assessment Last Done: 02/07/24 10:33
*Neglect/Abuse Screening Last Done: 02/07/24 10:33
ED- Fall Risk Assessment Last Done: 02/07/24 10:27
*ED COVID-19 Vaccine History Last Done: 02/07/24 10:27
ED-Male Genitourinary Assessment Last Done: 02/07/24 10:32
Discharge Date and Time
Print Language: PASHTO
[2024-02-07] MEDS: OMNICEF 300 MG PO (14:31)
== END 2024-02-07 17:54 | disposition home or self-care (01) ==
LOC: EMR 10:24
PROVIDERS: Physician Assistant; EMERGENCY PHYSICIAN Emergency Medicine; FAMILY PHYSICIAN Family Medicine
DX: R31.9 Hematuria, unspecified (principal); E78.00 Pure hypercholesterolemia, unspecified; I11.0 Hypertensive heart disease with heart failure; I50.9 Heart failure, unspecified; Z79.01 Long term (current) use of anticoagulants
CPT/HCPCS: 99283; 80053; 81003; 81015; 85025

== ENCOUNTER → 2024-03-05 12:23 | Outpatient (REF) | payer MEDICARE, SELFPAY ==
[2024-03-05 15:03] LABS: Blood Urea Nitrogen 21 mg/dl (9-20)
== END ==
LOC: OLABSOL 12:23
PROVIDERS: ATTENDING PHYSICIAN Specialist
DX: R94.4 Abnormal results of kidney function studies (principal)
CPT/HCPCS: 36415; 82565; 84520

== ENCOUNTER → 2024-03-10 11:09 | Outpatient (REF) | payer MEDICARE, SELFPAY ==
[2024-03-10 11:41] LABS: % Basophils 0.8 % (0-2); % Eosinophils 7.4 % (0-6); % Immature Granulocytes 0.2 % (0-0.5); % Monocytes 9.2 % (1.7-9.3); % Neutrophils 57.4 % (42.2-75.2); Absolute Basophils 0.1 10^3/uL (0-0.2); Absolute Eosinophils 0.5 10^3/uL (0-0.7); Absolute Lymphocytes 1.7 10^3/uL (1.2-3.4); Absolute Monocytes 0.6 10^3/uL (0.1-0.6); Absolute Neutrophils 3.8 10^3/uL (1.4-6.5); Hemoglobin 11.1 g/dL (13.0-18.0); Mean Corp Hgb Conc. 34.7 g/dL (33.0-37.0); Mean Corpuscular Hgb 30.4 pg (27.0-31.0); Mean Corpuscular Volume 87.7 fL (80.0-94.0); Mean Platelet Volume 9.9 fL (7.4-10.4); Nucleated Red Blood Cells % 0 % (-); Platelet Count 153 10^3/uL (130-400); Red Blood Cell Count 3.65 10^6/uL (4.70-6.10); Red Cell Dist. Width 13.7 % (11.5-14.5); White Blood Cell Count 6.6 10^3/uL (4.8-10.8)
[2024-03-10 12:06] LABS: Blood Urea Nitrogen 22 mg/dl (9-20); Calcium 9.8 mg/dl (8.4-10.2); Carbon Dioxide 26 mmol/L (22-30); Chloride 106 mmol/L (98-107); Glucose 120 mg/dl (70-99); Sodium 140 mmol/L (135-145); eGFR > 60.00
[2024-03-10 12:21] LABS: TSH Reflex To Free T4 0.88 uIU/ml (0.47-4.68)
[2024-03-10 14:37] LABS: Glycohemoglobin (HgbA1c) 6.5 % (4.0-5.6)
== END ==
LOC: OLABSOL 11:09
DX: D64.9 Anemia, unspecified (principal); R94.4 Abnormal results of kidney function studies; E55.9 Vitamin D deficiency, unspecified; Z13.228 Encounter for screening for other metabolic disorders; Z51.81 Encounter for therapeutic drug level monitoring; E11.9 Type 2 diabetes mellitus without complications
CPT/HCPCS: 36415; 80048; 83036; 84443; 85025

== ENCOUNTER → 2024-03-11 10:46 | Outpatient (REF) | payer MEDICARE, SELFPAY | LOC: HWRAD 10:46 | PROVIDERS: ATTENDING PHYSICIAN Specialist; FAMILY PHYSICIAN Family Medicine | DX: R31.9 Hematuria, unspecified (principal) | CPT/HCPCS: 74178; Q9967 ==

== ENCOUNTER → 2024-03-15 08:54 | Outpatient (REF) | payer MEDICARE, SELFPAY ==
[2024-03-15 10:05] LABS: % Basophils 0.9 % (0-2); % Eosinophils 6.5 % (0-6); % Immature Granulocytes 0.4 % (0-0.5); % Lymphocytes 27.8 % (20.5-51.1); % Monocytes 7.9 % (1.7-9.3); % Neutrophils 56.5 % (42.2-75.2); Absolute Basophils 0.1 10^3/uL (0-0.2); Absolute Eosinophils 0.4 10^3/uL (0-0.7); Absolute Lymphocytes 1.6 10^3/uL (1.2-3.4); Absolute Monocytes 0.4 10^3/uL (0.1-0.6); Absolute Neutrophils 3.2 10^3/uL (1.4-6.5); Hematocrit 36.4 % (39.0-52.0); Hemoglobin 12.4 g/dL (13.0-18.0); Mean Corp Hgb Conc. 34.1 g/dL (33.0-37.0); Mean Corpuscular Volume 88.1 fL (80.0-94.0); Mean Platelet Volume 9.9 fL (7.4-10.4); Nucleated Red Blood Cells % 0 % (-); Platelet Count 197 10^3/uL (130-400); Red Blood Cell Count 4.13 10^6/uL (4.70-6.10); Red Cell Dist. Width 13.8 % (11.5-14.5); White Blood Cell Count 5.6 10^3/uL (4.8-10.8)
[2024-03-15 10:11] LABS: ALT (SGPT) 14 U/L (0-50); AST (SGOT) 20 U/L (17-59); Albumin 4.1 g/dl (3.5-5.0); Alkaline Phosphatase 121 U/L (38-126); Blood Urea Nitrogen 17 mg/dl (9-20); Calcium 10.1 mg/dl (8.4-10.2); Carbon Dioxide 26 mmol/L (22-30); Chloride 105 mmol/L (98-107); Glucose 131 mg/dl (70-99); Potassium 3.2 mmol/L (3.5-5.1); Sodium 144 mmol/L (135-145); Total Bilirubin 0.8 mg/dl (0.2-1.3); Total Protein 7.3 g/dl (6.3-8.2); eGFR > 60.00
== END ==
LOC: SDSPAT 08:54
PROVIDERS: ATTENDING PHYSICIAN Internal Medicine Cardiovascular Disease; FAMILY PHYSICIAN Family Medicine; OTHER PHYSICIAN Internal Medicine Cardiovascular Disease
DX: Z01.818 Encounter for other preprocedural examination (principal); I48.19 Other persistent atrial fibrillation; I25.5 Ischemic cardiomyopathy; I25.10 Atherosclerotic heart disease of native coronary artery without angina pectoris; I50.20 Unspecified systolic (congestive) heart failure; Z95.810 Presence of automatic (implantable) cardiac defibrillator
CPT/HCPCS: 36415; 80053; 85025; 86850; 86900; 86901

== ENCOUNTER 2024-03-25 05:58 | Day surgery (SDC) | payer MEDICARE, SELFPAY ==
[2024-03-15 09:26] VITALS: BMI 27.6
[2024-03-25] VITALS (16 sets, daily range): BP systolic 107–137; BP diastolic 57–94; BMI 29.5
[2024-03-25 06:49] LABS: Glucose - Point of Care 120 mg/dl (70-99)
[2024-03-25 08:37] LABS: ACT-LR - POC 326 Seconds (116-155)
[2024-03-25 08:59] LABS: ACT-LR - POC 313 Seconds (116-155)
[2024-03-25 09:21] LABS: ACT-LR - POC 342 Seconds (116-155)
[2024-03-25 09:42] LABS: ACT-LR - POC 316 Seconds (116-155)
[2024-03-25 10:02] LABS: ACT-LR - POC 345 Seconds (116-155)
--- NOTE | 2024-03-25 11:14 | ITS.CL.ABL ---
Night Shift Supervisor - Ablation
Ablation
Procedure Report:
AFIB ablation:
Mr. Carter is a very pleasant 74 yr old gentleman with symptomatic persistent AF, atrial flutter, HFrEF with BiV ICD(Medtronic) presented today to the EP lab for atrial fibrillation ablation.
Date of the Procedure:
03/25/2024
Indications:
Persistent atrial fibrillation / Flutter
Pre-Operative Diagnosis:
Persistent atrial fibrillation / Flutter
Post-Operative Diagnosis:
Persistent atrial fibrillation / Flutter / Atrial tachycardia
Procedure Performed:
Atrial fibrillation ablation with Pulsed-Field approach for pulmonary vein isolation
Roof line formation for atypical atrial flutter
Posterior wall isolation for persistent atrial fibrillation
Atrial tachycardia from anterior left atrial wall and anterior mitral line formation.
Performing Physician:
Lianne Diana MD
Assistants:
EP staff
Anesthesia:
See anesthesia records
Detailed Description of the Procedure:
Written informed consent was obtained from the patient after a full explanation of the risks and benefits of the procedure including the risks of sedation and anesthesia.
The patient was brought to the electrophysiology laboratory in stable condition in fasting state. Continuous electrocardiographic and hemodynamic monitoring was initiated.
The initial rhythm was atrial fibrillation.
The procedure site was meticulously prepared with surgical scrub and allowed to dry with no pooling. Sterile draping was applied to cover the procedure site. The image intensifier was draped with sterile bag and positioned over the patient. After
infusion of local anesthetic, vascular access was obtained under ultrasound guidance and sheaths were placed over guide wire as detailed below.
Sheath and Catheter Placement:
The following catheters / sheaths were placed
Sheaths:
��������� 15Fr steerable sheath (FlexCath Cross�, Medtronic) in right femoral vein in right femoral vein
��������� 9Fr in right femoral vein
Catheters:
��������� DARWIN HD Grid mapping catheter � at locations of RA, LA
��������� PulseSelect� PFA catheter
��������� ICE catheter -AcuNav - at locations of RA, SVC, and RV.
��������� Decapolar Bard catheter in RA and CS
Intracardiac ECHO:
An 8-Swedish AcuNav intracardiac ECHO (ICE) probe was advanced through the 9-Swedish sheath in the right femoral vein into the right atrium under fluoroscopic and ICE ultrasound image guidance and a baseline ECHO study was performed. The left atrial
size was dilated. There was moderate tricuspid regurgitation. The aortic valve was grossly normal. There was severely reduced left ventricular systolic functions. There is trace pericardial effusion. All the four veins were identified and has flow
identified. There was spontaneous contrast seen in the MOOKIE.
During the procedure, ICE was used for monitoring of complications, guidance of trans-septal puncture, monitor the catheter position and tracking ablation lesions. No change in the pericardial space noted throughout the procedure.
Trans-septal Puncture:
Heparin was initiated and infused to maintain appropriate ACT. A J-tipped guidewire was advanced through the 8-Swedish sheath in the right femoral vein into the superior vena cava under fluoroscopic and ICE guidance. The 8-Swedish sheath was exchanged
for a FlexCath Cross sheath which was advanced into the superior vena cava. An Found[employer] transseptal access system was utilized to perform the trans-septal puncture. The apparatus was withdrawn until it was in contact with the fossa ovalis. The
position was adjusted based on fluoroscopy and ultrasound images from ICE. Under fluoroscopic, hemodynamic and ICE ultrasound guidance, left atrium was cannulated by advancing the needle. Once atrial septum was cannulated, the needle was pulled back
and a guide wire was advanced through the needle into the left atrium. The guide wire was advanced into the left superior pulmonary vein. Both the sheath and the dilator was advanced into the left atrium. The dilator with the needle was withdrawn.
Blood was aspirated from the FlexCath cross sheath and arterial blood confirmed. The sheath was flushed. Saline injection noted into the left atrium on ICE. The mapping catheter was advanced in the Agilis sheath into the left pulmonary vein. Left
atrial pressure was measured.
3D Electroanatomic Mapping:
Using the HD Grid catheter advanced through sheath into the left atrium, an electroanatomic map (EAM) of the left atrium was created using [employer] mapping system. The map was used for localization of catheter position and tacking of ablation lesions.
The EAM of the left atrium showed 4 pulmonary veins with two left sided and two right sided veins electrically connected to the body the LA. There was extensive areas of low voltage noted in the left atrium with minimal electrical activity in the
posterior wall indicative of scar. �
The LA was dilated in size.
Following the EAM, preparation were made for ablation. The neuromuscular paralysis was reversed.
Ablation:
Ablation # 1: Pulmonary vein Isolation:
Using PulseSelect� pulsed field ablation system, pulmonary vein isolation was achieved. First the ablation catheter was placed in the LSPV and ostial ablation lesions were performed in a counter clock asif approach all around the PV ostium
circumferentially. Then the catheter was placed on the antral location and multiple ablation lesions were placed circumferentially on the antrum of the vein.
In the similar fashion, the LIPV were isolated.
Then the catheter was moved to right sided veins. The ostial and antral ablations were placed as noted above.
Ablation # 2: Atypical atrial flutter ablation:
Given patient hx of atypical atrial flutter and EAM showed there was a clear channel of electrical activity left in the posterior wall with multiple CFAE and AF areas on the roof significant scar noted on the roof with some residual electrical
activity noted. This increased the risk of atrial flutter and decision was made to create a roof line to block a slow conduction.
Using PulseSelect� pulsed field ablation system, a set of pulsefield ablations were placed on the roof line connecting the left superior pulmonary vein ablation lesions to the right superior pulmonary vein lesions rings.
Ablation # 3: Posterior wall isolation:
Using the pulsed field ablation catheter, the catheter was placed on the posterior wall and moved around the posterior wall to have adequate contact and ablations were placed isolating the posterior wall.
Cardioversion:
Once the PV isolation was achieved, decision was made to proceed with cardioversion. A 200 J biphasic shock was applied on the keith posterior Zoll patches and sinus rhythm was achieved. No significant pause noted.
Electroanatomic mapping of LA
The LA was mapped after the PVI and PWI but patient went into a fast tachycardia.
Patient went into tachycardia with 220 msec CL. The CL was mapped and was coming from the anterior wall of the LA at the base of the MOOKIE. The tachycardia degenerated into atrial fibrillation.
Electroanatomic mapping of LA
Once the sinus rhythm achieved, the LA was mapped with HD grid in detail. There were areas of the LSPV antrum that were still connected and decision was made to apply further ablations.
While mapping, patient went back into atrial fibrillation.
Reconnections ablation:
The areas of the antrum were ablated using the pulsed field PulseSelect PFA catheter.
Ablation # 4: Anterior wall atrial tachycardia ablation.
Using the pulsed field ablation catheter, the catheter was placed on the anterior wall at the base of the MOOKIE and the fractionated signals corresponding to the atrial tachycardia identified. The ablation was performed at the area of the interest.
There was scar noted at the anterior wall at baseline and addition ablation on the anterior wall increased the risk for mitral flutter with slow conduction noted on the anterior wall.
The decision was made to create a line of block on the anterior wall connecting the LSPV line to the anterior scar to the ablation lesions on the base of the MOOKIE and connecting to the mitral annulus on the anterior wall.
Cardioversion:
Due to the developments of atrial fibrillation during the case, the decision was made to proceed with a cardioversion followed by the remainder of the ablation as detailed below. Therefore, a 200J shock was delivered to the chest via Zoll patches
placed with denominational of sinus rhythm. The patient remained hemodynamically stable throughout.
Post ablation Electroanatomic mapping:
Once ablation was completed, the EAM of the LA was done again in sinus rhythm with excellent demarcation of LA myocardium and isolated antral tissue. There was dissociated signals were noted in the veins as well.
EPS and Confirmation of the PVI and bidirectional block:
Following achievement of entrance block at the pulmonary veins, pacing from the HD catheter in each of the four veins at 10 milliamps for 2 milliseconds showed entrance and exit block. All PVI were rechecked at the end of the case and remained
isolated with dissociated and local capture with pacing. Entrance and exit block were demonstrated in all veins.
Procedure End
ICE study was done again that showed no epicardial accumulation. No complications noted.
Following the completion of the EP study, catheters were removed. Protamine 40 mg was given at the end of the procedure and ACT was checked repeatedly. The sheaths were removed and hemostasis achieved with manual compression after acceptable ACT is
achieved.
Left atrial Pressure:
Pre-Procedure: Mean LA pressure was 4mmHg
Post-Procedure: Mean LA pressure was 7mmHg
Post-Procedure: Mean LR pressure was 3mmHg
Fluoro time:
7.1 min / DAP 21
Estimated Blood loss:
<10 cc
Specimens Removed:
None.
Implants / Devices:
None
Urine output:
None
Packs / Drains/ Tubes:
None
Instrument / Sponge Count Correct:
Yes
Complications of the Procedure:
None
Condition of Patient at Time of Transfer:
Hemodynamically stable with no neurological or vascular compromise.
Summary:
Successful atrial fibrillation ablation with Pulsed Field approach for pulmonary vein isolation, Roof line formation for atypical atrial flutter, Posterior wall isolation for persistent atrial fibrillation, Atrial tachycardia from anterior left
atrial wall and anterior mitral line formation.
[2024-03-25 14:17] LABS: Glucose - Point of Care 180 mg/dl (70-99)
--- NOTE | 2024-03-25 14:41 | PTCARENOTE ---
Pt received post ablation at 1230. Pt awake, alert and oriented. Denies any pain or sob. Right groin site dressing dry and intact with no hematoma. Room air sat 94%. No c/o offered.
--- NOTE | 2024-03-25 14:57 | CM ---
Chart reviewed. Patient is in Assisted Living at [facility], ambulates with a rolling walker and also has a wheelchair at home. Confirmed with [facility] patient is not current with an outside VN. Patients son to transport patient home. CM to follow
[2024-03-25 16:41] LABS: Glucose - Point of Care 138 mg/dl (70-99)
[2024-03-25] MEDS: CYMBALTA DELAYED RELEASE 30 MG PO (16:59)
[2024-03-25] MEDS: COLACE 100 MG PO (16:59)
[2024-03-25] MEDS: LIPITOR 80 MG PO (16:59)
[2024-03-25] MEDS: ELIQUIS 5 MG PO (20:59)
[2024-03-25] MEDS: TOPROL XL 25 MG PO (20:59)
[2024-03-25] MEDS: NEURONTIN 300 MG PO (20:59)
[2024-03-25] MEDS: FLOMAX 0.4 MG PO (20:59)
[2024-03-25] MEDS: SENOKOT-S 2 TABLET PO (20:59)
[2024-03-25 21:36] LABS: Glucose - Point of Care 187 mg/dl (70-99)
[2024-03-26 00:18] VITALS: BP 142/72
[2024-03-26] MEDS: LANTUS 0.2 UNITS SC (01:53)
[2024-03-26 04:21] VITALS: BP 110/62
[2024-03-26 06:00] VITALS: BMI 29.5
[2024-03-26 06:05] LABS: Hematocrit 28.1 % (39.0-52.0); Hemoglobin 9.6 g/dL (13.0-18.0); Mean Corp Hgb Conc. 34.2 g/dL (33.0-37.0); Mean Corpuscular Volume 87.8 fL (80.0-94.0); Mean Platelet Volume 10.1 fL (7.4-10.4); Platelet Count 137 10^3/uL (130-400); Red Cell Dist. Width 14.2 % (11.5-14.5); White Blood Cell Count 6.6 10^3/uL (4.8-10.8)
[2024-03-26 06:12] LABS: Blood Urea Nitrogen 28 mg/dl (9-20); Calcium 9.6 mg/dl (8.4-10.2); Carbon Dioxide 27 mmol/L (22-30); Chloride 104 mmol/L (98-107); Estimated Creatinine Clearance 74 ml/min; Glucose 133 mg/dl (70-99); Magnesium 1.7 mg/dl (1.6-2.3); Potassium 3.6 mmol/L (3.5-5.1); Sodium 141 mmol/L (135-145); eGFR > 60.00
[2024-03-26 07:24] VITALS: BP 110/63
--- NOTE | 2024-03-26 08:23 | W.PN.CD ---
Today's Communication / Plan
-
- Stable for discharge
- CBC in a week.
Impression / Plan
-
Persistent atrial fibrillation
- s/p Pulsed field ablation - extensive ablation for PVI, Atrial flutter, PWI and then anterior wall AT along with anterior wall flutter line creation.
- Now atrial paced rhythm
- Drop is hemoglobin noted - likely due to pulsed field effect.
- No sign of bleeding.
- Repeat Hemoglobin / CBC in a week.
- Hemodynamically stable
- Oral anticoagulation: Apixaban 2.5 mg daily, he should be on 5 mg daily for his age, renal function, and weight - will change to 5 mg now post op.
- [id number] score at least 6 (HF, HTN, DM, age2, vascular disease)
Tachy/torres syndrome
-s/p BiV ICD 12/01/23 - Medtronic
- With AF ablation - can discontinue Digoxin now.
HFrEF from an ischemic cardiomyopathy (EF 25-30%)
-NHYA class 3
-GDMT as tolerated
-SGLT-Inhibitor: Jardiance 10mg
-MRA: on spironolactone 25mg daily
-GRACIA/ARB: was on entresto, now stopped for orthostatic hypotension
-Entresto: stopped for orthostatic hypotension
-BB: Metoprolol succinate 25 bid
-ICD: s/p BiV ICD, last TTE 10/28/2023 with EF 25-30%
-He does not require a standing diuretic - Euvolemic on 03/25 based on intracardiac pressures. (LA 7 and RA 3)
CAD
-Stable without chest pain
-Cath/PCI 08/08/2023: LVEDP 20, LVEF 15-20%, 70 pLAD, 50 ostial D1, 100% pRCA, 30-40% pLCx. PCI/MAINE to pLAD
-Continue clopidogrel & apixaban (for one year post PCI)
-On Lipitor 80 mg QD
Mitral regurgitation, mild
Right ICA stenosis, 50-69%
DM2
HTN
Chronic RLE edema
PMH DEBORAH
Mixed hyperlipidemia, goal LDL < 55. Last LDL 91 on 09/02/2023, now on high intensity statin
Physical Exam
Vital Signs/Labs
Vital Signs
Temp Pulse Resp BP Pulse Ox
97.8 F 61 18 110/62 97
03/26/24 07:21 03/26/24 06:00 03/26/24 07:21 03/26/24 04:21 03/26/24 07:21
03/25/24 03/26/24 03/27/24
06:59 06:59 06:59
Actual Weight 105.687 kg 105.5 kg
03/26/24 05:22
03/26/24 05:22
Magnesium 1.7 mg/dl (1.6-2.3) 03/26/24 05:22
Physical Exam
Constitutional: No acute distress and Comfortable
EENT: Anicteric and Moist mucous membranes
Cardiovascular: Rhythm & rate is regular, Pedal edema is absent, JVD pressure is normal and Systolic murmur absent
Respiratory: Respiratory effort normal, Lungs clear to auscul., Wheeze Absent and Crackles Absent
GI: Soft, Non tender and Normal bowel sounds
Neuro/Psych: Alert, Oriented, AO x 3 and Motor deficits absent
Other: Cath Site and Cardiac Device Site
Data Reviewed
-
Date of Service: March 26, 2024
Medical Decision Making: Reviewed Test Results, Independent Historian Assessment, Test Interpretation and Review of Case with other Provider
EKG: Tracing Personally Visualized and interpreted
Medical Tests (PFT, Pathology etc): Discussed with Physician, Discussed with Nurse and Discussed with Patient
Labs: Labs Reviewed by me
Old Records: Reviewed
[2024-03-26 08:26] VITALS: BP 120/66
[2024-03-26 08:29] LABS: Glucose - Point of Care 145 mg/dl (70-99)
[2024-03-26] MEDS: ELIQUIS 5 MG PO (08:38)
[2024-03-26] MEDS: ALDACTONE 25 MG PO (08:38)
[2024-03-26] MEDS: FARXIGA 10 MG PO (08:39)
[2024-03-26] MEDS: PEPCID 10 MG PO (08:39)
[2024-03-26] MEDS: FEOSOL 325 MG PO (08:39)
[2024-03-26] MEDS: LEXAPRO 5 MG PO (08:39)
[2024-03-26] MEDS: SENOKOT-S 2 TABLET PO (08:43)
[2024-03-26] MEDS: TOPROL XL 25 MG PO (08:43)
[2024-03-26] MEDS: PLAVIX 75 MG PO (08:43)
[2024-03-26] MEDS: PROTONIX 40 MG PO (08:43)
--- NOTE | 2024-03-26 10:13 | PTCARENOTE ---
Received patient at shift change. V paced on the monitor. Patient walking in room, 98% on room air. R groin dressing CDI, no evidence of hematoma. No complaints from patient. Discharge instructions reviewed with patient, pt verbalizes understanding.
Discharged pt home with son.
--- NOTE | 2024-03-26 11:23 | W.DS.TRANS ---
DC Summary - Safety Technician
-
Discharge Instructions:
Discharge Diagnosis/Procedures Afib post ablation
Diet Low Cholesterol,Diabetic, Carb Controlled
Driving Restrictions No driving for 24 hours
Blood Work Check cbc in 1 week
Instructions:
Stand-Alone Forms: DC Instructions- Cath/EP Lab
Changes to Home Medications: Yes
Discharge Medications:
DC Medications w/original date entered in [employer]
cholecalciferol (vitamin D3) 10 mcg (400 unit) tablet (Vitamin D3) 400 units PO DAILY Supplement 09/26/20
multivitamin with folic acid 400 mcg tablet (Tab-A-Verna) 1 tab PO DAILY Supplement 09/26/20
levomefolate calcium 15 mg tablet (L-Methylfolate) 15 mg PO DAILY Supplement 02/26/21
clopidogrel 75 mg tablet 75 mg PO DAILY #90 tabs 08/08/23
empagliflozin 10 mg tablet (Jardiance) 10 mg PO DAILY Diabetes/Heart Failure 08/08/23
glucosamine sulf dipot chlr,msm,chond 550 mg-C 30 mg-rupali 1 mg capsule (Glucosamine Chondroitin) 2 cap PO DAILY Supplement 08/08/23
nitroglycerin 0.4 mg sublingual tablet 0.4 mg sublingual [id number] PRN chest pain #25 tabs 08/08/23
ferrous sulfate 325 mg (65 mg iron) tablet 325 mg PO DAILY Supplement 09/09/23
gabapentin 100 mg capsule 300 mg (3 x 100 mg) PO HS 30 days #90 caps 11/16/23
tamsulosin 0.4 mg capsule 0.4 mg PO HS BPH 30 days #30 caps 11/16/23
tramadol 50 mg tablet 25 mg (1/2 x 50 mg) PO Q6HPRN PRN moderate pain 5 days #15 tabs 11/16/23
pantoprazole 40 mg tablet,delayed release 40 mg PO DAILY gerd 30 days #30 tabs 11/17/23
spironolactone 25 mg tablet 25 mg PO DAILY 30 days #30 tabs 11/17/23
docusate sodium 50 mg capsule 100 mg PO DAILY Constipation 11/24/23
famotidine 10 mg tablet 10 mg PO DAILY Gastrointestinal Issue 11/24/23
atorvastatin 80 mg tablet (Lipitor) 80 mg PO DAILY High Cholesterol 11/25/23
coQ10 (ubiquinol) 100 mg capsule 300 mg PO DAILY Supplement 11/25/23
Insulin Glargine Lantus [Lantus] 20 units As Directed mls/hr SC HS 12/03/23
duloxetine 30 mg capsule,delayed release 30 mg PO DAILY #0 caps 12/03/23
escitalopram oxalate 5 mg tablet 5 mg PO DAILY #0 tabs 12/03/23
metoprolol succinate 25 mg tablet,extended release 24 hr 25 mg PO BID #0 tabs 12/03/23
sennosides 8.6 mg-docusate sodium 50 mg tablet (Stool Softener-Stimulant Laxative) 2 tab PO BID #0 tabs 12/03/23
cefdinir 300 mg capsule 300 mg PO BID #14 caps 02/07/24
apixaban 5 mg tablet (Eliquis) 5 mg PO BID Blood Clot Prevention/Tx #0 tabs 03/26/24
Home Medication Changes
stop dig
increased eliquis to 5 bid
Pending Results: No
== END 2024-03-26 10:23 | disposition home or self-care (01) ==
LOC: CATH 05:58
PROVIDERS: Nurse Practitioner Adult Health; ATTENDING PHYSICIAN Internal Medicine Cardiovascular Disease
DX: I48.19 Other persistent atrial fibrillation (principal); I48.4 Atypical atrial flutter; I47.19 Other supraventricular tachycardia; E11.9 Type 2 diabetes mellitus without complications; I10 Essential (primary) hypertension; I07.1 Rheumatic tricuspid insufficiency; I65.21 Occlusion and stenosis of right carotid artery; Z79.4 Long term (current) use of insulin; Z79.899 Other long term (current) drug therapy; Z79.01 Long term (current) use of anticoagulants; Z79.02 Long term (current) use of antithrombotics/antiplatelets; I31.39 Other pericardial effusion (noninflammatory)
CPT/HCPCS: C1732; C1894; C1730; C1733; C1769; C1892; C1759; 80048; 82962; 83735; 85027; 85347; 93005; 93655; 93656; 93657

== ENCOUNTER → 2024-04-02 12:40 | Outpatient (REF) | payer MEDICARE, SELFPAY ==
[2024-04-02 12:54] LABS: % Basophils 0.9 % (0-2); % Immature Granulocytes 0.2 % (0-0.5); % Lymphocytes 32.3 % (20.5-51.1); % Neutrophils 50.6 % (42.2-75.2); Absolute Basophils 0.1 10^3/uL (0-0.2); Absolute Eosinophils 0.4 10^3/uL (0-0.7); Absolute Lymphocytes 1.8 10^3/uL (1.2-3.4); Absolute Monocytes 0.5 10^3/uL (0.1-0.6); Absolute Neutrophils 2.8 10^3/uL (1.4-6.5); Hematocrit 28.1 % (39.0-52.0); Hemoglobin 9.5 g/dL (13.0-18.0); Mean Corp Hgb Conc. 33.8 g/dL (33.0-37.0); Mean Corpuscular Hgb 29.6 pg (27.0-31.0); Mean Corpuscular Volume 87.5 fL (80.0-94.0); Mean Platelet Volume 10.6 fL (7.4-10.4); Nucleated Red Blood Cells % 0 % (-); Platelet Count 143 10^3/uL (130-400); Red Blood Cell Count 3.21 10^6/uL (4.70-6.10); Red Cell Dist. Width 13.6 % (11.5-14.5); White Blood Cell Count 5.6 10^3/uL (4.8-10.8)
== END ==
LOC: OLABSOL 12:40
PROVIDERS: ATTENDING PHYSICIAN Nurse Practitioner
DX: R79.9 Abnormal finding of blood chemistry, unspecified (principal)
CPT/HCPCS: 36415; 85025

== ENCOUNTER → 2024-04-09 07:28 | Outpatient (REF) | payer MEDICARE, SELFPAY ==
[2024-04-09 08:11] LABS: % Basophils 0.6 % (0-2); % Immature Granulocytes 0.3 % (0-0.5); % Lymphocytes 19.2 % (20.5-51.1); % Monocytes 9.6 % (1.7-9.3); % Neutrophils 65.3 % (42.2-75.2); Absolute Eosinophils 0.4 10^3/uL (0-0.7); Absolute Lymphocytes 1.4 10^3/uL (1.2-3.4); Absolute Monocytes 0.7 10^3/uL (0.1-0.6); Absolute Neutrophils 4.7 10^3/uL (1.4-6.5); Hematocrit 31.7 % (39.0-52.0); Hemoglobin 10.8 g/dL (13.0-18.0); Mean Corp Hgb Conc. 34.1 g/dL (33.0-37.0); Mean Corpuscular Hgb 30.7 pg (27.0-31.0); Mean Corpuscular Volume 90.1 fL (80.0-94.0); Mean Platelet Volume 10.3 fL (7.4-10.4); Nucleated Red Blood Cells % 0 % (-); Platelet Count 150 10^3/uL (130-400); Red Blood Cell Count 3.52 10^6/uL (4.70-6.10); Red Cell Dist. Width 13.6 % (11.5-14.5); White Blood Cell Count 7.2 10^3/uL (4.8-10.8)
== END ==
LOC: OLABSOL 07:28
PROVIDERS: ATTENDING PHYSICIAN Internal Medicine Cardiovascular Disease
DX: D64.9 Anemia, unspecified (principal); E11.9 Type 2 diabetes mellitus without complications
CPT/HCPCS: 36415; 85025

== ENCOUNTER → 2024-06-08 12:30 | Outpatient (REF) | payer MEDICARE, SELFPAY ==
[2024-06-09 12:18] LABS: Urine Albumin Negative (Neg - Trace); Urine Bilirubin Negative (Negative); Urine Character Slightly Cloudy (Clear); Urine Color Yellow; Urine Glucose 3+ (Negative); Urine Ketone Negative (Negative); Urine Leukocyte Trace (Negative); Urine Nitrite Negative (Negative); Urine Occult Blood Negative (Negative); Urine Urobilinogen Negative (Neg - 1+)
[2024-06-09 14:48] LABS: Urine Amorphous Seen; Urine Red Blood Cell 0-2 /HPF (0-2); Urine Squamous Cell 0-2 /LPF (Few); Urine White Cell 30-40 /HPF (0-5)
[2024-06-09 14:49] LABS: Urine Bacteria Many (Negative)
== END ==
LOC: OLABSOL 12:30
PROVIDERS: ATTENDING PHYSICIAN Nurse Practitioner Adult Health
DX: N39.0 Urinary tract infection, site not specified (principal)
CPT/HCPCS: 81003; 81015; 87086

== ENCOUNTER → 2024-07-08 09:57 | Outpatient (REF) | payer MEDICARE, SELFPAY | LOC: HWRCS 09:57 | PROVIDERS: ATTENDING PHYSICIAN Nurse Practitioner; FAMILY PHYSICIAN Family Medicine | DX: I48.19 Other persistent atrial fibrillation (principal); I50.20 Unspecified systolic (congestive) heart failure | CPT/HCPCS: 93306 ==

== ENCOUNTER → 2024-08-25 10:00 | Outpatient (REF) | payer MEDICARE, SELFPAY ==
[2024-08-25 11:02] LABS: % Basophils 0.6 % (0-2); % Eosinophils 6.2 % (0-6); % Immature Granulocytes 0.3 % (0-0.5); % Lymphocytes 27.2 % (20.5-51.1); % Monocytes 8.5 % (1.7-9.3); % Neutrophils 57.2 % (42.2-75.2); Absolute Eosinophils 0.4 10^3/uL (0-0.7); Absolute Lymphocytes 1.9 10^3/uL (1.2-3.4); Absolute Monocytes 0.6 10^3/uL (0.1-0.6); Hematocrit 29.7 % (39.0-52.0); Hemoglobin 10.1 g/dL (13.0-18.0); Mean Corpuscular Hgb 32.1 pg (27.0-31.0); Mean Corpuscular Volume 94.3 fL (80.0-94.0); Mean Platelet Volume 10.3 fL (7.4-10.4); Nucleated Red Blood Cells % 0 % (-); Platelet Count 138 10^3/uL (130-400); Red Blood Cell Count 3.15 10^6/uL (4.70-6.10); Red Cell Dist. Width 12.4 % (11.5-14.5)
[2024-08-25 11:34] LABS: ALT (SGPT) 16 U/L (0-50); AST (SGOT) 16 U/L (17-59); Albumin 3.6 g/dl (3.5-5.0); Alkaline Phosphatase 107 U/L (38-126); Blood Urea Nitrogen 27 mg/dl (9-20); Calcium 9.6 mg/dl (8.4-10.2); Carbon Dioxide 29 mmol/L (22-30); Chloride 102 mmol/L (98-107); Glucose 146 mg/dl (70-99); HDL Cholesterol 22 mg/dl; LDL Cholesterol, Calculated 68 mg/dl; Potassium 3.5 mmol/L (3.5-5.1); Sodium 139 mmol/L (135-145); Total Bilirubin 0.6 mg/dl (0.2-1.3); Total Cholesterol 135 mg/dl (50-199); Total Protein 6.4 g/dl (6.3-8.2); Triglyceride 227 mg/dl (10-149); Very Low Density Lipoprotein 45 mg/dl (0-30); eGFR > 60.00
[2024-08-25 11:38] LABS: Glycohemoglobin (HgbA1c) 6.7 % (4.0-5.6)
== END ==
LOC: OLABSOL 10:00
PROVIDERS: ATTENDING PHYSICIAN Family Medicine
DX: I25.5 Ischemic cardiomyopathy (principal); D64.9 Anemia, unspecified; Z79.01 Long term (current) use of anticoagulants; I50.30 Unspecified diastolic (congestive) heart failure; E11.9 Type 2 diabetes mellitus without complications
CPT/HCPCS: 36415; 80053; 80061; 83036; 85025

== ENCOUNTER → 2024-10-06 10:08 | Outpatient (REF) | payer MEDICARE, SELFPAY ==
[2024-10-06 12:24] LABS: Blood Urea Nitrogen 27 mg/dl (9-20); Calcium 9.9 mg/dl (8.4-10.2); Carbon Dioxide 23 mmol/L (22-30); Chloride 103 mmol/L (98-107); Glucose 152 mg/dl (70-99); Potassium 3.7 mmol/L (3.5-5.1); Sodium 138 mmol/L (135-145); eGFR > 60.00
[2024-10-06 13:05] LABS: Vitamin B12 332 pg/ml (239-931)
== END ==
LOC: OLABSOL 10:08
PROVIDERS: ATTENDING PHYSICIAN Nurse Practitioner Adult Health
DX: D51.9 Vitamin B12 deficiency anemia, unspecified (principal)
CPT/HCPCS: 36415; 80048; 82607

== ENCOUNTER → 2024-10-29 12:29 | Outpatient (REF) | payer MEDICARE, SELFPAY ==
[2024-10-29 13:48] LABS: % Basophils 0.9 % (0-2); % Eosinophils 9.5 % (0-6); % Immature Granulocytes 0.1 % (0-0.5); % Lymphocytes 32.1 % (20.5-51.1); % Monocytes 7.5 % (1.7-9.3); % Neutrophils 49.9 % (42.2-75.2); Absolute Basophils 0.1 10^3/uL (0-0.2); Absolute Eosinophils 0.7 10^3/uL (0-0.7); Absolute Lymphocytes 2.3 10^3/uL (1.2-3.4); Absolute Monocytes 0.5 10^3/uL (0.1-0.6); Absolute Neutrophils 3.5 10^3/uL (1.4-6.5); Hematocrit 32.3 % (39.0-52.0); Hemoglobin 10.7 g/dL (13.0-18.0); Mean Corp Hgb Conc. 33.1 g/dL (33.0-37.0); Mean Corpuscular Hgb 31.2 pg (27.0-31.0); Mean Corpuscular Volume 94.2 fL (80.0-94.0); Nucleated Red Blood Cells % 0 % (-); Platelet Count 165 10^3/uL (130-400); Red Blood Cell Count 3.43 10^6/uL (4.70-6.10); Red Cell Dist. Width 12.9 % (11.5-14.5)
== END ==
LOC: OLABSOL 12:29
PROVIDERS: ATTENDING PHYSICIAN Nurse Practitioner Adult Health
DX: D64.9 Anemia, unspecified (principal)
CPT/HCPCS: 36415; 85025

== ENCOUNTER → 2024-12-10 13:31 | Outpatient (REF) | payer MEDICARE, SELFPAY ==
[2024-12-10 13:59] LABS: % Basophils 0.7 % (0-2); % Eosinophils 5.3 % (0-6); % Immature Granulocytes 0.1 % (0-0.5); % Lymphocytes 29.3 % (20.5-51.1); % Monocytes 9.8 % (1.7-9.3); % Neutrophils 54.8 % (42.2-75.2); Absolute Basophils 0.1 10^3/uL (0-0.2); Absolute Eosinophils 0.4 10^3/uL (0-0.7); Absolute Lymphocytes 2.2 10^3/uL (1.2-3.4); Absolute Monocytes 0.7 10^3/uL (0.1-0.6); Hematocrit 30.9 % (39.0-52.0); Hemoglobin 10.6 g/dL (13.0-18.0); Mean Corp Hgb Conc. 34.3 g/dL (33.0-37.0); Mean Corpuscular Hgb 31.5 pg (27.0-31.0); Mean Corpuscular Volume 91.7 fL (80.0-94.0); Mean Platelet Volume 10.5 fL (7.4-10.4); Nucleated Red Blood Cells % 0 % (-); Platelet Count 146 10^3/uL (130-400); Red Blood Cell Count 3.37 10^6/uL (4.70-6.10); Red Cell Dist. Width 12.3 % (11.5-14.5); White Blood Cell Count 7.4 10^3/uL (4.8-10.8)
[2024-12-10 14:10] LABS: Blood Urea Nitrogen 29 mg/dl (9-20); Calcium 9.7 mg/dl (8.4-10.2); Carbon Dioxide 28 mmol/L (22-30); Chloride 106 mmol/L (98-107); Glucose 150 mg/dl (70-99); Potassium 3.5 mmol/L (3.5-5.1); Sodium 141 mmol/L (135-145); eGFR > 60.00
== END ==
LOC: OLABSOL 13:31
PROVIDERS: ATTENDING PHYSICIAN Nurse Practitioner Adult Health
DX: D64.9 Anemia, unspecified (principal); R94.4 Abnormal results of kidney function studies; D51.9 Vitamin B12 deficiency anemia, unspecified
CPT/HCPCS: 36415; 80048; 85025

== ENCOUNTER → 2024-12-15 11:15 | Outpatient (REF) | payer MEDICARE, SELFPAY ==
[2024-12-15 11:32] LABS: Hematocrit 29.9 % (39.0-52.0); Hemoglobin 10.4 g/dL (13.0-18.0); Mean Corp Hgb Conc. 34.8 g/dL (33.0-37.0); Mean Corpuscular Hgb 31.9 pg (27.0-31.0); Mean Corpuscular Volume 91.7 fL (80.0-94.0); Mean Platelet Volume 10.1 fL (7.4-10.4); Platelet Count 151 10^3/uL (130-400); Red Blood Cell Count 3.26 10^6/uL (4.70-6.10); White Blood Cell Count 7.9 10^3/uL (4.8-10.8)
[2024-12-15 12:03] LABS: Glycohemoglobin (HgbA1c) 6.8 % (4.0-5.6)
[2024-12-15 12:12] LABS: ALT (SGPT) 22 U/L (0-50); AST (SGOT) 17 U/L (17-59); Albumin 3.8 g/dl (3.5-5.0); Alkaline Phosphatase 94 U/L (38-126); Blood Urea Nitrogen 31 mg/dl (9-20); Calcium 9.6 mg/dl (8.4-10.2); Carbon Dioxide 29 mmol/L (22-30); Chloride 107 mmol/L (98-107); Glucose 149 mg/dl (70-99); Potassium 3.7 mmol/L (3.5-5.1); Sodium 141 mmol/L (135-145); Total Bilirubin 0.6 mg/dl (0.2-1.3); Total Protein 6.8 g/dl (6.3-8.2); eGFR > 60.00
== END ==
LOC: OLABSOL 11:15
PROVIDERS: ATTENDING PHYSICIAN Physician Assistant
DX: E11.65 Type 2 diabetes mellitus with hyperglycemia (principal)
CPT/HCPCS: 36415; 80053; 83036; 85027

== ENCOUNTER → 2025-02-07 13:00 | Outpatient (REF) | payer MEDICARE, SELFPAY ==
[2025-02-07 13:14] LABS: Hematocrit 30.1 % (39.0-52.0); Hemoglobin 10.3 g/dL (13.0-18.0); Mean Corp Hgb Conc. 34.2 g/dL (33.0-37.0); Mean Corpuscular Volume 92.6 fL (80.0-94.0); Nucleated Red Blood Cells % 0.3 % (-); Platelet Count 157 10^3/uL (130-400); Red Cell Dist. Width 12.0 % (11.5-14.5)
[2025-02-07 13:45] LABS: Albumin 3.7 g/dl (3.5-5.0); Blood Urea Nitrogen 28 mg/dl (9-20); Calcium 9.6 mg/dl (8.4-10.2); Carbon Dioxide 31 mmol/L (22-30); Chloride 101 mmol/L (98-107); Glucose 202 mg/dl (70-99); Potassium 3.9 mmol/L (3.5-5.1); Sodium 137 mmol/L (135-145); eGFR > 60.00
== END ==
LOC: OLABSOL 13:00
PROVIDERS: ATTENDING PHYSICIAN Internal Medicine Cardiovascular Disease
DX: I48.0 Paroxysmal atrial fibrillation (principal); D64.9 Anemia, unspecified; I50.32 Chronic diastolic (congestive) heart failure
CPT/HCPCS: 36415; 80069; 85025

== ENCOUNTER 2025-04-05 19:40 | Inpatient (IN) | payer MEDICARE, SELFPAY ==
[2025-04-05] VITALS (15 sets, daily range): BP systolic 94–145; BP diastolic 46–112; BMI 26.7; BMI 26.9
[2025-04-05 16:16] LABS: Hematocrit 39.0 % (39.0-52.0); Hemoglobin 13.4 g/dL (13.0-18.0); Mean Corp Hgb Conc. 34.4 g/dL (33.0-37.0); Mean Corpuscular Volume 91.5 fL (80.0-94.0); Nucleated Red Blood Cells % 0.7 % (-); Platelet Count 147 10^3/uL (130-400); Red Cell Dist. Width 12.3 % (11.5-14.5)
[2025-04-05 16:17] LABS: Urine Character Slightly Cloudy (Clear)
[2025-04-05 16:36] LABS: ALT (SGPT) 33 U/L (0-50); AST (SGOT) 31 U/L (17-59); Albumin 4.8 g/dl (3.5-5.0); Alkaline Phosphatase 122 U/L (38-126); Blood Urea Nitrogen 28 mg/dl (9-20); Calcium 10.3 mg/dl (8.4-10.2); Carbon Dioxide 26 mmol/L (22-30); Chloride 102 mmol/L (98-107); Estimated Creatinine Clearance 62 ml/min; Glucose 184 mg/dl (70-99); Potassium 3.8 mmol/L (3.5-5.1); Sodium 142 mmol/L (135-145); Total Protein 8.4 g/dl (6.3-8.2); eGFR > 60.00
[2025-04-05 16:50] LABS: COVID-19 Antigen Negative (Negative)
[2025-04-05] MEDS: MAXIPIME 2000 MG IV (16:56)
[2025-04-05] MEDS: NSS 2900 ML IV (16:56)
[2025-04-05] MEDS: TYLENOL/FEVERALL 650 MG RECTAL (16:56)
--- NOTE | 2025-04-05 17:00 | ED.GENMED ---
History of Present Illness
<Marychuy Hurtado NP - Last Filed: 04/05/25 23:55>
General
Chief Complaint: Abdominal Symptoms
Source: ambulance crew and long-term
Exam Limitations: none
Time Seen by Provider: 04/05/25 16:42
Nursing documentation reviewed up to this point in time: agreed with
History of Present Illness
History of Present Illness:
Patient to ED for report of n/v, rigors. According to EMS, patient started vomiting after lunch. NH denies any fevers. Brought to ED for eval. Temp on inital exam 104 rectal Tylenol suppos. given. He responds to verbal commands. WHen asked if
anything hurts, he respongs 'everything.
Past History
<Marychuy Hurtado NP - Last Filed: 04/05/25 23:55>
Past History
ED Past Medical History: Arrthythmia, CHF, GERD, HTN, Hypercholesterolemia, IDDM and Psychiatric (depression)
ED Past Surgical History: Cardiac (pacemaker)
Social History
Tobacco: Non-smoker
Drug: None
Personal:
Living: assisted living
Family History
Family History: Other (reviewed and non-contributory)
Review of Systems
<Marychuy Hurtado NP - Last Filed: 04/05/25 23:55>
Review of Systems
Allergies reviewed?: Yes
All Other Systems: ROS reviewed and negative except as documented in HPI and ROS
Constitutional: Reports fever and chills
EENT: Reports no symptoms
Respiratory: Reports no symptoms
Cardiac: Reports no symptoms
ABD/GI: Reports abdominal pain, nausea and vomiting
: Reports no symptoms
Musculoskeletal: Reports no symptoms
Skin: Reports no symptoms
Neurological: Reports weakness
Psychiatric: Reports no symptoms
Phy Exam
<Marychuy Hurtado NP - Last Filed: 04/05/25 23:55>
General Physical Exam
General Presentation: moderate distress
General age: appears stated age
General Skin: warm and dry
General Habitus: elderly and frail
General Mental: other (responds to verbal commands)
General Hydration: dry mucous membranes
Cardiovascular Exam
Cardiovascular Exam: regular rate/rhythm
Pulmonary Exam
Pulmonary Exam: lungs clear and no respiratory distress
Gastrointestinal Exam
Gastrointestinal Exam: normal bowel sounds, soft, no organomegaly, no pulsatile mass and non distended
Palpation: generalized: Moderate tenderness
Musculoskeletal Exam
Musculoskeletal Exam: full ROM and neuro vasc intact
Skin Exam
Skin Exam: normal color, warm/dry and no rash
Psychiatric Exam
Psychiatric Exam: labile
Sepsis
<Marychuy Hurtado APPLICATIONS PROGRAMMER - Last Filed: 04/05/25 23:55>
Sepsis Screening
Sepsis Assessment: Severe Sepsis
Sepsis Screening: Lactate >/=4mmol/L
Sepsis Screen
Sepsis Screen: Severe Sepsis
Date: 04/05/25
Time: 23:55
Course
<Marychuy Hurtado APPLICATIONS PROGRAMMER - Last Filed: 04/05/25 23:55>
Orders/Labs/Results
Orders:
Orders
04/05/25 Dinner
1800 calorie (15 carb) Diabetic
At Your Request: Limited Participation
Does patient need a safe tray?: No
04/05/25 15:48
Electrocardiogram (*1) Urgent
Reason for Study: Other
Other Reason for Exam: Possible Sepsis
EKG- Treatment ONCE
Straight cath- Treatment ONCE
04/05/25 15:59
COVID-19 Antigen Urgent
Source: Nasal Swab
Complete Blood Count/With Diff Urgent
Comprehensive Metabolic Panel Urgent
Lactic Acid Q4H
Comment: ON ICE, CANCEL 2ND ORDER IF FIRST LACTIC ACID LEVEL <2
Urinalysis Reflex To Culture Urgent
Date Specimen was Collected: 04/05/25
Time Specimen was Collected: 15:48
Urine Microscopic Reflex Cult Urgent
Blood Culture Q20M
CLAUDIA Source: Blood/Venous
Specimen Description:
Comment: Urgent from separate sites. If patient screens positive for possible sepsis
Blood Culture Q20M
CLAUDIA Source: Blood/Venous
Specimen Description:
Comment: Urgent from separate sites. If patient screens positive for possible sepsis
Influenza A+B Rapid Molecular Urgent
CLAUDIA Source: Nasal Swab
Specimen Description:
Urine Culture Urgent
CLAUDIA Source: U
Specimen Description:
Date Specimen was Collected: 04/05/25
Time Specimen was Collected: 15:48
04/05/25 16:48
Acetaminophen [Tylenol/Feverall] 650 mg .ROUTE .STK-MED ONE
04/05/25 16:51
Acetaminophen [Tylenol/Feverall] 650 mg RECTAL NOW STA
04/05/25 16:52
0.9% Sodium Chloride 1000 ml [Nss] 2,900 ml IV NOW STA
Cefepime HCl [Maxipime] 2,000 mg IV NOW STA
04/05/25 16:54
CT Abd/pelvis W Iv Cont Urgent
Comment:
Reason For Exam: vomiting, fever
04/05/25 17:19
Piperacillin/Tazo 3.375 Gram [Zosyn] 3.375 gram in 50 ml IV NOW
04/05/25 17:58
CR Chest Portable - 1 View Urgent
Comment:
Reason For Exam: fever
Reason Study Needs to be Portable: Patient Unstable
04/05/25 19:16
Admit/Transfer Patient As Directed
Co-Sign Provider:
Level of Care: Inpatient admission
Assign to:: Telemetry
Physician / Group: Naty
Diagnosis: sepsis
Reason for Telemetry: Medication for Arrhythmia
Date to Stop Telemetry: 04/07/25
Time to Stop Telemetry: 11:00
Reason for Hospitalization: Sepsis secondary to cystitis/pyelonephritis
Expected length of stay greater than two midnights?: Yes
ELOS- Estimated Length of Stay in days: 2
I certify the patient meets the requirements for IP care: Yes
PRN Pain Medication Management As Directed
May give lesser potent ordered pain med per pt: Yes
preference::
Protocol:: Medication orders for pain may be administered in a
manner that supports deferring to patient preference
when the pt is:
- Requesting an ordered lesser potent pain medication.
Least to most potent pain medications are defined
as: acetaminophen < NSAID < tramadol < opioids
(morphine, oxycodone, hydromorphone).
- Requesting a lesser dose of the same medication IF
ORDERED.
- Requesting a less intrusive route of administration
if both routes are prescribed by the provider (PO <
IV).
04/05/25 19:17
Code Status As Directed
Resuscitation Status: Full Code
04/05/25 20:03
Lactic Acid Q4H
Comment: ON ICE, CANCEL 2ND ORDER IF FIRST LACTIC ACID LEVEL <2
04/05/25 21:11
Acetaminophen [Tylenol/Feverall] 650 mg RECTAL Q4HPRN PRN
Acetaminophen [Tylenol] 650 mg PO Q4HPRN PRN
Apixaban [Eliquis] 5 mg PO BID
Metoclopramide [Reglan] 10 mg IV Q6HPRN PRN
Metoprolol Xl [Toprol Xl] 25 mg PO BID
04/05/25 21:11
VTE Contraindication Routine
VTE Mechanical Device Contraindication: Medical Contraindication
Pharmocologic Contraindication: Medical Contraindication
Activity As Directed
Activity Level: With Assistance
Bedside Glucose Monitoring As Directed
Frequency: AC&HS
Intake/ Output As Directed
Frequency: Per unit guidelines
Vital Signs As Directed
Frequency: q4h
O2 Therapy [RESP] Routine
Nasal Cannula Liter Flow: 2 LPM
Titrate/Wean O2 to maintain O2 sat greater than (%): 95
Pulse Ox/cont/shift [RESP] Routine
Quantity: 1
Special Instructions: continuous pulse ox
04/05/25 22:00
Cefepime HCl [Maxipime] 1,000 mg IV Q6H
Gabapentin [Neurontin] 300 mg PO HS
Insulin Glargine Lantus [Lantus] 10 units Subcutaneous Insulin Syringe [Syringe-Insulin] 0 unit SC HS
04/06/25 06:00
Complete Blood Count/No Diff IN AM
04/06/25 07:30
Insulin Aspart Corrective Low [Novolog Flexpen-Low Resistance] See Protocol SC AC
04/06/25 08:00
Clopidogrel Bisulfate [Plavix] 75 mg PO DAILY
Docusate Sodium [Colace] 100 mg PO DAILY
Duloxetine Delayed Release [Cymbalta Delayed Release] 40 mg PO DAILY
Famotidine [Pepcid] 10 mg PO DAILY
Ferrous Sulfate [Feosol] 325 mg PO DAILY
Pantoprazole [Protonix] 40 mg PO DAILY
04/06/25 18:00
Atorvastatin [Lipitor] 80 mg PO QPM
04/07/25 11:00
DC Protocol for Telemetry ONCE
Abnormal Lab Results
04/05/25
15:59
WBC 3.0 L 10^3/uL
(4.8-10.8)
RBC 4.26 L 10^6/uL
(4.70-6.10)
MCH 31.5 H pg
(27.0-31.0)
Absolute Lymphs (auto) 0.3 L 10^3/uL
(1.2-3.4)
Absolute Monos (auto) 0.0 L 10^3/uL
(0.1-0.6)
Immature Gran % 1.0 H %
(0-0.5)
Neutrophils % 89.0 H %
(42.2-75.2)
Lymphocytes % 8.7 L %
(20.5-51.1)
Monocytes % 0.3 L %
(1.7-9.3)
BUN 28 H mg/dl
(9-20)
Glucose 184 H mg/dl
(70-99)
Lactic Acid 6.5 H* mmol/L
(0.7-2.0)
Calcium 10.3 H mg/dl
(8.4-10.2)
Total Protein 8.4 H g/dl
(6.3-8.2)
Ur Occult Blood Reflex 4+ A
(Negative)
Urine Nitrite (Reflex) Positive A
(Negative)
Leukocyte Esterase Rfl 2+ A
(Negative)
Urine RBC 60-70 A /HPF
(0-2)
Urine WBC (Reflex) 21-25 A /HPF
(0-5)
Urine Bacteria (Reflex) Many A
(Negative)
Urine Glucose 4+ A
(Negative)
Urine Albumin (Reflex) 2+ A
(Neg - Trace)
04/05/25 15:59
04/05/25 15:59
Vital Signs
Initial and Last Documented VS:
Initial Vital Signs
Temp Pulse Resp BP Pulse Ox
102.9 F H 110 28 134/71 96
04/05/25 15:39 04/05/25 15:39 04/05/25 15:39 04/05/25 15:39 04/05/25 15:39
Last Documented Vital Signs
Temp Pulse Resp BP Pulse Ox
100.1 F 71 20 94/46 97
04/05/25 23:14 04/05/25 23:14 04/05/25 23:14 04/05/25 23:14 04/05/25 23:14
<Jaquan Díaz, DO - Last Filed: 04/05/25 18:04>
Orders/Labs/Results
Orders:
Orders
04/05/25 Dinner
1800 calorie (15 carb) Diabetic
At Your Request: Limited Participation
Does patient need a safe tray?: No
04/05/25 15:48
Electrocardiogram (*1) Urgent
Reason for Study: Other
Other Reason for Exam: Possible Sepsis
EKG- Treatment ONCE
Straight cath- Treatment ONCE
04/05/25 15:59
COVID-19 Antigen Urgent
Source: Nasal Swab
Complete Blood Count/With Diff Urgent
Comprehensive Metabolic Panel Urgent
Lactic Acid Q4H
Comment: ON ICE, CANCEL 2ND ORDER IF FIRST LACTIC ACID LEVEL <2
Urinalysis Reflex To Culture Urgent
Date Specimen was Collected: 04/05/25
Time Specimen was Collected: 15:48
Urine Microscopic Reflex Cult Urgent
Blood Culture Q20M
CLAUDIA Source: Blood/Venous
Specimen Description:
Comment: Urgent from separate sites. If patient screens positive for possible sepsis
Blood Culture Q20M
CLAUDIA Source: Blood/Venous
Specimen Description:
Comment: Urgent from separate sites. If patient screens positive for possible sepsis
Influenza A+B Rapid Molecular Urgent
CLAUDIA Source: Nasal Swab
Specimen Description:
Urine Culture Urgent
CLAUDIA Source: U
Specimen Description:
Date Specimen was Collected: 04/05/25
Time Specimen was Collected: 15:48
04/05/25 16:48
Acetaminophen [Tylenol/Feverall] 650 mg .ROUTE .STK-MED ONE
04/05/25 16:51
Acetaminophen [Tylenol/Feverall] 650 mg RECTAL NOW STA
04/05/25 16:52
0.9% Sodium Chloride 1000 ml [Nss] 2,900 ml IV NOW STA
Cefepime HCl [Maxipime] 2,000 mg IV NOW STA
04/05/25 16:54
CT Abd/pelvis W Iv Cont Urgent
Comment:
Reason For Exam: vomiting, fever
04/05/25 17:19
Piperacillin/Tazo 3.375 Gram [Zosyn] 3.375 gram in 50 ml IV NOW
04/05/25 17:58
CR Chest Portable - 1 View Urgent
Comment:
Reason For Exam: fever
Reason Study Needs to be Portable: Patient Unstable
04/05/25 19:16
Admit/Transfer Patient As Directed
Co-Sign Provider:
Level of Care: Inpatient admission
Assign to:: Telemetry
Physician / Group: Naty
Diagnosis: sepsis
Reason for Telemetry: Medication for Arrhythmia
Date to Stop Telemetry: 04/07/25
Time to Stop Telemetry: 11:00
Reason for Hospitalization: Sepsis secondary to cystitis/pyelonephritis
Expected length of stay greater than two midnights?: Yes
ELOS- Estimated Length of Stay in days: 2
I certify the patient meets the requirements for IP care: Yes
PRN Pain Medication Management As Directed
May give lesser potent ordered pain med per pt: Yes
preference::
Protocol:: Medication orders for pain may be administered in a
manner that supports deferring to patient preference
when the pt is:
- Requesting an ordered lesser potent pain medication.
Least to most potent pain medications are defined
as: acetaminophen < NSAID < tramadol < opioids
(morphine, oxycodone, hydromorphone).
- Requesting a lesser dose of the same medication IF
ORDERED.
- Requesting a less intrusive route of administration
if both routes are prescribed by the provider (PO <
IV).
04/05/25 19:17
Code Status As Directed
Resuscitation Status: Full Code
04/05/25 20:03
Lactic Acid Q4H
Comment: ON ICE, CANCEL 2ND ORDER IF FIRST LACTIC ACID LEVEL <2
04/05/25 21:11
Acetaminophen [Tylenol/Feverall] 650 mg RECTAL Q4HPRN PRN
Acetaminophen [Tylenol] 650 mg PO Q4HPRN PRN
Apixaban [Eliquis] 5 mg PO BID
Metoclopramide [Reglan] 10 mg IV Q6HPRN PRN
Metoprolol Xl [Toprol Xl] 25 mg PO BID
04/05/25 21:11
VTE Contraindication Routine
VTE Mechanical Device Contraindication: Medical Contraindication
Pharmocologic Contraindication: Medical Contraindication
Activity As Directed
Activity Level: With Assistance
Bedside Glucose Monitoring As Directed
Frequency: AC&HS
Intake/ Output As Directed
Frequency: Per unit guidelines
Vital Signs As Directed
Frequency: q4h
O2 Therapy [RESP] Routine
Nasal Cannula Liter Flow: 2 LPM
Titrate/Wean O2 to maintain O2 sat greater than (%): 95
Pulse Ox/cont/shift [RESP] Routine
Quantity: 1
Special Instructions: continuous pulse ox
04/05/25 22:00
Cefepime HCl [Maxipime] 1,000 mg IV Q6H
Gabapentin [Neurontin] 300 mg PO HS
Insulin Glargine Lantus [Lantus] 10 units Subcutaneous Insulin Syringe [Syringe-Insulin] 0 unit SC HS
04/06/25 06:00
Complete Blood Count/No Diff IN AM
04/06/25 07:30
Insulin Aspart Corrective Low [Novolog Flexpen-Low Resistance] See Protocol SC AC
04/06/25 08:00
Clopidogrel Bisulfate [Plavix] 75 mg PO DAILY
Docusate Sodium [Colace] 100 mg PO DAILY
Duloxetine Delayed Release [Cymbalta Delayed Release] 40 mg PO DAILY
Famotidine [Pepcid] 10 mg PO DAILY
Ferrous Sulfate [Feosol] 325 mg PO DAILY
Pantoprazole [Protonix] 40 mg PO DAILY
04/06/25 18:00
Atorvastatin [Lipitor] 80 mg PO QPM
04/07/25 11:00
DC Protocol for Telemetry ONCE
Abnormal Lab Results
04/05/25
15:59
WBC 3.0 L 10^3/uL
(4.8-10.8)
RBC 4.26 L 10^6/uL
(4.70-6.10)
MCH 31.5 H pg
(27.0-31.0)
Absolute Lymphs (auto) 0.3 L 10^3/uL
(1.2-3.4)
Absolute Monos (auto) 0.0 L 10^3/uL
(0.1-0.6)
Immature Gran % 1.0 H %
(0-0.5)
Neutrophils % 89.0 H %
(42.2-75.2)
Lymphocytes % 8.7 L %
(20.5-51.1)
Monocytes % 0.3 L %
(1.7-9.3)
BUN 28 H mg/dl
(9-20)
Glucose 184 H mg/dl
(70-99)
Lactic Acid 6.5 H* mmol/L
(0.7-2.0)
Calcium 10.3 H mg/dl
(8.4-10.2)
Total Protein 8.4 H g/dl
(6.3-8.2)
Ur Occult Blood Reflex 4+ A
(Negative)
Urine Nitrite (Reflex) Positive A
(Negative)
Leukocyte Esterase Rfl 2+ A
(Negative)
Urine RBC 60-70 A /HPF
(0-2)
Urine WBC (Reflex) 21-25 A /HPF
(0-5)
Urine Bacteria (Reflex) Many A
(Negative)
Urine Glucose 4+ A
(Negative)
Urine Albumin (Reflex) 2+ A
(Neg - Trace)
04/05/25 15:59
04/05/25 15:59
Vital Signs
Initial and Last Documented VS:
Initial Vital Signs
Temp Pulse Resp BP Pulse Ox
102.9 F H 110 28 134/71 96
04/05/25 15:39 04/05/25 15:39 04/05/25 15:39 04/05/25 15:39 04/05/25 15:39
Last Documented Vital Signs
Temp Pulse Resp BP Pulse Ox
100.1 F 71 20 94/46 97
04/05/25 23:14 04/05/25 23:14 04/05/25 23:14 04/05/25 23:14 04/05/25 23:14
<Marychuy Hurtado NP - Last Filed: 04/05/25 23:55>
*Radiology
Radiology exam reviewed: radiology read reviewed
*Pulse Oximetry
SaO2: 98
Oxygen Mode of Delivery: Room air
Patient hypoxic: no
*Critical Care Note
Total Time (30-74mins, 75-104mins- exclusive of procedures): Not Applicable
<Marychuy Hurtado NP - Last Filed: 04/05/25 23:55>
Update Note
Update Note:
Patient to ED fro NH with report of vomiting, rigors which started this afternoon. temp on initial assessment 104 rectal Givn rectal tylenol Temp 102.5 at present. WBC 3, lactic 6.5. IVF initiated. Cefepime 2gm iV given. He remains
normotensive. CT report reviewed. UA pos for UTI. WIll admit to hospitalist service. Case discussed [facility] Dr. Díaz who agrees [facility] findings and plan.
ED Attending Note
<Marychuy Hurtado APPLICATIONS PROGRAMMER - Last Filed: 04/05/25 23:55>
-
Portions of this chart may have been created with voice recognition software.� Occasional wrong word or��sound alike� substitutions may have occurred due to the inherent limitations of voice recognition software.
<Jaquan Díaz DO - Last Filed: 04/05/25 18:04>
ED Attending Note
Patient seen and examined by attending physician: Yes
I performed the substantive portion of visit, reviewed & personally made and approve the management plan that is documented in note by myself or KENENDI.: Yes
ED Attending Note:
I evaluated the patient bedside. The patient has rather significant lactic elevation, leukopenia noted, he was given aggressive IV fluids.
Discharge Plan
Departure
Patient Disposition: Admit
Date of Disposition: 04/05/25
Time of Disposition: 18:04
Presentation/result/management discussed w/ accepting MD/DO: Hospitalist
Condition: Fair
Covid-19: Not Applicable
Discharge Problem:
Sepsis, UTI (urinary tract infection)
Interventions
Interventions:
*Risk Screen - Suicide Last Done: 04/05/25 15:39
*General Assessment Last Done: 04/05/25 15:39
*Neglect/Abuse Screening Last Done: 04/05/25 15:39
*ED- Fall Risk Assessment Last Done: 04/05/25 15:45
*ED COVID-19 Vaccine History Last Done: 04/05/25 15:45
*Nursing Disposition Last Done: 04/05/25 21:06
KZ-Yzncll-Iyisrcwkbq Assessment Last Done: 04/05/25 15:45
Discharge Date and Time
Discharge Date/Time: 04/05/25 21:07
[2025-04-05 17:32] LABS: Urine Red Blood Cell 60-70 /HPF (0-2); Urine Squamous Cell 0-2 /LPF (Few)
[2025-04-05 17:33] LABS: Urine White Cell 21-25 /HPF (0-5)
[2025-04-05] MEDS: ZOSYN 50 IV (17:59)
--- NOTE | 2025-04-05 18:59 | HPS.HSE ---
Family Physician
-
Family Physician: * NONE
Chief Complaint
-
Abdominal pain
History of Present Illness
Patient is a 75-year-old with past medical history significant for atrial fibrillation on anticoagulation status post pacemaker placement, hypertension, hyperlipidemia, insulin-dependent diabetes, was brought in from apparently assisted for acute
episode of shaking chills.
Patient is a poor historian. He is unable to provide any significant history but he stated that he was in usual state of health up until after having lunch. He reported that he started having uncontrolled shakes and rigors. He vomited his lunch.
He reported mild abdominal discomfort. He actually denies any urinary symptoms including frequency urgency dysuria hematuria. He reports prior history of UTI and a prior history of kidney stone but denies any history of BPH. He denies any recent
instrumentation. He denies any known sick contacts. He denies any recent travel. Patient denies any cough wheezing or shortness of breath.
On arrival in the emergency department he had a Tmax of 100.1. Blood pressure was 107/56 with a pulse rate of 88 and he was satting 95% on 2 L currently. White count peripherally was 3 with some immature cells. Hemoglobin and platelets were
normal. Electrolytes BUN/creatinine were normal. Lactic acid was elevated at 6.5. UA was markedly positive with nitrite leukocyte esterase bacteria and WBCs. He had a CT of the abdomen pelvis which showed thickened urinary bladder wall but
otherwise no acute findings.
ECG shows AV paced rhythm otherwise unremarkable. COVID test and flu test are negative. Chest x-ray shows no acute infiltrates.
Medical History
Past Medical History
Past Medical History: Reports Other
Additional Past Medical History:
HX Prx AF s/p DC CV in Aug 2023
HX ight internal carotid artery stenosis, 50-69% range.
Essential hypertension.
Hyperlipidemia.
Obstructive sleep apnea on CPAP.
Folic acid deficiency.
Depression.
Melanoma of abdomen and back with azeb
Past Surgical History: Reports Other
Social History
Tobacco: Non-smoker
Alcohol: None
Personal: (July 2023)
Living: With Family
Family History
Family History: Not pertinent
Allergies / Home Medications
Allergies reflects when Allergies were last updated in [facility].
Home Medications with original date entered in [facility]
Allergy/Medication List:
Allergies
Allergy/AdvReac Type Severity Reaction Status Date / Time
No Known Allergies Allergy Verified 04/05/25 15:39
Home Medications
cholecalciferol (vitamin D3) 10 mcg (400 unit) tablet (Vitamin D3) 400 units PO DAILY Supplement 09/26/20
clopidogrel 75 mg tablet 75 mg PO DAILY #90 tabs 08/08/23
empagliflozin 10 mg tablet (Jardiance) 10 mg PO DAILY Diabetes/Heart Failure 08/08/23
nitroglycerin 0.4 mg sublingual tablet 0.4 mg sublingual [id number] PRN chest pain #25 tabs 08/08/23
ferrous sulfate 325 mg (65 mg iron) tablet 325 mg PO DAILY Supplement 09/09/23
pantoprazole 40 mg tablet,delayed release 40 mg PO DAILY gerd 30 days #30 tabs 11/17/23
famotidine 10 mg tablet 10 mg PO DAILY Gastrointestinal Issue 11/24/23
atorvastatin 80 mg tablet (Lipitor) 80 mg PO QPM High Cholesterol 11/25/23
metoprolol succinate 25 mg tablet,extended release 24 hr 25 mg PO BID #0 tabs 12/03/23
apixaban 5 mg tablet (Eliquis) 5 mg PO BID Blood Clot Prevention/Tx #0 tabs 03/26/24
acetaminophen 325 mg tablet (Tylenol) 650 mg PO Q4HPRN PRN MILD PAIN 04/05/25
cyanocobalamin (vitamin B-12) 500 mcg tablet 500 mcg PO DAILY 04/05/25
diclofenac sodium 1 % topical gel 0 g topical BID B/L KNEE 04/05/25
digoxin 250 mcg (0.25 mg) tablet 250 mcg PO DAILY 04/05/25
docusate sodium 100 mg capsule (Colace) 100 mg PO DAILY 04/05/25
duloxetine 40 mg capsule,delayed release 40 mg PO DAILY 04/05/25
furosemide 40 mg tablet (Lasix) 40 mg PO DAILY 04/05/25
gabapentin 300 mg capsule 300 mg PO HS 04/05/25
insulin glargine 100 unit/mL (3 mL) subcutaneous pen (Lantus Solostar U-100 Insulin) 18 unit SC 04/05/25
levomefolate 15 mg-algal oil 90.314 mg capsule ([place]in (algal oil)) 1 cap PO DAILY 04/05/25
magnesium hydroxide 400 mg/5 mL oral suspension (Milk of Magnesia) 2,400 mg PO DAILYPRN PRN CONSTIPATION 04/05/25
sennosides 8.6 mg-docusate sodium 50 mg tablet (Stool Softener-Stimulant Laxative) 1 tab PO BIDPRN PRN CONSTIPATION 04/05/25
spironolactone 25 mg tablet 12.5 mg PO DAILY 04/05/25
valsartan 80 mg tablet 80 mg PO DAILY 04/05/25
Review of Systems
-
Unable to obtain full review of systems at this time due to: Acuity
Physical Exam
Vital Signs
Vital Signs
Temp Pulse Resp BP Pulse Ox
103.1 F H 88 24 107/56 95
04/05/25 17:56 04/05/25 18:45 04/05/25 17:15 04/05/25 18:40 04/05/25 18:45
Physical Exam
General: Other (Generalized weakness); No Fever or Chills
HEENT: NormoCephalic, Anicteric, Moist mucous membranes, PERRLA, [place] Conjunctivae, No Ptosis and Other (Slight contusion left maxilla from fall)
Respiratory: Clear; No Wheezes, Rales or Rhonchi
Cardiac: S1/S2, Regular Rhythm and Other (LifeVest in place); No Murmur, Rub, Gallop or Peripheral Edema (+1 bilateral ankle edema)
Breast: Deferred by me
GI: Soft, Non Tender, Non Distended, Normal Bowel Sounds and No Hepatosplenomegaly
Rectal: Deferred by Provider
Genito-urinary: Deferred by me
Musculoskeletal: No Clubbing, No Cyanosis, Edema, Left Lower Extremity (+1 ankle edema) and Edema, Right Lower Extremity (+1 ankle edema); No Edema, Left Upper Extremity or Edema, Right Upper Extremity
Skin: Warm, Dry and Rash
Neuro: AO x 3 (With episodes of rambling or confusion son states this has been normal for him for many months but worse since July after his ), Cranial Nerves Intact and No Sensory Deficits; No Slurred Speech, Facial Droop, Tremors or
Sedated
Psych: Calm
Laboratory Results
-
04/05/25 15:59
04/05/25 15:59
Laboratory Results
Lactic Acid 6.5 mmol/L (0.7-2.0) H* 04/05/25 15:59
Total Bilirubin 0.9 mg/dl (0.2-1.3) 04/05/25 15:59
AST 31 U/L (17-59) 04/05/25 15:59
ALT 33 U/L (0-50) 04/05/25 15:59
Alkaline Phosphatase 122 U/L (38-126) 04/05/25 15:59
Data Reviewed
-
Diagnostic Radiology: Image Personally Visualized and interpreted and Report Reviewed by me
CT Scan: Report Reviewed by me
Medical Tests (Nuc Med, Echo, EKG etc): Image Personally Visualized and interpreted
Lab Data: Labs Reviewed by me
Old Records: Reviewed
Impression/Plan
-
IMPRESSION:
75-year-old with multiple comorbidities including insulin-dependent diabetes, atrial fibrillation on anticoagulation and status post pacemaker placement, CHF with recovered EF presenting to the emergency department with acute onset of rigors and
chills and found to be febrile to almost 104 degrees. His UA was markedly positive but otherwise investigation in the ED was unremarkable with negative viral studies. Patient has no prior history of urological issues. He did have a prior
nephrolithiasis and a prior UTI. He denies urinary symptoms currently. He denies diarrhea nausea or vomiting.
PLAN:
Sepsis -likely secondary to urinary infection. No known complicating factors
-Admit to telemetry for
-Blood cultures, urine culture sent
-Will continue with IV cefepime pending cultures
-Status post 30ml/kg NS, BP stable for now
- will hold antihypertensives and lasix for now to restart if bp stable by am
- Continue IV cefepime
- ID consultation
AFIB - V paced rhythm
- continue eliquis
- continue digoxin
- continue metoprolol with hold parameters
DM:
- lantus 10 hs
- sliding scale
DVT PPX - on eliquis
Code status - full ocde
--- NOTE | 2025-04-05 21:29 | PTCARENOTE ---
Patient arrived from the ED via stretcher. AAOx2. Not to time. VSS. Axillary temp 100.5. On 2L O2NC 98%. Pt pulled over onto the bed. Shakes and rigors observed. Pt oriented to the room. Call padgett is within reach. Bed alarm in place.
[2025-04-05 21:43] LABS: Glucose - Point of Care 181 mg/dl (70-99)
[2025-04-05] MEDS: ELIQUIS 5 MG PO (21:46)
[2025-04-05] MEDS: MAXIPIME 1000 MG IV (21:48)
[2025-04-05] MEDS: STERILE WATER FOR INJECTION 10 ML IV (21:48)
[2025-04-05] MEDS: TOPROL XL 25 MG PO (21:48)
[2025-04-05] MEDS: NEURONTIN 300 MG PO (21:48)
[2025-04-05] MEDS: LANTUS 0.1 UNITS SC (21:51)
[2025-04-05] MEDS: TYLENOL 650 MG PO (21:51)
[2025-04-05] MEDS: LR 500 IV (22:00)
[2025-04-06] VITALS (12 sets, daily range): BP systolic 89–131; BP diastolic 42–56; PULSE 63–92; O2SAT 97–98
--- NOTE | 2025-04-06 02:33 | DOWNTIME ---
There was a [employer] Downtime on 04/06/2025 from 0100 to 04/06/2025 at 0215. Downtime documentation of patient's care, including medication administrations, has been reconciled in the electronic record per guidelines. Refer to the
patient's paper chart under the miscellaneous tab to see printed paper medication records and downtime forms.
[2025-04-06] MEDS: STERILE WATER FOR INJECTION 10 ML IV ×4 (04:08→21:20)
[2025-04-06] MEDS: MAXIPIME 1000 MG IV ×4 (04:08→21:20)
[2025-04-06] MEDS: TYLENOL 650 MG PO (04:15)
[2025-04-06 07:15] LABS: Hematocrit 29.7 % (39.0-52.0); Hemoglobin 10.2 g/dL (13.0-18.0); Mean Corp Hgb Conc. 34.3 g/dL (33.0-37.0); Mean Corpuscular Volume 92.0 fL (80.0-94.0); Platelet Count 101 10^3/uL (130-400); Red Cell Dist. Width 12.6 % (11.5-14.5)
[2025-04-06 07:30] LABS: Blood Urea Nitrogen 29 mg/dl (9-20); Calcium 8.9 mg/dl (8.4-10.2); Carbon Dioxide 27 mmol/L (22-30); Chloride 104 mmol/L (98-107); Estimated Creatinine Clearance 49 ml/min; Glucose 151 mg/dl (70-99); Magnesium 1.6 mg/dl (1.6-2.3); Potassium 3.9 mmol/L (3.5-5.1); Sodium 138 mmol/L (135-145); eGFR 47.65
[2025-04-06] MEDS: PROTONIX 40 MG PO (07:50)
[2025-04-06] MEDS: FEOSOL 325 MG PO (07:50)
[2025-04-06] MEDS: PEPCID 10 MG PO (07:51)
[2025-04-06] MEDS: CYMBALTA DELAYED RELEASE 40 MG PO (07:51)
[2025-04-06] MEDS: COLACE 100 MG PO (07:51)
[2025-04-06] MEDS: ELIQUIS 5 MG PO ×2 (07:51→21:18)
[2025-04-06] MEDS: TOPROL XL PO ×2 (08:01→21:23)
[2025-04-06 08:03] LABS: Glucose - Point of Care 179 mg/dl (70-99)
[2025-04-06] MEDS: NOVOLOG FLEXPEN-LOW RESISTANCE SC ×2 (08:10→12:41)
--- NOTE | 2025-04-06 08:22 | W.PN.HOSP.TC ---
Today's Communication/Plan
-
Antibiotic.
Repeat blood culture.
IV fluid
PT/OT consult
Assessment / Plan
Assessment / Plan
Impression:
75-year-old with multiple comorbidities including insulin-dependent diabetes, atrial fibrillation on anticoagulation and status post pacemaker placement, CHF with recovered EF presenting to the emergency department with acute onset of rigors and
chills and found to be febrile to almost 104 degrees. His UA was markedly positive but otherwise investigation in the ED was unremarkable with negative viral studies. Patient has no prior history of urological issues. He did have a prior
nephrolithiasis and a prior UTI. He denies urinary symptoms currently. He denies diarrhea nausea or vomiting.
His urine and blood culture came back positive for E. coli
Assessment/plan:
Sepsis -likely secondary to urinary infection.
E. coli bacteremia
-Admitted to telemetry for
-Blood cultures, urine culture show E. coli, pending sensitive
-Will continue with IV cefepime for now
- Blood pressure still low, will continue IV
- Continue to hold antihypertensives and lasix for now to restart if bp stable by am
- Repeat blood culture
AFIB - V paced rhythm
- continue eliquis
- continue digoxin
- continue metoprolol with hold parameters
History of coronary artery disease status post stent.
Continue Eliquis.
Patient no longer taking Plavix, will discontinue
DM:
- lantus 10 hs
- sliding scale
CODE STATUS: Full code
DVT prophylaxis: eliquis
Diet: DM diet
Disposition: Continue antibiotic.
Repeat blood culture
Total time spent on today's encounter was 65 minutes which included time spent in counseling the patient/family regarding diagnosis and treatment plan as listed above, goals of care, and symptom management. Case was discussed with nursing staff,
specialists, and care coordinators/case management. All labs and imaging personally reviewed by me. Remainder the time spent in detailed review of previous records, lab data, imaging, and other medical provider documentation.
Anticipated Discharge: 24 - 48 hours
Subjective/Interval History
-
Date of Service: April 06, 2025
Patient seen and examined at bedside, denies any chest pain or shortness of breath, no abdominal pain, no nausea, no vomiting, no diarrhea or constipation.
Objective Data
-
Labs:
Laboratory Results
04/06/25
06:39
WBC 23.7 H
Hgb 10.2 L D
Hct 29.7 L
Plt Count 101 L D
Sodium 138
Potassium 3.9
Chloride 104
Carbon Dioxide 27
BUN 29 H
Creatinine 1.5 H
Glucose 151 H
Calcium 8.9
Vital Signs:
Vital Signs
Temp Pulse Resp BP Pulse Ox
97.6 F 62 21 95/48 98
04/06/25 03:23 04/06/25 08:01 04/06/25 03:23 04/06/25 08:01 04/06/25 04:20
I&O
04/05/25 04/06/25 04/07/25
06:59 06:59 06:59
Intake Total 1460 / 1460
Output Total 350 / 350
Balance 1110 / 1110
Physical Exam
-
General: Well Developed, Well Nourished, No Apparent Distress and Comfortable
HEENT: Normocephalic, Atraumatic, Moist Mucous Membranes, No Ptosis, PERRLA and Nose Appears Normal
Respiratory: Clear to Auscultation and Non Labored Respirations
Cardiac: Regular Rhythm and S1/S2
Breast: Deferred by me
GI: Soft, Nontender, Nondistended and Normal Bowel Sounds
Genito-urinary: No Costovertebral Tender
Musculoskeletal: No Clubbing, No Cyanosis and No Edema
Skin: Warm
Neuro: Awake, Alert, Oriented, AO x 3 and No Motor Deficits
Psych: Calm
Data Reviewed
-
Diagnostic Radiology: Image personally visualized and interpreted and Report Reviewed by me
CT Scan: Image personally visualized and interpreted and Report Reviewed by me
Ultrasound: Image personally visualized and interpreted and Report Reviewed by me
MRI: Image personally visualized and interpreted and Report Reviewed by me
Medical Tests (Nuc Med, Echo etc): Image personally visualized and interpreted and Report Reviewed by me
Labs: Labs Reviewed by me
Old Records: Reviewed
--- NOTE | 2025-04-06 12:20 | CM ---
Addendum entered by Yris Steiner 04/06/25 12:39:
PT has deferred evaluation until pt is medically stable
Original Note:
Chart Reviewed. Met with pt at bedside. IA completed. Confirmed with [facility] pt is in personal care. Uses a wheelchair while in his apartment and use walker for outings. Has hx with Shay PT and OT at [facility]. States he has had Cardiac Rehab in the
past. No hx of SNF. DME: standing walker, wheelchair, shower chair. Confirmed with patient he does not have PCP at this time.Confirmed RX insurance and drug coverage.
Baseline-pt states he is is independent with ADLs. Waiting for confirmation from facility. [phone]
PCP: none
Rx: [facility]
Plan: D/C back to [facility]
[2025-04-06 12:31] LABS: Glucose - Point of Care 197 mg/dl (70-99)
--- NOTE | 2025-04-06 15:13 | CM ---
Spoke with Timo at [facility].
Patient is able to ambulate at the facility with a RW also has a WC.
Patient does therapy with [facility] and will require a script on d/c for PT/OT.
PCP: Ness Reyes NP
[facility]
report# [phone] or Timo or main # [phone]
fax# [phone]
[2025-04-06 16:44] LABS: Glucose - Point of Care 218 mg/dl (70-99)
[2025-04-06] MEDS: LIPITOR 80 MG PO (17:30)
[2025-04-06] MEDS: NOVOLOG FLEXPEN-LOW RESISTANCE 2 UNITS SC (17:30)
[2025-04-06] MEDS: NSS 1000 IV (18:03)
[2025-04-06] MEDS: NEURONTIN 300 MG PO (21:20)
[2025-04-06 21:25] LABS: Glucose - Point of Care 232 mg/dl (70-99)
[2025-04-06] MEDS: LANTUS 0.1 UNITS SC (21:34)
[2025-04-07] MEDS: MAXIPIME 1000 MG IV ×4 (03:18→22:21)
[2025-04-07] MEDS: STERILE WATER FOR INJECTION 10 ML IV ×4 (03:18→22:21)
[2025-04-07 03:32] VITALS: BP 107/48
[2025-04-07 06:00] VITALS: BMI 27.3
[2025-04-07] MEDS: NSS 1000 IV (07:17)
[2025-04-07 07:37] LABS: Glucose - Point of Care 173 mg/dl (70-99)
[2025-04-07 08:02] LABS: Hematocrit 27.5 % (39.0-52.0); Hemoglobin 9.3 g/dL (13.0-18.0); Mean Corp Hgb Conc. 33.8 g/dL (33.0-37.0); Mean Corpuscular Volume 92.0 fL (80.0-94.0); Platelet Count 99 10^3/uL (130-400); Red Cell Dist. Width 12.5 % (11.5-14.5)
[2025-04-07 08:29] LABS: Blood Urea Nitrogen 34 mg/dl (9-20); Calcium 9.3 mg/dl (8.4-10.2); Carbon Dioxide 27 mmol/L (22-30); Chloride 106 mmol/L (98-107); Estimated Creatinine Clearance 57 ml/min; Glucose 148 mg/dl (70-99); Potassium 3.4 mmol/L (3.5-5.1); Sodium 138 mmol/L (135-145); eGFR 56.58
[2025-04-07 08:40] VITALS: BP 112/46
[2025-04-07] MEDS: TOPROL XL 25 MG PO ×2 (08:40→19:47)
[2025-04-07] MEDS: PROTONIX 40 MG PO (08:40)
[2025-04-07] MEDS: ELIQUIS 5 MG PO ×2 (08:40→19:47)
[2025-04-07] MEDS: CYMBALTA DELAYED RELEASE 40 MG PO (08:40)
[2025-04-07] MEDS: FEOSOL 325 MG PO (08:41)
[2025-04-07] MEDS: NOVOLOG FLEXPEN-LOW RESISTANCE 1 UNITS SC ×3 (08:41→17:17)
[2025-04-07] MEDS: COLACE 100 MG PO (08:41)
[2025-04-07] MEDS: PEPCID 10 MG PO (08:41)
--- NOTE | 2025-04-07 10:43 | CM ---
Reviewed chart.met with pt bedside. Informed him that he will need a script for PT/OT at discharge to use at [facility] location, which is his preferred provider. Had BC drawn yesterday- results pending
Possible D/C tomorrow. Will fax over updated notes to Timo at [facility].

Plan: D/C to [facility] with Shay at [facility] when stable.
[2025-04-07 11:00] VITALS: BP 125/64
[2025-04-07 11:46] LABS: Glucose - Point of Care 196 mg/dl (70-99)
--- NOTE | 2025-04-07 13:15 | W.PN.HOSP.TC ---
Today's Communication/Plan
-
continue antibiotic.
Repeat blood culture negative so far.
DC IV fluid
PT/OT consult
Assessment / Plan
Assessment / Plan
Impression:
75-year-old with multiple comorbidities including insulin-dependent diabetes, atrial fibrillation on anticoagulation and status post pacemaker placement, CHF with recovered EF presenting to the emergency department with acute onset of rigors and
chills and found to be febrile to almost 104 degrees. His UA was markedly positive but otherwise investigation in the ED was unremarkable with negative viral studies. Patient has no prior history of urological issues. He did have a prior
nephrolithiasis and a prior UTI. He denies urinary symptoms currently. He denies diarrhea nausea or vomiting.
His urine and blood culture came back positive for E. coli
Assessment/plan:
Sepsis -likely secondary to urinary infection.
E. coli bacteremia
-Admitted to telemetry for
-Blood cultures, urine culture show E. coli, pending sensitive
-Will continue with IV cefepime for now
- Blood pressure still low, will continue IV
- Continue to hold antihypertensives and lasix for now to restart if bp stable by am
- Repeat blood culture negative so far
AFIB - V paced rhythm
- continue eliquis
- continue digoxin
- continue metoprolol with hold parameters
History of coronary artery disease status post stent.
Continue Eliquis.
Patient no longer taking Plavix, will discontinue
DM:
- lantus 10 hs
- sliding scale
CODE STATUS: Full code
DVT prophylaxis: eliquis
Diet: DM diet
Disposition: Continue antibiotic.
Repeat blood culture negative
Total time spent on today's encounter was 65 minutes which included time spent in counseling the patient/family regarding diagnosis and treatment plan as listed above, goals of care, and symptom management. Case was discussed with nursing staff,
specialists, and care coordinators/case management. All labs and imaging personally reviewed by me. Remainder the time spent in detailed review of previous records, lab data, imaging, and other medical provider documentation.
Anticipated Discharge: Within 24 hours
Subjective/Interval History
-
Date of Service: April 07, 2025
Patient seen and examined at bedside, denies any chest pain or shortness of breath, no abdominal pain, no nausea, no vomiting, no diarrhea or constipation.
Objective Data
-
Labs:
Laboratory Results
04/07/25
07:23
WBC 13.9 H
Hgb 9.3 L
Hct 27.5 L
Plt Count 99 L
Sodium 138
Potassium 3.4 L
Chloride 106
Carbon Dioxide 27
BUN 34 H
Creatinine 1.3
Glucose 148 H
Calcium 9.3
Vital Signs:
Vital Signs
Temp Pulse Resp BP Pulse Ox
97.8 F 67 20 125/64 96
04/07/25 11:00 04/07/25 11:00 04/07/25 11:00 04/07/25 11:00 04/07/25 11:11
I&O
04/06/25 04/07/25 04/08/25
06:59 06:59 06:59
Intake Total 1460 / 1460 2960 / 2960
Output Total 350 / 350 1650 / 1650
Balance 1110 / 1110 1310 / 1310
Physical Exam
-
General: Well Developed, Well Nourished, No Apparent Distress and Comfortable
HEENT: Normocephalic, Atraumatic, Moist Mucous Membranes, No Ptosis, PERRLA and Nose Appears Normal
Respiratory: Clear to Auscultation and Non Labored Respirations
Cardiac: Regular Rhythm and S1/S2
Breast: Deferred by me
GI: Soft, Nontender, Nondistended and Normal Bowel Sounds
Genito-urinary: No Costovertebral Tender
Musculoskeletal: No Clubbing, No Cyanosis and No Edema
Skin: Warm
Neuro: Awake, Alert, Oriented, AO x 3 and No Motor Deficits
Psych: Calm
--- NOTE | 2025-04-07 13:16 | PN.CDI ---
CDI
- -
CDI:
Physician Documentation Request
Admit Date: 04/05/25 19:40
Dear Doctor Sharon,
Please review the following and provide your response in the progress notes.
Clinical Indicators:
- Patient admit for sepsis due to UTI
- Renal labs:
Laboratory Tests
04/05/25 04/06/25 04/07/25
15:59 06:39 07:23
Creatinine 1.2 1.5 H 1.3
eGFR > 60.00 47.65 56.58
Please clarify which of the following accurately represents the patient's renal status:
ANN
CKD (please specify stage)
Other (please specify)
Criteria for ANN*
1 Increase in serum creatinine by > or = to 0.3 mg/dL (> or = to 26.5 micromol/L) within 48 hours, OR
2 Increase in serum creatinine to > or = to 1.5 times baseline, which is known or presumed to have occurred within 7 days, OR
3 Urine volume < 0.5 nL/kg/hour for six hours
Stages of Chronic Kidney Disease*
Level Description GFR
G1 Normal or High >90
G2 Mildly decreased 60-89
G3a Mildly to moderately decreased 45-59
G3b Moderately to severely decreased 30-44
G4 Severely decreased 15-29
G5 Kidney failure <15
Use of terms such as suspected, likely, concern for, or probable (associated with a specific diagnosis that is being evaluated, monitored, or treated as if it exists) are acceptable and can be coded in the inpatient setting, when documented at the
time of discharge.
Thank you,
Kirsten Murillo RN
CDI Specialist
Please use your independent medical judgment in providing your response.
*Source: Kidney Disease: Improving Global Outcomes (KDIGO) 2012
--- NOTE | 2025-04-07 13:21 | PN.CDI ---
CDI
- -
CDI:
Physician Documentation Request
Admit Date: 04/05/25 19:40
Dear Doctor Sharon,
Please review the following and provide your response in the progress notes.
Clinical Indicators:
- Patient admit for sepsis due to UTI
- per H&P pmh atrial fibrillation s/p pacemaker
- Hx of ablation
- 04/07 PN 'AFIB - V-paced'
If possible, please provide further specificity regarding atrial fibrillation, such as:
Paroxysmal atrial fibrillation - terminates spontaneously or with intervention within 7 days of onset
Persistent atrial fibrillation - episodes of continuous AF that last more than 7 days and do not self-terminate
Permanent atrial fibrillation - when a decision has been made to accept the presence of AF and there is no further attempt to restore or maintain sinus rhythm
Other - please specify
Use of terms such as suspected, likely, concern for, or probable (associated with a specific diagnosis that is being evaluated, monitored, or treated as if it exists) are acceptable and can be coded in the inpatient setting, when documented at the
time of discharge.
Thank you,
Kirsten Murillo RN
CDI Specialist
Please use your independent medical judgment in providing your response.
[2025-04-07 15:10] VITALS: BP 128/63
[2025-04-07 16:52] LABS: Glucose - Point of Care 195 mg/dl (70-99)
[2025-04-07] MEDS: LIPITOR 80 MG PO (17:16)
[2025-04-07 19:35] VITALS: BP 137/64
[2025-04-07 21:29] LABS: Glucose - Point of Care 192 mg/dl (70-99)
[2025-04-07] MEDS: LANTUS 0.18 UNITS SC (22:20)
[2025-04-07] MEDS: NEURONTIN 300 MG PO (22:20)
[2025-04-07] MEDS: FLUSH (NSS) 1 FLUSH IV (22:21)
[2025-04-07 23:10] VITALS: BP 132/72
[2025-04-08 03:15] VITALS: BP 112/51
[2025-04-08] MEDS: MAXIPIME 1000 MG IV ×2 (03:55→09:26)
[2025-04-08] MEDS: STERILE WATER FOR INJECTION 10 ML IV ×2 (03:55→09:28)
[2025-04-08 06:00] VITALS: BMI 27.3
[2025-04-08 07:50] LABS: Glucose - Point of Care 151 mg/dl (70-99)
[2025-04-08 07:52] VITALS: BP 128/66
[2025-04-08] MEDS: COLACE 100 MG PO (08:07)
[2025-04-08] MEDS: PEPCID 10 MG PO (08:08)
[2025-04-08] MEDS: ELIQUIS 5 MG PO (08:08)
[2025-04-08] MEDS: FEOSOL 325 MG PO (08:08)
[2025-04-08] MEDS: NOVOLOG FLEXPEN-LOW RESISTANCE SC ×2 (08:08→12:44)
[2025-04-08] MEDS: PROTONIX 40 MG PO (08:08)
[2025-04-08] MEDS: TOPROL XL 25 MG PO (08:08)
[2025-04-08] MEDS: CYMBALTA DELAYED RELEASE 40 MG PO (08:08)
[2025-04-08 08:34] LABS: Hematocrit 29.0 % (39.0-52.0); Hemoglobin 9.8 g/dL (13.0-18.0); Mean Corp Hgb Conc. 33.8 g/dL (33.0-37.0); Mean Corpuscular Volume 91.5 fL (80.0-94.0); Platelet Count 112 10^3/uL (130-400); Red Cell Dist. Width 12.3 % (11.5-14.5)
[2025-04-08 09:16] LABS: Blood Urea Nitrogen 26 mg/dl (9-20); Calcium 9.8 mg/dl (8.4-10.2); Carbon Dioxide 27 mmol/L (22-30); Chloride 109 mmol/L (98-107); Estimated Creatinine Clearance 74 ml/min; Glucose 144 mg/dl (70-99); Potassium 4.0 mmol/L (3.5-5.1); Sodium 138 mmol/L (135-145); eGFR > 60.00
--- NOTE | 2025-04-08 10:28 | CM ---
Addendum entered by Yris Steiner 04/08/25 12:14:
[facility] Fax and Report # [phone]
Addendum entered by Yris Steiner 04/08/25 12:08:
[facility] made aware the son will transport the pt to the facility 'mid-afternoon'
Original Note:
Chart reviewed. Met with pt who anticipates being DC today. Confirmation obtain from Dr. Herrera. Will arrange for transportation with either son or wheelchair van. once DC orders are placed. Dr. Herrera aware of need for O/P scripts for PT and OT.
Will contact [facility] prior to DC.
Plan: DC to [facility] care
--- NOTE | 2025-04-08 10:36 | W.PN.HOSP.TC ---
Today's Communication/Plan
-
Discharge today
Assessment / Plan
Assessment / Plan
Impression:
75-year-old with multiple comorbidities including insulin-dependent diabetes, atrial fibrillation on anticoagulation and status post pacemaker placement, CHF with recovered EF presenting to the emergency department with acute onset of rigors and
chills and found to be febrile to almost 104 degrees. His UA was markedly positive but otherwise investigation in the ED was unremarkable with negative viral studies. Patient has no prior history of urological issues. He did have a prior
nephrolithiasis and a prior UTI. He denies urinary symptoms currently. He denies diarrhea nausea or vomiting.
His urine and blood culture both came back positive for E. coli sensitive to Augmentin-will be discharged on additional 10 days of Augmentin, physical recommending home physical therapy.
Assessment/plan:
Sepsis -likely secondary to urinary infection.
E. coli bacteremia
-Admitted to telemetry for
-Blood cultures, urine culture show E. coli, pending sensitive
-Will continue with IV cefepime for now
- Blood pressure still low, will continue IV
- Continue to hold antihypertensives and lasix for now to restart if bp stable by am
- Repeat blood culture negative so far
- E. coli sensitive to Augmentin-will be discharged on additional 10 days of Augmentin
Paroxysmal AFIB - V paced rhythm
- continue eliquis
- continue digoxin
- continue metoprolol with hold parameters
ANN
Resolved
History of coronary artery disease status post stent.
Continue Eliquis.
Patient no longer taking Plavix, will discontinue
DM:
- lantus 10 hs
- sliding scale
CODE STATUS: Full code
DVT prophylaxis: eliquis
Diet: DM diet
Disposition: Discharge today
Total time spent on today's encounter was 65 minutes which included time spent in counseling the patient/family regarding diagnosis and treatment plan as listed above, goals of care, and symptom management. Case was discussed with nursing staff,
specialists, and care coordinators/case management. All labs and imaging personally reviewed by me. Remainder the time spent in detailed review of previous records, lab data, imaging, and other medical provider documentation.
Anticipated Discharge: Today
Subjective/Interval History
-
Date of Service: April 08, 2025
Patient seen and examined at bedside, denies any chest pain or shortness of breath, no abdominal pain, no nausea, no vomiting, no diarrhea or constipation.
Objective Data
-
Labs:
Laboratory Results
04/08/25
07:16
WBC 10.4
Hgb 9.8 L
Hct 29.0 L
Plt Count 112 L
Sodium 138
Potassium 4.0
Chloride 109 H
Carbon Dioxide 27
BUN 26 H
Creatinine 1.0
Glucose 144 H
Calcium 9.8
Vital Signs:
Vital Signs
Temp Pulse Resp BP Pulse Ox
97.4 F 63 16 128/66 97
04/08/25 07:52 04/08/25 08:08 04/08/25 07:52 04/08/25 08:08 04/08/25 08:58
I&O
04/07/25 04/08/25 04/09/25
06:59 06:59 06:59
Intake Total 2960 / 2960 1760 / 1760
Output Total 1650 / 1650 1100 / 1100
Balance 1310 / 1310 660 / 660
Physical Exam
-
General: Well Developed, Well Nourished, No Apparent Distress and Comfortable
HEENT: Normocephalic, Atraumatic, Moist Mucous Membranes, No Ptosis, PERRLA and Nose Appears Normal
Respiratory: Clear to Auscultation and Non Labored Respirations
Cardiac: Regular Rhythm and S1/S2
Breast: Deferred by me
GI: Soft, Nontender, Nondistended and Normal Bowel Sounds
Genito-urinary: No Costovertebral Tender
Musculoskeletal: No Clubbing, No Cyanosis and No Edema
Skin: Warm
Neuro: Awake, Alert, Oriented, AO x 3 and No Motor Deficits
Psych: Calm
--- NOTE | 2025-04-08 11:12 | W.DCSUMMARY ---
Discharge Summary
Discharge Data
Date of Admission: 04/05/25
Date of Discharge: 04/08/25
Total time spent discharging patient (in min): 40
-
Pending Results: No
Hospital Course
Hospital course
5-year-old with multiple comorbidities including insulin-dependent diabetes, atrial fibrillation on anticoagulation and status post pacemaker placement, CHF with recovered EF presenting to the emergency department with acute onset of rigors and
chills and found to be febrile to almost 104 degrees. His UA was markedly positive but otherwise investigation in the ED was unremarkable with negative viral studies. Patient has no prior history of urological issues. He did have a prior
nephrolithiasis and a prior UTI. He denies urinary symptoms currently. He denies diarrhea nausea or vomiting.
His urine and blood culture both came back positive for E. coli sensitive to Augmentin-will be discharged on additional 10 days of Augmentin, physical recommending home physical therapy.
During hospitalization patient was treated from the following
Sepsis -likely secondary to urinary infection.
E. coli bacteremia
-Admitted to telemetry for
-Blood cultures, urine culture show E. coli, pending sensitive
-Will continue with IV cefepime for now
- Blood pressure still low, will continue IV
- Continue to hold antihypertensives and lasix for now to restart if bp stable by am
- Repeat blood culture negative so far
- E. coli sensitive to Augmentin-will be discharged on additional 10 days of Augmentin
Paroxysmal AFIB - V paced rhythm
- continue eliquis
- continue digoxin
- continue metoprolol with hold parameters
ANN
Resolved
History of coronary artery disease status post stent.
Continue Eliquis.
Patient no longer taking Plavix, will discontinue
DM:
- lantus 10 hs
- sliding scale
CODE STATUS: Full code
DVT prophylaxis: eliquis
Diet: DM diet
Disposition: Discharge today
Total time spent on today's encounter was 40 minutes which included time spent in counseling the patient/family regarding diagnosis and treatment plan as listed above, goals of care, and symptom management. Case was discussed with nursing staff,
specialists, and care coordinators/case management. All labs and imaging personally reviewed by me. Remainder the time spent in detailed review of previous records, lab data, imaging, and other medical provider documentation.
Anticipated Discharge: Today
Discharge Plan
-
Patient Disposition: Home (Routine Discharge)
Discharge Diagnosis/Procedures: Sepsis secondary to UTI.
E. coli bacteremia.
Acute renal failure, resolved.
Paroxysmal A-fib
Diabetes
Diet: Low Sodium and Diabetic, Carb Controlled
Activity: As tolerated
Referrals:
NONE,* [Family Provider, Internal Medicine]
Prescriptions:
New
amoxicillin-pot clavulanate 875-125 mg tablet
1 tab PO BID 10 Days Qty: 20 0RF
(DME) Outpatient physical therapy
See Rx Instructions .Route .MEDSUPPLY Qty: 1 0RF
Rx Instructions:
To be done 3 times weekly.
Diagnosis: Ambulatory Dysfunction
Continued
cholecalciferol (vitamin D3) [Vitamin D3] 400 UNITS tablet
400 units PO DAILY
Jardiance 10 mg Tablet
10 mg PO DAILY
clopidogrel 75 mg tablet
75 mg PO DAILY Qty: 90 3RF
nitroglycerin 0.4 mg tablet, sublingual
0.4 mg sublingual [id number] PRN (Reason: chest pain) Qty: 25 2RF
ferrous sulfate 325 mg (65 mg iron) Tablet
325 mg PO DAILY
famotidine 10 mg Tablet
10 mg PO DAILY
atorvastatin [Lipitor] 80 mg Tablet
80 mg PO QPM
metoprolol succinate 25 mg Tablet Extended Release 24 Hr
25 mg PO BID Qty: 0 0RF
Eliquis 5 mg Tablet
5 mg PO BID Qty: 0 0RF
furosemide [Lasix] 40 mg Tablet
40 mg PO DAILY
acetaminophen [Tylenol] 325 mg Tablet
650 mg PO Q4HPRN PRN (Reason: MILD PAIN)
valsartan 80 mg Tablet
80 mg PO DAILY
digoxin 250 mcg (0.25 mg) Tablet
250 mcg PO DAILY
magnesium hydroxide [Milk of Magnesia] 400 mg/5 mL Suspension
2,400 mg PO DAILYPRN PRN (Reason: CONSTIPATION)
cyanocobalamin (vitamin B-12) 500 mcg Tablet
500 mcg PO DAILY
docusate sodium [Colace] 100 mg Capsule
100 mg PO DAILY
gabapentin 300 mg Capsule
300 mg PO HS
insulin glargine [Lantus Solostar U-100 Insulin] 100 unit/mL (3 mL) Insulin Pen
18 unit SC HS
diclofenac sodium 1 % Gel
0 g TOPICAL BID
levomefolate-algal oil [Deplin (algal oil)] 15-90.314 mg Capsule
1 cap PO DAILY
duloxetine 40 mg Capsule,Delayed Release(Dr/Ec)
40 mg PO DAILY
sennosides-docusate sodium [Stool Softener-Stimulant Laxat] 8.6-50 mg tablet
1 tab PO BIDPRN PRN (Reason: CONSTIPATION)
spironolactone 25 mg tablet
12.5 mg PO DAILY
pantoprazole 40 mg Tablet,Delayed Release (Dr/Ec)
40 mg PO DAILY 30 Days Qty: 30 0RF
Discharge Orders:
Discharge Patient (As Directed); Ordered 04/08/25
Ordered By: Kevon Herrera
Discharge Date and Time
Print Language: SAMI
[2025-04-08 11:21] VITALS: BP 125/55
[2025-04-08 12:04] LABS: Glucose - Point of Care 193 mg/dl (70-99)
== END 2025-04-08 13:46 | disposition home or self-care (01) | DRG 872 ==
LOC: 4 EAST ACU 19:40
PROVIDERS: ADMITTING PHYSICIAN Internal Medicine; ATTENDING PHYSICIAN General Practice; EMERGENCY PHYSICIAN Emergency Medicine
DX: A41.51 Sepsis due to Escherichia coli [E. coli] (principal); N39.0 Urinary tract infection, site not specified; N17.9 Acute kidney failure, unspecified; I50.32 Chronic diastolic (congestive) heart failure; B96.20 Unspecified Escherichia coli [E. coli] as the cause of diseases classified elsewhere; E11.9 Type 2 diabetes mellitus without complications; I48.0 Paroxysmal atrial fibrillation; Z79.01 Long term (current) use of anticoagulants; Z79.84 Long term (current) use of oral hypoglycemic drugs; Z79.4 Long term (current) use of insulin; Z95.5 Presence of coronary angioplasty implant and graft; I25.10 Atherosclerotic heart disease of native coronary artery without angina pectoris; I11.0 Hypertensive heart disease with heart failure; Z95.0 Presence of cardiac pacemaker; Z87.440 Personal history of urinary (tract) infections; Z87.442 Personal history of urinary calculi; E78.00 Pure hypercholesterolemia, unspecified; G47.33 Obstructive sleep apnea (adult) (pediatric); E53.8 Deficiency of other specified B group vitamins; F32.A Depression, unspecified; Z85.820 Personal history of malignant melanoma of skin; K21.9 Gastro-esophageal reflux disease without esophagitis; R54 Age-related physical debility; Z79.899 Other long term (current) drug therapy; Z11.52 Encounter for screening for COVID-19
CPT/HCPCS: 51701; 71045; 74177; 80048; 80053; 81003; 81015; 82962; 83605; 83735; 85025; 85027; 87040; 87070; 87077; 87086; 87154; 87186; 87205; 87502; 87811; 93005; 96365; 96367; 97162; 97166; 99285; Q9967

== ENCOUNTER → 2025-05-25 10:04 | Outpatient (REF) | payer MEDICARE, SELFPAY ==
[2025-05-25 13:21] LABS: Hematocrit 31.6 % (39.0-52.0); Hemoglobin 11.0 g/dL (13.0-18.0); Mean Corp Hgb Conc. 34.8 g/dL (33.0-37.0); Mean Corpuscular Volume 91.9 fL (80.0-94.0); Nucleated Red Blood Cells % 0 % (-); Platelet Count 144 10^3/uL (130-400); Red Cell Dist. Width 11.9 % (11.5-14.5)
[2025-05-25 13:49] LABS: Glycohemoglobin (HgbA1c) 7.5 % (4.0-5.9)
[2025-05-25 13:53] LABS: Urine Character Clear (Clear)
[2025-05-25 14:00] LABS: ALT (SGPT) 25 U/L (0-50); AST (SGOT) 18 U/L (17-59); Albumin 3.8 g/dl (3.5-5.0); Alkaline Phosphatase 82 U/L (38-126); Blood Urea Nitrogen 24 mg/dl (9-20); Calcium 9.4 mg/dl (8.4-10.2); Carbon Dioxide 29 mmol/L (22-30); Chloride 102 mmol/L (98-107); Glucose 195 mg/dl (70-99); Potassium 3.7 mmol/L (3.5-5.1); Sodium 138 mmol/L (135-145); Total Protein 6.8 g/dl (6.3-8.2); eGFR > 60.00
[2025-05-25 14:29] LABS: TSH 0.96 uIU/ml (0.47-4.68)
== END ==
LOC: OLABSOL 10:04
PROVIDERS: ATTENDING PHYSICIAN Physician Assistant
DX: E11.65 Type 2 diabetes mellitus with hyperglycemia (principal); N39.0 Urinary tract infection, site not specified
CPT/HCPCS: 36415; 80053; 81003; 83036; 84443; 85025; 87086